=== PATIENT | female | born 2005 | race Caucasian/White ===

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

== ENCOUNTER 2024-05-02 22:05 | Emergency (ER) | payer MEDICAID, SELFPAY ==
[2024-05-02 22:06] VITALS: BP 142/99; PULSE 104; RESP 18; TEMP 36.8; O2SAT 100; BMI 43.4
--- NOTE | 2024-05-02 22:10 | RAD_ITS ---
PROCEDURE: CHEST 1 VIEW (PORTABLE) REASON FOR EXAM: Cough. TECHNIQUE: Frontal view of the chest. COMPARISON: None. FINDINGS: Cardiac size and pulmonary vasculature are within normal limits. No consolidation, pleural effusion, or pneumothorax is present. RAD/Chest 1 View (Portable) IMPRESSION: No acute cardiopulmonary process. [facility]
--- NOTE | 2024-05-03 00:02 | EDS_ITS ---
HPI History of Present Illness Chief Complaint: Cough Informant: patient and parent Narrative Narrative: Patient is a 19-year-old female with history of asthma presenting from home for worsening cough. Mother states that on Sae, 4 days ago she developed fever and croupy cough. Mother states is very deep. Her cough seem to be improving but worsened again today which is what prompted her to come to the emergency room. Patient has been using roommates nebulizer as well as taking [id number] cold and flu medicines. She also has a puffer with a spacer that she is been using. States has been eating okay. She has been having congestion and wheezing. Denies any earache, nausea vomiting or diarrhea. Her cough has been nonproductive. No recent fevers reported. No other complaints or concerns reported at this time. [facility] Medical History unable to obtain Home Medications ?Medication ?Instructions ?Recorded ?Last Taken ?Type Ranitidine [Zantac] 150 mg PO BID 07/24/18 Unkno wn History albuterol sulfate 90 mcg/actuation 2 puff inhalation Q 4H PRN PRN Sob 07/24/18 Unknown History aerosol inhaler (Ventolin HFA) &/Or Wheezing cephalexin 500 mg capsule 500 mg PO Q6 #28 caps Unknown Rx cetirizine 10 mg tablet 10 mg PO DAILY 07/24/18 Unkn own History chlorpheniramine maleate 4 mg 4 mg PO Q6H PRN PRN Hadley rgies 07/24/18 Unknown History tablet (Allergy (chlorpheniramine)) fluoxetine 10 mg capsule 10 mg PO DAILY 07/24/18 Unkn own History fluticasone propionate 44 inhalation 07/24/18 Unknown History mcg/actuation HFA aerosol inhaler (Flovent HFA) methylphenidate HCl 54 mg 54 mg PO DAILY 07/24/18 Unkn own History tablet,extended release 24 hr phenazopyridine 200 mg tablet 200 mg PO TID PRN bladde r pain 07/24/18 Unknown History (Pyridium) sulfamethoxazole 800 1 tab PO BID 07/24/18 Unknow n History
--- NOTE | 2024-05-03 00:02 | ED.VIS.DYS ---
HPI History of Present Illness Chief Complaint: Cough Informant: patient and parent Narrative Narrative: Patient is a 19-year-old female with history of asthma presenting from home for worsening cough. Mother states that on Sae, 4 days ago she developed fever and croupy cough. Mother states is very deep. Her cough seem to be improving but worsened again today which is what prompted her to come to the emergency room. Patient has been using roommates nebulizer as well as taking [id number] cold and flu medicines. She also has a puffer with a spacer that she is been using. States has been eating okay. She has been having congestion and wheezing. Denies any earache, nausea vomiting or diarrhea. Her cough has been nonproductive. No recent fevers reported. No other complaints or concerns reported at this time. [facility] Medical History unable to obtain Home Medications ?Medication ?Instructions ?Recorded ?Last Taken ?Type Ranitidine [Zantac] 150 mg PO BID 07/24/18 Unknown History albuterol sulfate 90 mcg/actuation 2 puff inhalation Q4H PRN PRN Sob 07/24/18 Unknown History aerosol inhaler (Ventolin HFA) &/Or Wheezing cephalexin 500 mg capsule 500 mg PO Q6 #28 caps 07/24/18 Unknown Rx cetirizine 10 mg tablet 10 mg PO DAILY 07/24/18 Unknown History chlorpheniramine maleate 4 mg 4 mg PO Q6H PRN PRN Allergies 07/24/18 Unknown History tablet (Allergy (chlorpheniramine)) fluoxetine 10 mg capsule 10 mg PO DAILY 07/24/18 Unknown History fluticasone propionate 44 inhalation 07/24/18 Unknown History mcg/actuation HFA aerosol inhaler (Flovent HFA) methylphenidate HCl 54 mg 54 mg PO DAILY 07/24/18 Unknown History tablet,extended release 24 hr phenazopyridine 200 mg tablet 200 mg PO TID PRN bladder pain 07/24/18 Unknown History (Pyridium) sulfamethoxazole 800 1 tab PO BID 07/24/18 Unknown History mg-trimethoprim 160 mg tablet albuterol sulfate 2.5 mg/3 mL 2.5 mg (3 mL) inhalation Q4H PRN 05/03/24 Unknown Rx (0.083 %) solution for nebulization #25 vials benzonatate 100 mg capsule 100 mg PO Q6H PRN cough #20 caps 05/03/24 Unknown Rx prednisone 20 mg tablet 40 mg (2 x 20 mg) PO DAILY #8 tabs 05/03/24 Unknown Rx Allergy/AdvReac Type Severity Reaction Status Date / Time No Known Allergies Allergy Verified 05/02/24 22:06 Social History Smoking Status: Never smoker ROS ROS ED Constitutional Constitutional ED: Reports fever(s); Denies chills Eyes Eyes: Denies change in vision ENT ENT ED: Reports other Details: Nasal congestion ; Denies sore throat Cardiovascular Cardiovascular: Denies chest pain Respiratory/Chest Respiratory/Chest: Reports cough and dyspnea; Denies sputum Gastrointestinal Gastrointestinal: Denies abdominal pain, diarrhea, nausea or vomiting Musculoskeletal Musculoskeletal: Reports myalgias; Denies arthralgias Integumentary Denies rash Neurologic Neurologic: Denies weakness EXAM Physical Exam Const Vital Signs: 05/02/24 22:06 05/03/24 00:18 05/03/24 00:18 Temperature 98.2 F Temperature Source Oral Pulse Rate 104 H Respiratory Rate 18 20 H Respiratory Effort Short of Breath Respiratory Depth Normal Respiratory Pattern Normal Blood Pressure 142/99 H Blood Pressure Mean 113 Pulse Ox 100 100 Oxygen Delivery Method Room Air Room Air Room Air Positive well nourished and well developed General Appearance ED: well developed and NAD; Negative for pallor HEENT Reports TM's clear and moist mucous membranes HEENT Narrative: Normal tympanic membranes bilaterally. Normal oropharynx. Tympanic Membrane ED: Yes TM's clear Neck supple and no JVD Resp normal respiratory effort Resp Narrative: Breath sounds in all lung felipe. Faint end expiratory wheezing present Auscultation: Negative for rhonchi or diminished lung sounds Cardio regular rate, regular rhythm and no murmurs GI non-tender and non-distended Neuro oriented x3 Sensorium / Orientation: alert Motor Exam: Negative for general weakness Psych mental status grossly normal Skin General Skin Exam: Negative for jaundice or pallor MDM MDM MDM Narrative Medical decision making narrative: Patient evaluated worsening cough and flulike symptoms for the past 4 days. Upon arrival patient's blood pressure mildly elevated 142/99 and heart rate 104. Her respiratory rate is 18 and she is on percent on room air. Differential includes influenza, pneumonia, asthma exacerbation and pneumothorax. Chest x-ray and flu swab obtained per protocol. Chest x-ray viewed by myself as well as radiology does not show any acute process. Influenza test is positive for influenza A. Suspect this is the cause of her symptoms. Patient was given aerosol treatment in the emergency room, started on prednisone as she does have a bronchial cough and with her asthma likely is developing asthma exacerbation/bronchitis. Was also given Tessalon Perles and work note. Given return precautions. Discharged home in stable condition. Radiography Chest X-Ray - ED: 1 View, Read by ED Physician, Read by Radiologist and No Acute Disease Diagnostic Testing: Clinical Impression(s) from Imaging Studies Chest X-Ray 05/02/24 22:10 IMPRESSION: No acute cardiopulmonary process. Reading Location: [facility] Discharge Plan Triage Chief Complaint: Cough ED Provider: Chayito Phillips Dx/Rx/DC Orders Clinical Impression: Influenza A, Wheezing, Cough Instructions: ED Influenza (Adult) Prescriptions: New prednisone 20 mg tablet 40 mg PO DAILY Qty: 8 0RF albuterol sulfate 2.5 mg /3 mL (0.083 %) solution for nebulization 2.5 mg inhalation Q4H PRN Qty: 25 0RF Rx Instructions: Use q4 hours and PRN for wheezing benzonatate 100 mg capsule 100 mg PO Q6H PRN (Reason: cough) Qty: 20 0RF No Action chlorpheniramine maleate [Allergy (chlorpheniramine)] 4 MG tablet 4 mg PO Q6H PRN PRN (Reason: Allergies) cetirizine 10 MG tablet 10 mg PO DAILY phenazopyridine [Pyridium] 200 MG tablet 200 mg PO TID PRN (Reason: bladder pain) methylphenidate HCl 54 MG tablet extended release 24hr 54 mg PO DAILY Patient Comments: TAKE 1 TABLET BY MOUTH EVERY MORNING FOR 30 DAYS sulfamethoxazole-trimethoprim 1 TABLET tablet 1 tab PO BID Rx Instructions: x5 days started 07/21/18 fluticasone propionate [Flovent HFA] 1 INHALER inhaler inhalation fluoxetine 10 MG capsule 10 mg PO DAILY Patient Comments: TAKE 1 CAPSULE BY MOUTH EVERY DAY albuterol sulfate [Ventolin HFA] 18 GM HFA aerosol inhaler 2 puff inhalation Q4H PRN PRN (Reason: Sob &/Or Wheezing) Patient Comments: Inhale 2 Puffs as instructed every 4 hours as needed. Ranitidine [Zantac] 150 MG tablet 150 mg PO BID cephalexin 500 MG capsule 500 mg PO Q6 Qty: 28 0RF Stand Alone Forms: ED Work / School Excuse Primary Care Provider: Rochelle Rodriguez Referrals: Rochelle Rodriguez, PRODUCER-C [Primary Care Provider] - Print Language: Kinyarwanda Disposition Disposition: Home, Self Care Discharge Date/Time: 05/03/24 00:33
[2024-05-03 00:06] VITALS: PULSE 100; RESP 20
[2024-05-03] MEDS: Ipratropium/Albuterol Sulfate 3 ML AMPUL.NEB INHALATION (00:06)
[2024-05-03 00:18] VITALS: RESP 20; O2SAT 100
[2024-05-03] MEDS: predniSONE 20 MG Tablet 40 MG PO (00:20)
== END 2024-05-03 00:33 | disposition home or self-care (01) ==
LOC: ED 05-03 00:31
PROVIDERS: Emergency Provider Emergency Medicine; PCP Nurse Practitioner Family; Visit Provider Emergency Medicine
DX: J10.1 Influenza due to other identified influenza virus with other respiratory manifestations (principal); R06.2 Wheezing; R05.9 Cough, unspecified
CPT/HCPCS: 71045; 87631; 94640; 94760; 99282

== ENCOUNTER 2024-08-25 16:11 | Emergency (ER) | payer MEDICAID, SELFPAY ==
[2024-08-25 16:12] VITALS: BP 137/99; PULSE 120; RESP 16; TEMP 36.1; O2SAT 98; BMI 43.0
--- NOTE | 2024-08-25 16:47 | EDS_ITS ---
HPI <SHAQ Kumari - Last Filed: 08/25/24 20:30> HPI - Female History of Present Illness Chief Complaint: Complaint Narrative Narrative: Patient presenting today due to dysuria that started this morning. She does have a history of UTIs and reports that this feels similar. She has had very little to drink today and reports that she has not urinated in the past 4 hours, she is scared to urinate because it hurts. She denies flank pain, fevers, chills, nausea, vomiting, and abdominal pain. She does report suprapubic discomfort. She otherwise is healthy. She denies any abnormal vaginal discharge or concerns for STDs. PFSH <SHAQ Kumari - Last Filed: 08/25/24 20:30> PFS Home Medications ?Medication ?Instructions ?Recorded ?Last Taken ?Type Ranitidine [Zantac] 150 mg PO BID 07/24/18 Unkno wn History albuterol sulfate 90 mcg/actuation 2 puff inhalation Q 4H PRN PRN Sob 07/24/18 Unknown History aerosol inhaler (Ventolin HFA) &/Or Wheezing cephalexin 500 mg capsule 500 mg PO Q6 #28 caps Unknown Rx cetirizine 10 mg tablet 10 mg PO DAILY 07/24/18 Unkn own History chlorpheniramine maleate 4 mg 4 mg PO Q6H PRN PRN Hadley rgies 07/24/18 Unknown History tablet (Allergy (chlorpheniramine)) fluoxetine 10 mg capsule 10 mg PO DAILY 07/24/18 Unkn own History fluticasone propionate 44 inhalation 07/24/18 Unknown History mcg/actuation HFA aerosol inhaler (Flovent HFA) methylphenidate HCl 54 mg 54 mg PO DAILY 07/24/18 Unkn own History tablet,extended release 24 hr phenazopyridine 200 mg tablet 200 mg PO TID PRN bladde r pain 07/24/18 Unknown History (Pyridium) sulfamethoxazole 800 1 tab PO BID 07/24/18 Unknow n History mg-trimethoprim 160 mg tablet albuterol sulfate 2.5 mg/3 mL 2.5 mg (3 mL) inhalation Q4H PRN 05/03/24 Unknown Rx (0.083 %) solution for nebulization #25 vials benzonatate 100 mg capsule 100 mg PO Q6H PRN cough #20 caps 05/03/24 Unknown Rx prednisone 20 mg tablet 40 mg (2 x 20 mg) PO DAILY # 8 tabs 05/03/24 Unknown Rx cephalexin 500 mg capsule 500 mg PO TID 7 days #20 cap s 08/25/24 Unknown Rx phenazopyridine 200 mg tablet 200 mg PO TID #10 tabs 0 08/25/24 Unknown Rx (Pyridium) Allergy/AdvReac Type Severity Reaction Status Date / Time No Known Allergies Allergy Verified 08/25/24 16:12 Social History Smoking Status: Never smoker ROS <SHAQ Kumari - Last Filed: 08/25/24 20:30> ROS ED Constitutional Constitutional ED: Denies chills or fever(s) Cardiovascular Cardiovascular: Denies chest pain Respiratory/Chest Respiratory/Chest: Denies dyspnea Gastrointestinal Gastrointestinal: Denies abdominal pain, nausea or vomiting Genitourinary Genitourinary ED: Reports dysuria; Denies hematuria Musculoskeletal Musculoskeletal: Denies back pain Integumentary Denies rash Neurologic Neurologic: Denies weakness EXAM <SHAQ Kumari - Last Filed: 08/25/24 20:30> Physical Exam Const Vital Signs: 08/25/24 16:12 08/25/24 17:12 08/25/24 18:12 Temperature 97 F L Temperature Source Temporal Pulse Rate 120 H 99 99 Respiratory Rate 16 16 18 Blood Pressure 137/99 H 123/94 H Blood Pressure Mean 111 103 Pulse Ox 98 95 100 Oxygen Delivery Method Room Air 08/25/24 19:00 08/25/24 20:00 08/25/24 20:09 Temperature 97 F L Temperature Source Pulse Rate 91 99 99 Respiratory Rate 16 16 16 Blood Pressure 132/84 H 132/84 H Blood Pressure Mean 100 100 Pulse Ox 99 99 Oxygen Delivery Method Positive well nourished, well developed and no apparent distress General Appearance ED: well developed HEENT Reports normocephalic and head/scalp atraumatic Mouth ED: Yes moist mucous membranes normal Eyes PERRL and EOMs intact bilaterally Neck full ROM and supple Chest Wall inspection of chest normal Resp normal respiratory effort and clear to auscultation bilaterally Cardio regular rate and regular rhythm GI soft to palpation, non-distended and no masses GI Narrative: Suprapubic tenderness, otherwise abdomen soft and nontender. Back/Spine normal ROM and normal to inspection General Back: Negative for CVA tenderness Extremity normal to inspection and full ROM Neuro oriented x3, CN's II-XII intact bilaterally, moves all extremities, no focal motor deficits and no sensory deficits noted Sensorium / Orientation: awake and alert Psych mental status grossly normal and thought process normal Skin no rashes or lesions noted and no wounds <Dr. Rory Davalos DO - Last Filed: 08/25/24 23:21> Physical Exam Const Vital Signs: 08/25/24 16:12 08/25/24 17:12 08/25/24 18:12 Temperature 97 F L Temperature Source Temporal Pulse Rate 120 H 99 99 Respiratory Rate 16 16 18 Blood Pressure 137/99 H 123/94 H Blood Pressure Mean 111 103 Pulse Ox 98 95 100 Oxygen Delivery Method Room Air 08/25/24 19:00 08/25/24 20:00 08/25/24 20:09 Temperature 97 F L Temperature Source Pulse Rate 91 99 99 Respiratory Rate 16 16 16 Blood Pressure 132/84 H 132/84 H Blood Pressure Mean 100 100 Pulse Ox 99 99 Oxygen Delivery Method [facility] <SHAQ Kumari - Last Filed: 08/25/24 20:30> [facility] Narrative Medical decision making narrative: Patient presenting today with dysuria that started this morning. She has had a UTI in the past and thinks this feels similar. She does not have any flank pain or CVA tenderness. She is not toxic appearing and afebrile. She has not urinated in the past 4 hours but also admits she has had very little to drink today. She was bladder scanned to rule out urinary retention and had very little in her bladder. She was given a Gatorade and water which she drink at the bedside and was then able to provide us a urine sample. Although contaminated her UA is consistent with a UTI. This was cultured and she was started on Keflex and Pyridium with first doses here. Recommended she have close follow-up with her PCP and she will be discharged home in stable condition. Lab Data Attestation: I reviewed the patient's lab results. Labs: Laboratory Results - last 24 hr 08/25/24 18:58 Urine Color Yellow Urine Clarity Cloudy Urine pH 6.0 Ur Specific [place] 1.020 Urine Protein 30 H Urine Glucose (UA) Normal Urine Ketones 5 H Urine Occult Blood 250 H Urine Nitrite Negative Urine Bilirubin Negative Urine Urobilinogen Normal Ur Leukocyte Esterase 500 H Urine RBC 10-25 SEEN Urine WBC >100 SEEN Ur Squamous Epith Cells 10-25 SEEN Urine Bacteria 2+ Urine Mucus 0 SEEN Urine Test Negative <Dr. Rory Davalos, DO - Last Filed: 08/25/24 23:21> [facility] Narrative Medical decision making narrative: Patient presenting today with dysuria that started this morning. She has had a UTI in the past and thinks this feels similar. She does not have any flank pain or CVA tenderness. She is not toxic appearing and afebrile. She has not urinated in the past 4 hours but also admits she has had very little to drink today. She was bladder scanned to rule out urinary retention and had very little in her bladder. She was given a Gatorade and water which she drink at the bedside and was then able to provide us a urine sample. Although contaminated her UA is consistent with a UTI. This was cultured and she was started on Keflex and Pyridium with first doses here. Recommended she have close follow-up with her PCP and she will be discharged home in stable condition. Attending note: I have personally performed a face to face assessment of the patient and have reviewed the RAUL note. I personally made/approved the management plan and take responsibility for the patient management. I performed a substantive portion of the visit including all aspects of the following. My francis findings include: Here with grandmother evaluation dysuria since noon states unable to urinate due to discomfort. History UTI years ago. No allergies. Exam mild suprapubic tenderness no distention. Nontoxic. Bladder scan less than 3 mL. Eventual urine obtain positive for infection and negative. Started on Pyridium and Keflex. Outpatient follow-up. Lab Data Labs: Laboratory Results - last 24 hr 08/25/24 18:58 Urine Color Yellow Urine Clarity Cloudy Urine pH 6.0 Ur Specific [place] 1.020 Urine Protein 30 H Urine Glucose (UA) Normal Urine Ketones 5 H Urine Occult Blood 250 H Urine Nitrite Negative Urine Bilirubin Negative Urine Urobilinogen Normal Ur Leukocyte Esterase 500 H Urine RBC 10-25 SEEN Urine WBC >100 SEEN Ur Squamous Epith Cells 10-25 SEEN Urine Bacteria 2+ Urine Mucus 0 SEEN Urine Test Negative Discharge Plan Triage Chief Complaint: Complaint ED Midlevel Provider: Jennifer Pruett ED Provider: Rory Davalos Dx/Rx/DC Orders Clinical Impression: UTI (urinary tract infection) Instructions: UTIs Prescriptions: New cephalexin 500 mg capsule 500 mg PO TID 7 Days Qty: 20 0RF phenazopyridine [Pyridium] 200 mg tablet 200 mg PO TID Qty: 10 0RF No Action chlorpheniramine maleate [Allergy (chlorpheniramine)] 4 MG tablet 4 mg PO Q6H PRN PRN (Reason: Allergies) cetirizine 10 MG tablet 10 mg PO DAILY phenazopyridine [Pyridium] 200 MG tablet 200 mg PO TID PRN (Reason: bladder pain) methylphenidate HCl 54 MG tablet extended release 24hr 54 mg PO DAILY Patient Comments: TAKE 1 TABLET BY MOUTH EVERY MORNING FOR 30 DAYS sulfamethoxazole-trimethoprim 1 TABLET tablet 1 tab PO BID Rx Instructions: x5 days started 07/21/18 fluticasone propionate [Flovent HFA] 1 INHALER inhaler inhalation fluoxetine 10 MG capsule 10 mg PO DAILY Patient Comments: TAKE 1 CAPSULE BY MOUTH EVERY DAY albuterol sulfate [Ventolin HFA] 18 GM HFA aerosol inhaler 2 puff inhalation Q4H PRN PRN (Reason: Sob &/Or Wheezing) Patient Comments: Inhale 2 Puffs as instructed every 4 hours as needed. Ranitidine [Zantac] 150 MG tablet 150 mg PO BID cephalexin 500 MG capsule 500 mg PO Q6 Qty: 28 0RF prednisone 20 mg tablet 40 mg PO DAILY Qty: 8 0RF albuterol sulfate 2.5 mg /3 mL (0.083 %) solution for nebulization 2.5 mg inhalation Q4H PRN Qty: 25 0RF Rx Instructions: Use q4 hours and PRN for wheezing benzonatate 100 mg capsule 100 mg PO Q6H PRN (Reason: cough) Qty: 20 0RF Primary Care Provider: Rochelle Rodriguez Referrals: Rochelle Rodriguez NP-C [Primary Care Provider] - 5-7 Days Activity Restrictions/Additional Instructions: Follow-up with your PCP and return for any other concerns or worsening symptoms. Stay well-hydrated. Print Language: Macedonian Disposition Disposition: Home, Self Care Discharge Date/Time: 08/25/24 20:10
[2024-08-25 17:12] VITALS: PULSE 99; RESP 16; O2SAT 95
[2024-08-25 18:12] VITALS: BP 123/94; PULSE 99; RESP 18; O2SAT 100
[2024-08-25 19:00] VITALS: BP 132/84; PULSE 91; RESP 16; O2SAT 99
[2024-08-25 19:10] LABS: Mucous, Urine 0 SEEN /hpf (<or=2+)
[2024-08-25 19:19] LABS: Color, Urine Yellow (Yellow); Glucose, Dipstick Normal (Normal); Ketone-Dipstick 5 mg/dl (Negative); Leukocyte Esterase-Dipstick 500 /ul (Negative); Nitrite-Dipstick Negative (Negative); Occult Blood-Urine 250 /ul (Negative); Protein-Dipstick 30 mg/dl (Negative); Urine Bilirubin Dipstick Negative (Negative); Urine Clarity Cloudy (Clear); Urine Urobilinogen Normal (Normal)
--- OUTSIDE RECORDS SUMMARY | 2024-08-25 19:24 | XMS RPT_ITS | CCD ---
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 Name Role Phone Gray García DO Primary Care Provider Knoble [employer].Braden CASTRO Primary Care Provider Jabari [employer].Braden CASTRO Primary Care Provider Jabari, Braden Primary Care Unavailable Chayito Phillips Attending Unavailable KNBRADEN SIFUENTES Attending Unavailable KNOBLE, BRADEN Primary Care Unavailable BREANNA RIVERA Referring Unavailable KNOBLE, BRADEN Primary Care Unavailable BRADEN BARBOZA Attending Unavailable KNOBLE, BRADEN Primary Care Unavailable KNOBLE, BRADEN Primary Care Unavailable KNOBLE, BRADEN Referring Unavailable EVAN DOMINIQUE Referring Unavailable KNOBLE, BRADEN Primary Care Unavailable GRAY MENARD Attending Unavailable KNOBLE, BRADEN Primary Care Unavailable KNOBLE, BRADEN Attending Unavailable EVAN DOMINIQUE Attending Unavailable KNOBLE, BRADEN Primary Care Unavailable KNOBLE, BRADEN Primary Care Unavailable KNOBLE, BRADEN Primary Care Unavailable KNOBLE, BRADEN Primary Care Unavailable KNOBLE, BRADEN Referring Unavailable KNOBLE, BRADEN Primary Care Unavailable Medications Current Medications Medication Drug Class(es) Dates Sig (Normalized) Sig (Original) [id number] 200 actuat albuterol 0.09 mg/actuat metered dose inhaler (20 sources) beta2-Adrenergic Agonist Start: 09-11-2020 End: 09-21-2022 take 2 puff(s) by inhalation every four hours as needed albuterol HFA (VENTOLIN HFA) 90 mcg/actuation inhaler Inhale 2 Puffs as instructed every 4 hours as needed. 1 Each 3 09/21/2022 Active Comment on above: Inhale 2 Puffs as in structed every 4 hours as needed. amoxicillin 875 mg / clavulanate 125 mg oral tablet (1 source) Penicillin-class Antibacterial Start: 06-14-2023 End: 06-21-2023 take 1 tablet by mouth twice daily amoxicillin-clavula keyur potassium (AUGMENTIN) 875-125 mg per tablet Indications: Rhinosinusitis Take 1 tablet by mouth two times a day for 7 days. 14 tablet 0 06/14/2023 06/21/2023 Active Comment on above: Take 1 tablet by hamida th two times a day for 7 days. drospirenone / Ethinyl Estradiol (20 sources) Progestin, Estrogen Start: 03-13-2024 take 1 tablet by mouth once daily Drospirenone-Ethiny l Estradiol (IVONE, 28,) 3-0.02 mg per tablet Indications: PCOS (polycystic ovarian syndrome) Take 1 tablet by mouth once daily. 84 tablet 3 03/13/2024 Active Start: 10-11-2023 End: 03-13-2024 take 1 tablet by mouth once daily Drospirenone-Ethinyl Estradiol (IVONE, 28,) 3-0.02 mg per tablet Take 1 tablet by mouth once daily. 84 tablet 3 10/11/2023 03/13/2024 Discontinued Start: 10-11-2023 take 1 tablet by hamida th once daily Drospirenone-Ethinyl Estradiol (IVONE, 28,) 3-0.02 mg per tablet Take 1 tablet by mouth once daily. 84 tablet 3 10/11/2023 Active Start: 09-21-2022 End: 10-11-2023 take 1 tablet by mouth once daily Drospirenone-Ethinyl Estradiol (IVONE, 28,) 3-0.02 mg per tablet Take 1 tablet by mouth once daily. 84 tablet 3 09/21/2022 10/11/2023 Discontinued Start: 09-21-2022 take 1 tablet by hamida th once daily Drospirenone-Ethinyl Estradiol (IVONE, 28,) 3-0.02 mg per tablet Take 1 tablet by mouth once daily. 84 tablet 3 09/21/2022 Active Start: 01-01-2022 End: 09-21-2022 take 1 tablet by mouth once daily Drospirenone-Ethinyl Estradiol (VIONE, 28,) 3-0.02 mg per tablet Take 1 tablet by mouth once daily. 84 tablet 3 01/01/2022 09/21/2022 Discontinued Start: 01-01-2022 take 1 tablet by hamida th once daily Drospirenone-Ethinyl Estradiol (IVONE, 28,) 3-0.02 mg per tablet Take 1 tablet by mouth once daily. 84 tablet 3 01/01/2022 Active Start: 12-09-2021 take 1 tablet by hamida th once daily Drospirenone-Ethinyl Estradiol (IVONE, 28,) 3-0.02 mg per tablet Take 1 tablet by mouth once daily. 28 tablet 0 12/09/2021 Active Start: 11-10-2021 End: 12-08-2021 take 1 tablet by mouth once daily Drospirenone-Ethinyl Estradiol (IVONE, 28,) 3-0.02 mg per tablet Take 1 tablet by mouth once daily. 28 tablet 1 11/10/2021 12/08/2021 Discontinued Start: 11-10-2021 take 1 tablet by hamida th once daily Drospirenone-Ethinyl Estradiol (IVONE, 28,) 3-0.02 mg per tablet Take 1 tablet by mouth once daily. 28 tablet 1 11/10/2021 Active Start: 09-11-2020 take 1 tablet by hamida th once daily Drospirenone-Ethinyl Estradiol (IVONE, 28,) 3-0.02 mg per tablet Take 1 tablet by mouth once daily. 3 Package 3 09/11/2020 Active Comment on above: Take 1 tablet by hamida th once daily. dulaglutide (TRULICITY) 4.5 mg/0.5 mL pen injector (20 sources) Start: 07-17-2024 dulaglutide (TRULICITY) 4.5 mg/0.5 mL pen injector Indications: Obesity, Class III, BMI 40-49.9 (morbid obesity) , PCOS (polycystic ovarian syndrome) Inject 4.5 mg subcutaneously one time a week. Inject once per week. Discard Pen After 2 mL 2 07/17/2024 Active Start: 04-27-2024 End: 07-17-2024 dulaglutide (TRULICITY) 4.5 mg/0.5 mL pen injector Indications: Obesity, Class III, BMI 40-49.9 (morbid obesity) , PCOS (polycystic ovarian syndrome) Inject 4.5 mg subcutaneously one time a week. Inject once per week. Discard Pen After 2 mL 2 04/27/2024 07/17/2024 Discontinued Start: 04-27-2024 dulaglutide (T RULICITY) 4.5 mg/0.5 mL pen injector Indications: Obesity, Class III, BMI 40-49.9 (morbid obesity) (HCC) , PCOS (polycystic ovarian syndrome) Inject 4.5 mg subcutaneously one time a week. Inject once per week. Discard Pen After 2 mL 2 04/27/2024 Active Start: 03-13-2024 End: 04-26-2024 dulaglutide (TRULICITY) 4.5 mg/0.5 mL pen injector Indications: Obesity, Class III, BMI 40-49.9 (morbid obesity) (HCC) , PCOS (polycystic ovarian syndrome) Inject 4.5 mg subcutaneously one time a week. Inject once per week. Discard Pen After 2 mL 2 03/13/2024 04/26/2024 Discontinued Start: 03-13-2024 dulaglutide (T RULICITY) 4.5 mg/0.5 mL pen injector Indications: Obesity, Class III, BMI 40-49.9 (morbid obesity) (HCC) , PCOS (polycystic ovarian syndrome) Inject 4.5 mg subcutaneously one time a week. Inject once per week. Discard Pen After 2 mL 2 03/13/2024 Active Start: 03-07-2024 End: 03-13-2024 dulaglutide (TRULICITY) 4.5 mg/0.5 mL pen injector Indications: Obesity, Class III, BMI 40-49.9 (morbid obesity) (HCC) , PCOS (polycystic ovarian syndrome) Inject 4.5 mg subcutaneously one time a week. Inject once per week. Discard Pen After 2 mL 2 03/07/2024 03/13/2024 Discontinued Start: 03-07-2024 dulaglutide (T RULICITY) 4.5 mg/0.5 mL pen injector Indications: Obesity, Class III, BMI 40-49.9 (morbid obesity) (HCC) , PCOS (polycystic ovarian syndrome) Inject 4.5 mg subcutaneously one time a week. Inject once per week. Discard Pen After 2 mL 2 03/07/2024 Active Start: 07-13-2023 End: 09-06-2023 inject 4.5 mg by subcutaneous injection every week dulaglutide (TRULICITY) 4.5 mg/0.5 mL pen injector Inject 4.5 mg subcutaneously one time a week. 2 mL 3 07/13/2023 09/06/2023 Discontinued Start: 07-13-2023 inject 4.5 mg by sub cutaneous injection every week dulaglutide (TRULICITY) 4.5 mg/0.5 mL pen injector Inject 4.5 mg subcutaneously one time a week. 2 mL 3 07/13/2023 Active famotidine 40 mg oral tablet (20 sources) Histamine-2 Receptor Antagonist Start: 02-28-2024 End: 03-13-2024 take 1 tablet by mouth once daily at bedtime famotidine (PEPCID) 40 mg tablet Indications: Gastroesophageal reflux disease without esophagitis Take 1 tablet by mouth daily at bedtime. 90 tablet 1 03/13/2024 Active Start: 10-23-2023 End: 02-26-2024 take 1 tablet by mouth once daily at bedtime famotidine (PEPCID) 40 mg tablet Take 1 tablet by mouth daily at bedtime. 30 tablet 01/21/2024 02/26/2024 Discontinued Start: 04-14-2023 take 1 tablet by hamida th once daily at bedtime famotidine (PEPCID) 40 mg tablet Take 1 tablet by mouth daily at bedtime. 30 tablet 5 04/14/2023 Active Start: 02-19-2021 End: 09-08-2022 take 1 tablet by mouth once daily at bedtime famotidine (PEPCID) 40 mg tablet Take 1 tablet by mouth daily at bedtime. 30 tablet 5 09/08/2022 Active Comment on above: Take 1 tablet by hamida th daily at bedtime. FLUoxetine 20 mg oral capsule (20 sources) Serotonin Reuptake Inhibitor Start: 04-14-2023 End: 03-13-2024 take 1 capsule by mouth once daily FLUoxetine (PROZAC) 20 mg capsule Indications: Severe depression (HCC) Take 1 capsule by mouth once daily. 30 capsule 5 03/13/2024 Active Start: 04-07-2021 End: 09-21-2022 take 1 capsule by mouth once daily FLUoxetine (PROZAC) 20 mg capsule Take 1 capsule by mouth once daily. 30 capsule 5 09/21/2022 Active Comment on above: Take 1 capsule by mo uth once daily. metFORMIN hydrochloride 500 mg oral tablet (20 sources) Biguanide Start: 08-09-2023 End: 03-13-2024 take 1 tablet by mouth twice daily metFORMIN (GLUCOPHAGE) 500 mg tablet Indications: PCOS (polycystic ovarian syndrome) Take 1 tablet by mouth two times a day. 180 tablet 3 03/13/2024 Active Start: 10-31-2020 End: 08-07-2023 take 1 tablet by mouth twice daily metFORMIN (GLUCOPHAGE) 500 mg tablet Take 1 tablet by mouth twice daily. 180 tablet 3 09/21/2022 08/07/2023 Discontinued Comment on above: Take 1 tablet by hamida twice daily. bx rating 24 hr methylphenidate hydrochloride 54 mg extended release oral tablet (20 sources) Central Nervous System Stimulant Start: 08-08-19 End: 09-07-19 take 1 tablet by mouth once daily methylphenidate ER (CONCERTA) 54 mg biphasic tablet Indications: Attention deficit hyperactivity disorder (ADHD), predominantly inattentive type Take 1 tablet by mouth once daily for 30 days. 30 tablet 08/07/2024 09/06/2024 Active Start: 02-28-2024 End: 08-05-2024 take 1 tablet by mouth once daily methylphenidate ER (CONCERTA) 54 mg biphasic tablet Indications: Attention deficit hyperactivity disorder (ADHD), predominantly inattentive type Take 1 tablet by mouth once daily for 30 days. 30 tablet 07/06/2024 08/05/2024 Discontinued Start: 11-23-2023 End: 02-20-2024 methylphenidate ER (CONCERTA ) 54 mg biphasic tablet Indications: Attention deficit hyperactivity disorder (ADHD), predominantly inattentive type Take 1 tablet by mouth once daily for 30 days. Patient should start on December 23, 2023. 30 tablet 12/23/2023 01/21/2024 Discontinued Start: 08-09-2023 End: 11-11-2023 take 1 tablet by mouth once daily methylphenidate ER (CONCERTA) 54 mg biphasic tablet Indications: Attention deficit disorder, unspecified hyperactivity presence Take 1 tablet by mouth once daily for 30 days. 30 tablet 0 10/12/2023 11/11/2023 Active Start: 03-17-2023 End: 08-04-2023 take 1 tablet by mouth once daily methylphenidate ER (CONCERTA) 54 mg biphasic tablet Indications: Attention deficit disorder, unspecified hyperactivity presence Take 1 tablet by mouth once daily for 30 days. 30 tablet 0 07/05/2023 08/04/2023 Active Start: 03-17-2023 take 1 tablet by hamida th once daily in the morning methylphenidate ER 54 mg biphasic tablet Indications: Attention deficit disorder, unspecified hyperactivity presence Take 1 tablet by mouth every morning. Do not start before March 17, 2023. 30 tablet 0 03/17/2023 Active Start: 01-21-2023 End: 06-04-2023 take 1 tablet by mouth once daily in the morning methylphenidate ER 54 mg biphasic tablet Indications: Attention deficit disorder, unspecified hyperactivity presence Take 1 tablet by mouth every morning. 30 tablet 0 02/15/2023 06/04/2023 Discontinued Start: 11-25-2022 take 1 tablet by hamida th once daily in the morning methylphenidate ER 54 mg biphasic tablet Indications: Attention deficit disorder, unspecified hyperactivity presence Take 1 tablet by mouth every morning. 30 tablet 0 11/25/2022 Active Start: 10-07-2022 End: 11-20-2022 take 1 tablet by mouth once daily in the morning methylphenidate ER 54 mg biphasic tablet Indications: Attention deficit disorder, unspecified hyperactivity presence Take 1 tablet by mouth every morning. Do not start before October 07, 2022. 30 tablet 0 10/07/2022 11/20/2022 Discontinued Start: 10-07-2022 take 1 tablet by hamida th once daily in the morning methylphenidate ER 54 mg biphasic tablet Indications: Attention deficit disorder, unspecified hyperactivity presence Take 1 tablet by mouth every morning. Do not start before October 07, 2022. 30 tablet 0 10/07/2022 Active Start: 10-07-2022 take 1 tablet by hamida th once daily in the morning methylphenidate ER 54 mg biphasic tablet Indications: Attention deficit disorder, unspecified hyperactivity presence Take 1 tablet by mouth every morning. Do not start before October 07, 2022. 30 tablet 0 10/07/2022 Active Start: 05-24-2021 End: 03-04-2022 take 1 tablet by mouth once daily methylphenidate (RITALIN) 20 mg tablet Indications: Attention deficit disorder, unspecified hyperactivity presence Take 1 tablet by mouth daily in the late afternoon for 30 days. 30 tablet 0 09/01/2021 03/04/2022 Discontinued Start: 05-12-2021 End: 09-21-2022 take 1 tablet by mouth once daily in the morning methylphenidate ER 54 mg biphasic tablet Indications: Attention deficit disorder, unspecified hyperactivity presence Take 1 tablet by mouth every morning. 30 tablet 0 09/08/2022 09/21/2022 Discontinued Comment on above: Take 1 tablet by hamida th every morning for 30 days. Do not start before June 11, 2021. Take 1 tablet by hamida th every morning for 30 days. Do not start before July 13, 2021. Take 1 tablet by hamida th once daily for 30 days. Take 1 tablet by hamida th daily in the late afternoon for 30 days. Take 1 tablet by hamida th every morning for 30 days. Take 1 tablet by hamida th every morning for 30 days. Do not start before February 20, 2022. Take 1 tablet by hamida th every morning for 30 days. Do not start before March 22, 2022. Take 1 tablet by hamida th every morning for 30 days. Do not start before July 17, 2022. Take 1 tablet by hamida th every morning. Do not start before October 07, 2022. Take 1 tablet by hamida th every morning. TAKE 1 TABLET BY HAMIDA TH EVERY MORNING Take 1 tablet by hamida th every morning. Do not start before March 17, 2023. montelukast 10 mg oral tablet (20 sources) Leukotriene Receptor Antagonist Start: End: take 1 tablet by mouth once daily at bedtime montelukast (SINGULAIR) 10 mg tablet Indications: Asthma, moderate persistent, well-controlled (HCC) Take 1 tablet by mouth daily at bedtime. 90 tablet 1 03/13/2024 Active Start: 06-04-2023 End: 11-27-2023 take 1 tablet by mouth once daily at bedtime montelukast (SINGULAIR) 10 mg tablet Indications: Asthma, moderate persistent, well-controlled Take 1 tablet by mouth daily at bedtime. 90 tablet 1 06/04/2023 11/27/2023 Discontinued Comment on above: Take 1 tablet by mouth daily at bedtime. ofloxacin 3 mg/ml otic solution (3 sources) Quinolone Antimicrobial Start: End: ofloxacin (FLOXIN) 0.3 % otic solution Indications: Acute otitis externa of left ear, unspecified type Use 5 Drops in the left ear once daily for 7 days. 10 mL 0 06/30/2023 07/07/2023 Active Comment on above: Use 5 Drops in the left ear once daily f or 7 days. omega-3 DHA-EPA (FISH OIL) 1,200 (144-216) mg capsule (10 sources) Start: take 2 capsules by mouth once daily at breakfast omega-3 DHA-EPA (FISH OIL) 1,200 (144-216) mg capsule Indications: Hypertriglyceridemia Take 2 capsules by mouth daily with breakfast. 180 capsule 1 03/13/2024 Active Start: 03-10-2024 End: 03-13-2024 take 2 capsules by mouth once daily at breakfast omega-3 DHA-EPA (FISH OIL) 1,200 (144-216) mg capsule Indications: Hypertriglyceridemia Take 2 capsules by mouth daily with breakfast. 180 capsule 1 03/10/2024 03/13/2024 Discontinued Start: 03-10-2024 take 2 capsules by m outh once daily at breakfast omega-3 DHA-EPA (FISH OIL) 1,200 (144-216) mg capsule Indications: Hypertriglyceridemia Take 2 capsules by mouth daily with breakfast. 180 capsule 1 03/10/2024 Active simvastatin 5 mg oral tablet (3 sources) HMG-CoA Reductase Inhibitor Start: 06-06-2024 take 1 tablet by mouth once daily at bedtime simvastatin (ZOCOR) 5 mg tablet Indications: Hypertriglyceridemia , Hyperlipidemia, mixed Take 1 tablet by mouth daily at bedtime. 90 tablet 1 06/06/2024 Active Completed/Discontinued Medications Medication Drug Class(es) Dates Sig (Normalized) Sig (Original) cetirizine hydrochloride 10 mg oral tablet (20 sources) Histamine-1 Receptor Antagonist Start: 08-11-2022 End: 06-04-2023 take 1 tablet by mouth once daily cetirizine (ZYRTEC) 10 mg tablet Take 1 tablet by mouth once daily. 30 tablet 6 08/11/2022 06/04/2023 Discontinued Start: 03-30-2022 take 1 tablet by hamida once daily cetirizine (ZYRTEC) 10 mg tablet Take 1 tablet by mouth once daily. 30 tablet 6 03/30/2022 Active Start: 10-30-2020 End: 03-28-2022 take 1 tablet by mouth once daily cetirizine (ZYRTEC) 10 mg tablet Take 1 tablet by mouth once daily. 30 tablet 6 07/28/2021 03/28/2022 Discontinued Comment on above: Take 1 tablet by hamida th once daily. 0.5 ml dulaglutide 3 mg/ml auto-injector (13 sources) GLP-1 Receptor Agonist Start: 09-06-2023 End: 11-20-2023 dulaglutide (TRULICITY) 1.5 mg/0.5 mL pen injector Indications: Obesity, Class III, BMI 40-49.9 (morbid obesity) (HCC) , PCOS (polycystic ovarian syndrome) Inject 4.5 mg subcutaneously one time a week. Inject once per week. Discard Pen After 6 mL 2 09/06/2023 11/20/2023 Discontinued Start: 12-30-2022 dulaglutide (T RULICITY) 0.75 mg/0.5 mL pen injector Inject 0.75 mg subcutaneously one time a week. for 4 weeks then increase to 1.5 mg dose. 2 mL 0 12/30/2022 Active Start: 12-30-2022 inject 1.5 mg by sub cutaneous injection every week dulaglutide (TRULICITY) 1.5 mg/0.5 mL pen injector Inject 1.5 mg subcutaneously one time a week. Start 1 week after last 1.5 mg dose. 2 mL 2 12/30/2022 Active Comment on above: Inject 0.75 mg subcu taneously one time a week. for 4 weeks then increase to 1.5 mg dose. Inject 1.5 mg subcut aneously one time a week. Start 1 week after last 1.5 mg dose. dulaglutide (TRULICITY) 3 mg/0.5 mL pen injector (20 sources) Start: 01-13-2024 End: 03-07-2024 dulaglutide (TRULICITY) 3 mg/0.5 mL pen injector Indications: Obesity, Class III, BMI 40-49.9 (morbid obesity) (HCC) , PCOS (polycystic ovarian syndrome) Inject 3 mg subcutaneously one time a week. Inject once per week. Discard Pen After 2 mL 01/13/2024 03/07/2024 Discontinued Start: 01-13-2024 dulaglutide (T RULICITY) 3 mg/0.5 mL pen injector Indications: Obesity, Class III, BMI 40-49.9 (morbid obesity) (HCC) , PCOS (polycystic ovarian syndrome) Inject 3 mg subcutaneously one time a week. Inject once per week. Discard Pen After 2 mL 01/13/2024 Active Start: 12-14-2023 End: 01-11-2024 dulaglutide (TRULICITY) 3 mg /0.5 mL pen injector Indications: Obesity, Class III, BMI 40-49.9 (morbid obesity) (HCC) , PCOS (polycystic ovarian syndrome) Inject 3 mg subcutaneously one time a week. Inject once per week. Discard Pen After 2 mL 12/14/2023 01/11/2024 Discontinued Start: 12-14-2023 dulaglutide (T RULICITY) 3 mg/0.5 mL pen injector Indications: Obesity, Class III, BMI 40-49.9 (morbid obesity) (HCC) , PCOS (polycystic ovarian syndrome) Inject 3 mg subcutaneously one time a week. Inject once per week. Discard Pen After 2 mL 12/14/2023 Active Start: 11-23-2023 End: 12-14-2023 dulaglutide (TRULICITY) 3 mg /0.5 mL pen injector Indications: Obesity, Class III, BMI 40-49.9 (morbid obesity) (HCC) , PCOS (polycystic ovarian syndrome) Inject 3 mg subcutaneously one time a week. Inject once per week. Discard Pen After 2 mL 11/23/2023 12/14/2023 Discontinued Start: 11-23-2023 dulaglutide (T RULICITY) 3 mg/0.5 mL pen injector Indications: Obesity, Class III, BMI 40-49.9 (morbid obesity) (HCC) , PCOS (polycystic ovarian syndrome) Inject 3 mg subcutaneously one time a week. Inject once per week. Discard Pen After 2 mL 11/23/2023 Active Start: 06-04-2023 End: 07-13-2023 inject 3 mg by subcutaneous injection every week dulaglutide (TRULICITY) 3 mg/0.5 mL pen injector Inject 3 mg subcutaneously one time a week. 2 mL 1 06/04/2023 07/13/2023 Discontinued Start: 06-04-2023 End: 09-02-2023 inject 3 mg by subcutaneous injection every week dulaglutide (TRULICITY) 3 mg/0.5 mL pen injector Inject 3 mg subcutaneously one time a week. 2 mL 1 06/04/2023 09/02/2023 Active Start: 04-12-2023 End: 06-04-2023 inject 3 mg by subcutaneous injection every week dulaglutide (TRULICITY) 3 mg/0.5 mL pen injector Inject 3 mg subcutaneously one time a week. 2 mL 1 04/12/2023 06/04/2023 Discontinued Start: 04-12-2023 End: 07-11-2023 inject 3 mg by subcutaneous injection every week dulaglutide (TRULICITY) 3 mg/0.5 mL pen injector Inject 3 mg subcutaneously one time a week. 2 mL 1 04/12/2023 07/11/2023 Active Comment on above: Inject 3 mg subcutan eously one time a week. Problems Active Problems Problem Classification Problem Date Documented Date Episodic/Chronic Anxiety disorders (1 source) Generalized anxiety disorder; Translations: [Generalized anxiety disorder] Chronic Asthma (20 sources) Asthma; Translations: [Unspecified asthma, uncomplicated] Onset: 07-17-2017 Resolved: 07-01-2018 07-01-2018 Chronic Attention-deficit, conduct, and disruptive behavior disorders (20 sources) Attention deficit hyperactivity disorder; Translations: [Attention-deficit hyperactivity disorder, unspecified type] Onset: 05-31-2018 05-31-2018 Chronic Attention-deficit, conduct, and disruptive behavior disorders (1 source) Attention-deficit hyperactivity disorder, predominantly inattentive type; Translations: [Attention deficit hyperactivity disorder (ADHD), predominantly inattentive type] Onset: 05-31-2018 Chronic Coma; stupor; and brain damage (1 source) Daytime somnolence; Translations: [Somnolence] 12-30-2022 Episodic Developmental disorders (20 sources) Intellectual disability; Translations: [Unspecified intellectual disabilities] Onset: 08-30-2015 05-31-2018 Chronic Diseases of white blood cells (1 source) Leukocytosis; Translations: [Elevated white blood cell count, unspecified] 06-14-2023 Chronic Disorders of lipid metabolism (18 sources) Hypertriglyceridemia; Translations: [Pure hyperglyceridemia] Onset: 03-08-2024 03-08-2024 Chronic Disorders usually diagnosed in infancy, childhood, or adolescence (20 sources) Attention deficit hyperactivity disorder, predominantly inattentive type; Translations: [Other specified behavioral and emotional disorders with onset usually occurring in childhood and adolescence] Onset: 09-06-2023 Chronic Esophageal disorders (3 sources) Gastroesophageal reflux disease without esophagitis; Translations: [Gastro-esophageal reflux disease without esophagitis] Onset: 03-07-2024 03-07-2024 Chronic Genitourinary symptoms and ill-defined conditions (20 sources) Overflow incontinence of urine; Translations: [Overflow incontinence] Onset: 08-30-2015 08-30-2015 Chronic Joint disorders and dislocations; trauma-related (20 sources) Disorder of right patellofemoral joint; Translations: [Patellofemoral disorders, right knee] Onset: 03-04-2022 Chronic Mood disorders (20 sources) Recurrent depression; Translations: [Major depressive disorder, recurrent, unspecified] Onset: 06-04-2023 06-04-2023 Chronic Other aftercare (1 source) Other fdc (current) drug therapy; Translations: [Medication management] Onset: 06-05-2024 Episodic Other diseases of bladder and urethra (1 source) Overactive bladder; Translations: [Overactive bladder] Chronic Other ear and sense organ disorders (1 source) Acute otitis externa of left ear; Translations: [Unspecified acute noninfective otitis externa, left ear] 06-30-2023 Episodic Other endocrine disorders (20 sources) Polycystic ovary syndrome; Translations: [Polycystic ovarian syndrome] Onset: 12-30-2022 12-30-2022 Chronic Other endocrine disorders (1 source) Polycystic ovarian syndrome; Translations: [PCOS (polycystic ovarian syndrome)] Onset: 12-30-2022 Chronic Other lower respiratory disease (1 source) Snoring; Translations: [Snoring] 12-30-2022 Episodic Other nutritional; endocrine; and metabolic disorders (20 sources) Obesity; Translations: [Other obesity due to excess calories] Onset: 08-30-2015 08-30-2015 Chronic Other nutritional; endocrine; and metabolic disorders (1 source) Childhood obesity; Translations: [Morbid (severe) obesity due to excess calories] Chronic Other nutritional; endocrine; and metabolic disorders (6 sources) Severe obesity; Translations: [Morbid (severe) obesity due to excess calories] Chronic Other nutritional; endocrine; and metabolic disorders (20 sources) Obesity caused by energy imbalance; Translations: [Other obesity due to excess calories] Onset: 08-30-2015 08-30-2015 Chronic Other nutritional; endocrine; and metabolic disorders (20 sources) Body mass index 40+ - severely obese; Translations: [Morbid (severe) obesity due to excess calories] Onset: 09-21-2022 09-21-2022 Chronic Other nutritional; endocrine; and metabolic disorders (2 sources) Morbid (severe) obesity due to excess calories; Translations: [Obesity, Class III, BMI 40-49.9 (morbid obesity) (HCC)] Onset: 08-30-2015 Chronic Other nutritional; endocrine; and metabolic disorders (1 source) Body mass index (BMI) 40.0-44.9, adult; Translations: [Class 3 severe obesity due to excess calories without serious comorbidity with body mass index (BMI) of 40.0 to 44.9 in adult ([facility])] Onset: 08-30-2015 Chronic Other upper respiratory disease (1 source) Allergic rhinitis; Translations: [Allergic rhinitis, unspecified] 06-04-2023 Chronic Other upper respiratory infections (1 source) Chronic sinusitis, unspecified; Translations: [Unspecified sinusitis (chronic)] 06-14-2023 Chronic Residual codes; unclassified (1 source) Sleep apnea; Translations: [Sleep apnea, unspecified] 12-30-2022 Chronic Unclassified (1 source) Cough, unspecified; Translations: [Cough, unspecified] Onset: 05-19-2024 Past or Other Problems Problem Classification Problem Date Documented Da te Episodic/Chronic Acquired foot deformities (20 sources) Acquired bilateral pes planus; Translations: [Flat foot [pes planus] (acquired), right foot] Onset: 05-14-2021 05-14-2021 Episodic Immunizations and screening for infectious disease (15 sources) Patient encounter status; Translations: [Encounter for immunization] Onset: 03-07-2024 Episodic Other gastrointestinal disorders (20 sources) Encopresis with constipation AND overflow incontinence; Translations: [Full incontinence of feces] Onset: 08-30-2015 08-30-2015 Episodic Other nutritional; endocrine; and metabolic disorders (20 sources) Childhood obesity; Translations: [Body mass index (BMI) pediatric, greater than or equal to 95th percentile for age] Onset: 01-15-2017 01-15-2017 Episodic Other screening for suspected conditions (not mental disorders or infectious disease) (2 sources) Encounter for screening for lipoid disorders; Translations: [Encounter for screening for cardiovascular disorders] Onset: 03-07-2024 Episodic Results Test Name Value Interpretation Reference Range Facility Basic metabolic 2000 panelon 06-05-2024 Anion gap [Moles/Vol] 15 mmol/L Normal 8-15 [facility] Comment on above: Order Comment: Speci men Type: BLOOD SPECIMENOrdering Facility: [facility] Address: [address] [place] [address] Performed By: #### 2 4321-2, LIPNF ####[facility] LABCLIA [id number] [place] [address] [place] Calcium [Mass/Vol] 10.0 mg/dL Normal 8.5-10.2 [facility] Comment on above: Order Comment: Speci men Type: BLOOD SPECIMENOrdering Facility: [facility] Address: [address] [place] [address] Performed By: #### 2 4321-2, LIPNF ####[facility] LABCLIA [id number] [place] [address] [place] Chloride [Moles/Vol] 101 mmol/L Normal 98-107 [facility] Comment on above: Order Comment: Speci men Type: BLOOD SPECIMENOrdering Facility: [facility] Address: [address] [place] [address] Performed By: #### 2 4321-2, LIPNF ####[facility] LABCLIA [id number] [place] [address] [place] CO2 [Moles/Vol] 23 mmol/L Normal 22-30 [facility] Comment on above: Order Comment: Speci men Type: BLOOD SPECIMENOrdering Facility: [facility] Address: [address] [place] [address] Performed By: #### 2 4321-2, LIPNF ####[facility] LABIA [id number] [address] STATES OF [facility] Creatinine [Mass/Vol] 0.61 mg/dL Normal 0.58-0.96 [facility] Comment on above: Order Comment: Speci men Type: BLOOD SPECIMENOrdering Facility: [facility] Address: [address] [place] [address] Performed By: #### 2 4321-2, LIPNF ####[facility] LABIA [id number] [address] OF [facility] Creatinine and Glomerular filtration rate.predicted panel (S/P/Bld) 131 mL/min/1.73m??? Normal >=60 [facility] Comment on above: Order Comment: Cal men Type: BLOOD SPECIMENOrdering Facility: [facility] Address: [address] [place] [address] Result Comment: Rhea mated Glomerular Filtration Rate (eGFR) is calculated using the 2020 CKD-EPI creatinine equation. This equation utilizes serum creatinine, sex, and age as parameters. The creatinine assay has traceable calibration to isotope dilution-mass spectrometry. Refer to KDIGO guidelines for clinical interpretation. In patients with unstable renal function, e.g. those with acute kidney injury, the eGFR may not accurately reflect actual GFR. Performed By: #### 2 4321-2, LIPNF ####[facility] LABIA [id number] [place] [address] [place] Glucose [Mass/Vol] 82 mg/dL Normal 74-99 [facility] Comment on above: Order Comment: Speci men Type: BLOOD SPECIMENOrdering Facility: [facility] Address: [address] [place] [address] Result Comment: The [place] Diabetes Association (ADA) provides guidance for cutoff values for fasting glucose and random glucose. The ADA defines fasting as no caloric intake for at least 8 hours. Fasting plasma glucose results between 100 to 125 mg/dL indicate increased risk for diabetes (prediabetes). Fasting plasma glucose results greater than or equal to 126 mg/dL meet the criteria for diagnosis of diabetes. In the absence of unequivocal hyperglycemia, results should be confirmed by repeat testing. In a patient with classic symptoms of hyperglycemia or hyperglycemic crisis, random plasma glucose results greater than or equal to 200 mg/dL meet the criteria for diagnosis of diabetes. Reference: Standards of Medical Care in Diabetes 2016, Italian Diabetes Association. Diabetes Care. 2016.39(Suppl 1). Performed By: #### 2 4321-2, LIPNF ####[facility] LABCLIA [id number] [place] [address] [place] Potassium [Moles/Vol] 4.2 mmol/L Normal 3.7-5.1 [facility] Comment on above: Order Comment: Cal guzmán Type: BLOOD SPECIMENOrdering Facility: [facility] Address: [address] [place] [address] Performed By: #### 2 4321-2, LIPNF ####[facility] LABCLIA [id number] [place] [address] [place] Sodium [Moles/Vol] 139 mmol/L Normal 136-144 [facility] Comment on above: Order Comment: Cal guzmán Type: BLOOD SPECIMENOrdering Facility: [facility] Address: [address] [place] [address] Performed By: #### 2 4321-2, LIPNF ####[facility] LABCLIA [id number] [place] [address] [place] Urea nitrogen [Mass/Vol] 12 mg/dL Normal 7-21 [facility] Comment on above: Order Comment: Cal guzmán Type: BLOOD SPECIMENOrdering Facility: [facility] Address: [address] [place] [address] Performed By: #### 2 4321-2, LIPNF ####[facility] LABCLIA [id number] [address] [address] [place] CNOVon 06-05-2024 CNOV Office Visit (FAMPWS ) ----- ALISSON CRENSHAW ([id number]) 1 F Date Time Provider Department 06/05/24 3:20 PM BRADEN BARBOZA During your visit today, we recorded the following information about you: Pulse Blood pressure Weight 111/minute 127/80 121 kg Braden Barboza APRN.[facility] 06/05/2024 3:43 PM Signed Chief Complaint Patient presents with: Follow Up HPI Alisson Crenshaw is a 19 year old female who presents here today for Above Complaints.. Patient presents for medication follow up. Patient is currently on methylphenidate for ADHD. Grandma is in attendance for appt as her legal guardian. Patient and grandma report patient is doing well and have no concerns regarding her weight. 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 Past medical history, appointments, medications, allergies reviewed. Previous Medical History PAST MEDICAL HISTORY Diagnosis Date ADHD (attention deficit hyperactivity disorder) Asthma Cognitive developmental delay 08/30/2015 Developmental delay Encopresis with constipation and overflow incontinence 08/30/2015 Mood swings Obesity due to excess calories 08/30/2015 Overflow incontinence 08/30/2015 PCOS (polycystic ovarian syndrome) Previous Surgical History PAST SURGICAL HISTORY Procedure Laterality Date NONE Family History FAMILY HISTORY Problem Relation Age of Onset Psychiatry Mother depression Asthma Father Diabetes Maternal Grandmother Breast Cancer Maternal cousin Ovarian cancer No Family History Uterine Cancer No Family History DVT No Family History Patient Allergies ALLERGIES No Known Allergies Current Medications Current Outpatient Medications on File Prior to Visit Medication Sig methylphenidate ER (CONCERTA) 54 mg biphasic tablet Take 1 tablet by mouth once daily for 30 days. dulaglutide (TRULICITY) 4.5 mg/0.5 mL pen injector Inject 4.5 mg subcutaneously one time a week. Inject once per week. Discard Pen After omega-3 DHA-EPA (FISH OIL) 1,200 (144-216) mg capsule Take 2 capsules by mouth daily with breakfast. famotidine (PEPCID) 40 mg tablet Take 1 tablet by mouth daily at bedtime. FLUoxetine (PROZAC) 20 mg capsule Take 1 capsule by mouth once daily. montelukast (SINGULAIR) 10 mg tablet Take 1 tablet by mouth daily at bedtime. Drospirenone-Ethinyl Estradiol (IVONE, 28,) 3-0.02 mg per tablet Take 1 tablet by mouth once daily. metFORMIN (GLUCOPHAGE) 500 mg tablet Take 1 tablet by mouth two times a day. albuterol HFA (VENTOLIN HFA) 90 mcg/actuation inhaler Inhale 2 Puffs as instructed every 4 hours as needed. No current facility-administered medications on file prior to visit. Social History Social History Tobacco Use Smoking status: Never Passive exposure: Yes Smokeless tobacco: Never Substance Use Topics Alcohol use: Never Drug use: Never Review of Symptoms REVIEW OF SYSTEMS SEE HPI EXAM: BP 127/80 Pulse 111 Wt 121 kg (266 lb 12.1 oz) LMP 08/26/2022 (Within Months) BMI 42.87 kg/m? General Appearance: Well appearing, alert, in no acute distress, well-hydrated, well nourished. Health Maintenance List GC (Gonorrhea) Screening (18-24) Never done Anxiety Screening Never done Chlamydia Screening (18-24) Never done Asthma Action Plan due on 08/21/2022 Asthma Control Test due on 09/22/2023 Cervical Cancer Screening Never done Annual PCP Team Chronic Disease Visit due on 03/07/2025 DTaP,Tdap,Td Vaccine(7 - Td or Tdap) due on 03/25/2025 Hepatitis B Vaccine Completed Spirometry Completed HPV Vaccine Completed Influenza Vaccine Completed Meningococcal B Vaccine Completed Hepatitis C Screening Completed HIV Screening Completed Covid-19 Vaccine Completed Data reviewed Weight Weight 06/05/2024 266 lb 12.1 oz 03/07/2024 270 lb 09/06/2023 260 lb 07/13/2023 255 lb 06/30/2023 255 lb 8.2 oz 06/14/2023 252 lb 10.4 oz 06/08/2023 258 lb 06/04/2023 259 lb 12/30/2022 258 lb 09/21/2022 258 lb 4.8 oz ASSESSMENT/PLAN: 1. Hypertriglyceridemia - ICD9: 272.1, ICD10: E78.1 (primary diagnosis) - Control undetermined, due for labs - Continue current medications - Counseled on healthy diet and regular exercise - LIPID PANEL, NONFASTING 2. Attention deficit hyperactivity disorder (ADHD), predominantly inattentive type - ICD9: 314.00, ICD10: F90.0 - METHYLPHENIDATE ER 54 MG TABLET,EXTENDED RELEASE 24 HR 3. Medication management - ICD9: V58.69, ICD10: Z79.899 - TOXICOLOGY SCREEN, ROUTINE URINE - QUANTITATIVE TOXICOLOGY PANEL, URINE Braden Barboza APRN.[employer] Allergies As of Date: 06/05/2024 (No Known Allergies) Date Reviewed: 06/05/2024 Reviewed by: Linh Rome MA - Fully Assessed Reason for Visit: Follow Up [171] Primary Visit Diagnosis:Hypertriglyceri demia [E78.1] Other Visit Diagnoses:Attention deficit hyperactivity disorder (ADHD), predominantly inattentive type [F90. (more content not included)... Normal [facility] LIPID PANEL, NONFASTINGon Cholesterol [Mass/Vol] 241 mg/dL High <200 [facility] Comment on above: Order Comment: Specrichard guzmán Type: BLOOD SPECIMENOrdering Facility: [facility] Address: [address] [place] [address] Result Comment: <200 mg/dL, Desirable 200-239 mg/dL, Borderline high >239 mg/dL, High Performed By: #### 2 4321-2, LIPNF ####[facility] LABCLIA [id number] [place] [address] [place] HDL CHOLESTEROL, NF 58 mg/dL Normal >39 [facility] Comment on above: Order Comment: Cal guzmán Type: BLOOD SPECIMENOrdering Facility: [facility] Address: [address] [place] [address] Result Comment: 40-5 9 mg/dL, Acceptable >59 mg/dL, High: Negative risk factor for coronary heart disease <40 mg/dL, Low: Positive risk factor for coronary heart disease Performed By: #### 2 4321-2, LIPNF ####[facility] LABCLIA [id number] [place] [address] [place] LDL CHOLESTEROL, NF Normal [facility] Comment on above: Order Comment: Cal arielle Type: BLOOD SPECIMENOrdering Facility: [facility] Address: [address] [place] [address] Result Comment: Unab le to calculate due to increased Triglycerides. A Direct LDL Cholesterol measurement will not be performed. If clinically indicated, a fasting Basic Lipid Panel (LIPB) may be ordered. Performed By: #### 2 4321-2, LIPNF ####[facility] LABIA [id number] [address] STATES OF [facility] LDL/HDL RATIO, NF Normal [facility] Comment on above: Order Comment: Cal arielle Type: BLOOD SPECIMENOrdering Facility: [facility] Address: [address] [place] [address] Result Comment: Unab le to calculate due to elevated Triglycerides. Reference: 1. National Cholesterol Education Program ATP III Guideline At-A-Glance Quick Desk Reference: National Heart, Lung, and Blood [place]. National Institutes of Health. 2001: NIH Publication No. 01-3305. 2. An International Atherosclerosis Society position paper: global recommendations for the management of dyslipidemia: executive summary, Atherosclerosis. 2014: 232(2):410-413. Cut Points from the Lipid Research Clinic's Prevalence Study for ages 20 to 24 years can be located in the following reference: Expert Panel on Integrated Guidelines for Cardiovascular Health and Risk Reduction in Children and Adolescents: National Heart, Lung and Blood [place]. Pediatrics. 2011:128(Suppl 5):S712-171. Performed By: #### 2 4321-2, LIPNF ####[facility] LABIA [id number] [address] [place] NON HDL CHOL, NF 183 mg/dL High <130 [facility] Comment on above: Order Comment: Cal guzmán Type: BLOOD SPECIMENOrdering Facility: [facility] Address: [address] [place] [address] Result Comment: <130 mg/dL, Optimal 130-159 mg/dL, Near optimal/above optimal 160-189 mg/dL, Borderline high 190-219 mg/dL, High >219 mg/dL, Very high Secondary prevention optimal non HDL Cholesterol levels are recommended to be <100 mg/dL Performed By: #### 2 4321-2, LIPNF ####[facility] LABCLIA [id number] [place] [address] [place] T CHOL/HDL RATIO NF 4.16 mg/dL Normal <5.10 [facility] Comment on above: Order Comment: Speci men Type: BLOOD SPECIMENOrdering Facility: [facility] Address: [address] [place] [address] Performed By: #### 2 4321-2, LIPNF ####[facility] LABCLIA [id number] [place] [address] [facility] TRIGLYCERIDES, NF 450 mg/dL High <150 [facility] Comment on above: Order Comment: Speci men Type: BLOOD SPECIMENOrdering Facility: [facility] Address: [address] [place] [address] Result Comment: <150 mg/dL, Normal 150-199 mg/dL, Borderline high 200-499 mg/dL, High >499 mg/dL, Very high Performed By: #### 2 4321-2, LIPNF ####[facility] LABCLIA [id number] [place] [address] [place] VLDL CHOLESTEROL, NF Normal [facility] Comment on above: Order Comment: Speci men Type: BLOOD SPECIMENOrdering Facility: [facility] Address: [address] [place] [address] Result Comment: Unab le to calculate due to elevated Triglycerides. Performed By: #### 2 4321-2, LIPNF ####[facility] LABCLIA [id number] [place] [address] [place] Emergency Department Summary on 05-03-2024 Emergency Department Summary [facility] Medical Records Department [address] [place] [address] Emergency Department Summary 05/03/24 MR#: [id number] Acct: [id number] Name: ALISSON CRENSHAW Rep #: [id number] : 2005 19 From: Chayito Phillips DO PCP: SERENE ParkC Status:DEP ER Location: ED HPI History of Present Illness Chief Complaint: Cough Informant: patient and parent Narrative Narrative: Patient is a 19-year-old female with history of asthma presenting from home for worsening cough. Mother states that on Wednesday, 4 days ago she developed fever and croupy cough. Mother states is very deep. Her cough seem to be improving but worsened again today which is what prompted her to come to the emergency room. Patient has been using roommates nebulizer as well as taking shef-otv-hrqikgo cold and flu medicines. She also has a puffer with a spacer that she is been using. States has been eating okay. She has been having congestion and wheezing. Denies any earache, nausea vomiting or diarrhea. Her cough has been nonproductive. No recent fevers reported. No other complaints or concerns reported at this time. [facility] Medical History unable to obtain Home Medications ???Medication ???Instructions ???Recorded ???Last Taken ???Type Ranitidine [Zantac] 150 mg PO BID 07/24/18 Unknown His tory albuterol sulfate 90 mcg/actuation 2 puff inhalation Q4H PRN PRN So b 07/24/18 Unknown History aerosol inhaler (Ventolin HFA) /Or Wheezing cephalexin 500 mg capsule 500 mg PO Q6 #28 caps 07/24/18 Unk nown Rx cetirizine 10 mg tablet 10 mg PO DAILY 07/24/18 Unknown Hi story chlorpheniramine maleate 4 mg 4 mg PO Q6H PRN PRN Allergies 08/07 Unknown History tablet (Allergy (chlorpheniramine)) fluoxetine 10 mg capsule 10 mg PO DAILY 07/24/18 Unknown Hi story fluticasone propionate 44 inhalation 07/24/18 Unknown Histor y mcg/actuation HFA aerosol inhaler (Flovent HFA) methylphenidate HCl 54 mg 54 mg PO DAILY 07/24/18 Unknown Hi story tablet,extended release 24 hr phenazopyridine 200 mg tablet 200 mg PO TID PRN bladder pain 08/07 Unknown History (Pyridium) sulfamethoxazole 800 1 tab PO BID 07/24/18 Unknown Hist ory mg-trimethoprim 160 mg tablet albuterol sulfate 2.5 mg/3 mL 2.5 mg (3 mL) inhalation Q4H PRN 0 05/03/24 Unknown Rx (0.083 %) solution for nebulization #25 vials benzonatate 100 mg capsule 100 mg PO Q6H PRN cough #20 caps 0 05/03/24 Unknown Rx prednisone 20 mg tablet 40 mg (2 x 20 mg) PO DAILY #8 tabs 05/03/24 Unknown Rx Allergy/AdvReac Type Severity Reaction Status Date / Time No Known Allergies Allergy Verified 05/02/24 22:06 Social History Smoking Status: Never smoker ROS ROS ED Constitutional Constitutional ED: Reports fever(s); Denies chills Eyes Eyes: Denies change in vision ENT ENT ED: Reports other Details: Nasal congestion ; Denies sore throat Cardiovascular Cardiovascular: Denies chest pain Respiratory/Chest Respiratory/Chest: Reports cough and dyspnea; Denies sputum Gastrointestinal Gastrointestinal: Denies abdominal pain, diarrhea, nausea or vomiting Musculoskeletal Musculoskeletal: Reports myalgias; Denies arthralgias Integumentary Denies rash Neurologic Neurologic: Denies weakness EXAM Physical Exam Const Vital Signs: 05/02/24 22:06 05/03/24 00:18 05/03/24 00:18 Temperature 98.2 F Temperature Source Oral Pulse Rate 104 H Respiratory Rate 18 20 H Respiratory Effort Short of Breath Respiratory Depth Normal Respiratory Pattern Normal Blood Pressure 142/99 H Blood Pressure Mean 113 Pulse Ox 100 100 Oxygen Delivery Method Room Air Room Air Room Air Positive well nourished and well developed General Appearance ED: well developed and NAD; Negative for pallor HEENT Reports TM's clear and moist mucous membranes HEENT Narrative: Normal tympanic membranes bilaterally. Normal oropharynx. Tympanic Membrane ED: Yes TM's clear Neck supple and no JVD Resp normal respiratory effort Resp Narrative: Breath sounds in all lung felipe. Faint end expiratory wheezing present Auscultation: Negative for rhonchi or diminished lung sounds Cardio regular rate, regular rhythm and no murmurs GI non-tender and non-distended Neuro oriented x3 Sensorium / Orientation: alert Motor Exam: Negative for general weakness Psych mental status grossly normal Skin General Skin Exam: Negative for jaundice or pallor MDM MDM MDM Narrative Medical decision making narrative: Patient evaluated worsening cough and flulike symptoms for the past 4 days. Upon arrival patient's blood pressure mildly elevated 142/99 and heart rate 104. Her respiratory rate is 18 and she is on perc (more content not included)... Normal [facility] Chest 1 View (Portable)on Chest 1 View (Portable) [facility] Imaging Services [address] [place], [place] [id number] Chest 1 View (Portable) MR#: [id number] Acct: [id number] Name: ALISSON CRENSHAW Rep #: [id number] : 2005 F 19 From: Sean Shah DO PCP: BRANDON Park Status: PRE ER Study: Chest 1 View (Portable) Date of Exam: 05/02/24 Exam# [id number] Ordering Dr: Provider,Ed P. PROCEDURE: CHEST 1 VIEW (PORTABLE) REASON FOR EXAM: Cough. TECHNIQUE: Frontal view of the chest. COMPARISON: None. FINDINGS: Cardiac size and pulmonary vasculature are within normal limits. No consolidation, pleural effusion, or pneumothorax is present. RAD/Chest 1 View (Portable) IMPRESSION: No acute cardiopulmonary process. 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 REPORT READ BACK BY SAME. SARS-CoV-2 (COVID 19) Negative INFLUENZA A A Positive A INFLUENZA B Negative RSV PCR Negative INFLUENZAE A Normal [facility] Comment on above: Performed By: #### M 100.678 #### [facility] Laboratory [address] [place], [address] [facility] 03-16-2024 [facility] Telephone (BRANDI) ----- ALISSON CRENSHAW ([id number]) 1 F Date Time Provider Department 03/16/24 BRADEN BARBOZA During your visit today, we recorded the following information about you: Chaya Soler MA 03/16/2024 10:01 AM Signed Received PA request from [employer] for fish oil. Leslie was contacted and aware [facility] does not cover vitamins/ supplements available OTC Chaya Soler MA Allergies As of Date: 03/16/2024 (No Known Allergies) Date Reviewed: 03/07/2024 Reviewed by: Linh Rome MA - Fully Assessed Reason for Visit: Insurance Authorization [1693] Cmt: Fish oil Prescriptions as of 03/16/2024 - omega-3 DHA-EPA (FISH OIL) 1,200 (144-216) mg capsule Take 2 capsules by mouth daily with breakfast. - dulaglutide (TRULICITY) 4.5 mg/0.5 mL pen injector Inject 4.5 mg subcutaneously one time a week. Inject once per week. Discard Pen After - famotidine (PEPCID) 40 mg tablet Take 1 tablet by mouth daily at bedtime. - methylphenidate ER (CONCERTA) 54 mg biphasic tablet Take 1 tablet by mouth once daily for 30 days. - FLUoxetine (PROZAC) 20 mg capsule Take 1 capsule by mouth once daily. - montelukast (SINGULAIR) 10 mg tablet Take 1 tablet by mouth daily at bedtime. - Drospirenone-Ethinyl Estradiol (IVONE, 28,) 3-0.02 mg per tablet Take 1 tablet by mouth once daily. - metFORMIN (GLUCOPHAGE) 500 mg tablet Take 1 tablet by mouth two times a day. - albuterol HFA (VENTOLIN HFA) 90 mcg/actuation inhaler Inhale 2 Puffs as instructed every 4 hours as needed. 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] 07/17/2017 07/01/2018 ADHD [F90.9] 05/31/2018 Asthma, well controlled [J45.909] 07/01/2018 Body mass index equal to or greater than 95th p*05/30/2020 Acquired pes planus of both feet [M21.41, M21.4*05/14/2021 Patellofemoral disorder of right knee [M22.2X1] 03/04/2022 Obesity, Class III, BMI >= 40 [E66.01] 09/21/2022 PCOS (polycystic ovarian syndrome) [E28.2] 12/30/2022 Depression, recurrent (HCC) [F33.9] 06/04/2023 Severe depression (HCC) [F32.2] 09/06/2023 Hypertriglyceridemia [E78.1] 03/08/2024 Encounter Status:Closed by CHAYA SOLER on 03/16/24 [facility] 03[facility]13[facility]20[facility] ----- ALISSON CRENSHAW ([id number]) 1 F Date Time Provider Department 03/13/24 BRADEN BARBOZA [facility] During your visit today, we recorded the following information about you: Camelia Bernard RN 03/13/2024 3:20 PM Signed Patient's grandmother Marianela, calling and states patient will be using [facility] now. Requesting pt's medication be transferred there. Pended. No call back needed if agreeable to send. 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 Inject once per week. Discard Pen AfterDisp: 2 mLRfl: 2 famotidine (PEPCID) 40 mg tabletTake 1 tablet by mouth daily at bedtime.Disp: 90 tabletRfl: 1 methylphenidate ER (CONCERTA) 54 mg biphasic tabletTake 1 tablet by mouth once daily for 30 days.Disp: 30 tabletRfl: 0 FLUoxetine (PROZAC) 20 mg capsuleTake 1 capsule by mouth once daily.Disp: 30 capsuleRfl: 5 montelukast (SINGULAIR) 10 mg tabletTake 1 tablet by mouth daily at bedtime.Disp: 90 tabletRfl: 1 Drospirenone-Ethinyl Estradiol (IVONE, 28,) 3-0.02 mg per tabletTake 1 tablet by mouth once daily.Disp: 84 tabletRfl: 3 metFORMIN (GLUCOPHAGE) 500 mg tabletTake 1 tablet by mouth two times a day.Disp: 180 tabletRfl: 3 Prescriptions as of 03/13/2024 - omega-3 DHA-EPA (FISH OIL) 1,200 (144-216) mg capsule Take 2 capsules by mouth daily with breakfast. - dulaglutide (TRULICITY) 4.5 mg/0.5 mL pen injector Inject 4.5 mg subcutaneously one time a week. Inject once per week. Discard Pen After - famotidine (PEPCID) 40 mg tablet Take 1 tablet by mouth daily at bedtime. - methylphenidate ER (CONCERTA) 54 mg biphasic tablet Take 1 tablet by mouth once daily for 30 days. - FLUoxetine (PROZAC) 20 mg capsule Take 1 capsule by mouth once daily. - montelukast (SINGULAIR) 10 mg tablet Take 1 tablet by mouth daily at bedtime. - Drospirenone-Ethinyl Estradiol (IVONE, 28,) 3-0.02 mg per tablet Take 1 tablet by mouth once daily. - metFORMIN (GLUCOPHAGE) 500 mg tablet Take 1 tablet by mouth two times a day. - albuterol HFA (VENTOLIN HFA) 90 mcg/actuation inhaler Inhale 2 Puffs as instructed every 4 hours as needed. Problem List As Of Date 03/13/2024 Noted Resolved Intellectual disability [F79] 08/30/2015 Encopresis with constipation and overflow incon*08/30/2015 Overflow incontinence [N39.490] 08/30/2015 Obesity due to excess calories [E66.09] 08/30/2015 BMI (body mass index), pediatric, greater than *01/15/2017 Intrinsic asthma [J45.909] 07/17/2017 07/01/2018 ADHD [F90.9] 05/31/2018 Asthma, well controlled [J45.909] 07/01/2018 Body mass index equal to or greater than 95th p*05/30/2020 Acquired pes planus of both feet [M21.41, M21.4*05/14/2021 Patellofemoral disorder of right knee [M22.2X1] 03/04/2022 Obesity, Class III, BMI >= 40 [E66.01] 09/21/2022 PCOS (polycystic ovarian syndrome) [E28.2] 12/30/2022 Depression, recurrent (HCC) [F33.9] 06/04/2023 Severe depression (HCC) [F32.2] 09/06/2023 Hypertriglyceridemia [E78.1] 03/08/2024 Prescriptions ordered this encounter Disp Refills Start End OMEGA 4-PSZ-QKM-FISH OIL 1,200 MG (1* 180 * 1 03/13/2024 Route: ORAL Sig: Take 2 capsules by mouth daily with breakfast. DULAGLUTIDE 4.5 MG/0.5 ML SUBCUTANEO* 2 mL 2 03/13/2024 Route: SUBCUTANEOUS Sig: Inject 4.5 mg subcutaneously one time a week. Inject once per week. Discard Pen After FAMOTIDINE 40 MG TABLET 90 t* 1 03/13/2024 Route: ORAL Sig: Take 1 tablet by mouth daily at bedtime. METHYLPHENIDATE ER 54 MG TABLET,EXTE* 30 t* 0 03/13/2024 04/12/2024 Route: ORAL Sig: Take 1 tablet by mouth once daily for 30 days. FLUOXETINE 20 MG CAPSULE 30 c* 5 03/13/2024 Route: ORAL Sig: Take 1 capsule by mouth once daily. MONTELUKAST 10 MG TABLET 90 t* 1 03/13/2024 Route: ORAL Sig: Take 1 tablet by mouth daily at bedtime. DROSPIRENONE 3 MG-ETHINYL ESTRADIOL * 84 t* 3 03/13/2024 Route: ORAL Sig: Take 1 tablet by mouth once daily. METFORMIN 500 MG TABLET 180 * 3 03/13/2024 Route: ORAL Sig: Take 1 tablet by mouth two times a day. Medications Discontinued During This Encounter Pres (more content not included)... Normal [facility] 03-10-2024 [facility] Telephone (LETYWS) ----- ALISSON CRENSHAW ([id number]) 1 F Date Time Provider Department 03/10/24 BRADEN BARBOZA During your visit today, we recorded the following information about you: Javid Gonzalez, DENY 03/10/2024 1:12 PM Signed Pt's legal guardian and grandmother Leslie calling in asking about some paperwork she had dropped off on the . States she gave the paperwork to Braden Barboza's office. It is something for guardianship for the probate court. Checking on status. Per Braden, she is going to try and finish paperwork by the end of today. Leslie states to please call her when completed and she will come and pick it up. Told Leslie it might be Wednesday. She states she just has to get it back to the courts by the . Braden Barboza APRN.GLORIA 03/10/2024 2:30 PM Signed Please let patient know the paperwork has been completed and is available for pickup. Linh Rome MA 03/10/2024 2:42 PM Signed Leslie notified. 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 Linh Rome MA Allergies As of Date: 03/10/2024 (No Known Allergies) Date Reviewed: 03/07/2024 Reviewed by: Linh Rome MA - Fully Assessed Reason for Visit: 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 [Other] Prescriptions as of 03/10/2024 - dulaglutide (TRULICITY) 4.5 mg/0.5 mL pen injector Inject 4.5 mg subcutaneously one time a week. Inject once per week. Discard Pen After - famotidine (PEPCID) 40 mg tablet Take 1 tablet by mouth daily at bedtime. - methylphenidate ER (CONCERTA) 54 mg biphasic tablet Take 1 tablet by mouth once daily for 30 days. - FLUoxetine (PROZAC) 20 mg capsule Take 1 capsule by mouth once daily. - montelukast (SINGULAIR) 10 mg tablet Take 1 tablet by mouth daily at bedtime. - Drospirenone-Ethinyl Estradiol (IVONE, 28,) 3-0.02 mg per tablet Take 1 tablet by mouth once daily. - metFORMIN (GLUCOPHAGE) 500 mg tablet Take 1 tablet by mouth two times a day. - albuterol HFA (VENTOLIN HFA) 90 mcg/actuation inhaler Inhale 2 Puffs as instructed every 4 hours as needed. 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 ALISSON CRENSHAW ([id number]) 1 F Date Time Provider Department 03/10/24 [facility] During your visit today, we recorded the following information about you: Braden Barboza, [employer].BUSH REGENERATOR 03/10/2024 3:14 PM Signed Please let patient know her triglycerides have increased greatly. I recommend starting a fish oil supplement and have sent in a prescription. We will recheck her lipid levels in 6 months. Javid Gonzalez, DENY 03/10/2024 3:53 PM Signed Pt's guardian and grandmother Leslie called and is notified of results and given providers message. She voices understanding. Notified prescription sent to pharmacy. Allergies As of Date: 03/10/2024 (No Known Allergies) Date Reviewed: 03/07/2024 Reviewed by: Linh Rome MA - Fully Assessed Reason for Visit: Results [95] Primary Visit Diagnosis:Hypertriglyceri demia [E78.1] Order(s):omega-3 DHA-EPA (FISH OIL) 1,200 (144-216) mg capsuleTake 2 capsules by mouth daily with breakfast.Disp: 180 capsuleRfl: 1 Prescriptions as of 03/10/2024 - omega-3 DHA-EPA (FISH OIL) 1,200 (144-216) mg capsule Take 2 capsules by mouth daily with breakfast. - dulaglutide (TRULICITY) 4.5 mg/0.5 mL pen injector Inject 4.5 mg subcutaneously one time a week. Inject once per week. Discard Pen After - famotidine (PEPCID) 40 mg tablet Take 1 tablet by mouth daily at bedtime. - methylphenidate ER (CONCERTA) 54 mg biphasic tablet Take 1 tablet by mouth once daily for 30 days. - FLUoxetine (PROZAC) 20 mg capsule Take 1 capsule by mouth once daily. - montelukast (SINGULAIR) 10 mg tablet Take 1 tablet by mouth daily at bedtime. - Drospirenone-Ethinyl Estradiol (IVONE, 28,) 3-0.02 mg per tablet Take 1 tablet by mouth once daily. - metFORMIN (GLUCOPHAGE) 500 mg tablet Take 1 tablet by mouth two times a day. - albuterol HFA (VENTOLIN HFA) 90 mcg/actuation inhaler Inhale 2 Puffs as instructed every 4 hours as needed. 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] 07/17/2017 07/01/2018 ADHD [F90.9] 05/31/2018 Asthma, well controlled [J45.909] 07/01/2018 Body mass index equal to or greater than 95th p*05/30/2020 Acquired pes planus of both feet [M21.41, M21.4*05/14/2021 Patellofemoral disorder of right knee [M22.2X1] 03/04/2022 Obesity, Class III, BMI >= 40 [E66.01] 09/21/2022 PCOS (polycystic ovarian syndrome) [E28.2] 12/30/2022 Depression, recurrent (HCC) [F33.9] 06/04/2023 Severe depression (HCC) [F32.2] 09/06/2023 Hypertriglyceridemia [E78.1] 03/08/2024 Prescriptions ordered this encounter Disp Refills Start End OMEGA 9-YUB-EKU-FISH OIL 1,200 MG (1* 180 * 1 03/10/2024 Route: ORAL Sig: Take 2 capsules by mouth daily with breakfast. Encounter Status:Closed by JAVID GONZALEZ on 03/10/24 [facility] 03-08-2024 [facility] ----- ALISSON CRENSHAW ([id number]) 1 F Date Time Provider Department 03/08/24 BREANNA RIVERA [facility] During your visit today, we recorded the following information about you: Breanna Rivera PA-C 03/08/2024 8:15 AM Signed Let patient know that her trigs were quite high. Due to this, unable to get a LDL reading. Recommend returning for a fasting lipid panel if possible. Her A1c is normal. Jorge Turner LPN 03/08/2024 8:19 AM Signed Left message for pt to contact office. NINI Grover Sherrie, RN 03/08/2024 8:26 AM Signed Patient 's grandmother returned call and given provider's message below. Samantha Bernard RN Allergies As of Date: 03/08/2024 (No Known Allergies) Date Reviewed: 03/07/2024 Reviewed by: Linh Rome MA - Fully Assessed Reason for Visit: Results [95] Primary Visit Diagnosis:Hypertriglyceri demia [E78.1] Order(s):LIPID PANEL BASIC [SQLIPB] Order #: [id number] FUTURE Prescriptions as of 03/08/2024 - dulaglutide (TRULICITY) 4.5 mg/0.5 mL pen injector Inject 4.5 mg subcutaneously one time a week. Inject once per week. Discard Pen After - famotidine (PEPCID) 40 mg tablet Take 1 tablet by mouth daily at bedtime. - methylphenidate ER (CONCERTA) 54 mg biphasic tablet Take 1 tablet by mouth once daily for 30 days. - FLUoxetine (PROZAC) 20 mg capsule Take 1 capsule by mouth once daily. - montelukast (SINGULAIR) 10 mg tablet Take 1 tablet by mouth daily at bedtime. - Drospirenone-Ethinyl Estradiol (IVONE, 28,) 3-0.02 mg per tablet Take 1 tablet by mouth once daily. - metFORMIN (GLUCOPHAGE) 500 mg tablet Take 1 tablet by mouth two times a day. - albuterol HFA (VENTOLIN HFA) 90 mcg/actuation inhaler Inhale 2 Puffs as instructed every 4 hours as needed. 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] 07/17/2017 07/01/2018 ADHD [F90.9] 05/31/2018 Asthma, well controlled [J45.909] 07/01/2018 Body mass index equal to or greater than 95th p*05/30/2020 Acquired pes planus of both feet [M21.41, M21.4*05/14/2021 Patellofemoral disorder of right knee [M22.2X1] 03/04/2022 Obesity, Class III, BMI >= 40 [E66.01] 09/21/2022 PCOS (polycystic ovarian syndrome) [E28.2] 12/30/2022 Depression, recurrent (HCC) [F33.9] 06/04/2023 Severe depression (HCC) [F32.2] 09/06/2023 Hypertriglyceridemia [E78.1] 03/08/2024 Encounter Status:Closed by CAMELIA BERNARD on 03/08/24 Normal [facility] Cholesterol in LDL Direct as say [Mass/Vol]on 03-08-2024 Cholesterol in LDL [Mass/Vol] 102 mg/dL High <100 [facility] Comment on above: Order Comment: Speci men Type: BLOOD SPECIMENOrdering Facility: [facility] Address: [address] [place] [address] Result Comment: <100 mg/dL, Optimal 100-129 mg/dL, Near optimal/above optimal 130-159 mg/dL, Borderline high 160-189 mg/dL, High >189 mg/dL, Very high Secondary prevention optimal LDL Cholesterol levels are recommended to be < 70 mg/dL Performed By: #### 1 8262-6, 34934-4 ####[facility] LABIA [id number] [place] [address] [place] Cholesterol in VLDL [Mass/Vol] 82 mg/dL High <30 [facility] Comment on above: Order Comment: Speci men Type: BLOOD SPECIMENOrdering Facility: [facility] Address: [address] [place] [address] Performed By: #### 1 8262-6, 31295-2 ####[facility] LABCLIA [id number] [place] [address] [place] Lipid 1996 panelon Cholesterol [Mass/Vol] 234 mg/dL High <200 [facility] Comment on above: Order Comment: Speci men Type: BLOOD SPECIMENOrdering Facility: [facility] Address: [address] [place] [address] Result Comment: <200 mg/dL, Desirable 200-239 mg/dL, Borderline high >239 mg/dL, High Performed By: #### 1 8262-6, 15712-5 ####[facility] LABCLIA [id number] [address] OF [facility] Cholesterol in HDL [Mass/Vol] 50 mg/dL Normal >39 [facility] Comment on above: Order Comment: Speci men Type: BLOOD SPECIMENOrdering Facility: [facility] Address: [address] [place] [address] Result Comment: 40-5 9 mg/dL, Acceptable >59 mg/dL, High: Negative risk factor for coronary heart disease <40 mg/dL, Low: Positive risk factor for coronary heart disease Performed By: #### 1 8262-6, 41144-1 ####[facility]IA [id number] [address] OF [facility] Cholesterol in LDL [Mass/Vol] Normal [facility] Comment on above: Order Comment: Speci men Type: BLOOD SPECIMENOrdering Facility: [facility] Address: [address] [place] [address] Result Comment: Unab le to calculate due to increased Triglycerides. See LDL-Chol, Direct. Performed By: #### 1 8262-6, 10145-1 ####[facility]IA [id number] [address] [place] Cholesterol in LDL/Cholesterol in HDL [Mass ratio] Normal [facility] Comment on above: Order Comment: Speci men Type: BLOOD SPECIMENOrdering Facility: [facility] Address: [address] [place] [address] Result Comment: Unab le to calculate due to elevated Triglycerides. Reference: 1. National Cholesterol Education Program ATP III Guideline At-A-Glance Quick Desk Reference: National Heart, Lung, and Blood [place]. National Institutes of Health. 2001: NIH Publication No. 01-3305. 2. An International Atherosclerosis Society position paper: global recommendations for the management of dyslipidemia: executive summary, Atherosclerosis. 2014: 232(2):410-413. Cut Points from the Lipid Research Clinic's Prevalence Study for ages 20 to 24 years can be located in the following reference: Expert Panel on Integrated Guidelines for Cardiovascular Health and Risk Reduction in Children and Adolescents: National Heart, Lung and Blood [place]. Pediatrics. 2011:128(Suppl 5):H665-564. Performed By: #### 1 8262-6, 69672-2 ####[facility] LABCLIA [id number] [place] [address] [place] Cholesterol in VLDL [Mass/Vol] Normal [facility] Comment on above: Order Comment: Speci men Type: BLOOD SPECIMENOrdering Facility: [facility] Address: [address] [place] [address] Result Comment: Unab le to calculate due to increased Triglycerides. See LDL-Chol, Direct. Performed By: #### 1 8262-6, 32462-5 ####[facility] LABCLIA [id number] [place] [address] [place] Cholesterol non HDL [Mass/Vol] 184 mg/dL High <130 [facility] Comment on above: Order Comment: Cal guzmán Type: BLOOD SPECIMENOrdering Facility: [facility] Address: [address] [place] [address] Result Comment: <130 mg/dL, Optimal 130-159 mg/dL, Near optimal/above optimal 160-189 mg/dL, Borderline high 190-219 mg/dL, High >219 mg/dL, Very high Secondary prevention optimal non HDL Cholesterol levels are recommended to be <100 mg/dL Performed By: #### 1 8262-6, 80241-0 ####[facility] LABCLIA [id number] [place] [id number] [place] Cholesterol.total /Cholesterol in HDL [Mass ratio] 4.68 {ratio} Normal <5.10 [facility] Comment on above: Order Comment: Cal guzmán Type: BLOOD SPECIMENOrdering Facility: [facility] Address: [address] [place] [address] Performed By: #### 1 8262-6, 10568-5 ####[facility] LABCLIA [id number] [place] [address] [place] FASTING TIME 12 hrs Normal [facility] Comment on above: Order Comment: Speci men Type: BLOOD SPECIMENOrdering Facility: [facility] Address: [address] [place] [address] Performed By: #### 1 8262-6, 58551-1 ####[facility] LABCLIA [id number] [place] [address] [place] Triglyceride [Mass/Vol] 672 mg/dL High <150 [facility] Comment on above: Order Comment: Speci men Type: BLOOD SPECIMENOrdering Facility: [facility] Address: [address] [place] [address] Result Comment: <150 mg/dL, Normal 150-199 mg/dL, Borderline high 200-499 mg/dL, High >499 mg/dL, Very high Performed By: #### 1 8262-6, 49917-2 ####[facility] LABCLIA [id number] [place] [address] [place] CNOVon 03-07-2024 [facility] Office Visit (BRANDI ) ----- ALISSON CRENSHAW ([id number]) 1 F Date Time Provider Department 03/07/24 3:40 PM BRADEN BARBOZA During your visit today, we recorded the following information about you: Pulse Respiration Blood pressure Weight 111/minute 14/minute 130/84 122.5 kg Braden Barboza APRN.BUSH REGENERATOR 03/07/2024 3:55 PM Signed Chief Complaint Patient presents with: 6 Month Exam HPI Nickolaskimani Kimani Aleccari is a 18 year old female who presents here today for Above Complaints.. Patient presents for routine follow up. Past medical history, appointments, medications, allergies reviewed. Previous Medical History PAST MEDICAL HISTORY Diagnosis Date ADHD (attention deficit hyperactivity disorder) Asthma Cognitive developmental delay 08/30/2015 Developmental delay Encopresis with constipation and overflow incontinence 08/30/2015 Mood swings Obesity due to excess calories 08/30/2015 Overflow incontinence 08/30/2015 PCOS (polycystic ovarian syndrome) Previous Surgical History PAST SURGICAL HISTORY Procedure Laterality Date NONE Family History FAMILY HISTORY Problem Relation Age of Onset Psychiatry Mother depression Asthma Father Diabetes Maternal Grandmother Breast Cancer Maternal cousin Ovarian cancer No Family History Uterine Cancer No Family History DVT No Family History Patient Allergies ALLERGIES No Known Allergies Current Medications Current Outpatient Medications on File Prior to Visit Medication Sig methylphenidate ER (CONCERTA) 54 mg biphasic tablet Take 1 tablet by mouth once daily for 30 days. famotidine (PEPCID) 40 mg tablet Take 1 tablet by mouth daily at bedtime. dulaglutide (TRULICITY) 3 mg/0.5 mL pen injector Inject 3 mg subcutaneously one time a week. Inject once per week. Discard Pen After FLUoxetine (PROZAC) 20 mg capsule Take 1 capsule by mouth once daily. montelukast (SINGULAIR) 10 mg tablet Take 1 tablet by mouth daily at bedtime. Drospirenone-Ethinyl Estradiol (IVONE, 28,) 3-0.02 mg per tablet Take 1 tablet by mouth once daily. metFORMIN (GLUCOPHAGE) 500 mg tablet Take 1 tablet by mouth two times a day. albuterol HFA (VENTOLIN HFA) 90 mcg/actuation inhaler Inhale 2 Puffs as instructed every 4 hours as needed. No current facility-administered medications on file prior to visit. Social History Social History Tobacco Use Smoking status: Never Passive exposure: Yes Smokeless tobacco: Never Substance Use Topics Alcohol use: Never Drug use: Never Review of Symptoms REVIEW OF SYSTEMS SEE HPI EXAM: BP 130/84 Pulse 111 Resp 14 Wt 122.5 kg (270 lb) LMP 08/26/2022 (Within Months) BMI 43.39 kg/m? General Appearance: Well appearing, alert, in no acute distress, well-hydrated, well nourished. Skin: Positives: Eczema to face, below right eye and left cheek. Lungs: Lungs clear to auscultation. No wheezing, rhonchi, rales.. Heart: RRR without murmur, gallop, or rubs. No ectopy. Abdomen: Normal abdominal exam, Abdomen soft, non-tender. Bowel sounds normal. No masses, organomegaly. Health Maintenance List Anxiety Screening Never done Asthma Action Plan due on 08/21/2022 Asthma Control Test due on 09/22/2023 Influenza Vaccine(1) due on 11/21/2023 Covid-19 Vaccine(5 - 2023- season) due on 11/21/2023 GC (Gonorrhea) Screening (18-24) due on 06/03/2024 Chlamydia Screening (18-24) due on 06/03/2024 Annual PCP Team Chronic Disease Visit due on 03/07/2025 DTaP,Tdap,Td Vaccine(7 - Td or Tdap) due on 03/25/2025 Hepatitis B Vaccine Completed Spirometry Completed HPV Vaccine Completed Meningococcal B Vaccine: Consider Based On Risk Completed Hepatitis C Screening Completed HIV Screening Completed ASSESSMENT/PLAN: 1. Gastroesophageal reflux disease without esophagitis - ICD9: 530.81, ICD10: K21.9 (primary diagnosis) - Continue treatment with Pepcid 40 mg QD - FAMOTIDINE 40 MG TABLET 2. Obesity, Class III, BMI 40-49.9 (morbid obesity) (HCC) - ICD9: 278.01, ICD10: E66.01 Weight increasing - DULAGLUTIDE 4.5 MG/0.5 ML SUBCUTANEOUS PEN INJECTOR 3. PCOS (polycystic ovarian syndrome) - ICD9: 256.4, ICD10: E28.2 - DULAGLUTIDE 4.5 MG/0.5 ML SUBCUTANEOUS PEN INJECTOR 4. Encounter for immunization - ICD9: V03.89, ICD10: Z23 - INFLUENZA VACCINE, AGE 6MO-64YR, TRIVALENT (AFLURIA, FLULAVAL, FLUVIRIN, FLUZONE) - [facility] [employer] COVID-19 VACCINE AGE 12+ YR (COMIRNATY) 5. Encounter for lipid screening for cardiovascular disease - ICD9: V77.91, V81.2, ICD10: Z13.220, Z13.6 - LIPID PANEL, NONFASTING 6. Urinary incontinence, unspecified type - ICD9: 788.30, ICD10: R32 - CONSULT TO UROLOGY Braden Barboza APRN.[employer] [employer] Allergies As of Date: 03/07/2024 (No Known Allergies) Date Reviewed: 03/07/2024 Reviewed by: Linh Rome MA - Fully Assessed Reason for Visit: 6 Month Exam [189] Primary Visit Diagnosis:Massimo (more content not included)... Normal [facility] HbA1c (Bld)on 03-07-2024 Average glucose Estimated from glycated hemoglobin (Bld) [Mass/Vol] 94 mg/dL Normal [facility] Comment on above: Order Comment: Cal guzmán Type: BLOOD SPECIMENOrdering Facility: [facility] Address: [address] [place] [address] Result Comment: eAG: (Estimated average glucose) is a calculated value from HgbA1c and is call center representative of the average blood glucose level in the last 2-3 month period. Performed By: #### 5 5454-3 ####[facility] LABCLIA [id number] [place] [address] [place] HbA1c (Bld) [Mass fraction] 4.9 % Normal 4.3-5.6 [facility] Comment on above: Order Comment: Cal guzmán Type: BLOOD SPECIMENOrdering Facility: [facility] Address: [address] [place] [address] Result Comment: Amer ican Diabetes Association guidelines indicate that patients with HgbA1c in the range 5.7-6.4% are at increased risk for development of diabetes, and intervention by lifestyle modification may be beneficial. HgbA1c greater or equal to 6.5% is considered diagnostic of diabetes. Performed By: #### 5 5454-3 ####[facility] LABCLIA [id number] [address] [place] LIPID PANEL, NONFASTINGon Cholesterol [Mass/Vol] 228 mg/dL High <200 [facility] Comment on above: Order Comment: Cal guzmán Type: BLOOD SPECIMENOrdering Facility: [facility] Address: [address] [place] [address] Result Comment: <200 mg/dL, Desirable 200-239 mg/dL, Borderline high >239 mg/dL, High Performed By: #### L IPNF ####[facility] LABCLIA [id number] [place] [address] [place] HDL CHOLESTEROL, NF 45 mg/dL Normal >39 [facility] Comment on above: Order Comment: Ramurichard guzmán Type: BLOOD SPECIMENOrdering Facility: [facility] Address: [address] [place] [address] Result Comment: 40-5 9 mg/dL, Acceptable >59 mg/dL, High: Negative risk factor for coronary heart disease <40 mg/dL, Low: Positive risk factor for coronary heart disease Performed By: #### L IPNF ####[facility] LABCLIA [id number] [address] [place] LDL CHOLESTEROL, NF Normal [facility] Comment on above: Order Comment: Cal guzmán Type: BLOOD SPECIMENOrdering Facility: [facility] Address: [address] [place] [address] Result Comment: Unab le to calculate due to increased Triglycerides. A Direct LDL Cholesterol measurement will not be performed. If clinically indicated, a fasting Basic Lipid Panel (LIPB) may be ordered. Performed By: #### L IPNF ####[facility] LABCLIA [id number] [address] [place] LDL/HDL RATIO, NF Normal [facility] Comment on above: Order Comment: Ramurichard guzmán Type: BLOOD SPECIMENOrdering Facility: [facility] Address: [address] [place] [address] Result Comment: Unab le to calculate due to elevated Triglycerides. Reference: 1. National Cholesterol Education Program ATP III Guideline At-A-Glance Quick Desk Reference: National Heart, Lung, and Blood [place]. National Institutes of Health. 2001: NIH Publication No. 01-3305. 2. An International Atherosclerosis Society position paper: global recommendations for the management of dyslipidemia: executive summary, Atherosclerosis. 2014: 232(2):410-413. Cut Points from the Lipid Research Clinic's Prevalence Study for ages 20 to 24 years can be located in the following reference: Expert Panel on Integrated Guidelines for Cardiovascular Health and Risk Reduction in Children and Adolescents: National Heart, Lung and Blood [place]. Pediatrics. 2011:128(Suppl 5):A107-232. Performed By: #### L IPNF ####[facility] LABCLIA [id number] [place] [address] [place] NON HDL CHOL, NF 183 mg/dL High <130 [facility] Comment on above: Order Comment: Speci men Type: BLOOD SPECIMENOrdering Facility: [facility] Address: [address] [place] [address] Result Comment: <130 mg/dL, Optimal 130-159 mg/dL, Near optimal/above optimal 160-189 mg/dL, Borderline high 190-219 mg/dL, High >219 mg/dL, Very high Secondary prevention optimal non HDL Cholesterol levels are recommended to be <100 mg/dL Performed By: #### L IPNF ####[facility] LABCLIA [id number] [place] [address] [place] T CHOL/HDL RATIO NF 5.07 mg/dL Normal <5.10 [facility] Comment on above: Order Comment: Speci men Type: BLOOD SPECIMENOrdering Facility: [facility] Address: [address] [place] [address] Performed By: #### L IPNF ####[facility] LABCLIA [id number] [place] [address] [place] TRIGLYCERIDES, NF 751 mg/dL High <150 [facility] Comment on above: Order Comment: Speci men Type: BLOOD SPECIMENOrdering Facility: [facility] Address: [address] [place] [address] Result Comment: <150 mg/dL, Normal 150-199 mg/dL, Borderline high 200-499 mg/dL, High >499 mg/dL, Very high Performed By: #### L IPNF ####[facility] LABCLIA [id number] [place] [address] [place] VLDL CHOLESTEROL, NF Normal [facility] Comment on above: Order Comment: Speci men Type: BLOOD SPECIMENOrdering Facility: [facility] Address: [address] [place] [address] Result Comment: Unab le to calculate due to elevated Triglycerides. Performed By: #### L IPNF ####[facility] LABCLIA [id number] [address] [id number] [id number] [place] [facility] CNOVon 09-06-2023 CNOV Office Visit (FAMWS ) ----- NICKOLAS CRENSHAWKimani Brock ([id number]) 1 F Date Time Provider Department 09/06/23 3:20 PM [facility] During your visit today, we recorded the following information about you: Pulse Respiration Blood pressure Weight 94/minute 14/minute 124/86 117.9 kg Braden Barboza APRN.[employer] 09/06/2023 4:10 PM Signed Chief Complaint Patient presents with: Follow Up HPI Hernannelikimani Brock Lisbeth is a 18 year old female who presents here today for Above Complaints.. Patient presents for medication follow up. Patient reports she is not currently on trulicity due to shortage. Is continuing to have issues with urinary urge/stress incontinence. Past medical history, appointments, medications, allergies reviewed. Previous Medical History PAST MEDICAL HISTORY Diagnosis Date ADHD (attention deficit hyperactivity disorder) Asthma Cognitive developmental delay 08/30/2015 Developmental delay Encopresis with constipation and overflow incontinence 08/30/2015 Mood swings Obesity due to excess calories 08/30/2015 Overflow incontinence 08/30/2015 PCOS (polycystic ovarian syndrome) Previous Surgical History PAST SURGICAL HISTORY Procedure Laterality Date NONE Family History FAMILY HISTORY Problem Relation Age of Onset Psychiatry Mother depression Asthma Father Diabetes Maternal Grandmother Breast Cancer Maternal cousin Ovarian cancer No Family History Uterine Cancer No Family History DVT No Family History Patient Allergies ALLERGIES No Known Allergies Current Medications Current Outpatient Medications on File Prior to Visit Medication Sig metFORMIN (GLUCOPHAGE) 500 mg tablet Take 1 tablet by mouth two times a day. methylphenidate ER (CONCERTA) 54 mg biphasic tablet Take 1 tablet by mouth once daily for 30 days. dulaglutide (TRULICITY) 4.5 mg/0.5 mL pen injector Inject 4.5 mg subcutaneously one time a week. montelukast (SINGULAIR) 10 mg tablet Take 1 tablet by mouth daily at bedtime. FLUoxetine (PROZAC) 20 mg capsule Take 1 capsule by mouth once daily. famotidine (PEPCID) 40 mg tablet Take 1 tablet by mouth daily at bedtime. Drospirenone-Ethinyl Estradiol (IVONE, 28,) 3-0.02 mg per tablet Take 1 tablet by mouth once daily. albuterol HFA (VENTOLIN HFA) 90 mcg/actuation inhaler Inhale 2 Puffs as instructed every 4 hours as needed. No current facility-administered medications on file prior to visit. Social History Social History Tobacco Use Smoking status: Never Passive exposure: Yes Smokeless tobacco: Never Substance Use Topics Alcohol use: Never Drug use: Never Review of Symptoms REVIEW OF SYSTEMS SEE HPI EXAM: BP 124/86 Pulse 94 Resp 14 Wt 117.9 kg (260 lb) LMP 08/26/2022 (Within Months) BMI 41.79 kg/m? General Appearance: Well appearing, alert, in no acute distress, well-hydrated, well nourished.. Lungs: Lungs clear to auscultation. No wheezing, rhonchi, rales.. Heart: RRR without murmur, gallop, or rubs. No ectopy. Health Maintenance List Asthma Action Plan due on 08/21/2022 Covid-19 Vaccine(2022- season) due on 11/20/2022 Asthma Control Test due on 09/22/2023 GC (Gonorrhea) Screening (18-24) due on 06/03/2024 Chlamydia Screening (18-24) due on 06/03/2024 Annual PCP Team Chronic Disease Visit due on 06/03/2024 DTaP,Tdap,Td Vaccine(7 - Td or Tdap) due on 03/25/2025 Hepatitis B Vaccine Completed Spirometry Completed HPV Vaccine Completed Influenza Vaccine Completed Meningococcal B Vaccine: Consider Based On Risk Completed Hepatitis C Screening Completed HIV Screening Completed Allergies As of Date: 09/06/2023 (No Known Allergies) Date Reviewed: 09/06/2023 Reviewed by: Linh Rome MA - Fully Assessed Reason for Visit: Follow Up [171] Primary Visit Diagnosis:Obesity, Class III, BMI 40-49.9 (morbid obesity) (HCC) [E66.01] Other Visit Diagnoses:PCOS (polycystic ovarian syndrome) [E28.2] Attention deficit disorder, unspecified hyperactivity presence [F98.8] Severe depression ([facility]) [F32.2] Order(s):dulaglutide (TRULICITY) 1.5 mg/0.5 mL pen injectorInject 4.5 mg subcutaneously one time a week. Inject once per week. Discard Pen AfterDisp: 6 mLRfl: 2 methylphenidate ER (CONCERTA) 54 mg biphasic tabletTake 1 tablet by mouth once daily for 30 days.Disp: 30 tabletRfl: 0 CONSULT TO [facility] [[id number]] Order #: [id number]: 1 FUTURE Prescriptions as of 09/06/2023 - dulaglutide (TRULICITY) 1.5 mg/0.5 mL pen injector Inject 4.5 mg subcutaneously one time a week. Inject once per week. Discard Pen After - methylphenidate ER (CONCERTA) 54 mg biphasic tablet Take 1 tablet by mouth once daily for 30 days. - metFORMIN (GLUCOPHAGE) 500 mg tablet Take 1 tablet by mouth two times a day. - montelukast (SINGULAIR) 10 mg tablet Take 1 tablet by mouth daily at bedtime. - FLUoxet (more content not included)... [facility] Nurse Visit (FAMPWS) ----- ALISSON CRENSHAW ([id number]) 1 F Date Time Provider Department 07/05/23 2:45 PM [place] NURSE FAMPWS During your visit today, we recorded the following information about you: Minal Ramos LPN 07/05/2023 2:51 PM Signed Patient presents for Meningococcal B vaccine. Denies any problems at this time. Tolerated injection well. Minal Ramos LPN Allergies As of Date: 07/05/2023 (No Known Allergies) Date Reviewed: 06/14/2023 Reviewed by: Ramya Lennon LPN - Fully Assessed Reason for Visit: Imm/Inj [58] Primary Visit Diagnosis:Need for vaccination [Z23] Prescriptions as of 07/05/2023 - methylphenidate ER (CONCERTA) 54 mg biphasic tablet Take 1 tablet by mouth once daily for 30 days. - ofloxacin (FLOXIN) 0.3 % otic solution Use 5 Drops in the left ear once daily for 7 days. - dulaglutide (TRULICITY) 3 mg/0.5 mL pen injector Inject 3 mg subcutaneously one time a week. - montelukast (SINGULAIR) 10 mg tablet Take 1 tablet by mouth daily at bedtime. - FLUoxetine (PROZAC) 20 mg capsule Take 1 capsule by mouth once daily. - famotidine (PEPCID) 40 mg tablet Take 1 tablet by mouth daily at bedtime. - Drospirenone-Ethinyl Estradiol (IVONE, 28,) 3-0.02 mg per tablet Take 1 tablet by mouth once daily. - metFORMIN (GLUCOPHAGE) 500 mg tablet Take 1 tablet by mouth twice daily. - albuterol HFA (VENTOLIN HFA) 90 mcg/actuation inhaler Inhale 2 Puffs as instructed every 4 hours as needed. 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] 07/17/2017 07/01/2018 ADHD [F90.9] 05/31/2018 Asthma, well controlled [J45.909] 07/01/2018 Body mass index equal to or greater than 95th p*05/30/2020 Acquired pes planus of both feet [M21.41, M21.4*05/14/2021 Patellofemoral disorder of right knee [M22.2X1] 03/04/2022 Obesity, Class III, BMI >= 40 [E66.01] 09/21/2022 PCOS (polycystic ovarian syndrome) [E28.2] 12/30/2022 Depression, recurrent (HCC) [F33.9] 06/04/2023 Encounter Status:Closed by MINAL RAMOS on 07/05/23 [facility] CNOVon 06-30-2023 CNOV Office Visit (UCWSTR ) ----- ALISSON CRENSHAW ([id number]) 1 F Date Time Provider Department 06/30/23 8:30 AM BRADLEY POLK [facility] [place] During your visit today, we recorded the following information about you: Temperature Pulse Respiration Blood pressure 97.4 degrees 93/minute 18/minute 114/78 Weight 115.9 kg Bradley Polk APRN.[facility] 06/30/2023 8:48 AM Signed CC: Patient presents with: Ear Pain: Left ear pain x 4 days HPI: Alisson Crenshaw is a 18 year old female who presents to the office with complaint of respiratory symptoms and ear symptoms for a few days. Symptoms are worsening Associated symptoms includes ear pain. Denies fever, nausea, vomiting , and diarrhea. Treatments tried include nothing so far. with no relief of symptoms. Sick contacts: unknown. History of asthma, frequent episodes of bronchitis, chronic bronchitis, bronchiectasis or COPD: No Smoker: No Seasonal/environmental allergies: No The ROS is otherwise negative. The patient's pmh, medications, allergies, and past visits are reviewed. PHYSICAL EXAM: BP 114/78 Pulse 93 Temp 36.3 ?C (97.4 ?F) (Tympanic) Resp 18 Wt 115.9 kg (255 lb 8.2 oz) LMP 08/26/2022 (Within Months) SpO2 98% BMI 41.07 kg/m? General appearance: alert, cooperative, pleasant, in no acute distress Head: Normocephalic Eyes: EOM's intact, conjunctiva pink and moist, no icterus, sclera white, non-injected Ears: Right ear: External ear/canal- Normal, TM - clear with good landmarks. Left ear: External ear/canal- otitis externa, TM - can not see it Oropharynx:mild erythema, without exudates present Heart: Negative. RRR without obvious murmur, gallop, or rubs. No ectopy. Lungs: clear to auscultation, without rales or wheeze, good air exchange PAST MEDICAL HISTORY Diagnosis Date ADHD (attention deficit hyperactivity disorder) Asthma Cognitive developmental delay 08/30/2015 Developmental delay Encopresis with constipation and overflow incontinence 08/30/2015 Mood swings Obesity due to excess calories 08/30/2015 Overflow incontinence 08/30/2015 PCOS (polycystic ovarian syndrome) PAST SURGICAL HISTORY Procedure Laterality Date NONE ALLERGIES Patient has no known allergies. MEDICATIONS dulaglutide (TRULICITY) 3 mg/0.5 mL pen injector Inject 3 mg subcutaneously one time a week. montelukast (SINGULAIR) 10 mg tablet Take 1 tablet by mouth daily at bedtime. methylphenidate ER (CONCERTA) 54 mg biphasic tablet Take 1 tablet by mouth once daily for 30 days. FLUoxetine (PROZAC) 20 mg capsule Take 1 capsule by mouth once daily. famotidine (PEPCID) 40 mg tablet Take 1 tablet by mouth daily at bedtime. Drospirenone-Ethinyl Estradiol (IVONE, 28,) 3-0.02 mg per tablet Take 1 tablet by mouth once daily. metFORMIN (GLUCOPHAGE) 500 mg tablet Take 1 tablet by mouth twice daily. albuterol HFA (VENTOLIN HFA) 90 mcg/actuation inhaler Inhale 2 Puffs as instructed every 4 hours as needed. FAMILY HISTORY Problem Relation Age of Onset Psychiatry Mother depression Asthma Father Diabetes Maternal Grandmother Breast Cancer Maternal cousin Ovarian cancer No Family History Uterine Cancer No Family History DVT No Family History Social History Tobacco Use Smoking status: Never Passive exposure: Yes Smokeless tobacco: Never Substance Use Topics Alcohol use: Never Drug use: Never ASSESSMENT/PLAN: 1. Acute otitis externa of left ear, unspecified type - ICD9: 380.10, ICD10: H60.502 - OFLOXACIN 0.3 % EAR DROPS Prescription instructions reviewed with patient and mother as applicable. Potential red flag symptoms discussed with the patient. Reviewed appropriate action plan to take if red flag symptoms occur. Patient mother agreeable to treatment plan. Bradley Polk APRN.[employer] Allergies As of Date: 06/30/2023 (No Known Allergies) Date Reviewed: 06/14/2023 Reviewed by: Ramya Lennon LPN - Fully Assessed Reason for Visit: Ear Pain [817] Cmt: Left ear pain x 4 days Primary Visit Diagnosis:Acute otitis externa of left ear, unspecified type [H60.502] Order(s):ofloxacin (FLOXIN) 0.3 % otic solutionUse 5 Drops in the left ear once daily for 7 days.Disp: 10 mLRfl: 0 Prescriptions as of 06/30/2023 - ofloxacin (FLOXIN) 0.3 % otic solution Use 5 Drops in the left ear once daily for 7 days. - dulaglutide (TRULICITY) 3 mg/0.5 mL pen injector Inject 3 mg subcutaneously one time a week. - montelukast (SINGULAIR) 10 mg tablet Take 1 tablet by mouth daily at bedtime. - methylphenidate ER (CONCERTA) 54 mg biphasic tablet Take 1 tablet by mouth once daily for 30 days. - FLUoxetine (PROZAC) 20 mg capsule Take 1 capsule by mouth once daily. - famotidine (PEPCID) 40 mg tablet Take 1 tablet by mouth daily at bedtime. - Drospirenone-Ethinyl Estradiol (IVONE, 28,) 3-0.02 mg per tablet Take 1 tablet by mouth once daily. - metF (more content not included)... Normal [facility] ALISSON CRENSHAW ([id number]) 1 F Date Time Provider Department 06/21/23 BRADEN BARBOZA During your visit today, we recorded the following information about you: Minal Ramos LPN 06/21/2023 8:38 AM Signed Patient scheduled for nurse visit 07/05/23 to receive Meningococcal B vaccine. Please place order at this time. Minal Ramos LPN Allergies As of Date: 06/21/2023 (No Known Allergies) Date Reviewed: 06/14/2023 Reviewed by: Ramya Lennon LPN - Fully Assessed Reason for Visit: Orders [681] Primary Visit Diagnosis:Encounter for immunization [Z23] Order(s):MENINGOCOCCAL B VACCINE (BEXSERO) [[id number]] Order #: [id number] Prescriptions as of 06/22/2023 - dulaglutide (TRULICITY) 3 mg/0.5 mL pen injector Inject 3 mg subcutaneously one time a week. - montelukast (SINGULAIR) 10 mg tablet Take 1 tablet by mouth daily at bedtime. - methylphenidate ER (CONCERTA) 54 mg biphasic tablet Take 1 tablet by mouth once daily for 30 days. - FLUoxetine (PROZAC) 20 mg capsule Take 1 capsule by mouth once daily. - famotidine (PEPCID) 40 mg tablet Take 1 tablet by mouth daily at bedtime. - Drospirenone-Ethinyl Estradiol (IVONE, 28,) 3-0.02 mg per tablet Take 1 tablet by mouth once daily. - metFORMIN (GLUCOPHAGE) 500 mg tablet Take 1 tablet by mouth twice daily. - albuterol HFA (VENTOLIN HFA) 90 mcg/actuation inhaler Inhale 2 Puffs as instructed every 4 hours as needed. 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] 07/17/2017 07/01/2018 ADHD [F90.9] 05/31/2018 Asthma, well controlled [J45.909] 07/01/2018 Body mass index equal to or greater than 95th p*05/30/2020 Acquired pes planus of both feet [M21.41, M21.4*05/14/2021 Patellofemoral disorder of right knee [M22.2X1] 03/04/2022 Obesity, Class III, BMI >= 40 [E66.01] 09/21/2022 PCOS (polycystic ovarian syndrome) [E28.2] 12/30/2022 Depression, recurrent (HCC) [F33.9] 06/04/2023 Encounter Status:Closed by MINAL RAMOS on 06/22/23 [facility] CNOVon 06-14-2023 CNOV Office Visit (UCWSTR ) ----- ALISSON CRENSHAW ([id number]) 1 F Date Time Provider Department 06/14/23 5:15 PM BRADLEY POLK [facility] [place] During your visit today, we recorded the following information about you: Temperature Pulse Respiration Blood pressure 98.6 degrees 91/minute 18/minute 122/80 Weight 114.6 kg Bradley Polk APRN.[employer] [employer] 06/14/2023 5:28 PM Signed CC: Patient presents with: Cough: Cough, congestion and wheezing x 11 week HPI: Alisson Crenshaw is a 18 year old female who presents to the office with complaint of head congestion, cough, nonproductive, and wheezing for 11 days. Symptoms are worsening Associated symptoms includes nasal congestion and facial pain/pressure. Denies fever, nausea, vomiting , and diarrhea. Treatments tried include nothing so far. with no relief of symptoms. Sick contacts: unknown. History of asthma, frequent episodes of bronchitis, chronic bronchitis, bronchiectasis or COPD: No Smoker: No Seasonal/environmental allergies: No The ROS is otherwise negative. The patient's pmh, medications, allergies, and past visits are reviewed. PHYSICAL EXAM: BP 122/80 Pulse 91 Temp 37 ?C (98.6 ?F) (Tympanic) Resp 18 Wt 114.6 kg (252 lb 10.4 oz) LMP 08/26/2022 (Within Months) SpO2 97% BMI 40.61 kg/m? General appearance: alert, cooperative, pleasant, in no acute distress Head: Normocephalic Eyes: EOM's intact, conjunctiva pink and moist, no icterus, sclera white, non-injected Ears: Right ear: External ear/canal- Normal, TM - clear with good landmarks. Left ear: External ear/canal- Normal, TM - clear with good landmarks Oropharynx:moist without lesions, No erythema, exudates or tonsillar hypertrophy. Heart: Negative. RRR without obvious murmur, gallop, or rubs. No ectopy. Lungs: clear to auscultation, without rales or wheeze, good air exchange PAST MEDICAL HISTORY Diagnosis Date ADHD (attention deficit hyperactivity disorder) Asthma Cognitive developmental delay 08/30/2015 Developmental delay Encopresis with constipation and overflow incontinence 08/30/2015 Mood swings Obesity due to excess calories 08/30/2015 Overflow incontinence 08/30/2015 PCOS (polycystic ovarian syndrome) PAST SURGICAL HISTORY Procedure Laterality Date NONE ALLERGIES Patient has no known allergies. MEDICATIONS dulaglutide (TRULICITY) 3 mg/0.5 mL pen injector Inject 3 mg subcutaneously one time a week. montelukast (SINGULAIR) 10 mg tablet Take 1 tablet by mouth daily at bedtime. methylphenidate ER (CONCERTA) 54 mg biphasic tablet Take 1 tablet by mouth once daily for 30 days. FLUoxetine (PROZAC) 20 mg capsule Take 1 capsule by mouth once daily. famotidine (PEPCID) 40 mg tablet Take 1 tablet by mouth daily at bedtime. Drospirenone-Ethinyl Estradiol (IVONE, 28,) 3-0.02 mg per tablet Take 1 tablet by mouth once daily. metFORMIN (GLUCOPHAGE) 500 mg tablet Take 1 tablet by mouth twice daily. albuterol HFA (VENTOLIN HFA) 90 mcg/actuation inhaler Inhale 2 Puffs as instructed every 4 hours as needed. amoxicillin-clavulanate potassium (AUGMENTIN) 875-125 mg per tablet Take 1 tablet by mouth two times a day for 7 days. FAMILY HISTORY Problem Relation Age of Onset Psychiatry Mother depression Asthma Father Diabetes Maternal Grandmother Breast Cancer Maternal cousin Ovarian cancer No Family History Uterine Cancer No Family History DVT No Family History Social History Tobacco Use Smoking status: Never Passive exposure: Yes Smokeless tobacco: Never Substance Use Topics Alcohol use: Never Drug use: Never ASSESSMENT/PLAN: 1. Rhinosinusitis - ICD9: 473.9, ICD10: J32.9 - AMOXICILLIN 875 MG-POTASSIUM CLAVULANATE 125 MG TABLET Prescription instructions reviewed with patient as applicable. Potential red flag symptoms discussed with the patient. Reviewed appropriate action plan to take if red flag symptoms occur. Patient agreeable to treatment plan. Bradley Polk APRN.[employer]USH REGENERATOR Allergies As of Date: 06/14/2023 (No Known Allergies) Date Reviewed: 06/14/2023 Reviewed by: Ramya Lennon LPN - Fully Assessed Reason for Visit: Cough [28] Cmt: Cough, congestion and wheezing x 11 week Primary Visit Diagnosis:Rhinosinusitis [J32.9] Order(s):amoxicillin-clav ulanate potassium (AUGMENTIN) 875-125 mg per tabletTake 1 tablet by mouth two times a day for 7 days.Disp: 14 tabletRfl: 0 Prescriptions as of 06/14/2023 - amoxicillin-clavulanate potassium (AUGMENTIN) 875-125 mg per tablet Take 1 tablet by mouth two times a day for 7 days. - dulaglutide (TRULICITY) 3 mg/0.5 mL pen injector Inject 3 mg subcutaneously one time a week. - montelukast (SINGULAIR) 10 mg tablet Take 1 tablet by mouth daily at bedtime. - methylphenidate ER (CONCERTA) 54 mg biphasic tablet Take 1 tablet by mouth once daily for 30 days. - FLUoxetine (PROZAC) 20 mg capsule Take (more content not included)... [facility] GLORIAN Telephone (FAMPWS) ----- ALISSON CRENSHAW ([id number]) 1 F Date Time Provider Department 06/14/23 BRADEN BARBOZA During your visit today, we recorded the following information about you: Braden Barboza APRN.[employer]USH REGENERATOR 06/14/2023 10:51 AM Addendum Please let patient know her cholesterol is slightly elevated. I would like her to decrease fatty and processed foods. Also her WBC and platelets are increased. I would like her to get a repeat CBC in 2 weeks. Linh Rome MA 06/14/2023 10:56 AM Signed Left message for patient to return call to office DIEGO Gonzalez Barbara, RN 06/14/2023 2:16 PM Signed Pt's grandmother Leslie returned the call and notified of results and need for repeat labwork. Leslie states the family has been sick for a couple of weeks so she thinks Alisson may have been getting sick when she got her lab drawn. Allergies As of Date: 06/14/2023 (No Known Allergies) Date Reviewed: 06/04/2023 Reviewed by: Linh Rome MA - Fully Assessed Reason for Visit: Results [95] Primary Visit Diagnosis:Leukocytosis, unspecified type [D72.829] Order(s):CBC + DIFF [SQCBCDIF] Order #: [id number] FUTURE Prescriptions as of 06/14/2023 - dulaglutide (TRULICITY) 3 mg/0.5 mL pen injector Inject 3 mg subcutaneously one time a week. - montelukast (SINGULAIR) 10 mg tablet Take 1 tablet by mouth daily at bedtime. - methylphenidate ER (CONCERTA) 54 mg biphasic tablet Take 1 tablet by mouth once daily for 30 days. - FLUoxetine (PROZAC) 20 mg capsule Take 1 capsule by mouth once daily. - famotidine (PEPCID) 40 mg tablet Take 1 tablet by mouth daily at bedtime. - Drospirenone-Ethinyl Estradiol (IVONE, 28,) 3-0.02 mg per tablet Take 1 tablet by mouth once daily. - metFORMIN (GLUCOPHAGE) 500 mg tablet Take 1 tablet by mouth twice daily. - albuterol HFA (VENTOLIN HFA) 90 mcg/actuation inhaler Inhale 2 Puffs as instructed every 4 hours as needed. 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] 07/17/2017 07/01/2018 ADHD [F90.9] 05/31/2018 Asthma, well controlled [J45.909] 07/01/2018 Body mass index equal to or greater than 95th p*05/30/2020 Acquired pes planus of both feet [M21.41, M21.4*05/14/2021 Patellofemoral disorder of right knee [M22.2X1] 03/04/2022 Obesity, Class III, BMI >= 40 [E66.01] 09/21/2022 PCOS (polycystic ovarian syndrome) [E28.2] 12/30/2022 Depression, recurrent (HCC) [F33.9] 06/04/2023 Encounter Status:Closed by JAVID GONZALEZ on 06/14/23 Normal [facility] SPIROMETRY - BASELINE AND PO ST DILATORon 06-08-2023 OCU13-28% POST (L/S) 2.56 L/S [facility] NBV05-21% PRE (L/S) 2.89 L/S [facility] FEV1 PRE (L) 2.69 L [facility] FEV1/FVC POST (%) 81 % [facility] FEV1/FVC PRE (%) 83 % [facility] FEV1_POST (L) 2.61 L [facility] FVC POST (L) 3.20 L [facility] FVC PRE (L) 3.23 L [facility] PEF POST (L/S) 3.30 L/S [facility] PEF PRE (L/S) 3.78 L/S [facility] CBC W Auto Differential pane l (Bld)on 06-04-2023 Basophils (Bld) [#/Vol] 0.11 10*3/uL High <0.11 k/uL [facility] Basophils/100 WBC (Bld) 0.7 % [facility] Differential cell count method Nom (Bld) Auto [facility] Eosinophils (Bld) [#/Vol] 0.60 10*3/uL High <0.46 k/uL [facility] Eosinophils/100 WBC (Bld) 3.8 % [facility] Erythrocyte distribution width (RBC) [Ratio] 12.3 % 11.5 - 15.0 % [facility] Hematocrit (Bld) [Volume fraction] 38.7 % 36.0 - 46.0 % [facility] Hemoglobin (Bld) [Mass/Vol] 12.7 g/dL 11.5 - 15.5 g/dL [facility] Immature granulocytes (Bld) [#/Vol] 0.07 10*3/uL <0.10 k/uL [facility] Immature granulocytes/100 WBC (Bld) 0.4 % [facility] Lymphocytes (Bld) [#/Vol] 4.72 10*3/uL High 1.00 - 4.00 k/uL [facility] Lymphocytes/100 WBC (Bld) 29.6 % [facility] MCH (RBC) [Entitic mass] 28.0 pg 26.0 - 34.0 pg [facility] MCHC (RBC) [Mass/Vol] 32.8 g/dL 30.5 - 36.0 g/dL [facility] MCV (RBC) [Entitic vol] 85.4 fL 80.0 - 100.0 fL [facility] Monocytes (Bld) [#/Vol] 0.88 10*3/uL High <0.87 k/uL [facility] Monocytes/100 WBC (Bld) 5.5 % [facility] Neutrophils (Bld) [#/Vol] 9.58 10*3/uL High 1.45 - 7.50 k/uL [facility] Neutrophils/100 WBC (Bld) 60.0 % [facility] Nucleated RBC (Bld) [#/Vol] <0.01 k/uL [facility] Nucleated RBC/100 WBC (Bld) [Ratio] 0.0 /100 WBC [facility] Platelet mean volume (Bld) [Entitic vol] 10.2 fL 9.0 - 12.7 fL [facility] Platelets (Bld) [#/Vol] 423 10*3/uL High 150 - 400 k/uL [facility] RBC (Bld) [#/Vol] 4.53 10*6/uL 3.90 - 5.2 0 m/uL [facility] WBC (Bld) [#/Vol] 15.96 10*3/uL High 3.70 - 11 .00 k/uL [facility] UA DIP, URINE (POC)on 2021 BILIRUBIN UA (POCT) Negative Negative [facility] CLARITY UA (POCT) Slightly Cloudy Cl [facility] COLOR UA (POCT) Yellow [facility] GLUCOSE UA (POCT) Negative Negative mg/dL [facility] HEMOGLOBIN/BLOOD UA (POCT) Negative Negative [facility] KETONE UA (POCT) Negative Negative mg/dL [facility] LEUKOCYTES UA (POCT) Trace Abnormal Negative [facility] NITRITE UA (POCT) Negative Negative [facility] PH UA (POCT) 6.5 4.5 - 8.0 [facility] Protein Ql (U) Negative Negative mg/dL [facility] SPECIFIC GRAVITY UA (POCT) 1.025 1.005 - 1.030 [facility] UROBILINOGEN UA (POCT) 0.2 E.U./dL Normal E.U./dL [facility] Vital Signs Date Time Vital Sign Value Performing Clinician Faci lity 06-05-2024 15:17-0400 Body mass index (BMI) [Ratio] 42.87 kg/m2 Braden Barboza APRN.CNP Work Phone: [facility] 06-05-2024 15:17-0400 Body weight 121 kg Braden Barboza APRN.CNP Work Phone: [facility] 06-05-2024 15:17-0400 Diastolic blood pressure 80 mm[Hg] Braden Barboza APRN.CNP Work Phone: [facility] 06-05-2024 15:17-0400 Heart rate 111 /min Braden Barboza APRN.CNP Work Phone: [facility] 06-05-2024 15:17-0400 Systolic blood pressure 127 mm[Hg] Braden Barboza APRN.CNP Work Phone: [facility] 03-07-2024 15:26-0500 Body mass index (BMI) [Ratio] 43.39 kg/m2 Braden Barboza [employer] REGENERATOR Work Phone: [facility] 03-07-2024 15:26-0500 Body weight 122.47 kg Braden Barboza [employer]ENERATOR Work Phone: [facility] 03-07-2024 15:26-0500 Diastolic blood pressure 84 mm[Hg] Braden Barboza [employer] REGENERATOR Work Phone: [facility] 03-07-2024 15:26-0500 Heart rate 111 /min Braden Barboza [employer] REGENERATOR Work Phone: [facility] 03-07-2024 15:26-0500 Respiratory rate 14 /min Braden Barboza [employer] REGENERATOR Work Phone: [facility] 03-07-2024 15:26-0500 Systolic blood pressure 130 mm[Hg] Braden Barboza [employer] REGENERATOR Work Phone: [facility] 09-06-2023 15:26-0400 Body mass index (BMI) [Ratio] 41.79 kg/m2 Braden Barboza [employer] REGENERATOR Work Phone: [facility] 09-06-2023 15:26-0400 Body weight 117.94 kg Braden Barboza [employer] REGENERATOR Work Phone: [facility] 09-06-2023 15:26-0400 Diastolic blood pressure 86 mm[Hg] Braden Barboza [employer] REGENERATOR Work Phone: [facility] 09-06-2023 15:26-0400 Heart rate 94 /min Braden Barboza [employer] REGENERATOR Work Phone: [facility] 09-06-2023 15:26-0400 Respiratory rate 14 /min Braden Barboza [employer] REGENERATOR Work Phone: [facility] 09-06-2023 15:26-0400 Systolic blood pressure 124 mm[Hg] Braden Barboza [employer] REGENERATOR Work Phone: [facility] 07-13-2023 13:30-0400 Body mass index (BMI) [Ratio] 40.98 kg/m2 Evan Dominique APRN.[employer] REGENERATOR Work Phone: [facility] 07-13-2023 13:30-0400 Body weight 115.67 kg Evan Dominique APRN.[employer] REGENERATOR Work Phone: [facility] 06-30-2023 08:35-0400 Body temperature 97.39 [degF] Bradley Polk APRN.[employer] REGENERATOR Work Phone: [facility] 06-30-2023 08:35-0400 Body weight 115.9 kg Bradley Polk APRN.[employer] REGENERATOR Work Phone: [facility] 06-30-2023 08:35-0400 Diastolic blood pressure 78 mm[Hg] Bradley Polk APRN.[employer] REGENERATOR Work Phone: [facility] 06-30-2023 08:35-0400 Heart rate 93 /min Bradley Polk APRN.B[employer] REGENERATOR Work Phone: [facility] 06-30-2023 08:35-0400 Respiratory rate 18 /min Bradley Polk APRN.[employer] REGENERATOR Work Phone: [facility] 06-30-2023 08:35-0400 SaO2% (BldA) [Mass fraction] 98 % Bradley Polk APRN.[employer] REGENERATOR Work Phone: [facility] 06-30-2023 08:35-0400 Systolic blood pressure 114 mm[Hg] Bradley Polk APRN.[employer] REGENERATOR Work Phone: [facility] 06-14-2023 17:18-0400 Body temperature 98.6 [degF] Bradley Polk APRN.[employer] REGENERATOR Work Phone: [facility] 06-14-2023 17:18-0400 Body weight 114.6 kg Bradley Polk APRN.[employer] REGENERATOR Work Phone: [facility] 06-14-2023 17:18-0400 Diastolic blood pressure 80 mm[Hg] Bradley Polk APRN.[employer] REGENERATOR Work Phone: [facility] 06-14-2023 17:18-0400 Heart rate 91 /min Bradley Polk APRN.B[employer] REGENERATOR Work Phone: [facility] 06-14-2023 17:18-0400 Respiratory rate 18 /min Bradley Polk APRN.[employer] REGENERATOR Work Phone: [facility] 06-14-2023 17:18-0400 SaO2% (BldA) [Mass fraction] 97 % Bradley Polk APRN.[employer] REGENERATOR Work Phone: [facility] 06-14-2023 17:18-0400 Systolic blood pressure 122 mm[Hg] Bradley Polk APRN.B[employer] REGENERATOR Work Phone: [facility] 06-08-2023 10:50-0400 Body height 168 cm Pulm Wstr Work Phone: [facility] 06-08-2023 10:50-0400 Body weight 117.03 kg Pulm Wstr Work Phone: [facility] 06-08-2023 10:50-0400 Heart rate 89 /min Pulm Wstr Work Phone: [facility] 06-08-2023 10:50-0400 Respiratory rate 14 /min Pulm Wstr Work Phone: [facility] 06-08-2023 10:50-0400 SaO2% (BldA) [Mass fraction] 97 % Pulm Wstr Work Phone: [facility] 06-04-2023 12:40-0400 Body weight 117.48 kg Braden Barboza APRN.[employer] REGENERATOR Work Phone: [facility] 06-04-2023 12:40-0400 Diastolic blood pressure 66 mm[Hg] Braden Barboza APRN.B[employer] REGENERATOR Work Phone: [facility] 06-04-2023 12:40-0400 Heart rate 82 /min Braden Barboza APRN.B[employer] REGENERATOR Work Phone: [facility] 06-04-2023 12:40-0400 Respiratory rate 14 /min Braden Barboza APRN.B[employer] REGENERATOR Work Phone: [facility] 06-04-2023 12:40-0400 Systolic blood pressure 124 mm[Hg] Braden Barboza APRN.B[employer] REGENERATOR Work Phone: [facility] 12-30-2022 15:50-0400 Body weight 117.03 kg Evan Olivaresnehal WALKER.BUSH REGENERATOR Work Phone: [facility] 09-21-2022 15:31-0400 Body height 168 cm Gray García DO Work Phone: [facility] 09-21-2022 15:31-0400 Body temperature 97.81 [degF] Gray aGrcía DO Work Phone: [facility] 09-21-2022 15:31-0400 Body weight 117.16 kg Gray García DO Work Phone: [facility] 09-21-2022 15:31-0400 Diastolic blood pressure 82 mm[Hg] Gray García DO Work Phone: [facility] 09-21-2022 15:31-0400 Heart rate 77 /min Gray García DO Work Phone: [facility] 09-21-2022 15:31-0400 Respiratory rate 20 /min Gray García DO Work Phone: [facility] 09-21-2022 15:31-0400 SaO2% (BldA) [Mass fraction] 99 % Grya García DO Work Phone: [facility] 09-21-2022 15:31-0400 Systolic blood pressure 120 mm[Hg] Gray García DO Work Phone: [facility] 03-04-2022 10:00-0500 Body temperature 97.39 [degF] Gray García DO Work Phone: [facility] 03-04-2022 10:00-0500 Body weight 116.57 kg Gray García DO Work Phone: [facility] 03-04-2022 10:00-0500 Diastolic blood pressure 84 mm[Hg] Gray García DO Work Phone: [facility] 03-04-2022 10:00-0500 Heart rate 93 /min Gray García DO Work Phone: [facility] 03-04-2022 10:00-0500 SaO2% (BldA) [Mass fraction] 97 % Gray García DO Work Phone: [facility] 03-04-2022 10:00-0500 Systolic blood pressure 125 mm[Hg] Gray García DO Work Phone: [facility] 09-11-2021 13:56-0400 Body height 169.5 cm Abby Tichy [employer] REGENERATOR Work Phone: [facility] 09-11-2021 13:56-0400 Body mass index (BMI) [Percentile] Per age and sex 98.81 % Abby Tichy [employer] REGENERATOR Work Phone: [facility] 09-11-2021 13:56-0400 Body temperature 96.8 [degF] Abby Tichy [employer] REGENERATOR Work Phone: [facility] 09-11-2021 13:56-0400 Body weight 117.53 kg Abby Tichy [employer] REGENERATOR Work Phone: [facility] 09-11-2021 13:56-0400 Diastolic blood pressure 86 mm[Hg] Abby Tichy [employer] REGENERATOR Work Phone: [facility] 09-11-2021 13:56-0400 Heart rate 89 /min Abby Tichy [employer] REGENERATOR Work Phone: [facility] 09-11-2021 13:56-0400 Respiratory rate 20 /min Abby Tichy [employer] REGENERATOR Work Phone: [facility] 09-11-2021 13:56-0400 Systolic blood pressure 130 mm[Hg] Abby Tichy [employer]ER.[employer] REGENERATOR Work Phone: [facility] 09-05-2021 10:50-0400 Body height 171.5 cm Collette Raza [employer] REGENERATOR Work Phone: [facility] 09-05-2021 10:50-0400 Body mass index (BMI) [Percentile] Per age and sex 98.66 % Collette Raza APRN.[employer] REGENERATOR Work Phone: [facility] 09-05-2021 10:50-0400 Body weight 116.57 kg Collette Raza APRN.CNP Work Phone: [facility] 09-01-2021 13:01-0400 Body temperature 98.01 [degF] Gray García DO Work Phone: [facility] 09-01-2021 13:01-0400 Body weight 115.21 kg Gray García DO Work Phone: [facility] 09-01-2021 13:01-0400 Diastolic blood pressure 85 mm[Hg] Gray García DO Work Phone: [facility] 09-01-2021 13:01-0400 Heart rate 71 /min Gray García DO Work Phone: [facility] 09-01-2021 13:01-0400 Respiratory rate 17 /min Gray García DO Work Phone: [facility] 09-01-2021 13:01-0400 SaO2% (BldA) [Mass fraction] 98 % Gray García DO Work Phone: [facility] 09-01-2021 13:01-0400 Systolic blood pressure 124 mm[Hg] Gray Mcgarryguzman HERNÁNDEZ Work Phone: [facility] Encounters Encounter Date Encounter Type Care Provider Facility Start: 08-05-2024 End: 08-07-2024 Refill Braden Barboza APRN.CNP Work Phone: [facility] Comment on above: Refill Request Start: 07-17-2024 End: 07-17-2024 Refill Braden Barboza APRN.CNP Work Phone: [facility] Comment on above: Refill Request Start: 06-06-2024 End: 06-06-2024 Follow-up encounter Braden Barboza APRN.CNP Work Phone: [facility] Comment on above: Results Start: 06-05-2024 End: 06-05-2024 Patient encounter procedure Braden Barboza APRN.[employer] REGENERATOR Work Phone: [facility] Comment on above: Hypertriglyceridemia (Primary Dx); Attention deficit hyperactivity disorder (ADHD), predominantly inattentive type; Medication management Start: 06-05-2024 End: 06-05-2024 ambulatory BRADEN BARBOZA Facility:[facility] Start: 06-05-2024 End: 06-05-2024 ambulatory BRADEN BARBOZA Facility:[facility] Start: 05-23-2024 End: 05-26-2024 ambulatory Braden Barboza APRN.B[employer] REGENERATOR Work Phone: Internal Medicine [place] [id number] Start: 05-02-2024 End: 05-03-2024 Emergency department patient visit Braden Barboza Facility:[facility] Start: 04-26-2024 End: 04-27-2024 Refill Braden Barboza APRN.B[employer] REGENERATOR Work Phone: [facility] Comment on above: Refill Request Start: 03-16-2024 End: 03-16-2024 Telephone encounter Braden Barboza APRN.B[employer] REGENERATOR Work Phone: [facility] Comment on above: Insurance Authorizat ion (Fish oil) Start: 03-13-2024 End: 03-13-2024 Telephone encounter Braden Barboza APRN.B[employer] REGENERATOR Work Phone: [facility] Comment on above: Patient Request Start: 03-10-2024 End: 03-10-2024 Telephone encounter Braden Barboza APRN.B[employer] REGENERATOR Work Phone: [facility] Comment on above: Paperwork for the co urts Results Start: 03-08-2024 End: 03-08-2024 Telephone encounter Breanna Rivera PA-C Work Phone: [facility] Comment on above: Results Start: 03-08-2024 End: 03-08-2024 ambulatory BREANNA RIVERA Facility:[facility] Start: 03-07-2024 End: 03-07-2024 Patient encounter procedure Braden Barboza APRN.[employer] REGENERATOR Work Phone: [facility] Comment on above: Gastroesophageal ref lux disease without esophagitis (Primary Dx); Obesity, Class III, BMI 40-49.9 (morbid obesity) (HCC); PCOS (polycystic ovarian syndrome); Encounter for immunization; Encounter for lipid screening for cardiovascular disease; Urinary incontinence, unspecified type Start: 03-07-2024 End: 03-07-2024 ambulatory BRADEN BARBOZA Facility:[facility] Start: 02-26-2024 End: 02-28-2024 Refill Braden Barboza APRN.[employer] REGENERATOR Work Phone: [facility] Comment on above: Refill Request Start: 01-21-2024 End: 01-21-2024 Refill Braden Barboza APRN.[employer] REGENERATOR Work Phone: [facility] Comment on above: Refill Request Start: 01-11-2024 End: 01-13-2024 Refill Braden Barboza APRN.[employer] REGENERATOR Work Phone: [facility] Comment on above: Refill Request Start: 12-14-2023 End: 12-14-2023 Refill Braden Barboza APRN.[facility] Work Phone: [facility] Comment on above: Refill Request Start: 12-05-2023 End: 12-06-2023 Refill Gray García DO Work Phone: [facility] Comment on above: Refill Request Start: 11-27-2023 End: 11-29-2023 Refill Braden Barboza [employer] Work Phone: [facility] Comment on above: Refill Request Start: 11-20-2023 End: 11-23-2023 Refill Braden Barboza APRN.[facility] Work Phone: [facility] Comment on above: Refill Request Start: 10-11-2023 Refill Gray García DO Work Phone: [facility] Comment on above: Refill Request Start: 09-16-2023 End: 09-16-2023 ambulatory Gray Menard PhD Work Phone: Endocrinology Comment on above: Class 3 severe obesi ty due to excess calories without serious comorbidity with body mass index (BMI) of 40.0 to 44.9 in adult ([facility]) Start: 09-16-2023 End: 09-16-2023 Telemedicine consultation with patient Gray Menard PhD Work Phone: Endocrinology Start: 09-14-[address] [facility] surgery [place] Evan Dominique [employer] REG[employer]ATOR Work Phone: [facility] Comment on above: Trulicity. Start: 09-14-2023 ambulatory Evan Dominique [employer] REG[employer] Work Phone: [facility] Start: 09-09-2023 Admission to [facility] Evan Dominique [employer] REG[employer]ATOR Work Phone: [facility] Comment on above: Trulicity Start: 09-09-2023 ambulatory Evan Dominique [employer] REG[employer]ATOR Work Phone: [facility] Start: 09-06-2023 End: 09-06-2023 ambulatory BRADEN BARBOZA [facility] [facility] Start: 09-06-2023 End: 09-06-2023 Patient encounter procedure Braden Barboza [employer] REGENERATOR Work Phone: [facility] Comment on above: Obesity, Class III, BMI 40-49.9 (morbid obesity) ([facility]) (Primary Dx); PCOS (polycystic ovarian syndrome); Attention deficit disorder, unspecified hyperactivity presence; Severe depression ([facility]) Start: 08-07-2023 Refill Gray García DO Work Phone: [facility] [place] Comment on above: Refill Request Start: 07-26-[address] [facility] surgery [place] Evan Dominique [employer] TE[employer]ER.BUSH REGENERATOR Work Phone: [facility] Comment on above: Referral Start: 07-26-2023 ambulatory Evan Dominique [employer]ER.[employer] REGENERATOR Work Phone: [facility] Start: 07-22-2023 Admission to same da y surgery center Evan Catina WALKER.BUSH REGENERATOR Work Phone: [facility] Comment on above: Referral Start: 07-22-2023 ambulatory Evan Dominique DENISE.BUSH REGENERATOR Work Phone: [facility] Start: 07-13-2023 End: 07-13-2023 Admission to same day surgery center Evan Olivaresestelamanny DENISE.BUSH REGENERATOR Work Phone: [facility] Comment on above: Class 3 severe obesi ty due to excess calories without serious comorbidity with body mass index (BMI) of 40.0 to 44.9 in adult (HCC) (Primary Dx); PCOS (polycystic ovarian syndrome) Start: 07-13-2023 End: 07-13-2023 ambulatory EVAN DOMINIQUE Facility:[facility] Start: 07-13-2023 End: 07-13-2023 Telemedicine consultation with patient Evan Dominique DENISE.BUSH REGENERATOR Work Phone: [facility] Start: 07-05-2023 End: 07-05-2023 ambulatory BRADEN BARBOZA Facility:[facility] Start: 07-05-2023 End: 07-05-2023 Nursing evaluation of patient and report Mi Nurse Work Phone: [facility] [place] Comment on above: Need for vaccination (Primary Dx) Start: 07-03-2023 Refill Braden olivier APRN.BUSH REGENERATOR Work Phone: [facility] [place] Comment on above: Refill Request Start: 06-30-2023 End: 06-30-2023 ambulatory BRADEN BARBOZA Facility:[facility] Start: 06-30-2023 End: 06-30-2023 Patient encounter procedure Bradley Polk APRN.BUSH REGENERATOR Work Phone: [facility] Comment on above: Acute otitis externa of left ear, unspecified type (Primary Dx) Start: 06-21-2023 Telephone encounter Braden doyle APRN.CNP Work Phone: [facility] [place] Comment on above: Orders Start: 06-14-2023 End: 06-14-2023 ambulatory BRADEN BARBOZA Facility:[facility] Start: 06-14-2023 End: 06-14-2023 Patient encounter procedure Bradley Polk APRN.BUSH REGENERATOR Work Phone: [place] [facility] Comment on above: Rhinosinusitis (Prim fatuma Dx) Start: 06-14-2023 Telephone encounter Braden doyle APRN.BUSH REGENERATOR Work Phone: [facility] [place] Comment on above: Results Start: 06-08-2023 Telephone encounter Braden doyle APRN.BUSH REGENERATOR Work Phone: [facility] [place] Comment on above: Results Start: 06-08-2023 End: 06-08-2023 ambulatory [facility] Work Phone: [facility] Comment on above: Spirometry Start: 06-08-2023 End: 06-08-2023 Patient encounter procedure [facility] Work Phone: [place] [facility] [place] Start: 06-04-2023 End: 06-04-2023 Refill Evan Dominique APRN.BUSH REGENERATOR Work Phone: General Surgery Comment on above: Refill Request Intellectual disabil ity (Primary Dx); Attention deficit disorder, unspecified hyperactivity presence; Severe obesity due to excess calories without serious comorbidity with body mass index (BMI) in 99th percentile for age in pediatric patient (HCC); Obesity, Class III, BMI >= 40; PCOS (polycystic ovarian syndrome); Asthma, moderate persistent, well-controlled; Encounter for lipid screening for cardiovascular disease; Medication management; Chronic allergic rhinitis; Encounter for immunization; Special screening examination for viral disease; Screening for HIV (human immunodeficiency virus); Asthma, mild intermittent, well-controlled; Depression, recurrent ([facility]) Start: 05-18-2023 ambulatory Gray García DO Work Phone: [facility] [place] Start: 02-15-2023 Nurse Triage Gray García DO Work Phone: [facility] [place] Comment on above: Refill Request Start: 01-27-2023 Chart abstracting [facility] Work Phone: Neurology Start: 12-30-2022 End: 12-30-2022 ambulatory Evan Dominique APRN.BUSH REGENERATOR Work Phone: General Surgery [place] Comment on above: Class 3 severe obesi ty due to excess calories without serious comorbidity with body mass index (BMI) of 40.0 to 44.9 in adult (HCC) (Primary Dx); PCOS (polycystic ovarian syndrome); Sleep apnea, unspecified type; Daytime sleepiness; Snoring Start: 12-30-2022 End: 12-30-2022 Telemedicine consultation with patient Evan Dominique APRN.BUSH REGENERATOR Work Phone: [facility] Start: 11-20-2022 Refill Gray García DO Work Phone: [facility] [place] Comment on above: Refill Request Start: 10-20-2022 ambulatory Gray García DO Work Phone: [facility] [place] Start: 10-05-2022 Telephone encounter Gray ace DO Work Phone: [facility] [place] Comment on above: Patient Question Start: 09-21-2022 End: 09-21-2022 Patient encounter procedure Gray García DO Work Phone: [facility] [place] Comment on above: Well adult exam (Lillian joaquim Dx); Class 3 severe obesity due to excess calories without serious comorbidity with body mass index (BMI) of 40.0 to 44.9 in adult (HCC); Encounter for general adult medical examination with abnormal findings Start: 09-21-2022 End: 09-21-2022 Patient encounter status Gray García DO Work Phone: [facility] [place] Start: 09-08-2022 Refill Gray García DO Work Phone: [facility] [place] Comment on above: Refill Request Start: 07-08-2022 Refill Gray García DO Work Phone: [facility] [place] Comment on above: Refill Request Start: 05-08-2022 Nurse Triage Gray García DO Work Phone: [facility] Comment on above: medication refill Start: 03-28-2022 Refill Gray García DO Work Phone: [facility] Comment on above: Refill Request Start: 03-18-2022 End: 03-18-2022 OT/PT/Speech Visit Seb Herrera PT [facility] Comment on above: Patellofemoral disor gerard of right knee (Primary Dx) Start: 03-09-2022 End: 03-09-2022 OT/PT/Speech Visit Seb Herrera PT [facility] Comment on above: Patellofemoral disor gerard of right knee (Primary Dx) Start: 03-06-2022 End: 03-06-2022 OT/PT/Speech Visit Seb Herrera PT [facility] Comment on above: Patellofemoral disor gerard of right knee Start: 03-04-2022 End: 03-04-2022 Patient encounter procedure Gray García DO Work Phone: [facility] Comment on above: Attention deficit di sorder, unspecified hyperactivity presence (Primary Dx); Encounter for immunization; Patellofemoral disorder of right knee; Learning disability; Anxiety, generalized Start: 01-21-2022 Refill Gray García DO Work Phone: [facility] Start: 01-01-2022 Telephone encounter Gray ace DO Work Phone: [facility] Comment on above: Forms Start: 12-08-2021 Refill Yolande Gandhi MD Work Phone: Obstetrics/Gynecolog y Start: 11-27-2021 Refill Gray García DO Work Phone: [facility] [place] Comment on above: Refill Request Start: 11-07-2021 Refill Gray García DO Work Phone: [facility] Comment on above: Refill Request Start: 10-13-2021 Refill Gray García DO Work Phone: [facility] Comment on above: Refill Request Start: 09-11-2021 End: 09-11-2021 Patient encounter procedure Abby Correa [employer] TE[employer]ER.B[employer] REGENERATOR Work Phone: [facility] [place] Comment on above: Encounter for wilian l adult medical examination without abnormal findings (Primary Dx); Severe obesity due to excess calories without serious comorbidity with body mass index (BMI) in 99th percentile for age in pediatric patient (HCC); BMI (body mass index), pediatric, greater than 99% for age Start: 09-11-2021 End: 09-11-2021 Patient encounter status Abby Correa [employer] TE[employer]ER.BUSH REGENERATOR Work Phone: [facility] [place] Start: 09-09-2021 ambulatory Gray García DO Work Phone: [facility] Comment on above: Forms Start: 09-05-2021 End: 09-05-2021 Patient encounter procedure Collette Raza [employer] TEACHER.BUSH REGENERATOR Work Phone: Urology Comment on above: Mixed stress and urg e urinary incontinence (Primary Dx); OAB (overactive bladder) Start: 09-01-2021 End: 09-01-2021 Patient encounter procedure Gray García DO Work Phone: [facility] Comment on above: Other urinary incont inence (Primary Dx); Attention deficit disorder, unspecified hyperactivity presence Start: 08-29-2021 Refill Gray García DO Work Phone: [facility] Medicine [place] Comment on above: Refill Request Start: 08-16-2021 Refill Gray García DO Work Phone: [facility] [place] Comment on above: Refill Request Start: 07-28-2021 Refill Gray García DO Work Phone: [facility] [place] Comment on above: Refill Request Start: 07-15-2021 Telephone encounter Gray ace DO Work Phone: [facility] Comment on above: Letter Start: 07-08-2021 ambulatory Lakshmi sow RN [facility] [place] Comment on above: Asthma (Peds Breathe Well Not Eligible) Procedures Date Procedure Procedure Detail Performing Clinician Start: 03-07-2024 PFIZER-BIONTECH COVI D-19 VACCINE AGE 12+ YR (COMIRNATY) Braden Barboza [employer] TEACHER.BUSH REGENERATOR Work Phone: Start: 06-08-2023 Brncdilat rspse spmt ry pre&post-brncdilat admn Braden Barboza [employer] TEACHER.BUSH REGENERATOR Work Phone: Start: 06-04-2023 MENINGOCOCCAL B VACC INE (BEXSERO) Braden Barboza [employer]CHO[employer] TEACHER.BUSH REGENERATOR Work Phone: Start: 03-04-2022 PFIZER-BIONTECH COVI D-19 BIVALENT BOOSTER VACCINE, AGE 12+ YR Gray García DO Work Phone: Start: 09-11-2021 Adult depression scr eening assessment Abby Correa [employer] TEACHER.BUSH REGENERATOR Work Phone: Start: 09-05-2021 Urnls dip stick/tabl et rgnt auto w/o microscopy Collette Raza [employer] TEACHER.BUSH REGENERATOR Work Phone: Start: 10-14-2020 Adult depression scr eening assessment Lakshmi Lopez RN Plan of Treatment Date Care Activity Detail Author Start: 2068 PNEUMOCOCCAL (2 - PPSV23 or PCV20) PNEUMOCOCCAL (2 - PPSV23 or PCV20) [facility] Start: 06-05-2026 Asthma Action Plan Asthma Action Plan [facility] Start: 06-05-2025 Annual PCP Team Chronic Disease Visit Annual PCP Team Chronic Disease Visit [facility] Start: 06-05-2025 Asthma Control Test Asthma Control Test [facility] Start: 03-25-2025 Urine microalbumin profile [facility] Start: 03-07-2025 Annual PCP Team Chronic Disease Visit Annual PCP Team Chronic Disease Visit [facility] Start: 09-05-2024 Annual PCP Team Chronic Disease Visit Annual PCP Team Chronic Disease Visit [facility] Start: 09-05-2024 End: 09-05-2024 Patient encounter procedure 09/05/2024 9:40 AM EDT Office Visit [facility] [address] [place] [id number] Braden Barboza APRN.[facility] [address] [place] [address] 3 month follow up [facility] [place] Comment on above: 3 month follow up Start: 09-01-2024 End: 09-01-2024 Patient encounter procedure 09/01/2024 10:00 AM EDT Office Visit [facility] [address] [facility] [place], [place] [id number] Braden Barboza APRN.BUSH REGENERATOR [address] [place], [place] [id number] 3 month follow up [facility] Zena [place] Comment on above: 3 month follow up Start: 06-05-2024 End: 06-05-2024 Patient encounter procedure 06/05/2024 3:20 PM EDT Office Visit [facility] [place] [address] [facility] [place], [place] [id number] Braden Barboza APRN.BUSH REGENERATOR [address] [place], [place] [phone] 3 month follow up [facility] Zena [place] Comment on above: 3 month follow up Start: 06-05-2024 End: 09-04-2024 LIPID PANEL, NONFASTING LIPID PANEL, NONFASTING Lab Routine Hypertriglyceridemia Expected: 06/05/2024, Expires: 09/04/2024 [facility] Work Phone: Comment on above: Expected: 06/05/2024, Expires: Start: 06-05-2024 End: 09-04-2024 QUANTITATIVE TOXICOLOGY PANEL, URINE QUANTITATIVE TOXICOLOGY PANEL, URINE Lab Routine Medication management Expected: 06/05/2024, Expires: 09/04/2024 [facility] Comment on above: Expected: 06/05/2024, Expires: Start: 06-05-2024 End: 09-04-2024 TOXICOLOGY SCREEN, ROUTINE URINE TOXICOLOGY SCREEN, ROUTINE URINE Lab Routine Medication management Expected: 06/05/2024, Expires: 09/04/2024 [facility] Comment on above: Expected: 06/05/2024, Expires: Start: 06-03-2024 Annual PCP Team Chronic Disease Visit Annual PCP Team Chronic Disease Visit [facility] Start: 06-03-2024 GC (Gonorrhea) Screening (18-24) GC (Gonorrhea) Screening (18-24) [facility] Comment on above: Postponed from 2021 (Declined at t his time) Start: 06-03-2024 Screening for Chlamydia trachomatis Chlamydia Screening (18-) [facility] Comment on above: Postponed from 2021 (Declined at t his time) Start: 05-23-2024 End: 08-22-2024 Basic metabolic 2000 panel - Serum or Plasma BASIC METABOLIC PANEL Lab Routine Medication management Expected: 05/23/2024, Expires: 08/22/2024 [facility] Work Phone: Comment on above: Expected: 05/23/2024, Expires: Start: 2024 Screening for malignant neoplasm of cervix Cervical Cancer Screening [facility] Start: 03-08-2024 End: 06-07-2024 Lipid 1996 panel - Serum or Plasma [facility] Work Phone: Comment on above: Expected: 03/08/2024, Expires: Start: 03-07-2024 End: 03-07-2024 Patient encounter procedure 03/07/2024 3:40 PM EST Office Visit Family [facility] [address] [place], [place] [phone] Braden Barboza APRN.[facility] [address] [place], [place] [phone] 6 month follow up [facility] Comment on above: 6 month follow up Start: 03-07-2024 End: 06-06-2024 LIPID PANEL, NONFASTING [facility] Work Phone: Comment on above: Expected: 03/07/2024, Expires: Start: 12-21-2023 End: 12-21-2023 Patient encounter procedure 12/21/2023 1:00 PM EDT Office Visit OB/Gynecology [address] [place] [address] Ree Wiggins APRN.BUSH REGENERATOR [address] [place] [place] [address] Obesity, Class III, BMI 40-49.9 (morbid obesity) ([facility]) [E66.01]; PCOS (polycystic ovarian syndrome) [E28.2] OB/Gynecology Comment on above: Obesity, Class III, BMI 40-49.9 (morbid obesity) ([facility]) [E66.01]; PCOS (polycystic ovarian syndrome) [E28.2] Start: 12-14-2023 End: 03-14-2024 Hemoglobin A1c in Blood HEMOGLOBIN A1C Lab Routine PCOS (polycystic ovarian syndrome) Expected: 12/14/2023, Expires: 03/14/2024 [facility] Work Phone: Comment on above: Expected: 12/14/2023, Expires: Start: 11-21-2023 Covid-19 Vaccine ( season) Covid-19 Vaccine ( season) [facility] Start: 11-21-2023 Covid-19 Vaccine ( season) Covid-19 Vaccine () [facility] Start: 11-21-2023 Influenza [facility] Start: 09-22-2023 ANNUAL PCP TEAM CHRONIC DISEASE VISIT ANNUAL PCP TEAM CHRONIC DISEASE VISIT [facility] Start: 09-22-2023 ASTHMA CONTROL TEST ASTHMA CONTROL TEST [facility] Start: 09-16-2023 End: 09-16-2023 ambulatory 09/16/2023 4:00 PM EDT [facility] [address] [place] [address] Gray Menard, PhD [address] [place] [address] Class 3 severe obesity due to excess calories without serious comorbidity with b... Endocrinology Comment on above: Class 3 severe obesity due to excess satnam ories without serious comorbidity with b... Start: 09-06-2023 End: 09-06-2023 Patient encounter procedure 09/06/2023 3:20 PM EDT Office Visit [facility] [address] [place], [place] [phone] Braden Barboza APRN.BUSH REGENERATOR [address] [place] [address] 3 month follow up [facility] Comment on above: 3 month follow up Start: 07-02-2023 Meningococcal B Vaccine: Consider Based On Risk (2 of 2 - Risk Bexsero 2-dose series) Meningococcal B Vaccine: Consider Based On Risk (2 of 2 - Risk Bexsero 2-dose series) [facility] Start: 06-14-2023 End: 09-13-2023 CBC W Auto Differential panel - Blood CBC + DIFF Lab Routine Leukocytosis, unspecified type Expected: 06/14/2023, Expires: 09/13/2023 [facility] Work Phone: Comment on above: Expected: 06/14/2023, Expires: 4 Start: 06-04-2023 End: 09-03-2023 Comprehensive metabolic 2000 panel - Serum or Plasma [facility] Work Phone: Comment on above: Expected: 06/04/2023, Expires: 4 Start: 06-04-2023 End: 09-03-2023 Hemoglobin A1c in Blood [facility] Work Phone: Comment on above: Expected: 06/04/2023, Expires: 4 Start: 06-04-2023 End: 09-03-2023 Hepatitis C virus Ab [Presence] in Serum [facility] Work Phone: Comment on above: Expected: 06/04/2023, Expires: 4 Start: 06-04-2023 End: 09-03-2023 HIV 1+2 Ab [Presence] in Serum or Plasma by Immunoassay [facility] Work Phone: Comment on above: Expected: 06/04/2023, Expires: 4 Start: 06-04-2023 End: 09-03-2023 LIPID PANEL, NONFASTING [facility] Work Phone: Comment on above: Expected: 06/04/2023, Expires: Start: 06-04-2023 End: 09-03-2023 PAIN PANEL, UR QUANT [facility] Work Phone: Comment on above: Expected: 06/04/2023, Expires: Start: 06-04-2023 End: 09-03-2023 TOX SCREEN ROUT UR [facility] Work Phone: Comment on above: Expected: 06/04/2023, Expires: Start: 03-22-2023 Depression Assessment Depression Assessment [facility] Start: 03-04-2023 ANNUAL PCP TEAM CHRONIC DISEASE VISIT ANNUAL PCP TEAM CHRONIC DISEASE VISIT [facility] Start: 03-04-2023 ASTHMA CONTROL TEST ASTHMA CONTROL TEST [facility] Start: 11-20-2022 Covid-19 Vaccine ( season) Covid-19 Vaccine () [facility] Start: 11-20-2022 Influenza vaccination [facility] Start: 10-20-2022 End: 12-20-2022 Basic metabolic 2000 panel - Serum or Plasma BASIC METABOLIC PNL Lab Routine Medication management Expected: 10/20/2022, Expires: 12/20/2022 [facility] Work Phone: Comment on above: Expected: 10/20/2022, Expires: 3 Start: 09-11-2022 Adult depression screening assessment DEPRESSION SCREENING [facility] Start: 09-11-2022 ANNUAL PCP TEAM CHRONIC DISEASE VISIT ANNUAL PCP TEAM CHRONIC DISEASE VISIT [facility] Start: 09-01-2022 ANNUAL PCP TEAM CHRONIC DISEASE VISIT ANNUAL PCP TEAM CHRONIC DISEASE VISIT [facility] Start: 08-21-2022 ASTHMA ACTION PLAN ASTHMA ACTION PLAN [facility] Start: 05-24-2022 ANNUAL PCP TEAM CHRONIC DISEASE VISIT ANNUAL PCP TEAM CHRONIC DISEASE VISIT [facility] Start: 04-07-2022 ASTHMA CONTROL TEST ASTHMA CONTROL TEST [facility] Start: 03-22-2022 DEPRESSION ASSESSMENT DEPRESSION ASSESSMENT [facility] Start: 11-20-2021 Influenza vaccination INFLUENZA (#1) [facility] Start: 10-14-2021 Adult depression screening assessment DEPRESSION SCREENING [facility] Start: 10-14-2021 MENINGOCOCCAL B: Consider based on risk (1 of 2 - Risk Bexsero 2-dose series) MENINGOCOCCAL B: Consider based on risk (1 of 2 - Risk Bexsero 2-dose series) [facility] Comment on above: Postponed from 2013 (Declined at t his time) Start: 06-02-2021 COVID-19 VACCINE (4 - Booster for Pfizer series) COVID-19 VACCINE (4 - Booster for Pfizer series) [facility] Start: 03-22-2021 DEPRESSION ASSESSMENT DEPRESSION ASSESSMENT [facility] Start: 2021 Anxiety Screening Anxiety Screening [facility] Start: 2021 CHLAMYDIA SCREENING (18-24) CHLAMYDIA SCREENING (18-24) [facility] Start: 2021 GC (GONORRHEA) SCREENING (18-24) GC (GONORRHEA) SCREENING (18-24) [facility] Start: 2021 HEPATITIS C SCREENING HEPATITIS C SCREENING [facility] Start: 2021 Hepatitis C screening Hepatitis C Screening [facility] Start: 2021 HIV SCREENING HIV SCREENING [facility] Start: 2021 HIV screening HIV Screening [facility] Start: 2021 Screening for Chlamydia trachomatis Chlamydia Screening (18-24) [facility] Start: 2021 SPIROMETRY SPIROMETRY [facility] Start: 2019 Meningococcal B Vaccine: Consider Based On Risk (1 of 2 - Patient Seeks Protection) Meningococcal B Vaccine: Consider Based On Risk (1 of 2 - Patient Seeks Protection) [facility] Start: 2019 MENINGOCOCCAL B: Consider based on risk (1 of 2 - Patient Seeks Protection) MENINGOCOCCAL B: Consider based on risk (1 of 2 - Patient Seeks Protection) [facility] Start: 2017 PEDS TO ADULT TRANSITION ANNUAL ASSESSMENT PEDS TO ADULT TRANSITION ANNUAL ASSESSMENT [facility] Start: 2015 PEDS TO ADULT TRANSITION INITIAL DISCUSSION PEDS TO ADULT TRANSITION INITIAL DISCUSSION [facility] Start: 2013 MENINGOCOCCAL B: Consider based on risk (1 of 2 - Risk Bexsero 2-dose series) MENINGOCOCCAL B: Consider based on risk (1 of 2 - Risk Bexsero 2-dose series) [facility] Start: 2009 Pneumococcal vaccination Pneumococcal Vaccine (1 - PPSV23 or PCV20) [facility] Start: 06-27-2005 PNEUMOCOCCAL (1 - PPSV23 if available, else PCV20) PNEUMOCOCCAL (1 - PPSV23 if available, else PCV20) [facility] Start: 08-22-2004 PNEUMOCOCCAL (1 - PPSV23 if available, else PCV20) PNEUMOCOCCAL (1 - PPSV23 if available, else PCV20) [facility] End: 12-30-2023 HOME SLEEP APNEA TEST (HSAT) HOME SLEEP APNEA TEST (HSAT) Procedures Routine Class 3 severe obesity due to excess calories without serious comorbidity with body mass index (BMI) of 40.0 to 44.9 in adult (HCC) Sleep apnea, unspecified type Daytime sleepiness Snoring 1 Occurrences starting 12/30/2022 until 12/30/2023 [facility] Work Phone: Comment on above: 1 Occurrences starting 12/30/2022 until 12/30/2023 MENINGOCOCCAL B VACCINE (BEXSERO) MENINGOCOCCAL B VACCINE (BEXSERO) Immunization/Injection Routine Encounter for immunization Ordered: 06/22/2023 [facility] Work Phone: Comment on above: Ordered: 06/22/2023 PT PLAN OF CARE CERTIFICATION PT PLAN OF CARE CERTIFICATION Procedures Routine Patellofemoral disorder of right knee Ordered: 03/06/2022 [facility] Work Phone: Comment on above: Ordered: 03/06/2022 End: 07-03-2024 SPIROMETRY - BASELINE AND POST DILATOR SPIROMETRY - BASELINE AND POST DILATOR PFT Routine Asthma, mild intermittent, well-controlled 1 Occurrences starting 06/04/2023 until 07/03/2024 [facility] Work Phone: Comment on above: 1 Occurrences starting 06/04/2023 until 07/03/2024 [facility] Immunizations Immunization Date Immunization Notes Care Provider [facility] 03-07-2024 COVID-19 vaccine, ag e 12+ yr (PFIZER-BIONTECH COMIRNATY) Braden Barboza [employer] TE[employer] REGENERATOR Work Phone: [facility] 03-07-2024 influenza, seasonal, injectable Braden Barboza [employer] REGENER[employer] Work Phone: [facility] 07-05-2023 meningococcal B vacc ine, recombinant, OMV, adjuvanted Mi Nurse Work Phone: [facility] 06-04-2023 meningococcal B vacc ine, recombinant, OMV, adjuvanted Evan Dominique [employer] REGENERATOR Work Phone: [facility] 03-27-2023 influenza virus vacc ine, unspecified formulation Gray García DO Work Phone: [facility] 03-04-2022 COVID-19 booster vaccine, age 12+ yr, bivalent (PFIZER-BIONTECH) Gray García DO Work Phone: [facility] 01-01-2022 influenza, injectabl e, quadrivalent, contains preservative Gray García DO Work Phone: [facility] 01-01-2022 influenza virus vacc ine, unspecified formulation Evan Dominique [employer] REGENERATOR Work Phone: [facility] 04-07-2021 COVID-19 vaccine, ag e 12+ yr (PFIZER-BIONTECH - PURPLE TOP) Lakshmi Lopez RN [facility] 04-07-2021 influenza, injectabl e, quadrivalent, contains preservative Lakshmi Lopez RN [facility] 10-15-2020 COVID-19 vaccine, ag e 12+ yr (PFIZER-BIONTECH - PURPLE TOP) Lakshmi Lopez RN [facility] 09-24-2020 COVID-19 vaccine, ag e 12+ yr (PFIZER-BIONTECH - PURPLE TOP) Lakshmi Lopez RN [facility] Work Phone: 05-30-2020 influenza, injectabl e, quadrivalent, contains preservative Lakshmi Lopez RN [facility] Work Phone: 04-13-2019 meningococcal polysaccharide (groups A, C, Y and W-135) diphtheria toxoid conjugate vaccine (MCV4P) Lakshmi Lopez RN [facility] 12-22-2018 influenza, injectabl e, quadrivalent, contains preservative Lakshmi Lopez RN [facility] Work Phone: 05-31-2018 influenza, injectabl e, quadrivalent, preservative free Lakshmi Lopez RN [facility] 11-15-2017 Human Papillomavirus 9-valent vaccine Lakshmi Lopez RN [facility] 01-15-2017 influenza, injectabl e, quadrivalent, contains preservative Lakshmi Lopez RN [facility] 11-03-2016 Human Papillomavirus 9-valent vaccine Lakshmi Lopez RN [facility] Work Phone: 03-25-2015 influenza, injectabl e, quadrivalent, contains preservative Lakshmi Lopez RN [facility] 03-25-2015 influenza, seasonal, injectable Lakshmi Lopez RN [facility] 03-25-2015 meningococcal polysaccharide (groups A, C, Y and W-135) diphtheria toxoid conjugate vaccine (MCV4P) Lakshmi Lopez RN [facility] 03-25-2015 tetanus toxoid, redu andrea diphtheria toxoid, and acellular pertussis vaccine, adsorbed Lakshmi Lopez RN [facility] 07-11-2008 diphtheria, tetanus toxoids and acellular pertussis vaccine Lakshmi Lopez RN [facility] 07-11-2008 Diphtheria, tetanus toxoids and acellular pertussis vaccine, and poliovirus vaccine, inactivated Lakshmi Lopez [facility] Work Phone: 07-11-2008 measles, mumps and rubella virus vaccine Lakshmi Lopez RN [facility] 07-11-2008 poliovirus vaccine, inactivated Lakshmi Lopez RN [facility] 07-11-2008 varicella virus vaccine Sandra Lopez RN [facility] 02-02-2008 influenza, seasonal, injectable Lakshmi Lopez RN [facility] 09-10-2004 diphtheria, tetanus toxoids and acellular pertussis vaccine Lakshmi Lopez RN [facility] 09-10-2004 haemophilus influenz ae type b vaccine, HbOC conjugate Lakshmi Lopez RN [facility] 06-27-2004 pneumococcal conjuga te vaccine, 13 valent Lakshmi Lopez RN [facility] 06-27-2004 varicella virus vaccine Sandra Lopez RN [facility] 2004 diphtheria, tetanus toxoids and acellular pertussis vaccine Lakshmi Lopez RN [facility] 2004 haemophilus influenz ae type b vaccine, HbOC conjugate Lakshmi Lopez RN [facility] 2004 measles, mumps and rubella virus vaccine Lakshmi Lopez RN [facility] 2004 pneumococcal Conjuga te, unspecified formulation Lakshmi Lopez RN [facility] 2004 pneumococcal polysaccharide vaccine, 23 valent Lakshmi Lopez [facility] Work Phone: 2004 poliovirus vaccine, inactivated Lakshmi Lopez RN [facility] 2003 diphtheria, tetanus toxoids and acellular pertussis vaccine Lakshmi Lopez RN [facility] 2003 haemophilus influenz ae type b conjugate and Hepatitis B vaccine Lakshmi Lopez [facility] Work Phone: 2003 haemophilus influenz ae type b vaccine, HbOC conjugate Lakshmi Lopez RN [facility] 2003 hepatitis B vaccine, pediatric or pediatric/adolescent dosage Lakshmi Lopez RN [facility] 2003 pneumococcal conjuga te vaccine, 13 valent Lakshmi Lopez RN [facility] 2003 pneumococcal conjuga te vaccine, 7 valent Lakshmi Lopez RN [facility] Work Phone: 2003 poliovirus vaccine, inactivated Lakshmi Lopez RN [facility] Work Phone: 2003 diphtheria, tetanus toxoids and acellular pertussis vaccine Lakshmi Lopez RN [facility] 2003 haemophilus influenz ae type b conjugate and Hepatitis B vaccine Lakshmi Lopez RN [facility] Work Phone: 2003 haemophilus influenz ae type b vaccine, HbOC conjugate Lakshmi Lopez RN [facility] 2003 hepatitis B vaccine, pediatric or pediatric/adolescent dosage Lakshmi Lopez RN [facility] 2003 pneumococcal conjuga te vaccine, 13 valent Lakshmi Lopez RN [facility] 2003 pneumococcal conjuga te vaccine, 7 valent Lakshmi Lopez RN [facility] Work Phone: 2003 poliovirus vaccine, inactivated Lakshmi Lopez RN [facility] 2003 hepatitis B vaccine, pediatric or pediatric/adolescent dosage Lakshmi Lopez RN [facility] Payers Date Payer Category Payer Self-pay 2022 Unknown [id number] 2014 Medicaid [employer] [facility] MEDICAID [id number] 2014-Present [phone] [address] [place] [address] Medicaid [id number] 2014 Medicaid [id number] Unknown [id number] Social History Date Type Detail Facility Start: 09-16-2014 End: 12-30-2022 Tobacco smoking status UTIS Never smoked tobacco [facility] Work Phone: Start: 09-16-2014 End: 01-01-2022 Tobacco use and exposure User of smokeless tobacco [facility] Work Phone: History of tobacco use Chews Tobacco [facility] Work Phone: Start: 05-24-2021 End: 09-21-2022 Alcohol intake Not Asked [facility] Start: 2003 Sex Assigned At Not on file [facility] Start: 08-22-2021 End: 09-11-2021 Exposure to SARS-CoV-2 (event) Not sure [facility] History of tobacco use Passive smoker [facility] Work Phone: Start: 09-21-2022 History SDOH Alcohol Frequency 1 [facility] Start: 09-21-2022 History SDOH Alcohol Std Drinks 0 [facility] Start: 09-21-2022 History SDOH Social Connections Phone 5 [facility] Start: 09-21-2022 History SDOH Social Connections Get Together 2 [facility] Start: 09-21-2022 History SDOH Social Connections Yazdanism 3 [facility] Start: 09-21-2022 History SDOH Social Connections Living 98 [facility] Start: 09-21-2022 End: 09-12-2023 History of Social function [facility] Start: 09-21-2022 End: 09-12-2023 Social connection and isolation panel [facility] Do you belong to any clubs or organizations such as worship groups, unions, fraternal or athletic groups, or school groups? Yes [facility] Are you now , , , , never or living with a partner? Refused [facility] How often to you hav e a drink containing alcohol? Never [facility] How many standard dr inks containing alcohol do you have on a typical day? Patient does not drink [facility] Do you feel stress - tense, restless, nervous, or anxious, or unable to sleep at night because your mind is troubled all the time - these days [OSQ] Very much [facility] (I/We) worried wheganga er (my/our) food would run out before (I/we) got money to buy more. Never true [facility] The food that (I/we) bought just didn't last, and (I/we) didn't have money to get more. Often true [facility] In the past 12 month s, was there a time when you were not able to pay the mortgage or rent on time? No [facility] Start: 12-30-2022 Tobacco use and exposure Smokeless tobacco non-user [facility] Work Phone: Start: 12-30-2022 End: 07-13-2023 Alcohol intake Lifetime non-drinker (finding) [facility] Start: 12-29-2022 Gender identity Identifies as female gender (finding) [facility] Start: 12-29-2022 Sexual orientation Heterosexual (finding) [facility] Functional Status Date Assessment Result Facility 09-16-2014 Are you deaf, or do you have serious difficulty hearing No 09/16/2014 2:12 PM EDT Abby Branch MA No [facility] 09-16-2014 Are you blind, or do you have serious difficulty seeing, even when wearing glasses No 09/16/2014 2:12 PM EDT Abby Branch MA No [facility] 09-16-2014 Do you have serious difficulty walking or climbing stairs No 09/16/2014 2:12 PM EDT Abby Branch MA No [facility] 09-16-2014 Do you have difficul ty dressing or bathing No 09/16/2014 2:12 PM EDT Abby Branch MA No [facility] Mental Status Date Assessment Result Facility 09-16-2014 Because of a physica l, mental, or emotional condition, do you have serious difficulty concentrating, remembering, or making decisions No 09/16/2014 2:12 PM EDT Abby Branch MA No [facility] Clinical Notes 07-17-2017 to 08-07-2024 Telephone Encounter - Braden Barboza APRN.CNP - 08/07/2024 1:26 PM EDTTelephone Encounter - Braden Barboza APRN.CNP - 08/07/2024 1:26 PM EDTBraden Barboza APRN.CNP - 06/05/2024 3:15 PM EDT Note Date & Type Note Facility 08-07-2024 Telephone encounter Note PDMP reviewed. Patient requested and refilled prescriptions appropriately. No suspicious activity noted. [facility] 08-07-2024 Miscellaneous Notes PDMP reviewed. Patient requested and refilled prescriptions appropriately. No suspicious activity noted. Prescription Refill Information The patient has been identified by name and date of : Yes Caregiver verified no other encounters exist for this prescription request: Yes Caregiver confirmed with patient/requestor that no other refills are due, in the near future, with this provider at this time: Yes The last office visit in the department: 06/05/24 Does the patient have a future office visit with this provider/department: Yes, 09/01/24 Requested Prescriptions Pending Prescriptions Disp Refills methylphenidate ER (CONCERTA) 54 mg biphasic tablet 30 tablet 0 Sig: Take 1 tablet by mouth once daily for 30 days. Marcel Treviño LPN August 07, 2024 12:45 PM documented in this encounter [facility] 08-07-2024 Telephone encounter Note Prescription Refill Information The patient has been identified by name and date of : Yes Caregiver verified no other encounters exist for this prescription request: Yes Caregiver confirmed with patient/requestor that no other refills are due, in the near future, with this provider at this time: Yes The last office visit in the department: 06/05/24 Does the patient have a future office visit with this provider/department: Yes, 09/01/24 Requested Prescriptions Pending Prescriptions Disp Refills methylphenidate ER (CONCERTA) 54 mg biphasic tablet 30 tablet 0 Sig: Take 1 tablet by mouth once daily for 30 days. Marcel Treviño LPN August 07, 2024 12:45 PM [facility] 07-17-2024 Telephone encounter Note Patient has been identified by name and date of : Yes Pharmacy phones for refill(s): Requested Prescriptions Pending Prescriptions Disp Refills dulaglutide (TRULICITY) 4.5 mg/0.5 mL pen injector 2 mL 2 Sig: Inject 4.5 mg subcutaneously one time a week. Inject once per week. Discard Pen After Date of last office visit in primary care: 06/05/2024 Date of next office visit in primary care: 09/01/2024 Please advise. Thank you. Kimberly Nicole. [facility] 07-17-2024 Miscellaneous Notes Patient has been identified by name and date of : Yes Pharmacy phones for refill(s): Requested Prescriptions Pending Prescriptions Disp Refills dulaglutide (TRULICITY) 4.5 mg/0.5 mL pen injector 2 mL 2 Sig: Inject 4.5 mg subcutaneously one time a week. Inject once per week. Discard Pen After Date of last office visit in primary care: 06/05/2024 Date of next office visit in primary care: 09/01/2024 Please advise. Thank you. Kimberly Nicole. documented in this encounter [facility] 06-06-2024 Telephone encounter Note Please let patient know medication has been sent. [facility] 06-06-2024 Miscellaneous Notes Please let patient know medication has been sent. Spoke with pt guardian/grandma Marianela who voiced understanding. Feels medication would be a good idea. Please send to [facility]. Heide Jade MA Please let patient know her triglycerides have improved but continue to be high. Her total cholesterol has also worsened. Is patient open to starting low dose statin? documented in this encounter [facility] 06-06-2024 Telephone encounter Note Spoke with pt guardian/grandma Marianela who voiced understanding. Feels medication would be a good idea. Please send to [facility]. Heide Jade MA T [facility] 06-06-2024 Telephone encounter Note Please let patient know her triglycerides have improved but continue to be high. Her total cholesterol has also worsened. Is patient open to starting low dose statin? [facility] 06-05-2024 Note HNO ID: [id number] Author: BRADEN BARBOZA APRN.[place] Service: ? Author Type: Nurse Practitioner Type: Progress Notes Filed: 06/05/2024 15:43 Note Text: Chief Complaint Patient presents with: Follow Up HPI Alisson Crenshaw is a 19 year old female who presents here today for Above Complaints.. Patient presents for medication follow up. Patient is currently on methylphenidate for ADHD. Grandma is in attendance for appt as her legal guardian. Patient and grandma report patient is doing well and have no concerns regarding her weight. 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 Past medical history, appointments, medications, allergies reviewed. Previous Medical History PAST MEDICAL HISTORY Diagnosis Date ADHD (attention deficit hyperactivity disorder) Asthma Cognitive developmental delay 08/30/2015 Developmental delay Encopresis with constipation and overflow incontinence 08/30/2015 Mood swings Obesity due to excess calories 08/30/2015 Overflow incontinence 08/30/2015 PCOS (polycystic ovarian syndrome) Previous Surgical History PAST SURGICAL HISTORY Procedure Laterality Date NONE Family History FAMILY HISTORY Problem Relation Age of Onset Psychiatry Mother depression Asthma Father Diabetes Maternal Grandmother Breast Cancer Maternal cousin Ovarian cancer No Family History Uterine Cancer No Family History DVT No Family History Patient Allergies ALLERGIES No Known Allergies Current Medications Current Outpatient Medications on File Prior to Visit Medication Sig methylphenidate ER (CONCERTA) 54 mg biphasic tablet Take 1 tablet by mouth once daily for 30 days. dulaglutide (TRULICITY) 4.5 mg/0.5 mL pen injector Inject 4.5 mg subcutaneously one time a week. Inject once per week. Discard Pen After omega-3 DHA-EPA (FISH OIL) 1,200 (144-216) mg capsule Take 2 capsules by mouth daily with breakfast. famotidine (PEPCID) 40 mg tablet Take 1 tablet by mouth daily at bedtime. FLUoxetine (PROZAC) 20 mg capsule Take 1 capsule by mouth once daily. montelukast (SINGULAIR) 10 mg tablet Take 1 tablet by mouth daily at bedtime. Drospirenone-Ethinyl Estradiol (IVONE, 28,) 3-0.02 mg per tablet Take 1 tablet by mouth once daily. metFORMIN (GLUCOPHAGE) 500 mg tablet Take 1 tablet by mouth two times a day. albuterol HFA (VENTOLIN HFA) 90 mcg/actuation inhaler Inhale 2 Puffs as instructed every 4 hours as needed. No current facility-administered medications on file prior to visit. Social History Social History Tobacco Use Smoking status: Never Passive exposure: Yes Smokeless tobacco: Never Substance Use Topics Alcohol use: Never Drug use: Never Review of Symptoms REVIEW OF SYSTEMS SEE HPI EXAM: BP 127/80 Pulse 111 Wt 121 kg (266 lb 12.1 oz) LMP 08/26/2022 (Within Months) BMI 42.87 kg/m? General Appearance: Well appearing, alert, in no acute distress, well-hydrated, well nourished. Health Maintenance List GC (Gonorrhea) Screening (18-24) Never done Anxiety Screening Never done Chlamydia Screening (18-) Never done Asthma Action Plan due on 08/21/2022 Asthma Control Test due on 09/22/2023 Cervical Cancer Screening Never done Annual PCP Team Chronic Disease Visit due on 03/07/2025 DTaP,Tdap,Td Vaccine(7 - Td or Tdap) due on 03/25/2025 Hepatitis B Vaccine Completed Spirometry Completed HPV Vaccine Completed Influenza Vaccine Completed Meningococcal B Vaccine Completed Hepatitis C Screening Completed HIV Screening Completed Covid-19 Vaccine Completed Data reviewed Weight Weight 06/05/2024 266 lb 12.1 oz 03/07/2024 270 lb 09/06/2023 260 lb 07/13/2023 255 lb 06/30/2023 255 lb 8.2 oz 06/14/2023 252 lb 10.4 oz 06/08/2023 258 lb 06/04/2023 259 lb 12/30/2022 258 lb 09/21/2022 258 lb 4.8 oz ASSESSMENT/PLAN: 1. Hypertriglyceridemia - ICD9: 272.1, ICD10: E78.1 (primary diagnosis) - Control undetermined, due for labs - Continue current medications - Counseled on healthy diet and regular exercise - LIPID PANEL, NONFASTING 2. Attention deficit hyperactivity disorder (ADHD), predominantly inattentive type - ICD9: 314.00, ICD10: F90.0 - METHYLPHENIDATE ER 54 MG TABLET,EXTENDED RELEASE 24 HR 3. Medication management - ICD9: V58.69, ICD10: Z79.899 - TOXICOLOGY SCREEN, ROUTINE URINE - QUANTITATIVE TOXICOLOGY PANEL, URINE Braden Barboza APRN.[facility] 06-05-2024 History of Present illness Narrative Chief Complaint Patient presents with: Follow Up HPI Alisson Crenshaw is a 19 year old female who presents here today for Above Complaints.. Patient presents for medication follow up. Patient is currently on methylphenidate for ADHD. Grandma is in attendance for appt as her legal guardian. Patient and grandma report patient is doing well and have no concerns regarding her weight. 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 Past medical history, appointments, medications, allergies reviewed. Previous Medical History PAST MEDICAL HISTORY Diagnosis Date ADHD (attention deficit hyperactivity disorder) Asthma Cognitive developmental delay 08/30/2015 Developmental delay Encopresis with constipation and overflow incontinence 08/30/2015 Mood swings Obesity due to excess calories 08/30/2015 Overflow incontinence 08/30/2015 PCOS (polycystic ovarian syndrome) Previous Surgical History PAST SURGICAL HISTORY Procedure Laterality Date NONE Family History FAMILY HISTORY Problem Relation Age of Onset Psychiatry Mother depression Asthma Father Diabetes Maternal Grandmother Breast Cancer Maternal cousin Ovarian cancer No Family History Uterine Cancer No Family History DVT No Family History Patient Allergies ALLERGIES No Known Allergies Current Medications Current Outpatient Medications on File Prior to Visit Medication Sig methylphenidate ER (CONCERTA) 54 mg biphasic tablet Take 1 tablet by mouth once daily for 30 days. dulaglutide (TRULICITY) 4.5 mg/0.5 mL pen injector Inject 4.5 mg subcutaneously one time a week. Inject once per week. Discard Pen After omega-3 DHA-EPA (FISH OIL) 1,200 (144-216) mg capsule Take 2 capsules by mouth daily with breakfast. famotidine (PEPCID) 40 mg tablet Take 1 tablet by mouth daily at bedtime. FLUoxetine (PROZAC) 20 mg capsule Take 1 capsule by mouth once daily. montelukast (SINGULAIR) 10 mg tablet Take 1 tablet by mouth daily at bedtime. Drospirenone-Ethinyl Estradiol (IVONE, 28,) 3-0.02 mg per tablet Take 1 tablet by mouth once daily. metFORMIN (GLUCOPHAGE) 500 mg tablet Take 1 tablet by mouth two times a day. albuterol HFA (VENTOLIN HFA) 90 mcg/actuation inhaler Inhale 2 Puffs as instructed every 4 hours as needed. No current facility-administered medications on file prior to visit. Social History Social History Tobacco Use Smoking status: Never Passive exposure: Yes Smokeless tobacco: Never Substance Use Topics Alcohol use: Never Drug use: Never Review of Symptoms REVIEW OF SYSTEMS SEE HPI EXAM: BP 127/80 Pulse 111 Wt 121 kg (266 lb 12.1 oz) LMP 08/26/2022 (Within Months) BMI 42.87 kg/m General Appearance: Well appearing, alert, in no acute distress, well-hydrated, well nourished. Health Maintenance List GC (Gonorrhea) Screening (18-24) Never done Anxiety Screening Never done Chlamydia Screening (18-24) Never done Asthma Action Plan due on 08/21/2022 Asthma Control Test due on 09/22/2023 Cervical Cancer Screening Never done Annual PCP Team Chronic Disease Visit due on 03/07/2025 DTaP,Tdap,Td Vaccine(7 - Td or Tdap) due on 03/25/2025 Hepatitis B Vaccine Completed Spirometry Completed HPV Vaccine Completed Influenza Vaccine Completed Meningococcal B Vaccine Completed Hepatitis C Screening Completed HIV Screening Completed Covid-19 Vaccine Completed Data reviewed Weight Weight 06/05/2024 266 lb 12.1 oz 03/07/2024 270 lb 09/06/2023 260 lb 07/13/2023 255 lb 06/30/2023 255 lb 8.2 oz 06/14/2023 252 lb 10.4 oz 06/08/2023 258 lb 06/04/2023 259 lb 12/30/2022 258 lb 09/21/2022 258 lb 4.8 oz ASSESSMENT/PLAN: 1. Hypertriglyceridemia - ICD9: 272.1, ICD10: E78.1 (primary diagnosis) - Control undetermined, due for labs - Continue current medications - Counseled on healthy diet and regular exercise - LIPID PANEL, NONFASTING 2. Attention deficit hyperactivity disorder (ADHD), predominantly inattentive type - ICD9: 314.00, ICD10: F90.0 - METHYLPHENIDATE ER 54 MG TABLET,EXTENDED RELEASE 24 HR 3. Medication management - ICD9: V58.69, ICD10: Z79.899 - TOXICOLOGY SCREEN, ROUTINE URINE - QUANTITATIVE TOXICOLOGY PANEL, URINE Braden Barboza APRN.[employer] REGENERATOR documented in this encounter [facility] 05-23-2024 Note Patient Outreach (IN [facility]) ALISSON CRENSHAW ([id number]) 1 F Date Time Provider Department 05/23/24 BRADEN BARBOZA During your visit today, we recorded the following information about you: Allergies As of Date: 05/23/2024 (No Known Allergies) Date Reviewed: 03/07/2024 Reviewed by: Linh Rome MA - Fully Assessed Visit Diagnosis:Medication management [Z79.899] Order(s):BASIC METABOLIC PANEL [SQBMP] Order #: [id number] FUTURE Prescriptions as of 05/26/2024 - methylphenidate ER (CONCERTA) 54 mg biphasic tablet Take 1 tablet by mouth once daily for 30 days. - dulaglutide (TRULICITY) 4.5 mg/0.5 mL pen injector Inject 4.5 mg subcutaneously one time a week. Inject once per week. Discard Pen After - omega-3 DHA-EPA (FISH OIL) 1,200 (144-216) mg capsule Take 2 capsules by mouth daily with breakfast. - famotidine (PEPCID) 40 mg tablet Take 1 tablet by mouth daily at bedtime. - FLUoxetine (PROZAC) 20 mg capsule Take 1 capsule by mouth once daily. - montelukast (SINGULAIR) 10 mg tablet Take 1 tablet by mouth daily at bedtime. - Drospirenone-Ethinyl Estradiol (IVONE, 28,) 3-0.02 mg per tablet Take 1 tablet by mouth once daily. - metFORMIN (GLUCOPHAGE) 500 mg tablet Take 1 tablet by mouth two times a day. - albuterol HFA (VENTOLIN HFA) 90 mcg/actuation inhaler Inhale 2 Puffs as instructed every 4 hours as needed. 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] 07/17/2017 07/01/2018 ADHD [F90.9] 05/31/2018 Asthma, well controlled [J45.909] 07/01/2018 Body mass index equal to or greater than 95th p*05/30/2020 Acquired pes planus of both feet [M21.41, M21.4*05/14/2021 Patellofemoral disorder of right knee [M22.2X1] 03/04/2022 Obesity, Class III, BMI >= 40 [E66.01] 09/21/2022 PCOS (polycystic ovarian syndrome) [E28.2] 12/30/2022 Depression, recurrent (HCC) [F33.9] 06/04/2023 Severe depression (HCC) [F32.2] 09/06/2023 Hypertriglyceridemia [E78.1] 03/08/2024 Encounter Status:Closed by MEHNAZ ALLEN on 05/26/24 [facility] 04-27-2024 Telephone encounter Note PDMP reviewed. Patient requested and refilled prescriptions appropriately. No suspicious activity noted. [facility] 04-27-2024 Miscellaneous Notes PDMP reviewed. Patient requested and refilled prescriptions appropriately. No suspicious activity noted. The patient has been identified by name and date of : Yes Caregiver verified no other encounters exist for this prescription request: Yes Caregiver confirmed with patient/requestor that no other refills are due, in the near future, with this provider at this time: Yes The last office visit in the department: 03/07/2024 Does the patient have a future office visit with this provider/department: Yes 06/05/2024 Martha from [facility] pharmacy states that the script for Trulicity is not needed right now but they would like to get it and put it on file. Last script was 03/13/24 with 2 refills. Requested Prescriptions Pending Prescriptions Disp Refills methylphenidate ER (CONCERTA) 54 mg biphasic tablet 30 tablet 0 Sig: Take 1 tablet by mouth once daily for 30 days. dulaglutide (TRULICITY) 4.5 mg/0.5 mL pen injector 2 mL 2 Sig: Inject 4.5 mg subcutaneously one time a week. Inject once per week. Discard Pen After Javid Gonzalez RN April 26, 2024 9:24 AM documented in this encounter [facility] 04-26-2024 Telephone encounter Note The patient has been identified by name and date of : Yes Caregiver verified no other encounters exist for this prescription request: Yes Caregiver confirmed with patient/requestor that no other refills are due, in the near future, with this provider at this time: Yes The last office visit in the department: 03/07/2024 Does the patient have a future office visit with this provider/department: Yes 06/05/2024 Martha from [facility] pharmacy states that the script for Trulicity is not needed right now but they would like to get it and put it on file. Last script was 03/13/24 with 2 refills. Requested Prescriptions Pending Prescriptions Disp Refills methylphenidate ER (CONCERTA) 54 mg biphasic tablet 30 tablet 0 Sig: Take 1 tablet by mouth once daily for 30 days. dulaglutide (TRULICITY) 4.5 mg/0.5 mL pen injector 2 mL 2 Sig: Inject 4.5 mg subcutaneously one time a week. Inject once per week. Discard Pen After Javid Gonzalez RN April 26, 2024 9:24 AM [facility] 03-16-2024 Telephone encounter Note Received PA request from [email or web address] for fish oil. Leslie was contacted and aware [facility] does not cover vitamins/ supplements available OTC Chaya Soler MA [facility] 03-16-2024 Miscellaneous Notes Received PA request from [email or web address] for fish oil. Leslie was contacted and aware [facility] does not cover vitamins/ supplements available OTC Chaya Soler MA documented in this encounter [facility] 03-13-2024 Telephone encounter Note Patient's grandmother Marianela, calling and states patient will be using [facility] now. Requesting pt's medication be transferred there. Pended. No call back needed if agreeable to send. Camelia Bernard RN [facility] 03-13-2024 Miscellaneous Notes Patient's grandmother Marianela, calling and states patient will be using [facility] now. Requesting pt's medication be transferred there. Pended. No call back needed if agreeable to send. Camelia Bernard RN documented in this encounter [facility] 03-10-2024 Telephone encounter Note Pt's guardian and grandmother Leslie called and is notified of results and given providers message. She voices understanding. Notified prescription sent to pharmacy. [facility] 03-10-2024 Miscellaneous Notes Pt's guardian and grandmother Leslie called and is notified of results and given providers message. She voices understanding. Notified prescription sent to pharmacy. Please let patient know her triglycerides have increased greatly. I recommend starting a fish oil supplement and have sent in a prescription. We will recheck her lipid levels in 6 months. documented in this encounter [facility] 03-10-2024 Telephone encounter Note Please let patient know her triglycerides have increased greatly. I recommend starting a fish oil supplement and have sent in a prescription. We will recheck her lipid levels in 6 months. [facility] 03-10-2024 Telephone encounter Note Leslie notified. 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 Linh Rome MA [facility] 03-10-2024 Miscellaneous Notes Leslie notified. 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 Linh Rome MA Please let patient know the paperwork has been completed and is available for pickup. Pt's legal guardian and grandmother Leslie calling in asking about some paperwork she had dropped off on the . States she gave the paperwork to Braden Barboza's office. It is something for guardianship for the probate court. Checking on status. Per Braden, she is going to try and finish paperwork by the end of today. Leslie states to please call her when completed and she will come and pick it up. Told Leslie it might be Wednesday. She states she just has to get it back to the courts by the . documented in this encounter [facility] 03-10-2024 Telephone encounter Note Please let patient know the paperwork has been completed and is available for pickup. [facility] 03-10-2024 Telephone encounter Note Pt's legal guardian and grandmother Leslie calling in asking about some paperwork she had dropped off on the . States she gave the paperwork to Braden Barboza's office. It is something for guardianship for the probate court. Checking on status. Per Braden, she is going to try and finish paperwork by the end of today. Leslie states to please call her when completed and she will come and pick it up. Told Leslie it might be Wednesday. She states she just has to get it back to the courts by the . [facility] 03-08-2024 Telephone encounter Note Patient 's grandmother returned call and given provider's message below. Samantha Bernard RN [facility] 03-08-2024 Miscellaneous Notes Patient 's grandmother returned call and given provider's message below. Samantha Bernard RN Left message for pt to contact office. Jorge Turner LPN Let patient know that her trigs were quite high. Due to this, unable to get a LDL reading. Recommend returning for a fasting lipid panel if possible. Her A1c is normal. documented in this encounter [facility] 03-08-2024 Telephone encounter Note Left message for pt to contact office. Jorge Turner LPN [facility] 03-08-2024 Telephone encounter Note Let patient know that her trigs were quite high. Due to this, unable to get a LDL reading. Recommend returning for a fasting lipid panel if possible. Her A1c is normal. [facility] 03-07-2024 Note HNO ID: [id number] Author: BRADEN BARBOZA APRN.[facility] Service: ? Author Type: Nurse Practitioner Type: Progress Notes Filed: 03/07/2024 15:55 Note Text: Chief Complaint Patient presents with: 6 Month Exam HPI Alisson Crenshaw is a 18 year old female who presents here today for Above Complaints.. Patient presents for routine follow up. Past medical history, appointments, medications, allergies reviewed. Previous Medical History PAST MEDICAL HISTORY Diagnosis Date ADHD (attention deficit hyperactivity disorder) Asthma Cognitive developmental delay 08/30/2015 Developmental delay Encopresis with constipation and overflow incontinence 08/30/2015 Mood swings Obesity due to excess calories 08/30/2015 Overflow incontinence 08/30/2015 PCOS (polycystic ovarian syndrome) Previous Surgical History PAST SURGICAL HISTORY Procedure Laterality Date NONE Family History FAMILY HISTORY Problem Relation Age of Onset Psychiatry Mother depression Asthma Father Diabetes Maternal Grandmother Breast Cancer Maternal cousin Ovarian cancer No Family History Uterine Cancer No Family History DVT No Family History Patient Allergies ALLERGIES No Known Allergies Current Medications Current Outpatient Medications on File Prior to Visit Medication Sig methylphenidate ER (CONCERTA) 54 mg biphasic tablet Take 1 tablet by mouth once daily for 30 days. famotidine (PEPCID) 40 mg tablet Take 1 tablet by mouth daily at bedtime. dulaglutide (TRULICITY) 3 mg/0.5 mL pen injector Inject 3 mg subcutaneously one time a week. Inject once per week. Discard Pen After FLUoxetine (PROZAC) 20 mg capsule Take 1 capsule by mouth once daily. montelukast (SINGULAIR) 10 mg tablet Take 1 tablet by mouth daily at bedtime. Drospirenone-Ethinyl Estradiol (IVONE, 28,) 3-0.02 mg per tablet Take 1 tablet by mouth once daily. metFORMIN (GLUCOPHAGE) 500 mg tablet Take 1 tablet by mouth two times a day. albuterol HFA (VENTOLIN HFA) 90 mcg/actuation inhaler Inhale 2 Puffs as instructed every 4 hours as needed. No current facility-administered medications on file prior to visit. Social History Social History Tobacco Use Smoking status: Never Passive exposure: Yes Smokeless tobacco: Never Substance Use Topics Alcohol use: Never Drug use: Never Review of Symptoms REVIEW OF SYSTEMS SEE HPI EXAM: BP 130/84 Pulse 111 Resp 14 Wt 122.5 kg (270 lb) LMP 08/26/2022 (Within Months) BMI 43.39 kg/m? General Appearance: Well appearing, alert, in no acute distress, well-hydrated, well nourished. Skin: Positives: Eczema to face, below right eye and left cheek. Lungs: Lungs clear to auscultation. No wheezing, rhonchi, rales.. Heart: RRR without murmur, gallop, or rubs. No ectopy. Abdomen: Normal abdominal exam, Abdomen soft, non-tender. Bowel sounds normal. No masses, organomegaly. Health Maintenance List Anxiety Screening Never done Asthma Action Plan due on 08/21/2022 Asthma Control Test due on 09/22/2023 Influenza Vaccine(1) due on 11/21/2023 Covid-19 Vaccine( season) due on 11/21/2023 GC (Gonorrhea) Screening (18-) due on 06/03/2024 Chlamydia Screening (18-24) due on 06/03/2024 Annual PCP Team Chronic Disease Visit due on 03/07/2025 DTaP,Tdap,Td Vaccine(7 - Td or Tdap) due on 03/25/2025 Hepatitis B Vaccine Completed Spirometry Completed HPV Vaccine Completed Meningococcal B Vaccine: Consider Based On Risk Completed Hepatitis C Screening Completed HIV Screening Completed ASSESSMENT/PLAN: 1. Gastroesophageal reflux disease without esophagitis - ICD9: 530.81, ICD10: K21.9 (primary diagnosis) - Continue treatment with Pepcid 40 mg QD - FAMOTIDINE 40 MG TABLET 2. Obesity, Class III, BMI 40-49.9 (morbid obesity) (HCC) - ICD9: 278.01, ICD10: E66.01 Weight increasing - DULAGLUTIDE 4.5 MG/0.5 ML SUBCUTANEOUS PEN INJECTOR 3. PCOS (polycystic ovarian syndrome) - ICD9: 256.4, ICD10: E28.2 - DULAGLUTIDE 4.5 MG/0.5 ML SUBCUTANEOUS PEN INJECTOR 4. Encounter for immunization - ICD9: V03.89, ICD10: Z23 - INFLUENZA VACCINE, AGE 6MO-64YR, TRIVALENT (AFLURIA, FLULAVAL, FLUVIRIN, FLUZONE) - [employer] COVID-19 VACCINE AGE 12+ YR (COMIRNATY) 5. Encounter for lipid screening for cardiovascular disease - ICD9: V77.91, V81.2, ICD10: Z13.220, Z13.6 - LIPID PANEL, NONFASTING 6. Urinary incontinence, unspecified type - ICD9: 788.30, ICD10: R32 - CONSULT TO UROLOGY Braden Barboza APRN.[facility] 03-07-2024 History of Present illness Narrative Chief Complaint Patient presents with: 6 Month Exam HPI Alisson Crenshaw is a 18 year old female who presents here today for Above Complaints.. Patient presents for routine follow up. Past medical history, appointments, medications, allergies reviewed. Previous Medical History PAST MEDICAL HISTORY Diagnosis Date ADHD (attention deficit hyperactivity disorder) Asthma Cognitive developmental delay 08/30/2015 Developmental delay Encopresis with constipation and overflow incontinence 08/30/2015 Mood swings Obesity due to excess calories 08/30/2015 Overflow incontinence 08/30/2015 PCOS (polycystic ovarian syndrome) Previous Surgical History PAST SURGICAL HISTORY Procedure Laterality Date NONE Family History FAMILY HISTORY Problem Relation Age of Onset Psychiatry Mother depression Asthma Father Diabetes Maternal Grandmother Breast Cancer Maternal cousin Ovarian cancer No Family History Uterine Cancer No Family History DVT No Family History Patient Allergies ALLERGIES No Known Allergies Current Medications Current Outpatient Medications on File Prior to Visit Medication Sig methylphenidate ER (CONCERTA) 54 mg biphasic tablet Take 1 tablet by mouth once daily for 30 days. famotidine (PEPCID) 40 mg tablet Take 1 tablet by mouth daily at bedtime. dulaglutide (TRULICITY) 3 mg/0.5 mL pen injector Inject 3 mg subcutaneously one time a week. Inject once per week. Discard Pen After FLUoxetine (PROZAC) 20 mg capsule Take 1 capsule by mouth once daily. montelukast (SINGULAIR) 10 mg tablet Take 1 tablet by mouth daily at bedtime. Drospirenone-Ethinyl Estradiol (IVONE, 28,) 3-0.02 mg per tablet Take 1 tablet by mouth once daily. metFORMIN (GLUCOPHAGE) 500 mg tablet Take 1 tablet by mouth two times a day. albuterol HFA (VENTOLIN HFA) 90 mcg/actuation inhaler Inhale 2 Puffs as instructed every 4 hours as needed. No current facility-administered medications on file prior to visit. Social History Social History Tobacco Use Smoking status: Never Passive exposure: Yes Smokeless tobacco: Never Substance Use Topics Alcohol use: Never Drug use: Never Review of Symptoms REVIEW OF SYSTEMS SEE HPI EXAM: BP 130/84 Pulse 111 Resp 14 Wt 122.5 kg (270 lb) LMP 08/26/2022 (Within Months) BMI 43.39 kg/m General Appearance: Well appearing, alert, in no acute distress, well-hydrated, well nourished. Skin: Positives: Eczema to face, below right eye and left cheek. Lungs: Lungs clear to auscultation. No wheezing, rhonchi, rales.. Heart: RRR without murmur, gallop, or rubs. No ectopy. Abdomen: Normal abdominal exam, Abdomen soft, non-tender. Bowel sounds normal. No masses, organomegaly. Health Maintenance List Anxiety Screening Never done Asthma Action Plan due on 08/21/2022 Asthma Control Test due on 09/22/2023 Influenza Vaccine(1) due on 11/21/2023 Covid-19 Vaccine(5 - season) due on 11/21/2023 GC (Gonorrhea) Screening (18-24) due on 06/03/2024 Chlamydia Screening (18-24) due on 06/03/2024 Annual PCP Team Chronic Disease Visit due on 03/07/2025 DTaP,Tdap,Td Vaccine(7 - Td or Tdap) due on 03/25/2025 Hepatitis B Vaccine Completed Spirometry Completed HPV Vaccine Completed Meningococcal B Vaccine: Consider Based On Risk Completed Hepatitis C Screening Completed HIV Screening Completed ASSESSMENT/PLAN: 1. Gastroesophageal reflux disease without esophagitis - ICD9: 530.81, ICD10: K21.9 (primary diagnosis) - Continue treatment with Pepcid 40 mg QD - FAMOTIDINE 40 MG TABLET 2. Obesity, Class III, BMI 40-49.9 (morbid obesity) (HCC) - ICD9: 278.01, ICD10: E66.01 Weight increasing - DULAGLUTIDE 4.5 MG/0.5 ML SUBCUTANEOUS PEN INJECTOR 3. PCOS (polycystic ovarian syndrome) - ICD9: 256.4, ICD10: E28.2 - DULAGLUTIDE 4.5 MG/0.5 ML SUBCUTANEOUS PEN INJECTOR 4. Encounter for immunization - ICD9: V03.89, ICD10: Z23 - INFLUENZA VACCINE, AGE 6MO-64YR, TRIVALENT (AFLURIA, FLULAVAL, FLUVIRIN, FLUZONE) - [facility] COVID-19 VACCINE AGE 12+ YR (COMIRNATY) 5. Encounter for lipid screening for cardiovascular disease - ICD9: V77.91, V81.2, ICD10: Z13.220, Z13.6 - LIPID PANEL, NONFASTING 6. Urinary incontinence, unspecified type - ICD9: 788.30, ICD10: R32 - CONSULT TO UROLOGY Braden Barboza APRN.[employer] documented in this encounter [facility] 02-28-2024 Telephone encounter Note PDMP reviewed. Patient requested and refilled prescriptions appropriately. No suspicious activity noted. [facility] 02-28-2024 Miscellaneous Notes PDMP reviewed. Patient requested and refilled prescriptions appropriately. No suspicious activity noted. Prescription Refill Information The patient has been identified by name and date of : Yes Caregiver verified no other encounters exist for this prescription request: Yes Caregiver confirmed with patient/requestor that no other refills are due, in the near future, with this provider at this time: Yes The last office visit in the department: 09/06/2023 Does the patient have a future office visit with this provider/department: Yes Requested Prescriptions Pending Prescriptions Disp Refills methylphenidate ER (CONCERTA) 54 mg biphasic tablet 30 tablet 0 Sig: Take 1 tablet by mouth once daily for 30 days. famotidine (PEPCID) 40 mg tablet 30 tablet 0 Sig: Take 1 tablet by mouth daily at bedtime. Radha Child LPN February 28, 2024 10:11 AM documented in this encounter [facility] 02-28-2024 Telephone encounter Note Prescription Refill Information The patient has been identified by name and date of : Yes Caregiver verified no other encounters exist for this prescription request: Yes Caregiver confirmed with patient/requestor that no other refills are due, in the near future, with this provider at this time: Yes The last office visit in the department: 09/06/2023 Does the patient have a future office visit with this provider/department: Yes Requested Prescriptions Pending Prescriptions Disp Refills methylphenidate ER (CONCERTA) 54 mg biphasic tablet 30 tablet 0 Sig: Take 1 tablet by mouth once daily for 30 days. famotidine (PEPCID) 40 mg tablet 30 tablet 0 Sig: Take 1 tablet by mouth daily at bedtime. Radha Child LPN February 28, 2024 10:11 AM [facility] 01-21-2024 Telephone encounter Note Prescription Refill Information The patient has been identified by name and date of : Yes Caregiver verified no other encounters exist for this prescription request: Yes Caregiver confirmed with patient/requestor that no other refills are due, in the near future, with this provider at this time: Yes The last office visit in the department: 09/06/23 Does the patient have a future office visit with this provider/department: Yes 03/07/24 Requested Prescriptions Pending Prescriptions Disp Refills famotidine (PEPCID) 40 mg tablet 30 tablet 0 Sig: Take 1 tablet by mouth daily at bedtime. Javid Gill LPN January 21, 2024 2:25 PM [facility] 01-21-2024 Miscellaneous Notes Prescription Refill Information The patient has been identified by name and date of : Yes Caregiver verified no other encounters exist for this prescription request: Yes Caregiver confirmed with patient/requestor that no other refills are due, in the near future, with this provider at this time: Yes The last office visit in the department: 09/06/23 Does the patient have a future office visit with this provider/department: Yes 03/07/24 Requested Prescriptions Pending Prescriptions Disp Refills famotidine (PEPCID) 40 mg tablet 30 tablet 0 Sig: Take 1 tablet by mouth daily at bedtime. Javid Gill LPN January 21, 2024 2:25 PM documented in this encounter [facility] 01-21-2024 Telephone encounter Note Prescription Refill Information The patient has been identified by name and date of : Yes Caregiver verified no other encounters exist for this prescription request: Yes Caregiver confirmed with patient/requestor that no other refills are due, in the near future, with this provider at this time: Yes The last office visit in the department: 09/06/23 Does the patient have a future office visit with this provider/department: Yes 03/07/24 Requested Prescriptions Pending Prescriptions Disp Refills methylphenidate ER (CONCERTA) 54 mg biphasic tablet 30 tablet 0 Sig: Take 1 tablet by mouth once daily for 30 days. Javid Gill LPN January 21, 2024 2:24 PM [facility] 01-21-2024 Miscellaneous Notes Prescription Refill Information The patient has been identified by name and date of : Yes Caregiver verified no other encounters exist for this prescription request: Yes Caregiver confirmed with patient/requestor that no other refills are due, in the near future, with this provider at this time: Yes The last office visit in the department: 09/06/23 Does the patient have a future office visit with this provider/department: Yes 03/07/24 Requested Prescriptions Pending Prescriptions Disp Refills methylphenidate ER (CONCERTA) 54 mg biphasic tablet 30 tablet 0 Sig: Take 1 tablet by mouth once daily for 30 days. Javid Gill LPN January 21, 2024 2:24 PM documented in this encounter [facility] 01-12-2024 Telephone encounter Note Sent a [email or web address] message reminding pt to get her A1c blood test done before next apt. The patient has been identified by name and date of : Yes Caregiver verified no other encounters exist for this prescription request: Yes Caregiver confirmed with patient/requestor that no other refills are due, in the near future, with this provider at this time: Yes The last office visit in the department: 09/06/2023 Does the patient have a future office visit with this provider/department: Yes 03/07/2024 Requested Prescriptions Pending Prescriptions Disp Refills dulaglutide (TRULICITY) 3 mg/0.5 mL pen injector 2 mL 0 Sig: Inject 3 mg subcutaneously one time a week. Inject once per week. Discard Pen After Brittany Tamayo LPN January 12, 2024 11:03 AM [facility] 01-12-2024 Miscellaneous Notes Sent a [email or web address] message reminding pt to get her A1c blood test done before next apt. The patient has been identified by name and date of : Yes Caregiver verified no other encounters exist for this prescription request: Yes Caregiver confirmed with patient/requestor that no other refills are due, in the near future, with this provider at this time: Yes The last office visit in the department: 09/06/2023 Does the patient have a future office visit with this provider/department: Yes 03/07/2024 Requested Prescriptions Pending Prescriptions Disp Refills dulaglutide (TRULICITY) 3 mg/0.5 mL pen injector 2 mL 0 Sig: Inject 3 mg subcutaneously one time a week. Inject once per week. Discard Pen After Brittany Tamayo LPN January 12, 2024 11:03 AM documented in this encounter [facility] 12-14-2023 Telephone encounter Note Prescription Refill Information The patient has been identified by name and date of : Yes Caregiver verified no other encounters exist for this prescription request: Yes Caregiver confirmed with patient/requestor that no other refills are due, in the near future, with this provider at this time: Yes The last office visit in the department: 09/06/2023 Does the patient have a future office visit with this provider/department: Yes-03/07/2024 Requested Prescriptions Pending Prescriptions Disp Refills famotidine (PEPCID) 40 mg tablet 30 tablet 0 Sig: Take 1 tablet by mouth daily at bedtime. Dayana Joseph LPN December 14, 2023 2:58 PM [facility] 12-14-2023 Miscellaneous Notes Prescription Refill Information The patient has been identified by name and date of : Yes Caregiver verified no other encounters exist for this prescription request: Yes Caregiver confirmed with patient/requestor that no other refills are due, in the near future, with this provider at this time: Yes The last office visit in the department: 09/06/2023 Does the patient have a future office visit with this provider/department: Yes-03/07/2024 Requested Prescriptions Pending Prescriptions Disp Refills famotidine (PEPCID) 40 mg tablet 30 tablet 0 Sig: Take 1 tablet by mouth daily at bedtime. Dayana Joseph LPN December 14, 2023 2:58 PM documented in this encounter [facility] 12-14-2023 Telephone encounter Note PDMP reviewed. Patient requested and refilled prescriptions appropriately. No suspicious activity noted. [facility] 12-14-2023 Miscellaneous Notes PDMP reviewed. Patient requested and refilled prescriptions appropriately. No suspicious activity noted. Prescription Refill Information The patient has been identified by name and date of : Yes Caregiver verified no other encounters exist for this prescription request: Yes Caregiver confirmed with patient/requestor that no other refills are due, in the near future, with this provider at this time: Yes The last office visit in the department: 09/06/23 Does the patient have a future office visit with this provider/department: Yes, 03/07/24 Requested Prescriptions Pending Prescriptions Disp Refills dulaglutide (TRULICITY) 3 mg/0.5 mL pen injector 2 mL 0 Sig: Inject 3 mg subcutaneously one time a week. Inject once per week. Discard Pen After methylphenidate ER (CONCERTA) 54 mg biphasic tablet 30 tablet 0 Sig: Take 1 tablet by mouth once daily for 30 days. Marcel Treviño LPN December 14, 2023 12:49 PM documented in this encounter [facility] 12-14-2023 Telephone encounter Note Prescription Refill Information The patient has been identified by name and date of : Yes Caregiver verified no other encounters exist for this prescription request: Yes Caregiver confirmed with patient/requestor that no other refills are due, in the near future, with this provider at this time: Yes The last office visit in the department: 09/06/23 Does the patient have a future office visit with this provider/department: Yes, 03/07/24 Requested Prescriptions Pending Prescriptions Disp Refills dulaglutide (TRULICITY) 3 mg/0.5 mL pen injector 2 mL 0 Sig: Inject 3 mg subcutaneously one time a week. Inject once per week. Discard Pen After methylphenidate ER (CONCERTA) 54 mg biphasic tablet 30 tablet 0 Sig: Take 1 tablet by mouth once daily for 30 days. Marcel Treviño LPN December 14, 2023 12:49 PM [facility] 12-06-2023 Telephone encounter Note Prescription Refill Information The patient has been identified by name and date of : Yes Caregiver verified no other encounters exist for this prescription request: Yes Caregiver confirmed with patient/requestor that no other refills are due, in the near future, with this provider at this time: Yes The last office visit in the department: 09/06/2023 Does the patient have a future office visit with this provider/department: No Requested Prescriptions Pending Prescriptions Disp Refills FLUoxetine (PROZAC) 20 mg capsule 30 capsule 5 Sig: Take 1 capsule by mouth once daily. Dayana Joseph LPN December 06, 2023 8:45 AM [facility] 12-06-2023 Miscellaneous Notes Prescription Refill Information The patient has been identified by name and date of : Yes Caregiver verified no other encounters exist for this prescription request: Yes Caregiver confirmed with patient/requestor that no other refills are due, in the near future, with this provider at this time: Yes The last office visit in the department: 09/06/2023 Does the patient have a future office visit with this provider/department: No Requested Prescriptions Pending Prescriptions Disp Refills FLUoxetine (PROZAC) 20 mg capsule 30 capsule 5 Sig: Take 1 capsule by mouth once daily. Dayana Joseph LPN December 06, 2023 8:45 AM documented in this encounter [facility] 11-29-2023 Telephone encounter Note Prescription Refill Information The patient has been identified by name and date of : Yes Caregiver verified no other encounters exist for this prescription request: Yes Caregiver confirmed with patient/requestor that no other refills are due, in the near future, with this provider at this time: No The last office visit in the department: 09/06/23 Does the patient have a future office visit with this provider/department: Yes Requested Prescriptions Pending Prescriptions Disp Refills montelukast (SINGULAIR) 10 mg tablet 90 tablet 1 Sig: Take 1 tablet by mouth daily at bedtime. Heide Jade MA November 29, 2023 10:52 AM [facility] 11-29-2023 Miscellaneous Notes Prescription Refill Information The patient has been identified by name and date of : Yes Caregiver verified no other encounters exist for this prescription request: Yes Caregiver confirmed with patient/requestor that no other refills are due, in the near future, with this provider at this time: No The last office visit in the department: 09/06/23 Does the patient have a future office visit with this provider/department: Yes Requested Prescriptions Pending Prescriptions Disp Refills montelukast (SINGULAIR) 10 mg tablet 90 tablet 1 Sig: Take 1 tablet by mouth daily at bedtime. Heide Jade MA November 29, 2023 10:52 AM documented in this encounter [facility] 11-23-2023 Telephone encounter Note Prescription Refill Information The patient has been identified by name and date of : Yes Caregiver verified no other encounters exist for this prescription request: Yes Caregiver confirmed with patient/requestor that no other refills are due, in the near future, with this provider at this time: Yes The last office visit in the department: 09/06/23 Does the patient have a future office visit with this provider/department: Yes, 03/07/24 Requested Prescriptions Pending Prescriptions Disp Refills dulaglutide (TRULICITY) 1.5 mg/0.5 mL pen injector 6 mL 2 Sig: Inject 4.5 mg subcutaneously one time a week. Inject once per week. Discard Pen After methylphenidate ER (CONCERTA) 54 mg biphasic tablet 30 tablet 0 Sig: Take 1 tablet by mouth once daily for 30 days. PT REQUESTING TO INCREASE TRULICITY TO 3MG. Marcel Treviño LPN November 23, 2023 9:22 AM [facility] 11-23-2023 Miscellaneous Notes Prescription Refill Information The patient has been identified by name and date of : Yes Caregiver verified no other encounters exist for this prescription request: Yes Caregiver confirmed with patient/requestor that no other refills are due, in the near future, with this provider at this time: Yes The last office visit in the department: 09/06/23 Does the patient have a future office visit with this provider/department: Yes, 03/07/24 Requested Prescriptions Pending Prescriptions Disp Refills dulaglutide (TRULICITY) 1.5 mg/0.5 mL pen injector 6 mL 2 Sig: Inject 4.5 mg subcutaneously one time a week. Inject once per week. Discard Pen After methylphenidate ER (CONCERTA) 54 mg biphasic tablet 30 tablet 0 Sig: Take 1 tablet by mouth once daily for 30 days. PT REQUESTING TO INCREASE TRULICITY TO 3MG. Marcel Treviño LPN November 23, 2023 9:22 AM documented in this encounter [facility] 10-12-2023 Telephone encounter Note PDMP reviewed. Patient requested and refilled prescriptions appropriately. No suspicious activity noted. [facility] 10-12-2023 Miscellaneous Notes PDMP reviewed. Patient requested and refilled prescriptions appropriately. No suspicious activity noted. Patient MyChart message requesting the following refill Refill(s) Requested: Requested Prescriptions Pending Prescriptions Disp Refills methylphenidate ER (CONCERTA) 54 mg biphasic tablet 30 tablet 0 Sig: Take 1 tablet by mouth once daily for 30 days. ALLERGIES No Known Allergies (home) [phone] (cell) Last Office Visit Date: 09/06/2023 Last [facility] Visit: Visit date not found Future Appointment: 03/07/2024 The patients preferred pharmacy has been captured for this encounter? yes Request is for script(s) to be escript to pharmacy. Joaquim Traore LPN documented in this encounter [facility] 10-11-2023 Telephone encounter Note Prescription Refill Information The patient has been identified by name and date of : Yes Caregiver verified no other encounters exist for this prescription request: Yes Caregiver confirmed with patient/requestor that no other refills are due, in the near future, with this provider at this time: Yes The last office visit in the department: 09.21.2022 Does the patient have a future office visit with this provider/department: No Requested Prescriptions Pending Prescriptions Disp Refills Drospirenone-Ethinyl Estradiol (IVONE, 28,) 3-0.02 mg per tablet 84 tablet 3 Sig: Take 1 tablet by mouth once daily. Christo Dutton MA October 11, 2023 5:09 PM [facility] 10-11-2023 Miscellaneous Notes Prescription Refill Information The patient has been identified by name and date of : Yes Caregiver verified no other encounters exist for this prescription request: Yes Caregiver confirmed with patient/requestor that no other refills are due, in the near future, with this provider at this time: Yes The last office visit in the department: 09.21.2022 Does the patient have a future office visit with this provider/department: No Requested Prescriptions Pending Prescriptions Disp Refills Drospirenone-Ethinyl Estradiol (IVONE, 28,) 3-0.02 mg per tablet 84 tablet 3 Sig: Take 1 tablet by mouth once daily. Christo Dutton MA October 11, 2023 5:09 PM documented in this encounter [facility] 10-11-2023 Telephone encounter Note Patient MyChart message requesting the following refill Refill(s) Requested: Requested Prescriptions Pending Prescriptions Disp Refills methylphenidate ER (CONCERTA) 54 mg biphasic tablet 30 tablet 0 Sig: Take 1 tablet by mouth once daily for 30 days. ALLERGIES No Known Allergies (home) [phone] (cell) Last Office Visit Date: 09/06/2023 Last [facility] Visit: Visit date not found Future Appointment: 03/07/2024 The patients preferred pharmacy has been captured for this encounter? yes Request is for script(s) to be escript to pharmacy. Joaquim Traore LPN [facility] 09-16-2023 Note HNO ID: [id number] Author: GRAY MENARD, PhD Service: ? Author Type: Psychologist Type: Progress Notes Filed: 09/16/2023 16:34 Note Text: Endocrine Psychology [facility] Alisson Crenshaw 2005 [id number] Date of Service: September 16, 2023 Patient advised of group visit and informed of privacy restrictions with group appointment. Patient instructed to be in a quiet, private area. Provided information for general psychology both within and outside the [facility]. This is appropriate for patients who experience mental health symptoms such as Depression, Anxiety, OCD, Bipolar disorder, etc. Discussed Endocrine Psychology resources for individuals who experience Night Eating, Binge Eating, Emotional Eating, Body Image, and Support for long-term weight management. Current Endocrine Psych Treatment consists of Individual and Group appointments. Informed patient on Endocrine painting worker services to assist with community resource management. Patient is cleared to schedule with Endocrine Psychology Services (individual appointments, group appointments, etc.) This appointment was conducted by: Gray Menard, PhD September 16, 2023 3:37 PM [facility] 09-16-2023 History of Present illness Narrative Endocrine Psychology [place] [facility] Alisson Crenshaw 2005 [id number] Date of Service: September 16, 2023 Patient advised of group visit and informed of privacy restrictions with group appointment. Patient instructed to be in a quiet, private area. Provided information for general psychology both within and outside the [facility]. This is appropriate for patients who experience mental health symptoms such as Depression, Anxiety, OCD, Bipolar disorder, etc. Discussed Endocrine Psychology resources for individuals who experience Night Eating, Binge Eating, Emotional Eating, Body Image, and Support for long-term weight management. Current Endocrine Psych Treatment consists of Individual and Group appointments. Informed patient on Endocrine painting worker services to assist with community resource management. Patient is cleared to schedule with Endocrine Psychology Services (individual appointments, group appointments, etc.) This appointment was conducted by: Gray Menard, PhD September 16, 2023 3:37 PM documented in this encounter [facility] 09-06-2023 Note HNO ID: [id number] Author: BRADEN BARBOZA APRN.[employer] Service: ? Author Type: Nurse Practitioner Type: Progress Notes Filed: 09/06/2023 16:10 Note Text: Chief Complaint Patient presents with: Follow Up HPI Alisson Crenshaw is a 18 year old female who presents here today for Above Complaints.. Patient presents for medication follow up. Patient reports she is not currently on trulicity due to shortage. Is continuing to have issues with urinary urge/stress incontinence. Past medical history, appointments, medications, allergies reviewed. Previous Medical History PAST MEDICAL HISTORY Diagnosis Date ADHD (attention deficit hyperactivity disorder) Asthma Cognitive developmental delay 08/30/2015 Developmental delay Encopresis with constipation and overflow incontinence 08/30/2015 Mood swings Obesity due to excess calories 08/30/2015 Overflow incontinence 08/30/2015 PCOS (polycystic ovarian syndrome) Previous Surgical History PAST SURGICAL HISTORY Procedure Laterality Date NONE Family History FAMILY HISTORY Problem Relation Age of Onset Psychiatry Mother depression Asthma Father Diabetes Maternal Grandmother Breast Cancer Maternal cousin Ovarian cancer No Family History Uterine Cancer No Family History DVT No Family History Patient Allergies ALLERGIES No Known Allergies Current Medications Current Outpatient Medications on File Prior to Visit Medication Sig metFORMIN (GLUCOPHAGE) 500 mg tablet Take 1 tablet by mouth two times a day. methylphenidate ER (CONCERTA) 54 mg biphasic tablet Take 1 tablet by mouth once daily for 30 days. dulaglutide (TRULICITY) 4.5 mg/0.5 mL pen injector Inject 4.5 mg subcutaneously one time a week. montelukast (SINGULAIR) 10 mg tablet Take 1 tablet by mouth daily at bedtime. FLUoxetine (PROZAC) 20 mg capsule Take 1 capsule by mouth once daily. famotidine (PEPCID) 40 mg tablet Take 1 tablet by mouth daily at bedtime. Drospirenone-Ethinyl Estradiol (IVONE, 28,) 3-0.02 mg per tablet Take 1 tablet by mouth once daily. albuterol HFA (VENTOLIN HFA) 90 mcg/actuation inhaler Inhale 2 Puffs as instructed every 4 hours as needed. No current facility-administered medications on file prior to visit. Social History Social History Tobacco Use Smoking status: Never Passive exposure: Yes Smokeless tobacco: Never Substance Use Topics Alcohol use: Never Drug use: Never Review of Symptoms REVIEW OF SYSTEMS SEE HPI EXAM: BP 124/86 Pulse 94 Resp 14 Wt 117.9 kg (260 lb) LMP 08/26/2022 (Within Months) BMI 41.79 kg/m? General Appearance: Well appearing, alert, in no acute distress, well-hydrated, well nourished.. Lungs: Lungs clear to auscultation. No wheezing, rhonchi, rales.. Heart: RRR without murmur, gallop, or rubs. No ectopy. Health Maintenance List Asthma Action Plan due on 08/21/2022 Covid-19 Vaccine( season) due on 11/20/2022 Asthma Control Test due on 09/22/2023 GC (Gonorrhea) Screening (-) due on 06/03/2024 Chlamydia Screening (18-) due on 06/03/2024 Annual PCP Team Chronic Disease Visit due on 06/03/2024 DTaP,Tdap,Td Vaccine(7 - Td or Tdap) due on 03/25/2025 Hepatitis B Vaccine Completed Spirometry Completed HPV Vaccine Completed Influenza Vaccine Completed Meningococcal B Vaccine: Consider Based On Risk Completed Hepatitis C Screening Completed HIV Screening Completed [facility] 09-06-2023 History of Present illness Narrative Chief Complaint Patient presents with: Follow Up HPI Alisson Crenshaw is a 18 year old female who presents here today for Above Complaints.. Patient presents for medication follow up. Patient reports she is not currently on trulicity due to shortage. Is continuing to have issues with urinary urge/stress incontinence. Past medical history, appointments, medications, allergies reviewed. Previous Medical History PAST MEDICAL HISTORY Diagnosis Date ADHD (attention deficit hyperactivity disorder) Asthma Cognitive developmental delay 08/30/2015 Developmental delay Encopresis with constipation and overflow incontinence 08/30/2015 Mood swings Obesity due to excess calories 08/30/2015 Overflow incontinence 08/30/2015 PCOS (polycystic ovarian syndrome) Previous Surgical History PAST SURGICAL HISTORY Procedure Laterality Date NONE Family History FAMILY HISTORY Problem Relation Age of Onset Psychiatry Mother depression Asthma Father Diabetes Maternal Grandmother Breast Cancer Maternal cousin Ovarian cancer No Family History Uterine Cancer No Family History DVT No Family History Patient Allergies ALLERGIES No Known Allergies Current Medications Current Outpatient Medications on File Prior to Visit Medication Sig metFORMIN (GLUCOPHAGE) 500 mg tablet Take 1 tablet by mouth two times a day. methylphenidate ER (CONCERTA) 54 mg biphasic tablet Take 1 tablet by mouth once daily for 30 days. dulaglutide (TRULICITY) 4.5 mg/0.5 mL pen injector Inject 4.5 mg subcutaneously one time a week. montelukast (SINGULAIR) 10 mg tablet Take 1 tablet by mouth daily at bedtime. FLUoxetine (PROZAC) 20 mg capsule Take 1 capsule by mouth once daily. famotidine (PEPCID) 40 mg tablet Take 1 tablet by mouth daily at bedtime. Drospirenone-Ethinyl Estradiol (IVONE, 28,) 3-0.02 mg per tablet Take 1 tablet by mouth once daily. albuterol HFA (VENTOLIN HFA) 90 mcg/actuation inhaler Inhale 2 Puffs as instructed every 4 hours as needed. No current facility-administered medications on file prior to visit. Social History Social History Tobacco Use Smoking status: Never Passive exposure: Yes Smokeless tobacco: Never Substance Use Topics Alcohol use: Never Drug use: Never Review of Symptoms REVIEW OF SYSTEMS SEE HPI EXAM: BP 124/86 Pulse 94 Resp 14 Wt 117.9 kg (260 lb) LMP 08/26/2022 (Within Months) BMI 41.79 kg/m General Appearance: Well appearing, alert, in no acute distress, well-hydrated, well nourished.. Lungs: Lungs clear to auscultation. No wheezing, rhonchi, rales.. Heart: RRR without murmur, gallop, or rubs. No ectopy. Health Maintenance List Asthma Action Plan due on 08/21/2022 Covid-19 Vaccine(2022- season) due on 11/20/2022 Asthma Control Test due on 09/22/2023 GC (Gonorrhea) Screening (18-) due on 06/03/2024 Chlamydia Screening (18-) due on 06/03/2024 Annual PCP Team Chronic Disease Visit due on 06/03/2024 DTaP,Tdap,Td Vaccine(7 - Td or Tdap) due on 03/25/2025 Hepatitis B Vaccine Completed Spirometry Completed HPV Vaccine Completed Influenza Vaccine Completed Meningococcal B Vaccine: Consider Based On Risk Completed Hepatitis C Screening Completed HIV Screening Completed documented in this encounter [facility] 08-13-2023 Telephone encounter Note Valid script on file [facility] 08-13-2023 Miscellaneous Notes Valid script on file documented in this encounter [facility] 08-09-2023 Telephone encounter Note PDMP reviewed. Patient requested and refilled prescriptions appropriately. No suspicious activity noted. [facility] 08-09-2023 Miscellaneous Notes PDMP reviewed. Patient requested and refilled prescriptions appropriately. No suspicious activity noted. Patient has been identified by name and date of : Yes Patient phones for refill(s): Requested Prescriptions Pending Prescriptions Disp Refills methylphenidate ER (CONCERTA) 54 mg biphasic tablet 30 tablet 0 Sig: Take 1 tablet by mouth once daily for 30 days. Date of last office visit in primary care: 06/04/2023 Date of next office visit in primary care: 09/06/2023 Please advise. Thank you. APRIL Lei. documented in this encounter [facility] 08-09-2023 Telephone encounter Note Patient has been identified by name and date of : Yes Patient phones for refill(s): Requested Prescriptions Pending Prescriptions Disp Refills methylphenidate ER (CONCERTA) 54 mg biphasic tablet 30 tablet 0 Sig: Take 1 tablet by mouth once daily for 30 days. Date of last office visit in primary care: 06/04/2023 Date of next office visit in primary care: 09/06/2023 Please advise. Thank you. APRIL Lei. [facility] 08-09-2023 Telephone encounter Note Pharmacy verified in [facility] Patient has been identified by name and date of : Yes Patient aware RX will be sent to pharmacy. No need to notify patient. Parent/Guardian phones for refill(s): Requested Prescriptions Pending Prescriptions Disp Refills metFORMIN (GLUCOPHAGE) 500 mg tablet 180 tablet 3 Sig: Take 1 tablet by mouth two times a day. Date of last office visit : 09/21/2022 Date of next office visit : Visit date not found Last 2 Encounter Wt Readings: Date: Wt: 07/13/2023 115.7 kg (255 lb) 06/30/2023 115.9 kg (255 lb 8.2 oz) Not applicable Please advise. Dayana Joseph LPN [facility] 08-09-2023 Miscellaneous Notes Pharmacy verified in Epic Patient has been identified by name and date of : Yes Patient aware RX will be sent to pharmacy. No need to notify patient. Parent/Guardian phones for refill(s): Requested Prescriptions Pending Prescriptions Disp Refills metFORMIN (GLUCOPHAGE) 500 mg tablet 180 tablet 3 Sig: Take 1 tablet by mouth two times a day. Date of last office visit : 09/21/2022 Date of next office visit : Visit date not found Last 2 Encounter Wt Readings: Date: Wt: 07/13/2023 115.7 kg (255 lb) 06/30/2023 115.9 kg (255 lb 8.2 oz) Not applicable Please advise. Dayana Joseph LPN documented in this encounter [facility] 07-13-2023 History of Present illness Narrative BMI Obesity Medicine FollowUp Note [facility] Visit July 13, 2023 I have communicated my name and active licensure. The patient's identity and physical location were verified at the time of this visit. Either the patient or their legal call center representative has been informed of the risks and benefits of -- and alternatives to -- treatment through a remote evaluation and consents to proceed with the evaluation remotely. Patient Summary: Alisson Crenshaw is 18 year old Female who presents virtually for follow-up evaluation of her obesity and related complications to the [facility] [place]. In our previous visits we have outlined an individualized lifestyle intervention including a personalized nutrition recommendations and physical activity optimization. [facility] 12/30/2022: Impression: Alisson Crenshaw is a 17 year old female with Class III obesity (Body mass index is 41.46 kg/m .) who has early onset obesity with several periods of weight loss followed by weight gain . The causes of her obesity are multifactorial, biological, psychological and social and environmental. Specific factors include a genetic component related to a strong family of obesity, increased consumption of high calorie/process foods, suboptimal physical activity, stress, and PCOS. She has few weight-related medical comorbidities which increase her cardiovascular mortality risk. There are additional metabolic obesity complications including dyslipidemia, possible obstructive sleep apnea, and PCOS. Other medical conditions as above. Regarding her lifestyle, as above, she has numerous behavioral contributors; her physical activity is non-existent. Overall, it is clear that her quality of life is moderately compromised by her weight. It is likely a combination of weight loss therapies will be needed. She appears motivated today. Plan: -- Based on the severity and resistance of the obesity to more conservative weight loss approaches, I believe a combination of behavioral and pharmacological intervention is the best and most appropriate fdc therapeutic option. -- We discussed several strategies to track food intake and increase mindfulness around eating. See eating plan below. Also recommended establishing with Dr. Menard in endocrine psychology. -- Encouraged the patient to improve her physical activity. Although cardiovascular exercise is most beneficial for weight loss initially, we discussed healthy muscle from a combination of resistance training and cardiovascular exercise is the best sprinkler repair technician plan. An overall goal of 200 minutes per week of exercise has been effective in weight loss and maintenance. -- Discussed starting dulaglutide, pt agreeable. Discussed common s/e and provided drug information via [employer] message. Recommended watching the [employer] video provided. Start Dulaglutide 0.75 mg weekly inj x 4 weeks then increase to 1.5 mg weekly inj. -- Suspect PATRICK given snoring, daytime sleepiness, witnessed apneas, ans weight. Placed order for HSAT. -- follow-up visit for management of above interventions in 3 months. Mutually Agreed Upon Goals Eating Plan: - MyRV ID Pal or Lose It RAUL - Log intake 2 days per week. - Protein shake in the middle of the night if needed. - Try to eat 3 fruits and 2 vegetables per day. - Try to eat at least 65 grams of protein. - [employer]. - Mediterranean Diet To schedule your 3 month follow up with me call [phone]. Activity: Try to create a habit of physical activity 3 days per week. To schedule with Cr. Menard with endocrine psychology call [phone]. Sleep: To schedule home sleep study call [phone]. Stress: RAUL for meditation - Mindful Moments by [facility] [employer] [facility] [employer]. [email or web address] I spent a total of 45 minutes on the date of the service which included preparing to see the patient, [id number] patient care, completing clinical documentation, obtaining and/or reviewing separately obtained history, performing a medically appropriate examination, counseling and educating the patient/family/caregiver, and ordering medications, tests, or procedures. Evan Dominique APRN.BUSH REGENERATOR Initial Program Weight 258 lbs Current weight: 255 lbs Weight Graph see epic Interval History: She specifies the following items as new or significant updates since the last appointment: Returns after 6 months Reports weight is stable since the last visit. Obesity Medications: Dulaglutide (Trulicity) 3 mg weekly. Start Date: 12/30/2022 Weight: 258 lbs Effects Reduction of appetite somewhat S/E: none Other AOMs Metformin 500 mg BID. Anti-Obesity Medications >Phentermine: No uncontrolled HTN, No CVD Hx or hx of seizure disorder. No MAOI inhibitor use. No drug abuse hx. Crcl > 15. - Currently taking Methylphenidate >Topiramate/zonisamide: No seizure or kidney stone hx. + hx of migraines, + hx of poor sleep. + Child bearing age (not sexually active, also has OC for PCOS). >Qsymia: see above >Contrave: No contraindications. Could affect mood. No uncontrolled HTN or hx of seizure disorder (lowers threshold for seizures). No MAOI inhibitor use. No opiate use. >Saxenda/Wegovy/Ozempic: Cost. Ins coverage? Dulaglutide. Pt reports no personal or family hx of medullary thyroid carcinoma or personal hx of pancreatitis? >Metformin: No contraindications or medication interactions. eGFR > 30. - Currently taking Metformin 500 mg BID Diet: - She is eating even though her appetite decreased. - Her grandmother states she has an eating disorder. She states she tried having her see a psychologist, hover the pt did not talk. - She is not drinking the protein shakes, chocolate and vanilla. - Her grandmother tries to control her portions but then she started sneaking the food. Exercise: - She has been starting to mow the yard. - On her feet three days per week at work. ?Sleep: - Sleeping well. - HSAT was neg for PATRICK ??Stress: - Manageable. Review of Systems: The physical systems reviewed reveal no pathological symptoms that are pertinent to this visit, Diabetes No, HTN: No, Cardiac: No, and Pulmonary: asthma History reviewed in [facility] Allergies: No Known Allergies Current Outpatient Medications Medication Sig methylphenidate ER (CONCERTA) 54 mg biphasic tablet Take 1 tablet by mouth once daily for 30 days. dulaglutide (TRULICITY) 3 mg/0.5 mL pen injector Inject 3 mg subcutaneously one time a week. montelukast (SINGULAIR) 10 mg tablet Take 1 tablet by mouth daily at bedtime. FLUoxetine (PROZAC) 20 mg capsule Take 1 capsule by mouth once daily. famotidine (PEPCID) 40 mg tablet Take 1 tablet by mouth daily at bedtime. Drospirenone-Ethinyl Estradiol (IVONE, 28,) 3-0.02 mg per tablet Take 1 tablet by mouth once daily. metFORMIN (GLUCOPHAGE) 500 mg tablet Take 1 tablet by mouth twice daily. albuterol HFA (VENTOLIN HFA) 90 mcg/actuation inhaler Inhale 2 Puffs as instructed every 4 hours as needed. No current facility-administered medications for this visit. PAST MEDICAL HISTORY Diagnosis Date ADHD (attention deficit hyperactivity disorder) Asthma Cognitive developmental delay 08/30/2015 Developmental delay Encopresis with constipation and overflow incontinence 08/30/2015 Mood swings Obesity due to excess calories 08/30/2015 Overflow incontinence 08/30/2015 PCOS (polycystic ovarian syndrome) PAST SURGICAL HISTORY Procedure Laterality Date NONE Social Connections: Unknown (09/21/2022) Social Connection and Isolation Panel [NHANES] Frequency of Communication with Friends and Family: More than three times a week Frequency of Social Gatherings with Friends and Family: Once a week Attends Congregational Services: More than 4 times per year Active Member of Clubs or Organizations: Yes Attends Club or Organization Meetings: 1 to 4 times per year Marital Status: Patient declined Family History Problem Relation Age of Onset Psychiatry Mother depression Asthma Father Diabetes Maternal Grandmother Breast Cancer Maternal cousin Ovarian cancer No Family History Uterine Cancer No Family History DVT No Family History Physical Exam: Weight: 115.7 kg (255 lb) Patient reported weight. VIDEO EXAM: (if done, performed via video enabled technology) General appearance: NAD Mental status: awake and alert Pulm: not visibly SOB Neuro: speech fluent Impression: Alisson Crenshaw is a 18 year old year old female with Class III obesity and the above obesity related complications. Body mass index is 40.98 kg/m . Currently taking Dulaglutide (Trulicity)., responding poorly. Reports eating despite decreased appetite. She Lifestyle unchanged for the most part. Her grandmother is trying to set limitations however the pt is sneaking food. She has not scheduled with Dr. Menard yet as recommended SUZANNA. Provided the number to scheduling. Currently motivated. Plan: -- Schedule with Dr. Menard for eating disorder. -- Continue improving physical activity. -- Change Dulaglutide (Trulicity) to 4.5 mg weekly. -- return to clinic/virtually in 3 months I spent a total of 20 minutes on the date of the service which included preparing to see the patient, [id number] patient care, completing clinical documentation, obtaining and/or reviewing separately obtained history, performing a medically appropriate examination, counseling and educating the patient/family/caregiver, and ordering medications, tests, or procedures. Some documentation from previous visit of 12/30/2022 was copied and pasted, documentation has been reviewed and edited as necessary for today's visit. Evan Dominique APRN.[place]OR[place] documented in this encounter [facility] 07-13-2023 Note HNO ID: [id number] Author: EVAN DOMINIQUE APRN.CNP Service: ? Author Type: Nurse Practitioner Type: Progress Notes Filed: 07/13/2023 13:37 Note Text: BMI Obesity Medicine FollowUp Note [facility] Visit July 13, 2023 I have communicated my name and active licensure. The patient's identity and physical location were verified at the time of this visit. Either the patient or their legal call center representative has been informed of the risks and benefits of -- and alternatives to -- treatment through a remote evaluation and consents to proceed with the evaluation remotely. Patient Summary: Alisson Crenshaw is 18 year old Female who presents virtually for follow-up evaluation of her obesity and related complications to the [facility] [place]. In our previous visits we have outlined an individualized lifestyle intervention including a personalized nutrition recommendations and physical activity optimization. SUZANNA 12/30/2022: Impression: Alisson Crenshaw is a 17 year old female with Class III obesity (Body mass index is 41.46 kg/m?.) who has early onset obesity with several periods of weight loss followed by weight gain . The causes of her obesity are multifactorial, biological, psychological and social and environmental. Specific factors include a genetic component related to a strong family of obesity, increased consumption of high calorie/process foods, suboptimal physical activity, stress, and PCOS. She has few weight-related medical comorbidities which increase her cardiovascular mortality risk. There are additional metabolic obesity complications including dyslipidemia, possible obstructive sleep apnea, and PCOS. Other medical conditions as above. Regarding her lifestyle, as above, she has numerous behavioral contributors; her physical activity is non-existent. Overall, it is clear that her quality of life is moderately compromised by her weight. It is likely a combination of weight loss therapies will be needed. She appears motivated today. Plan: -- Based on the severity and resistance of the obesity to more conservative weight loss approaches, I believe a combination of behavioral and pharmacological intervention is the best and most appropriate fdc therapeutic option. -- We discussed several strategies to track food intake and increase mindfulness around eating. See eating plan below. Also recommended establishing with Dr. Menard in endocrine psychology. -- Encouraged the patient to improve her physical activity. Although cardiovascular exercise is most beneficial for weight loss initially, we discussed healthy muscle from a combination of resistance training and cardiovascular exercise is the best sprinkler repair technician plan. An overall goal of 200 minutes per week of exercise has been effective in weight loss and maintenance. -- Discussed starting dulaglutide, pt agreeable. Discussed common s/e and provided drug information via [employer] message. Recommended watching the [employer] video provided. Start Dulaglutide 0.75 mg weekly inj x 4 weeks then increase to 1.5 mg weekly inj. -- Suspect PATRICK given snoring, daytime sleepiness, witnessed apneas, ans weight. Placed order for HSAT. -- follow-up visit for management of above interventions in 3 months. Mutually Agreed Upon Goals Eating Plan: - [employer] ID Pal or Lose It RAUL - Log intake 2 days per week. - Protein shake in the middle of the night if needed. - Try to eat 3 fruits and 2 vegetables per day. - Try to eat at least 65 grams of protein. - [employer]. - Mediterranean Diet To schedule your 3 month follow up with me call [phone]. Activity: Try to create a habit of physical activity 3 days per week. To schedule with Cr. Menard with endocrine psychology call [phone]. Sleep: To schedule home sleep study call [phone]. Stress: RAUL for meditation - Mindful Moments by [facility] [employer] [facility] [employer] [place]. [email or web address]-[email or web address] I spent a total of 45 minutes on the date of the service which included preparing to see the patient, [id number] patient care, completing clinical documentation, obtaining and/or reviewing separately obtained history, performing a medically appropriate examination, counseling and educating the patient/family/caregiver, and ordering medications, tests, or procedures. Evan Dominique APRN.BUSH REGENERATOR Initial Program Weight 258 lbs Current weight: 255 lbs Weight Graph see epic Interval History: She specifies the following items as new or significant updates since the last appointment: Returns after 6 months Reports weight is stable since the last visit. Obesity Medications: Dulaglutide (Trulicity) 3 mg weekly. Start Date: 12/30/2022 Weight: 258 lbs Effects Reduction of appetite somewhat S/E: none Other AOMs Metformin 500 mg BID. Anti-Obesity Medications >Phentermine: No u (more content not included)... [facility] 07-05-2023 Note HNO ID: [id number] Author: MINAL RAMOS LPN Service: ? Author Type: LICENSED NURSE Type: Progress Notes Filed: 07/05/2023 14:51 Note Text: Patient presents for Meningococcal B vaccine. Denies any problems at this time. Tolerated injection well. Minal Ramos LPN [facility] 07-05-2023 History of Present illness Narrative Patient presents for Meningococcal B vaccine. Denies any problems at this time. Tolerated injection well. Minal Ramos LPN documented in this encounter [facility] 07-05-2023 Miscellaneous Notes PDMP reviewed. Patient requested and refilled prescriptions appropriately. No suspicious activity noted. Patient has been identified by name and date of : Yes, Provider JABARI Patient phones for refill(s): Requested Prescriptions Pending Prescriptions Disp Refills methylphenidate ER (CONCERTA) 54 mg biphasic tablet 30 tablet 0 Sig: Take 1 tablet by mouth once daily for 30 days. Date of last office visit in primary care: 06/04/2023 Date of next office visit in primary care: 07/05/2023 Please advise. Thank you. Karie Temple. documented in this encounter [facility] 06-30-2023 Note HNO ID: [id number] Author: BRADLEY POLK APRN.GLORIA Service: ? Author Type: Nurse Practitioner Type: Progress Notes Filed: 06/30/2023 08:48 Note Text: CC: Patient presents with: Ear Pain: Left ear pain x 4 days HPI: Alisson Crenshaw is a 18 year old female who presents to the office with complaint of respiratory symptoms and ear symptoms for a few days. Symptoms are worsening Associated symptoms includes ear pain. Denies fever, nausea, vomiting , and diarrhea. Treatments tried include nothing so far. with no relief of symptoms. Sick contacts: unknown. History of asthma, frequent episodes of bronchitis, chronic bronchitis, bronchiectasis or COPD: No Smoker: No Seasonal/environmental allergies: No The ROS is otherwise negative. The patient's pmh, medications, allergies, and past visits are reviewed. PHYSICAL EXAM: BP 114/78 Pulse 93 Temp 36.3 ?C (97.4 ?F) (Tympanic) Resp 18 Wt 115.9 kg (255 lb 8.2 oz) LMP 08/26/2022 (Within Months) SpO2 98% BMI 41.07 kg/m? General appearance: alert, cooperative, pleasant, in no acute distress Head: Normocephalic Eyes: EOM's intact, conjunctiva pink and moist, no icterus, sclera white, non-injected Ears: Right ear: External ear/canal- Normal, TM - clear with good landmarks. Left ear: External ear/canal- otitis externa, TM - can not see it Oropharynx:mild erythema, without exudates present Heart: Negative. RRR without obvious murmur, gallop, or rubs. No ectopy. Lungs: clear to auscultation, without rales or wheeze, good air exchange PAST MEDICAL HISTORY Diagnosis Date ADHD (attention deficit hyperactivity disorder) Asthma Cognitive developmental delay 08/30/2015 Developmental delay Encopresis with constipation and overflow incontinence 08/30/2015 Mood swings Obesity due to excess calories 08/30/2015 Overflow incontinence 08/30/2015 PCOS (polycystic ovarian syndrome) PAST SURGICAL HISTORY Procedure Laterality Date NONE ALLERGIES Patient has no known allergies. MEDICATIONS dulaglutide (TRULICITY) 3 mg/0.5 mL pen injector Inject 3 mg subcutaneously one time a week. montelukast (SINGULAIR) 10 mg tablet Take 1 tablet by mouth daily at bedtime. methylphenidate ER (CONCERTA) 54 mg biphasic tablet Take 1 tablet by mouth once daily for 30 days. FLUoxetine (PROZAC) 20 mg capsule Take 1 capsule by mouth once daily. famotidine (PEPCID) 40 mg tablet Take 1 tablet by mouth daily at bedtime. Drospirenone-Ethinyl Estradiol (IVONE, 28,) 3-0.02 mg per tablet Take 1 tablet by mouth once daily. metFORMIN (GLUCOPHAGE) 500 mg tablet Take 1 tablet by mouth twice daily. albuterol HFA (VENTOLIN HFA) 90 mcg/actuation inhaler Inhale 2 Puffs as instructed every 4 hours as needed. FAMILY HISTORY Problem Relation Age of Onset Psychiatry Mother depression Asthma Father Diabetes Maternal Grandmother Breast Cancer Maternal cousin Ovarian cancer No Family History Uterine Cancer No Family History DVT No Family History Social History Tobacco Use Smoking status: Never Passive exposure: Yes Smokeless tobacco: Never Substance Use Topics Alcohol use: Never Drug use: Never ASSESSMENT/PLAN: 1. Acute otitis externa of left ear, unspecified type - ICD9: 380.10, ICD10: H60.502 - OFLOXACIN 0.3 % EAR DROPS Prescription instructions reviewed with patient and mother as applicable. Potential red flag symptoms discussed with the patient. Reviewed appropriate action plan to take if red flag symptoms occur. Patient mother agreeable to treatment plan. Bradley Polk APRN.[facility] 06-30-2023 History of Present illness Narrative CC: Patient presents with: Ear Pain: Left ear pain x 4 days HPI: Alisson Crenshaw is a 18 year old female who presents to the office with complaint of respiratory symptoms and ear symptoms for a few days. Symptoms are worsening Associated symptoms includes ear pain. Denies fever, nausea, vomiting , and diarrhea. Treatments tried include nothing so far. with no relief of symptoms. Sick contacts: unknown. History of asthma, frequent episodes of bronchitis, chronic bronchitis, bronchiectasis or COPD: No Smoker: No Seasonal/environmental allergies: No The ROS is otherwise negative. The patient's pmh, medications, allergies, and past visits are reviewed. PHYSICAL EXAM: BP 114/78 Pulse 93 Temp 36.3 C (97.4 F) (Tympanic) Resp 18 Wt 115.9 kg (255 lb 8.2 oz) LMP 08/26/2022 (Within Months) SpO2 98% BMI 41.07 kg/m General appearance: alert, cooperative, pleasant, in no acute distress Head: Normocephalic Eyes: EOM's intact, conjunctiva pink and moist, no icterus, sclera white, non-injected Ears: Right ear: External ear/canal- Normal, TM - clear with good landmarks. Left ear: External ear/canal- otitis externa, TM - can not see it Oropharynx:mild erythema, without exudates present Heart: Negative. RRR without obvious murmur, gallop, or rubs. No ectopy. Lungs: clear to auscultation, without rales or wheeze, good air exchange PAST MEDICAL HISTORY Diagnosis Date ADHD (attention deficit hyperactivity disorder) Asthma Cognitive developmental delay 08/30/2015 Developmental delay Encopresis with constipation and overflow incontinence 08/30/2015 Mood swings Obesity due to excess calories 08/30/2015 Overflow incontinence 08/30/2015 PCOS (polycystic ovarian syndrome) PAST SURGICAL HISTORY Procedure Laterality Date NONE ALLERGIES Patient has no known allergies. MEDICATIONS dulaglutide (TRULICITY) 3 mg/0.5 mL pen injector Inject 3 mg subcutaneously one time a week. montelukast (SINGULAIR) 10 mg tablet Take 1 tablet by mouth daily at bedtime. methylphenidate ER (CONCERTA) 54 mg biphasic tablet Take 1 tablet by mouth once daily for 30 days. FLUoxetine (PROZAC) 20 mg capsule Take 1 capsule by mouth once daily. famotidine (PEPCID) 40 mg tablet Take 1 tablet by mouth daily at bedtime. Drospirenone-Ethinyl Estradiol (IVONE, 28,) 3-0.02 mg per tablet Take 1 tablet by mouth once daily. metFORMIN (GLUCOPHAGE) 500 mg tablet Take 1 tablet by mouth twice daily. albuterol HFA (VENTOLIN HFA) 90 mcg/actuation inhaler Inhale 2 Puffs as instructed every 4 hours as needed. FAMILY HISTORY Problem Relation Age of Onset Psychiatry Mother depression Asthma Father Diabetes Maternal Grandmother Breast Cancer Maternal cousin Ovarian cancer No Family History Uterine Cancer No Family History DVT No Family History Social History Tobacco Use Smoking status: Never Passive exposure: Yes Smokeless tobacco: Never Substance Use Topics Alcohol use: Never Drug use: Never ASSESSMENT/PLAN: 1. Acute otitis externa of left ear, unspecified type - ICD9: 380.10, ICD10: H60.502 - OFLOXACIN 0.3 % EAR DROPS Prescription instructions reviewed with patient and mother as applicable. Potential red flag symptoms discussed with the patient. Reviewed appropriate action plan to take if red flag symptoms occur. Patient mother agreeable to treatment plan. Bradley Polk APRN.BUSH REGENERATOR documented in this encounter [facility] 06-21-2023 Miscellaneous Notes Patient scheduled for nurse visit 07/05/23 to receive Meningococcal B vaccine. Please place order at this time. Minal Ramos LPN documented in this encounter [facility] 06-14-2023 Note HNO ID: [id number] Author: BRADLEY POLK APRN.[place]ORIA Service: ? Author Type: Nurse Practitioner Type: Progress Notes Filed: 06/14/2023 17:28 Note Text: CC: Patient presents with: Cough: Cough, congestion and wheezing x 11 week HPI: Alisson Crenshaw is a 18 year old female who presents to the office with complaint of head congestion, cough, nonproductive, and wheezing for 11 days. Symptoms are worsening Associated symptoms includes nasal congestion and facial pain/pressure. Denies fever, nausea, vomiting , and diarrhea. Treatments tried include nothing so far. with no relief of symptoms. Sick contacts: unknown. History of asthma, frequent episodes of bronchitis, chronic bronchitis, bronchiectasis or COPD: No Smoker: No Seasonal/environmental allergies: No The ROS is otherwise negative. The patient's pmh, medications, allergies, and past visits are reviewed. PHYSICAL EXAM: BP 122/80 Pulse 91 Temp 37 ?C (98.6 ?F) (Tympanic) Resp 18 Wt 114.6 kg (252 lb 10.4 oz) LMP 08/26/2022 (Within Months) SpO2 97% BMI 40.61 kg/m? General appearance: alert, cooperative, pleasant, in no acute distress Head: Normocephalic Eyes: EOM's intact, conjunctiva pink and moist, no icterus, sclera white, non-injected Ears: Right ear: External ear/canal- Normal, TM - clear with good landmarks. Left ear: External ear/canal- Normal, TM - clear with good landmarks Oropharynx:moist without lesions, No erythema, exudates or tonsillar hypertrophy. Heart: Negative. RRR without obvious murmur, gallop, or rubs. No ectopy. Lungs: clear to auscultation, without rales or wheeze, good air exchange PAST MEDICAL HISTORY Diagnosis Date ADHD (attention deficit hyperactivity disorder) Asthma Cognitive developmental delay 08/30/2015 Developmental delay Encopresis with constipation and overflow incontinence 08/30/2015 Mood swings Obesity due to excess calories 08/30/2015 Overflow incontinence 08/30/2015 PCOS (polycystic ovarian syndrome) PAST SURGICAL HISTORY Procedure Laterality Date NONE ALLERGIES Patient has no known allergies. MEDICATIONS dulaglutide (TRULICITY) 3 mg/0.5 mL pen injector Inject 3 mg subcutaneously one time a week. montelukast (SINGULAIR) 10 mg tablet Take 1 tablet by mouth daily at bedtime. methylphenidate ER (CONCERTA) 54 mg biphasic tablet Take 1 tablet by mouth once daily for 30 days. FLUoxetine (PROZAC) 20 mg capsule Take 1 capsule by mouth once daily. famotidine (PEPCID) 40 mg tablet Take 1 tablet by mouth daily at bedtime. Drospirenone-Ethinyl Estradiol (IVONE, 28,) 3-0.02 mg per tablet Take 1 tablet by mouth once daily. metFORMIN (GLUCOPHAGE) 500 mg tablet Take 1 tablet by mouth twice daily. albuterol HFA (VENTOLIN HFA) 90 mcg/actuation inhaler Inhale 2 Puffs as instructed every 4 hours as needed. amoxicillin-clavulanate potassium (AUGMENTIN) 875-125 mg per tablet Take 1 tablet by mouth two times a day for 7 days. FAMILY HISTORY Problem Relation Age of Onset Psychiatry Mother depression Asthma Father Diabetes Maternal Grandmother Breast Cancer Maternal cousin Ovarian cancer No Family History Uterine Cancer No Family History DVT No Family History Social History Tobacco Use Smoking status: Never Passive exposure: Yes Smokeless tobacco: Never Substance Use Topics Alcohol use: Never Drug use: Never ASSESSMENT/PLAN: 1. Rhinosinusitis - ICD9: 473.9, ICD10: J32.9 - AMOXICILLIN 875 MG-POTASSIUM CLAVULANATE 125 MG TABLET Prescription instructions reviewed with patient as applicable. Potential red flag symptoms discussed with the patient. Reviewed appropriate action plan to take if red flag symptoms occur. Patient agreeable to treatment plan. Bradley Polk APRN.[facility] 06-14-2023 History of Present illness Narrative CC: Patient presents with: Cough: Cough, congestion and wheezing x 11 week HPI: Alisson Crenshaw is a 18 year old female who presents to the office with complaint of head congestion, cough, nonproductive, and wheezing for 11 days. Symptoms are worsening Associated symptoms includes nasal congestion and facial pain/pressure. Denies fever, nausea, vomiting , and diarrhea. Treatments tried include nothing so far. with no relief of symptoms. Sick contacts: unknown. History of asthma, frequent episodes of bronchitis, chronic bronchitis, bronchiectasis or COPD: No Smoker: No Seasonal/environmental allergies: No The ROS is otherwise negative. The patient's pmh, medications, allergies, and past visits are reviewed. PHYSICAL EXAM: BP 122/80 Pulse 91 Temp 37 C (98.6 F) (Tympanic) Resp 18 Wt 114.6 kg (252 lb 10.4 oz) LMP 08/26/2022 (Within Months) SpO2 97% BMI 40.61 kg/m General appearance: alert, cooperative, pleasant, in no acute distress Head: Normocephalic Eyes: EOM's intact, conjunctiva pink and moist, no icterus, sclera white, non-injected Ears: Right ear: External ear/canal- Normal, TM - clear with good landmarks. Left ear: External ear/canal- Normal, TM - clear with good landmarks Oropharynx:moist without lesions, No erythema, exudates or tonsillar hypertrophy. Heart: Negative. RRR without obvious murmur, gallop, or rubs. No ectopy. Lungs: clear to auscultation, without rales or wheeze, good air exchange PAST MEDICAL HISTORY Diagnosis Date ADHD (attention deficit hyperactivity disorder) Asthma Cognitive developmental delay 08/30/2015 Developmental delay Encopresis with constipation and overflow incontinence 08/30/2015 Mood swings Obesity due to excess calories 08/30/2015 Overflow incontinence 08/30/2015 PCOS (polycystic ovarian syndrome) PAST SURGICAL HISTORY Procedure Laterality Date NONE ALLERGIES Patient has no known allergies. MEDICATIONS dulaglutide (TRULICITY) 3 mg/0.5 mL pen injector Inject 3 mg subcutaneously one time a week. montelukast (SINGULAIR) 10 mg tablet Take 1 tablet by mouth daily at bedtime. methylphenidate ER (CONCERTA) 54 mg biphasic tablet Take 1 tablet by mouth once daily for 30 days. FLUoxetine (PROZAC) 20 mg capsule Take 1 capsule by mouth once daily. famotidine (PEPCID) 40 mg tablet Take 1 tablet by mouth daily at bedtime. Drospirenone-Ethinyl Estradiol (IVONE, 28,) 3-0.02 mg per tablet Take 1 tablet by mouth once daily. metFORMIN (GLUCOPHAGE) 500 mg tablet Take 1 tablet by mouth twice daily. albuterol HFA (VENTOLIN HFA) 90 mcg/actuation inhaler Inhale 2 Puffs as instructed every 4 hours as needed. amoxicillin-clavulanate potassium (AUGMENTIN) 875-125 mg per tablet Take 1 tablet by mouth two times a day for 7 days. FAMILY HISTORY Problem Relation Age of Onset Psychiatry Mother depression Asthma Father Diabetes Maternal Grandmother Breast Cancer Maternal cousin Ovarian cancer No Family History Uterine Cancer No Family History DVT No Family History Social History Tobacco Use Smoking status: Never Passive exposure: Yes Smokeless tobacco: Never Substance Use Topics Alcohol use: Never Drug use: Never ASSESSMENT/PLAN: 1. Rhinosinusitis - ICD9: 473.9, ICD10: J32.9 - AMOXICILLIN 875 MG-POTASSIUM CLAVULANATE 125 MG TABLET Prescription instructions reviewed with patient as applicable. Potential red flag symptoms discussed with the patient. Reviewed appropriate action plan to take if red flag symptoms occur. Patient agreeable to treatment plan. Bradley Polk APRN.CNP documented in this encounter [facility] 06-14-2023 Miscellaneous Notes Pt's grandmother Leslie returned the call and notified of results and need for repeat labwork. Leslie states the family has been sick for a couple of weeks so she thinks Alisson may have been getting sick when she got her lab drawn. Left message for patient to return call to office Linh Rome MA Please let patient know her cholesterol is slightly elevated. I would like her to decrease fatty and processed foods. Also her WBC and platelets are increased. I would like her to get a repeat CBC in 2 weeks. documented in this encounter [facility] 06-08-2023 Miscellaneous Notes Pts elizabeth called and is notified of providers results. She voices understanding. Elidia Lyon, DENY Please let patient know her breathing test was normal. documented in this encounter [facility] 06-08-2023 History of Present illness Narrative PULM FUNCTION SMARTBLOCK: Provider: Braden Barboza APRN.[facility] Assisting Tech: Peyton Myers RPFT Spirometry w/BD: 1 documented in this encounter [facility] 06-04-2023 History of Present illness Narrative Chief Complaint Patient presents with: [facility] HPI Alisson Crenshaw is a 18 year old female who presents here today for Above Complaints.. Patient presents to [facility]. Patient has ADHD and currently on methylphenidate. Grandmother reports she has been without medication for a week due to switching providers. Past medical history, appointments, medications, allergies reviewed. Previous Medical History PAST MEDICAL HISTORY Diagnosis Date ADHD (attention deficit hyperactivity disorder) Asthma Cognitive developmental delay 08/30/2015 Developmental delay Encopresis with constipation and overflow incontinence 08/30/2015 Mood swings Obesity due to excess calories 08/30/2015 Overflow incontinence 08/30/2015 Previous Surgical History PAST SURGICAL HISTORY Procedure Laterality Date NONE Family History FAMILY HISTORY Problem Relation Age of Onset Psychiatry Mother depression Asthma Father Diabetes Maternal Grandmother Breast Cancer Maternal cousin Ovarian cancer No Family History Uterine Cancer No Family History DVT No Family History Patient Allergies ALLERGIES No Known Allergies Current Medications Current Outpatient Medications on File Prior to Visit Medication Sig FLUoxetine (PROZAC) 20 mg capsule Take 1 capsule by mouth once daily. famotidine (PEPCID) 40 mg tablet Take 1 tablet by mouth daily at bedtime. methylphenidate ER 54 mg biphasic tablet Take 1 tablet by mouth every morning. methylphenidate ER 54 mg biphasic tablet Take 1 tablet by mouth every morning. Do not start before March 17, 2023. Drospirenone-Ethinyl Estradiol (IVONE, 28,) 3-0.02 mg per tablet Take 1 tablet by mouth once daily. metFORMIN (GLUCOPHAGE) 500 mg tablet Take 1 tablet by mouth twice daily. albuterol HFA (VENTOLIN HFA) 90 mcg/actuation inhaler Inhale 2 Puffs as instructed every 4 hours as needed. cetirizine (ZYRTEC) 10 mg tablet Take 1 tablet by mouth once daily. No current facility-administered medications on file prior to visit. Social History Social History Tobacco Use Smoking status: Never Passive exposure: Yes Smokeless tobacco: Never Substance Use Topics Alcohol use: Never Drug use: Never Review of Symptoms REVIEW OF SYSTEMS SEE HPI EXAM: BP 124/66 Pulse 82 Resp 14 Wt 117.5 kg (259 lb) LMP 08/26/2022 (Within Months) BMI 41.62 kg/m General Appearance: Well appearing, alert, in no acute distress, well-hydrated, well nourished.. Skin: Skin color, texture, turgor normal, no suspicious rashes or lesions. Neck: Supple, no adenopathy; thyroid symmetric, normal size, no bruits. Lungs: Lungs clear to auscultation. No wheezing, rhonchi, rales.. Heart: RRR without murmur, gallop, or rubs. No ectopy. Abdomen: Normal abdominal exam, Abdomen soft, non-tender. Bowel sounds normal. No masses, organomegaly Musculoskeletal: No joint swelling, deformity, or tenderness. Peripheral Pulses: Normal. Neurologic: Gait normal. Reflexes normal and symmetric. Sensation grossly intact.. Health Maintenance List Meningococcal B Vaccine: Consider Based On Risk(1 of 2 - Patient Seeks Protection) Never done Spirometry Never done GC (Gonorrhea) Screening (-) Never done Hepatitis C Screening Never done HIV Screening Never done Chlamydia Screening (18-) Never done Asthma Action Plan due on 08/21/2022 Covid-19 Vaccine( - 2022- season) due on 11/20/2022 Depression Assessment Never done Annual PCP Team Chronic Disease Visit due on 09/22/2023 Asthma Control Test due on 09/22/2023 DTaP,Tdap,Td Vaccine(7 - Td or Tdap) due on 03/25/2025 Hepatitis B Vaccine Completed HPV Vaccine Completed Influenza Vaccine Completed ASSESSMENT/PLAN: 1. Intellectual disability - ICD9: 319, ICD10: F79 (primary diagnosis) -Grandma is guardian 2. Attention deficit disorder, unspecified hyperactivity presence - ICD9: 314.00, ICD10: F98.8 - TOX SCREEN ROUT UR - PAIN PANEL, UR QUANT - METHYLPHENIDATE ER 54 MG TABLET,EXTENDED RELEASE 24 HR 3. Severe obesity due to excess calories without serious comorbidity with body mass index (BMI) in 99th percentile for age in pediatric patient (HCC) - ICD9: 278.01, V85.54, ICD10: E66.01, Z68.54 Stable 4. PCOS (polycystic ovarian syndrome) - ICD9: 256.4, ICD10: E28.2 - HGB A1C 5. Asthma, moderate persistent, well-controlled - ICD9: 493.90, ICD10: J45.40 - Mild persistent asthma stable - Continue current medications - Avoidance of triggers recommended - MONTELUKAST 10 MG TABLET 6. Encounter for lipid screening for cardiovascular disease - ICD9: V77.91, V81.2, ICD10: Z13.220, Z13.6 - LIPID PANEL, NONFASTING 7. Medication management - ICD9: V58.69, ICD10: Z79.899 - CBC + DIFF - COMP METABOLIC PANEL 8. Chronic allergic rhinitis - ICD9: 477.9, ICD10: J30.9 - CONSULT TO ENT 9. Encounter for immunization - ICD9: V03.89, ICD10: Z23 - MENINGOCOCCAL B VACCINE (BEXSERO) - RuffaloCODY COVID-19 VACCINE (2022- SEASON) AGE 12+ YR 10. Special screening examination for viral disease - ICD9: V73.99, ICD10: Z11.59 - HEPATITIS C ANTIBODY IA WITH CONFIRMATION 11. Screening for HIV (human immunodeficiency virus) - ICD9: V73.89, ICD10: Z11.4 - HIV 1 2 COMBO(AG/AB),WITH REFLEX TO DIFFERENTIATION Braden Barboza APRN.[facility] documented in this encounter [facility] 02-16-2023 Miscellaneous Notes Patient has been added to wait list Dr. García sent over Medication to start 02/15/23, and 03/17/23. Spoke to Leslie Crenshaw () who was advised of provider's orders. Routing to scheduling to request that patient be wait-listed for earlier appointment with primary est care appointment in [place]. SUZANNA 09/21/[address] Gray Meek ASSESSMENT & PLAN: 17 well appt ADHD- continue Methylphenidate ER 54 mg Mild intermittent asthma- continue albuterol prn Obesity- refer to Bariatrics Intellectual disability Mom left message on nurse line requesting refill of Methylphenidate ER 54 mg. Will be establishing with new provider in [place] but cannot get in before May,. Routing to provider for review and recommendations. documented in this encounter [facility] 02-09-2023 History of Present illness Narrative Sleep Study Check-In Documentation Date: February 09, 2023 Name: Alisson Crenshaw Comments: HST was returned in working order without all sleep questionnaires Patient was not reached. A voicemail was left with patient to call back to complete questionnaires. Mildrde Badillo February 05, 2023 Standing PSG Orders signed in the last 90 days None Future PSG Orders signed in the last 90 days Ordered Auth. provider HOME SLEEP APNEA TEST (HSAT) [[id number]] 12/30/22 Evan Dominique APRN.[facility] Assoc. diagnoses: Class 3 severe obesity due to excess calories without serious comorbidity with body mass index (BMI) of 40.0 to 44.9 in adult (HCC) [E66.01, Z68.41], Sleep apnea, unspecified type [G47.30], Daytime sleepiness [R40.0], Snoring [R06.83] Q: Indications: A: Obstructive sleep apnea Q: STOP-BANG conditions - Select All That Apply: A: BMI > 35 kg/m2 A2: SNORING that is loud or disruptive A3: TIREDNESS, fatigue or sleepiness during the day A4: NECK circumference (male >43 cm/17 in; female > 41 cm/16 in) Q: Current use of supplemental oxygen during sleep period?: A: No All Prior Sleep Studies (past 365 days) Some values may be hidden. Unless noted otherwise, only the newest values recorded on each date are displayed. Sleep Studies HOME SLEEP APNEA TEST (HSAT) Future Expected: Expires: 12/30/23 BMI Readings from Last 2 Encounters: 12/30/22 : 41.46 kg/m (99 %, Z= 2.32)* 09/21/22 : 41.51 kg/m (>99 %, Z= 2.35)* * Growth percentiles are based on [facility] [place]Girls, 2-20 Years[place] data. PAST MEDICAL HISTORY Diagnosis Date ADHD (attention deficit hyperactivity disorder) Asthma Cognitive developmental delay 08/30/2015 Developmental delay Encopresis with constipation and overflow incontinence 08/30/2015 Mood swings Obesity due to excess calories 08/30/2015 Overflow incontinence 08/30/2015 The medical record was reviewed to determine if the proposed sleep study conforms to the AASM Practice Parameters for the Indications for Polysomnography and Related Procedures, or if the sleep study is indicated for other reasons. Indications for study: PATRICK suspected with comorbid medical or sleep disorders: Morbid obesity (BMI>40 kg/m2) Sleep study to be performed: Home Sleep Apnea Test (HSAT) Special instructions: None-follow laboratory protocol [facility] Staff Note: I have read the above protocol, edited as needed, and agree to the plan. Wero Fowler III, PhD 12:58 PM, 02/05/2023 Nomad# [id number] , Date shipped out: 02/05/23 SENT FEDEX DELIVERY - FEDEX RETURN Tracking mailout: [phone] Tracking return: [phone] January 27, 2023 An order has been received for Home Sleep Apnea Test (HSAT) from Evan Stahl APRN.[facility] , a [facility] Staff. Visit prep complete. Comments :No The sleep study is scheduled for 02/18. Insurance: Payor: [employer] MEDICAID / Plan[facility] [place] / Product Type: Medicaid / Payer/Plan Subscr Sex Relation Sub. Ins. ID Effective Group Num 1. JULIANNA DESAI* ALISSON CRENSHAW N 03 Female Self [id number] 04/22/22 [facility] [address] Lori Santiago documented in this encounter [facility] 12-30-2022 Instructions Evan Dominique APRN.[place] - 12/30/2022 4:04 PM EDT Images from the original note were not included. Mutually Agreed Upon Goals Eating Plan: - MyFitDynamighty Pal or Lose It RAUL - Log intake 2 days per week. - Protein shake in the middle of the night if needed. - Try to eat 3 fruits and 2 vegetables per day. - Try to eat at least 65 grams of protein. - Try to discontinue the sugary drinks. - [employer]. - Mediterranean Diet - To prevent constipation: Drink plenty of water and eat high fiber foods (fruits and vegetables) and you could also add magnesium citrate 250 to 500 mg tabs per day. - For nausea and heartburn try Heartburn and Mahogany Relief Chews at [facility]. To schedule your 3 month follow up with me call [phone]. Activity: Try to create a habit of physical activity 3 days per week. To schedule with Cr. Menard with endocrine psychology call [phone]. Sleep: To schedule home sleep study call [phone]. Stress: RAUL for meditation - Mindful Moments by [facility] [employer]. https://www.DepoMed.Yodle/health/ mental-health/nao-uegjaerpxp-uegss x-yliguuo-agdx#our-picks --------- Begin a meal replacement program: What are meal replacements? Meal replacements are portion controlled products that are fortified with vitamins and minerals. Examples include liquid shakes, protein bars and frozen meals. You should replace 1-2 meals per day with a meal replacement and then have 1-2 balanced nutritious meals per day that incorporate lean protein, healthy starch, and fruits/vegetables. You can pair your meal replacement with fruit or vegetables to make them more satiating. Frozen Meals aim for 200-400 calories, 15-30 grams protein, 5+ grams fiber, < 50 grams Carbohydrate, <600 mg sodium Frozen Meals Calories Protein (grams) Carbs Frontera Bowls 240-320 9-23 33-47 Healthy Choice/Power Bowls 180-350 10-25 20-50 Ree's (V, GF) 280-400 9- 20-50 Smart Made/Smart Ones 150-320 14-26 16-50 Lean Cuisine 250-410 10-20 15-50 Eating Well 240-360 15-25 25-40 LUVO planted 260-430 10-20 16-55 Other Frozen meals: Kashi, Sweet Earth, Title Agent Greg's Reduced Guilt, Kasi VALLE's Delights, Dr. Sidhu's Protein Drinks Calories Protein (grams) Sugars (grams) EAS Advant Edge Carb Control 110 17 1 Isopure Clear Zero Carb 160 40 0 Muscle Milk light 100-160 15-20 0-1 Ascendant Group Core Power 170 26 5 Orgain Protein Shake* 150 26 2 Premier Protein 160 30 1 Evolve (Vegan)* 160 20 5 Other Protein Shakes: Pure Protein, Ensure High Protein; *Offers plant based, dairy free option Protein Powders Calories (per scoop) Protein (g) Sugars (g) Isopure Zero Carb & Unflavored 105 25 0 Rn Correctional Whey Protein 100 18 3 Optimum Nutrition 100% whey 120-130 24 1-2 EAS 100% Whey or Soy 120 23 1 Genisoy Protein powder* 110 25 0 Quest 100 23 1 [place]ton One Protein powder* 130 25 1 Orgain Protein Powder* 150-160 21 0-1 *Offers plant based, dairy free option Protein Bars Calories Protein (g) Sugars (g) Quest (GF) 190 20 0-1 Power Crunch 140-240 13-20 0-5 NuGo Slim (v) 180 17 1 Simply protein 150 15 1 Orgain Bar 140 10 4 Pure Protein 200 20 2 Think Thin (GF) 230 20 0-1 Aguilar Bakery Paleo (GF) 180-190 20 2 Oh Castillo (one) (GF) 180-200 20 1 Oatmega 190 14 5 Other Protein bars: RX bar, Orgain, Fit Mariana, Protein One, Chen protein bar; *GF= Gluten-Free; V= vegan https://www.[facility] [place]/Nuday Games/wiwhwyv-mhfsel-fnorl/ [place] healthy Eating Plate: Make most of your meal vegetables and fruits - of your plate: Aim for color and variety, and remember that potatoes don t count as vegetables on the Healthy Eating Plate because of their negative impact on blood sugar. Go for whole grains - of your plate: Whole and intact grains--whole wheat, barley, wheat berries, quinoa, oats, brown rice, and foods made with them, such as whole wheat pasta--have a milder effect on blood sugar and insulin than white bread, white rice, and other refined grains. Protein power - of your plate: Fish, poultry, beans, and nuts are all healthy, versatile protein sources--they can be mixed into salads, and pair well with vegetables on a plate. Limit red meat, and avoid processed meats such as swanson and sausage. Healthy plant oils - in moderation: Choose healthy vegetable oils like olive, canola, soy, corn, sunflower, peanut, and others, and avoid partially hydrogenated oils, which contain unhealthy trans fats. Remember that low-fat does not mean healthy. Drink water, coffee, or tea: Skip sugary drinks, limit milk and dairy products to one to two servings per day, and limit juice to a small glass per day. Stay active: The red figure running across the Healthy Eating Plate s placemat is a reminder that staying active is also important in weight control. Recipe ideas https://www.[facility] [place]/Ultimate Software gerardoVisualnetmarley/lebmjsw-cqxatoap-reif/ A practical guide to the Mediterranean diet June 09, 2018 By Codie Huynh, MS, RD, LDN, Contributor The Mediterranean diet has received much attention as a healthy way to eat, and with good reason. The Mediterranean diet has been shown to reduce risk of heart disease, metabolic syndrome, diabetes, certain cancers, depression, and in older adults, a decreased risk of frailty, along with better mental and physical function. In March, [employer] News and World Report named it the best diet overall for the second year running. What is the Mediterranean diet? The traditional Mediterranean diet is based on foods available in countries that border the Mediterranean Sea. The foundation for this healthy diet includes an abundance of plant foods, including fruits, vegetables, whole grains, nuts and legumes, which are minimally processed, seasonally fresh, and grown locally olive oil as the principal source of fat cheese and yogurt, consumed daily in low to moderate amounts fish and poultry, consumed in low to moderate amounts a few times a week red meat, consumed infrequently and in small amounts fresh fruit for dessert, with sweets containing added sugars or honey eaten only a few times each week wine consumed in low to moderate amounts, usually with meals. How to bring the Mediterranean diet to your plate How can you incorporate these healthy foods into your everyday life? Here are some small changes you can make. Pick one change every week and incorporate it gradually. Start with the changes you think will be the easiest. Switch from whatever fats you use now to extra virgin olive oil. Start by using olive oil in cooking, and then try some new salad dressings with olive oil as the base. Finally, use olive oil in place of butter on your crusty bread. Eat nuts and olives. Consume a handful of raw nuts every day as a healthy replacement for processed snacks. Add whole-grain bread or other whole grains to the meal. Select dense, chewy, country-style loaves without added sugar or butter. [place] with bulgur, barley, farro, couscous, and whole-grain pasta. Begin or end each meal with a salad. Choose crisp, dark greens and whatever vegetables are in season. Add more and different vegetables to the menu. Add an extra serving of vegetables to both lunch and dinner, aiming for three to four servings a day. Try a new vegetable every week. Eat at least three servings a week of legumes. Options include lentils, chickpeas, beans, and peas. Eat less meat. Choose lean poultry in moderate, 3- to 4-ounce portions. Save red meat for occasional consumption or use meat as a condiment, accompanied by lots of vegetables, as in stews, stir-fries, and soups. Eat more fish, aiming for two to three servings a week. Both canned and fresh fish are fine. Substitute wine in moderation for other alcoholic beverages. Replace beer or liquors with wine -- no more than two 5-ounce glasses per day for men, and one glass per day for women. Cut out sugary beverages. Replace soda and juices with water. Eat less high-fat, high-sugar desserts. Poached or fresh fruit is best. Aim for three servings of fresh fruit a day. Save cakes and pastries for special occasions. Seek out the best quality food available. [employer] are an excellent source of locally grown, seasonal foods. Finally, try to have dinner as a family as often as possible. Food as a communal, shared experience is a big part of the Mediterranean approach. Mediterranean all day. https://www.health.[place].edu/blo g/z-hnjhpmoai-gygku-hl-cav-bvtjpvd dcczia-ngzt-5437253542044 Mediterranean diet 101 How to Follow the Mediterranean Diet - [facility] https://my.[facility].org/-/s cassets/files/org/heart/patient-ed ucation/dxxyy-zhrlrb-eqdspagq/ll-m editerranean-diet.ashx?la=en Sample Meal plans https://Matchpoint.Yodle/fqf-oyjl-abhw fbvbrkszi-hhyc-hpdiex-menu/?nowpro cket=1 https://[employer] Software/wp-content/up loads//7day_low_carb_medite rranean_diet_plan.pdf documented in this encounter [facility] 12-30-2022 History of Present illness Narrative BMI Obesity Medicine Consult Distance Health Visit 12/30/22 Virtual Visit (Audio/Visual)I have discussed the nature of this visit with the patient which will occur via Distance Health (Phone, Virtual Visit) and she agrees to proceed with this interaction. I have communicated my name and active licensure. The patient's identity and physical location were verified at the time of this visit. Either the patient or their legal call center representative has been informed of the risks and benefits of -- and alternatives to -- treatment through a remote evaluation and consents to proceed with the evaluation remotely. Done, at home. Patient Summary: Alisson Crenshaw is a 17 year old female with obesity who presents to the [facility] for an initial evaluation of her obesity and is interested in behavioral and pharmacological weight loss approaches. Primary reason for wanting obesity treatment : to be healthier and prevent diabetes Overall goal: 175 lbs Weight History: She reports a strong family history of obesity and early onset weight gain. She states her weight gain is related to the following factors, including PCOS, food choices, portion control, overeating, and lack of exercise. Weight Graph: (please see graph scanned in chart) Obesigenic Medications: NO Diet: Quality of diet: 24hr recall suggests unhealthy diet. Breakfast: oatmeal Lunch: double cheeseburger, spaghettios, and PB&J Dinner: big mac, fries Snacks: PB&J, crackers, anything she can find, green beans Drinks: sweet tea, sugar free tea, regular soda, water ETOH: none Characterization of diet:Unstructured, unhealthy snacking, excessive cravings, evening snacking, and increased consumption of sugar sweetened beverages. [employer] Specialist of impaired eating habits:excessive hunger, lack of satiety, mindlessness , emotion, and stress Eating Disorder night eating and sleep related eating Diet History: Past weight loss attempts? self-directed, exercise program, and dietitian. Anti-Obesity Medications >Phentermine: No uncontrolled HTN, No CVD Hx or hx of seizure disorder. No MAOI inhibitor use. No drug abuse hx. Crcl > 15. - Currently taking Methylphenidate >Topiramate/zonisamide: No seizure or kidney stone hx. + hx of migraines, + hx of poor sleep. + Child bearing age (not sexually active, also has OC for PCOS). >Qsymia: see above >Contrave: No contraindications. Could affect mood. No uncontrolled HTN or hx of seizure disorder (lowers threshold for seizures). No MAOI inhibitor use. No opiate use. >Saxenda/Wegovy/Ozempic: Cost. Ins coverage? Dulaglutide. Pt reports no personal or family hx of medullary thyroid carcinoma or personal hx of pancreatitis? >Metformin: No contraindications or medication interactions. eGFR > 30. - Currently taking Metformin 500 mg BID Exercise: Regular exercise: No Strength/resistance exercise:No Barriers to regular exercise? None Work-related activity:Active. ?Sleep: Duration: 8 - 12 hours. PATRICK NO ; CPAP NO Quality:adequate, Generally restful:Sleep-wake cycle disruption: STOP BANG 1. Snoring : Do you snore loudly (louder than talking, through closed doors)? YES 2. Tired : Do you often feel tired, fatigued, or sleepy during daytime? YES 3. Observed : Has anyone observed you stop breathing during sleep?YES 4. Blood Pressure: treated for high blood pressure?NO 5. BMI : BMI more than 35 kg/m2? YES 6. Age : Age over 50 yr old? NO 7. Neck circumference: Neck circumference greater than 40 cm?YES 8. Gender : Gender male? NO STOP BANG Score 4 , intermediate ??Stress: Some, Cause:Work and Personal Obesity Related Comorbidities: Prior Weight Loss Surgery:No ACTIVE PROBLEM LIST Intellectual Disability Encopresis With Constipation and Overflow Incontinence Overflow Incontinence Obesity Due to Excess Calories Bmi (Body Mass Index), Pediatric, Greater Than 99% for Age Adhd Asthma, Well Controlled Body Mass Index Equal to Or Greater Than 95th Percentile for Age in Pediatric Patient Acquired Pes Planus of Both Feet Patellofemoral Disorder of Right Knee Obesity, Class III, BMI >= 40 Pcos (Polycystic Ovarian Syndrome) + HLD No history of IA, COPD, peptic ulcer dx, gallstones, hypothyroidism, hypertension, cancer, DVT, PE, CVA, T2DM, gout, kidney stones, CKD and smoking history. PAST SURGICAL HISTORY Procedure Laterality Date NONE Obesity ROS/ FHx GEN: Fatigue:yes CV: h/o palpitations/cardiac arrhythmia, CP:No PULM: Asthma:Yes GI: GERD:No; Gallstones: No; Fatty liver disease:No; H/o hernia:No MSK: Joint Pain:yes : Nephrolithiasis:No; Stress incontinence:yes Symptoms of PCOS(women):yes, has hx of PCOS No history of thyroid disorder,diabetes,cold intolerance,heat,intolerance,polyd ypsia NEURO: Migraines/JONES:yes; H/o seizures: No Glaucoma:No; Cataracts No Symptoms of pseudotumor cerebri:No Family History Problem Relation Age of Onset Psychiatry Mother depression Asthma Father Diabetes Maternal Grandmother Breast Cancer Maternal cousin Ovarian cancer No Family History Uterine Cancer No Family History DVT No Family History PREV: PAP n/a, Mammogram n/a and Colonoscopy n/a Social History Social History Tobacco Use Smoking status: Never Passive exposure: Yes Smokeless tobacco: Never Substance Use Topics Alcohol use: Never Drug use: Never 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 General appearance: NAD Mental status: awake and alert Pulm: not visibly SOB Neuro: speech fluent Results: reviewed with the patient No visits with results within 3 Month(s) from this visit. Latest known visit with results is: Appointment on 01/10/2022 Component Date Value Ref Range Status Cholesterol, Total 01/10/2022 249 (H) <170 mg/dL Final Triglyceride 01/10/2022 416 (H) <90 mg/dL Final HDL Cholesterol 01/10/2022 51 >45 mg/dL Final Non HDL Cholesterol 01/10/2022 198 (H) <120 mg/dL Final Fasting Time 01/10/2022 12 hrs Final VLDL Cholesterol 01/10/2022 Final TC:HDL Ratio 01/10/2022 4.88 (H) <3.76 Final LDL Cholesterol 01/10/2022 Final LDL:HDL Ratio 01/10/2022 Final Glucose, Fasting 01/10/2022 85 74 - 99 mg/dL Final Hemoglobin A1C 01/10/2022 5.3 4.3 - 5.6 % Final Estimated Average Glucose 01/10/2022 105 mg/dL Final Free T4 01/10/2022 1.2 0.9 - 1.7 ng/dL Final TSH 01/10/2022 3.800 0.510 - 4.300 mIU/L Final LDL Cholesterol, Direct 01/10/2022 127 (H) <110 mg/dL Final VLDL Cholesterol 01/10/2022 71 (H) <18 mg/dL Final Impression: Alisson Crenshaw is a 17 year old female with Class III obesity (Body mass index is 41.46 kg/m .) who has early onset obesity with several periods of weight loss followed by weight gain . The causes of her obesity are multifactorial, biological, psychological and social and environmental. Specific factors include a genetic component related to a strong family of obesity, increased consumption of high calorie/process foods, suboptimal physical activity, stress, and PCOS. She has few weight-related medical comorbidities which increase her cardiovascular mortality risk. There are additional metabolic obesity complications including dyslipidemia, possible obstructive sleep apnea, and PCOS. Other medical conditions as above. Regarding her lifestyle, as above, she has numerous behavioral contributors; her physical activity is non-existent. Overall, it is clear that her quality of life is moderately compromised by her weight. It is likely a combination of weight loss therapies will be needed. She appears motivated today. Plan: -- Based on the severity and resistance of the obesity to more conservative weight loss approaches, I believe a combination of behavioral and pharmacological intervention is the best and most appropriate fdc therapeutic option. -- We discussed several strategies to track food intake and increase mindfulness around eating. See eating plan below. Also recommended establishing with Dr. Menard in endocrine psychology. -- Encouraged the patient to improve her physical activity. Although cardiovascular exercise is most beneficial for weight loss initially, we discussed healthy muscle from a combination of resistance training and cardiovascular exercise is the best fdc plan. An overall goal of 200 minutes per week of exercise has been effective in weight loss and maintenance. -- Discussed starting dulaglutide, pt agreeable. Discussed common s/e and provided drug information via [employer] message. Recommended watching the [employer] video provided. Start Dulaglutide 0.75 mg weekly inj x 4 weeks then increase to 1.5 mg weekly inj. -- Suspect PATRICK given snoring, daytime sleepiness, witnessed apneas, ans weight. Placed order for HSAT. -- follow-up visit for management of above interventions in 3 months. Mutually Agreed Upon Goals Eating Plan: - MyFitDynamighty Pal or Lose It RAUL - Log intake 2 days per week. - Protein shake in the middle of the night if needed. - Try to eat 3 fruits and 2 vegetables per day. - Try to eat at least 65 grams of protein. - [employer]. - Mediterranean Diet To schedule your 3 month follow up with me call [phone]. Activity: Try to create a habit of physical activity 3 days per week. To schedule with Cr. Menard with endocrine psychology call [phone]. Sleep: To schedule home sleep study call [phone]. Stress: RAUL for meditation - Mindful Moments by [facility] [employer]. [email or web address] mental-health/aeg-[email or web address]-hleaq [email or web address]-ftufgmh-rcog#our-picks I spent a total of 45 minutes on the date of the service which included preparing to see the patient, wfwv-cx-hiev patient care, completing clinical documentation, obtaining and/or reviewing separately obtained history, performing a medically appropriate examination, counseling and educating the patient/family/caregiver, and ordering medications, tests, or procedures. Eavn Dominique APRN.BUSH REGENERATOR documented in this encounter [facility] 11-20-2022 Miscellaneous Notes Pharmacy verified in [facility] Patient has been identified by name and date of : Yes Patient aware RX will be sent to pharmacy. No need to notify patient. Parent/Guardian phones for refill(s): Requested Prescriptions Pending Prescriptions Disp Refills methylphenidate ER 54 mg biphasic tablet 30 tablet 0 Sig: Take 1 tablet by mouth every morning. Date of last office visit : 09/21/2022 Date of next office visit : Visit date not found Last 2 Encounter Wt Readings: Date: Wt: 09/21/2022 117.2 kg (258 lb 4.8 oz) (>99 %, Z= 2.57)* 03/04/2022 116.6 kg (257 lb) (>99 %, Z= 2.53)* Not applicable Please advise. Augusta Yi documented in this encounter [facility] 10-08-2022 Miscellaneous Notes Okay to schedule to establish with me and my triad (Vivi or me to establish) Pt's grandmother/legal guardian Leslie reports granddaughter needs new PCP d/t transitioning out of pediatrics in [place]. Grandmother is pt of Dr. Estes and is asking if Dr. Estes would accept pt under her care. Please call grandmother Leslie with response. documented in this encounter [facility] 09-21-2022 Instructions rGay García DO - 09/21/2022 4:04 PM EDT Images from the original note were not included. 5 to Go!TM Healthy Kids Inside & Out 5 Eat FIVE fruits and veggies a day 4 Give and get FOUR compliments a day 3 Consume THREE calcium products a day 2 Limit media time to TWO hours a day 1 Get at least ONE hour of exercise a day 0 Consume ZERO sugar-sweetened drinks Go! Be healthy, inside and out! www.[facility].org/5toGo Adolescent to Adult Transition Program [facility] cares about helping you and each of our adolescents and young adults make a smooth transition to adult care. If your current doctor is a field handyman, we will work with you to decide the correct age for moving your care to a doctor or other provider who takes care of adults. We suggest that this move take place before age 22. Our office policy is to prepare you to move to a doctor or other provider who takes care of adults. This includes helping you find a doctor or other provider, sending medical records, and talking about any special needs with the new doctor or other provider. If your current doctor is in family medicine, [facility] will prepare you and your family for the transition to being an adult patient. You will be able to make your own healthcare decisions and will have an adult care team that meets your personal healthcare needs. At age 18, by law, we need your agreement to discuss personal health information with your family. We understand and respect that you may want to include your family in healthcare choices and will partner with you on how and when to include your family in decisions. We will make sure you know what changes to expect. We will also strive to make sure that all care team providers know your needs. We will help you find community resources and specialty care, if needed. Having your information before you come for the first time helps us be sure we do not miss any details. If joining our practice from outside [facility], we will help you request your medical record from past doctor(s) before your first visit. We will make every effort to work with your past providers to ensure a smooth transition and experience. We are always here for you. If you have any questions or concerns, please contact your primary care team or e-mail Got Transition is the federally funded national resource center on health care transition (HCT). Its aim is to improve transition from pediatric to adult health care through the use of evidence-driven strategies for health body care manager, youth, young adults, and their families. www.gottransition.org https://Diggition.org/resource /?rzp-qsjgzh-unlqzzt documented in this encounter [facility] 09-21-2022 History of Present illness Narrative WELL VISIT PEDIATRIC 18+ YRS OLD Alisson is a 17 year old who presents today for well exam. SUBJECTIVE CONCERNS: Guardian concerned about weight. Requesting referral to bariatrics. Patient gets up at night and raids the fridge. Patient not concerned about weight. Only exercise is mowing lawn. Quit going to physical therapy due to noncompliance with exercises at home. HISTORY ACTIVE PROBLEM LIST Obesity, Class III, BMI >= 40 - 09/21/2022 Patellofemoral Disorder of Right Knee - 03/04/2022 Acquired Pes Planus of Both Feet - 05/14/2021 Body Mass Index Equal to Or Greater Than 95th Percentile for Age in Pediatric Patient - 05/30/2020 Asthma, Well Controlled - 07/01/2018 Adhd - 05/31/2018 Bmi (Body Mass Index), Pediatric, Greater Than 99% for Age - 1001/15/2017 Intellectual Disability - 08/30/2015 Encopresis With Constipation and Overflow Incontinence - 08/30/2015 Overflow Incontinence - 08/30/2015 Obesity Due to Excess Calories - 08/30/2015 PAST MEDICAL HISTORY Diagnosis Date ADHD (attention deficit hyperactivity disorder) Asthma Cognitive developmental delay 08/30/2015 Developmental delay Encopresis with constipation and overflow incontinence 08/30/2015 Mood swings Obesity due to excess calories 08/30/2015 Overflow incontinence 08/30/2015 PAST SURGICAL HISTORY Procedure Laterality Date NONE ALLERGIES No Known Allergies Medications: FLUoxetine (PROZAC) 20 mg capsule Take 1 capsule by mouth once daily. Drospirenone-Ethinyl Estradiol (IVONE, 28,) 3-0.02 mg per tablet Take 1 tablet by mouth once daily. metFORMIN (GLUCOPHAGE) 500 mg tablet Take 1 tablet by mouth twice daily. albuterol HFA (VENTOLIN HFA) 90 mcg/actuation inhaler Inhale 2 Puffs as instructed every 4 hours as needed. famotidine (PEPCID) 40 mg tablet Take 1 tablet by mouth daily at bedtime. [START ON 10/07/2022] methylphenidate ER 54 mg biphasic tablet Take 1 tablet by mouth every morning. Do not start before October 07, 2022. cetirizine (ZYRTEC) 10 mg tablet Take 1 tablet by mouth once daily. FAMILY HISTORY Problem Relation Age of Onset Psychiatry Mother depression Asthma Father Diabetes Maternal Grandmother Breast Cancer Maternal cousin Ovarian cancer No Family History Uterine Cancer No Family History DVT No Family History Social History Social History Narrative DATE: January 15, 2017 SIGNATURE: Bettye Verma Ma Informant: mother HOUSEHOLD INFORMATION Family Members currently living in the home: -Mother: Name - Jen -gary-Father: Name - Jordon -Brother: Name - Nick -Brother: Name Eitan -Sister: Name - Gianna Primary custody of child: mother Smokers in the home: Yes, mom and step dad Guns in the home: No Water Supply: [employer] Pets: cat: two - dog: two - Smoke Detectors: Yes Carbon Monoxide Detectors: No No results found for: LEAD Year house built: unknown Zip code: [address] See OD Lead testing requirements and management recommendations: http://www.od.[place].gov Smoking Exposure: Do you spend a significant amount of time with anyone who smokes? No School: Presently in Not in school. No behavioral concerns Any concerns regarding peer interactions? No Physical Activity mows yard Screen Time totaling more than 2 hours of screen time per day. Fainting, dizziness, significant shortness of breath or chest pain with sports or exercise: No History of concussion in the last year: No Safety: Reviewed seat belts, bike helmets, smoke detectors, and sunscreen Diet: -Diet is well balanced and appropriate for age -Fruits and veggies are eaten with most meals -Regularly eats meals with family Elimination: no concerns, normal size and consistency Dental: dental care current Sleep: -awakens at night time Vision: No vision concerns Hearing: No hearing concerns Growth: excessive weight gain Gynecological history: LMP: 08/21 Cycles are regular and last 1-2 days. Dysmenorrhea: none Heavy periods: no Substance use: none Screening tools reviewed and discussed with patient/vlrqnj-[id number]-1 and Social Determinants of Health. Please see Patient Entered Data. SDOH: Food Insecurity: Food Insecurity Present Worried About Running Out of Food in the Last Year: Never true Ran Out of Food in the Last Year: Often true Financial Resource Strain: Low Risk Difficulty of Paying Living Expenses: Not hard at all Transportation Needs: No Transportation Needs Lack of Transportation (Medical): No Lack of Transportation (Non-Medical): No Housing Stability: Low Risk Unable to Pay for Housing in the Last Year: No Number of Places Lived in the Last Year: 1 Unstable Housing in the Last Year: No Discussed SDOH results with patient/family. SDOH needs identified: no concerns identified OBJECTIVE Physical Exam: BP 120/82 Pulse 77 Temp 36.6 C (97.8 F) (Temporal) Resp 20 Ht 168 cm (5' 6.14) Wt 117.2 kg (258 lb 4.8 oz) LMP 08/26/2022 (Within Months) SpO2 99% BMI 41.51 kg/m Blood pressure percentiles are not available for patients who are 18 years or older. Blood pressure percentiles are not available for patients who are 18 years or older. 99 %ile (Z= 2.21) based on CDC (Girls, 2-20 Years) BMI-for-age based on BMI available as of 09/21/2022. Last BMI: Wt: 116.6 kg (257 lb) (>99 %, Z= 2.53)* BMI: 40.55 kg/(m^2) Last 4 Encounter Wt Readings: Date: Wt: 09/21/2022 117.2 kg (258 lb 4.8 oz) (>99 %, Z= 2.57)* 03/04/2022 116.6 kg (257 lb) (>99 %, Z= 2.53)* 01/01/2022 118.3 kg (260 lb 11.2 oz) (>99 %, Z= 2.54)* 09/11/2021 117.5 kg (259 lb 1.6 oz) (>99 %, Z= 2.52)* Last 4 Encounter Ht Readings: Date: Ht: 09/21/2022 168 cm (5' 6.14) (77 %, Z= 0.73)* 09/11/2021 169.5 cm (5' 6.75) (84 %, Z= 0.98)* 09/05/2021 171.5 cm (5' 7.5) (90 %, Z= 1.28)* 05/06/2021 167.5 cm (5' 5.95) (75 %, Z= 0.67)* General: Well developed, No acute distress Head: normocephalic Eyes: conjunctivae/corneas clear Ears: normal external ear and canal, tympanic membranes with normal landmarks Nose: no erythema or rhinorrhea Oropharynx: moist mucous membranes, no erythema or exudate Neck: supple, no adenopathy Spine: Back symmetric, no curvature. Resp: lungs clear to auscultation Heart: RRR, normal S1 and S2. , No murmurs Breast: No nodules or lesions Abdomen: Soft, nontender, nondistended, no palpable organomegaly or masses, normal bowel sounds, obese Genitalia: Jose stage IV, no inguinal masses, no rashes or lesions Extremities: Full ROM and no swelling, erythema or tenderness Neuro: No focal deficits or abnormal findings present Skin: no rashes ASSESSMENT & PLAN: 17 well appt ADHD- continue Methylphenidate ER 54 mg Mild intermittent asthma- continue albuterol prn Obesity- refer to Bariatrics Intellectual disability 99 %ile (Z= 2.21) based on CDC (Girls, 2-20 Years) BMI-for-age based on BMI available as of 09/21/2022. Heaven is elevated range (BMI greater than 95th%): -Discussed how healthy eating, minimizing electronics and getting physical activity impact physical and emotional health -Avoid eating out and encouraged family meals at home Depression Screening 09/21/2022 PHQ-2 Score 0 PHQ-9 Score 6 Depression screening tool completed and reviewed. Based on score and interview, patient is not at risk for depression. Screening tool discussed with patient, and I recommended no further intervention at this time. - Discussed diet and safety. - Dental care discussed. - Bright Futures handout given (See Patient Instructions). - No immunizations were recommended to be given at this visit. - Healthcare transition statement discussed.. will most likely see Dr Estes in [place]. - Gray García DO documented in this encounter [facility] 09-08-2022 Miscellaneous Notes Pharmacy verified in Epic Patient has been identified by name and date of : Yes Patient aware RX will be sent to pharmacy. No need to notify patient. Patient phones for refill(s): Requested Prescriptions Pending Prescriptions Disp Refills famotidine (PEPCID) 40 mg tablet 30 tablet 5 Sig: Take 1 tablet by mouth daily at bedtime. methylphenidate ER 54 mg biphasic tablet 30 tablet 0 Sig: Take 1 tablet by mouth every morning. Date of last office visit : 03/04/2022 Date of next office visit : 09/21/2022 Last 2 Encounter Wt Readings: Date: Wt: 03/04/2022 116.6 kg (257 lb) (>99 %, Z= 2.53)* 01/01/2022 118.3 kg (260 lb 11.2 oz) (>99 %, Z= 2.54)* Not applicable Please advise. Dayana Joseph LPN Patient has been identified by name and date of : Yes Requested Prescriptions Pending Prescriptions Disp Refills famotidine (PEPCID) 40 mg tablet 30 tablet 5 Sig: Take 1 tablet by mouth daily at bedtime. methylphenidate ER 54 mg biphasic tablet 30 tablet 0 Sig: Take 1 tablet by mouth every morning. RX INSTRUCTIONS: Patient aware RX will be sent to pharmacy. No need to notify patient. Eliza Zafar Pss documented in this encounter [facility] 07-08-2022 Miscellaneous Notes She has 10 days of script left. Will send with fill date of when medication is due. [facility] website checked and validated. All prescriptions have been APPROPRIATELY filled. No suspicious activity was identified. 07/08/2022 by Brittany Renteria APRN.GLORIA Last appointment: 03/04/22 Next appointment: N/A Pharmacy verified in [facility]. Refill(s) requested: Requested Prescriptions Pending Prescriptions Disp Refills methylphenidate ER 54 mg tablet 30 tablet 0 Sig: Take 1 tablet by mouth every morning for 30 days. Order(s) pended. Please advise. Anika Conteh CMA Pharmacy verified in [facility] Patient has been identified by name and date of : Yes Patient aware RX will be sent to pharmacy. No need to notify patient. Patient phones for refill(s): Requested Prescriptions Pending Prescriptions Disp Refills methylphenidate ER 54 mg tablet 30 tablet 0 Sig: Take 1 tablet by mouth every morning for 30 days. Date of last office visit : 03/04/2022 Date of next office visit : Visit date not found Last 2 Encounter Wt Readings: Date: Wt: 03/04/2022 116.6 kg (257 lb) (>99 %, Z= 2.53)* 01/01/2022 118.3 kg (260 lb 11.2 oz) (>99 %, Z= 2.54)* Not applicable Please advise. Anne Burnett documented in this encounter [facility] 05-08-2022 Miscellaneous Notes Grandma left Vm on RN line requesting refill of methylphenidate. Patient has been identified by name and date of : Yes Requested Prescriptions Pending Prescriptions Disp Refills methylphenidate ER 54 mg tablet 30 tablet 0 Sig: Take 1 tablet by mouth every morning for 30 days. RX INSTRUCTIONS: Patient aware RX will be sent to pharmacy. No need to notify patient. Shelly Meza RN Reason for Disposition Caller requesting a CONTROLLED substance prescription refill (e.g., narcotics, ADHD medicines) Protocols used: Medication Refill and Renewal [id number] Reason for Disposition Pharmacy calling with prescription question and triager unable to answer question Answer Assessment - Initial Assessment Questions 1. NAME of MEDICATION: What medicine are you calling about? Pt's grandmother calling, LM on nurse triage line requesting refill for pt's Adderall. She states that the [facility] where pt's refills her scripts is running low on Adderall and may only have the brand name medication in stock. Upon chart review pt is currently taking methyphenidate, not Adderall. Called grandmother to clarify refill request and to confirm that pt is currently on methylphenidate and NOT adderall. No answer at [phone], requesting CB to speak with nurse triage regarding refill request. Protocols used: Medication Question [id number] documented in this encounter [facility] 03-30-2022 Miscellaneous Notes Last appointment: 03.04.2022 Next appointment: 06.08.2022 Pharmacy verified in [facility]. Refill(s) requested: Requested Prescriptions Pending Prescriptions Disp Refills cetirizine (ZYRTEC) 10 mg tablet 30 tablet 6 Sig: Take 1 tablet by mouth once daily. Order(s) pended. Please advise. Christo Acevedo CMA Pharmacy verified in [facility] Patient has been identified by name and date of : Yes Patient aware RX will be sent to pharmacy. No need to notify patient. Patient phones for refill(s): Requested Prescriptions Pending Prescriptions Disp Refills cetirizine (ZYRTEC) 10 mg tablet 30 tablet 6 Sig: Take 1 tablet by mouth once daily. Date of last office visit : 03/04/2022 Date of next office visit : 06/08/2022 Last 2 Encounter Wt Readings: Date: Wt: 03/04/2022 116.6 kg (257 lb) (>99 %, Z= 2.53)* 01/01/2022 118.3 kg (260 lb 11.2 oz) (>99 %, Z= 2.54)* Not applicable Please advise. Tamia Tiwari Pss documented in this encounter [facility] 03-18-2022 History of Present illness Narrative Episode Visit Count: 3 Therapist That Will Accept/Oversee The Plan Of Care: Seb Herrera Start of Care Date: 03/06/22 Onset Date: (years) Plan of Care Certification Date: 03/06/22 Next Certification Due Date: 04/10/22 Patient Identified by Name and Date of : Yes REHABILITATION AND SPORTS THERAPY PHYSICAL THERAPY TREATMENT NOTE ASSESSMENT: Alisson Crenshaw tolerated the session with no issues. She demonstrated good form with all therapeutic exercises. The patient will continue to benefit from ongoing skilled physical therapy to progress toward set goals. PLAN FOR NEXT VISIT: Continue with hip and quad strengthening. Possibly trial mini squats at parallel bars. SUBJECTIVE: Patient Reason for Visit: Pt states she feels her pain is better. Her grandma helped her get her exercises in. No pain yet today. Pain: Pain Pain Level: 0 Pain Location: Knee - Right Post Treatment Pain Post Treatment Pain Level: 0 Post Treatment Pain Location: Knee - Right OBJECTIVE MEASURES WITH LEVEL OF FUNCTION: R patella hypomobile TREATMENT: Therapeutic Exercise: 1: Supine bridge 2# 2 x 12 reps 2: Supine bridge 2 x 12 reps 3: Side-lying clam BTB 3 x 12 reps 4: Side-lying hip abd 2 x 10 Skilled Intervention: Patient was educated in proper exercise technique and purpose for exercises. Correct performance of therapeutic exercises was facilitated with verbal and visual cuing. Billing Therapeutic Exercise Treatment Minutes: 39 Total Treatment Time Minutes (timed/untimed): 39 Seb Herrera PT documented in this encounter [facility] 03-09-2022 History of Present illness Narrative Episode Visit Count: 2 Therapist That Will Accept/Oversee The Plan Of Care: Seb Herrera Start of Care Date: 03/06/22 Onset Date: (years) Plan of Care Certification Date: 03/06/22 Next Certification Due Date: 04/10/22 Patient Identified by Name and Date of : Yes REHABILITATION AND SPORTS THERAPY PHYSICAL THERAPY TREATMENT NOTE ASSESSMENT: Alisson Crenshaw tolerated the session with no issues. She demonstrated some difficulty maintaining full knee ext with 2# on ankle during SLR R>L. The patient will continue to benefit from ongoing skilled physical therapy to progress toward set goals. PLAN FOR NEXT VISIT: Progress quad and hip strengthening as tolerated SUBJECTIVE: Patient Reason for Visit: Pt did not do the exercises. The cat would paw at her or nag her. Pain: Pain Pain Level: 6 Pain Location: Knee - Right OBJECTIVE MEASURES WITH LEVEL OF FUNCTION: Muscle soreness with SLR over quadriceps muscle bellies TREATMENT: Therapeutic Exercise: 1: Supine bridge 2 x 10 2: Supine SLR x 10 3: Supine SLR 1# x 10 reps 4: Supine SLR 2# 2 x 10 reps 5: Clam in sidelying x 10 reps 6: Clam against BTB in sidelying 3 x 10 Skilled Intervention: Patient was educated in proper exercise technique and purpose for exercises. Provided written instruction for home exercise program to facilitate proper performance and compliance. Correct performance of therapeutic exercises was facilitated with verbal and visual cuing. Billing Therapeutic Exercise Treatment Minutes: 39 Total Treatment Time Minutes (timed/untimed): 39 Seb Herrera PT documented in this encounter [facility] 03-06-2022 History of Present illness Narrative Episode Visit Count: 1 Therapist That Will Accept/Oversee The Plan Of Care: Seb Herrera Start of Care Date: 03/06/22 Onset Date: (years) Plan of Care Certification Date: 03/06/22 Next Certification Due Date: 04/10/22 Patient Identified by Name and Date of : Yes REHABILITATION AND SPORTS THERAPY PHYSICAL THERAPY EVALUATION PLAN OF CARE: Assessment: Heaven N Bersch presents with chief complaint of R knee pain that interferes with squatting . She presents with impairments in overall function, strength , and symptom management. Prognosis for therapy is Good due to: current objective clinical presentation . Pt demonstrates hypomobility of the R patella, decreased R quad flexibility, and decreased gluteal strength as most pertinent findings. She will benefit from skilled therapy services to meet the goals established for this plan of care as noted below. Goals for Episode of Care: created on 03/06/22 through 05/01/22 Pt will demo R quad flexibility of WNL to decrease knee pain in 8 weeks or less Pt will demo 4+/5 of gluteals to normalize gait pattern in 8 weeks or less Normal Gait Margie in home exercise program. Patient Goals: Decrease pain Planned Interventions, Frequency, and Duration: Current Frequency: 1x/week Duration: 4 weeks Total Number of Visits Planned: 4 Planned Treatment Interventions: Neuromuscular re-education (55406);Therapeutic exercise (13759);Manual therapy (74822);Self-skilled nursing management (29491);Patient/Family/Caregiver Education PLAN FOR NEXT VISIT: Assess reaction to HEP. Hip abd strengthening. Patient demonstrates good understanding of plan of care and treatment. The above goals and plan of care were discussed and agreed upon by patient/family. SUBJECTIVE: Alisson Crenshaw is a 16 year old female seen today for Popping when squatting. Stairs are fine. Pain on the front side portion of the knee. 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 5 points is clinically meaningfully difference Percentiles provide an indication of how the patient's score ranks in relation to the general population. Higher percentile rankings indicate better function/quality of life. 50th percentile is the average of the general population and indicates half of respondents had a worse score. T-scores: mean of general population = 50. 5 points is clinically meaningfully difference Percentiles provide an indication of how the patient's score ranks in relation to the general population. Higher percentile rankings indicate better function/quality of life. 50th percentile is the average of the general population and indicates half of respondents had a worse score. OBJECTIVE MEASURES WITH LEVEL OF FUNCTION: Posture / Alignment Leg Length Discrepency: WNL Knee Observations R Knee Palpation Tenderness: No tenderness noted LE AROM R LE AROM: WNL L LE AROM: WNL R Hip Internal Rotation: 10 Degrees L Hip Internal Rotation: 10 Degrees LE Flexibility Flexibility: Quadriceps Flexibility R Quadriceps Flexibility: min tightness L Quadriceps Flexibility: WNL LE Joint Mobility R Patellar Mobility: Hypomobile L Patellar Mobility: WNL LE Strength R LE Strength: Grossly 5/5 (Unless otherwise mentioned) L LE Strength: Grossly 5/5 R Hip Extension: 3+/5 R Hip ABduction: 4-/5 L Knee Extension (L3): 4-/5 Gait Gait Observation: Slight trendelenberg on the R Education: Education Learning Preferences: Demonstration;Explanation;Performa nce;Printed Materials Barriers: None Learning/educational needs: Home exercise program;Plan of Care Education Provided: Yes, see treatment interventions for education provided Education Provided To: Patient Education Mode/Type: Demonstration;Explanation/Discussi on;Literature/Printed Materials;Performance Response to Education/Teach Back: States/Identifies;Return Demonstration TREATMENT: PT Treatment Interventions: Therapeutic Exercise Evaluation Therapeutic Exercise: 1: Discussed therapy goals, exam findings, purpose of HEP and handout provided. 2: Supine bridge x 10 reps 3: R quad stretch 2 x 30 seconds with strap assist Skilled Intervention: Patient was educated in proper exercise technique and purpose for exercises. Provided written instruction for home exercise program to facilitate proper performance and compliance. Correct performance of therapeutic exercises was facilitated with verbal and visual cuing. Billing * Evaluation Low Complexity: 1 Unit Therapeutic Exercise Treatment Minutes: 23 Total Treatment Time Minutes (timed/untimed): 40 Seb Herrera PT documented in this encounter [facility] 03-04-2022 History of Present illness Narrative 16 year old female here with guardian for ADHD, asthma follow up. She is doing well on concerta 54 mg. Does notice that she is more inattentive if she misses a dose. 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 Tolerating medication well. Hasn't needed albuterol for quite a while. Does need COVID booster for Omicron Right knee has been popping when she squats down and is painful. Does okay with walking. No swelling. Feels like it will give out at times. Qualifies for disability by the State for learning disabilities and low IQ. Lives with grandma who is her guardian. Physical Exam: Alert, active, in no distress Head: Normocephalic and atraumatic HEENT: Pupils equal and reactive to light, extraocular muscles intact. Tympanic membranes clear with good landmarks. Pharynx pink and moist without exudates or erosions Neck: no adenopathy Lungs: Clear to auscultation with good air exchange. No grunting flaring or retractions Heart: Regular rate and rhythm with normal s1 S2 femoral pulses present Abdomen: Soft, nontender with good bowel sounds in all 4 quadrants. no hepatosplenomegaly Extremities: well perfused. Capillary refill less than 3 seconds Right knee does track laterally with flexion to extension. Neg lachmans. Neg anterior drawer test Assess: ADHD- continue Concerta 54 mg Mild intermittent asthma- continue albuterol prn Patellofemoral syndrome- refer to physical therapy Follow up 6 months Gray García DO documented in this encounter [facility] 01-21-2022 Miscellaneous Notes Pharmacy verified in [facility] Patient has been identified by name and date of : Yes Patient requesting a call when RX is approved and sent to the pharmacy. Please call patient at: [phone] Grandmother phones for refill(s): Requested Prescriptions Pending Prescriptions Disp Refills methylphenidate ER 54 mg tablet 30 tablet 0 Sig: Take 1 tablet by mouth every morning for 30 days. Grandmother requesting couple month's worth of medication if possible. Date of last office visit : 09/11/2021 Date of next office visit : 03/04/2022 Last 2 Encounter Wt Readings: Date: Wt: 01/01/2022 118.3 kg (260 lb 11.2 oz) (>99 %, Z= 2.54)* 09/11/2021 117.5 kg (259 lb 1.6 oz) (>99 %, Z= 2.52)* Please advise. Catie Funk documented in this encounter [facility] 01-01-2022 Miscellaneous Notes Type of form: jury duty Form received via walk in When form is completed, Mail form to Form has been forwarded to Physician Desk: Dr. Ricky Burnett documented in this encounter [facility] 12-02-2021 Miscellaneous Notes Pt was notified via phone. Refill sent. Please notify grandma. Chaya Reed MD Pharmacy verified in [facility] Patient has been identified by name and date of : Yes Patient aware RX will be sent to pharmacy. Please call [facility] at below number when rx is sent to pharmacy. Patient phones for refill(s): Requested Prescriptions Pending Prescriptions Disp Refills methylphenidate ER 54 mg tablet 30 tablet 0 Sig: Take 1 tablet by mouth every morning for 30 days. Date of last office visit : 09/11/2021 Date of next office visit : 03/04/2022 Last 2 Encounter Wt Readings: Date: Wt: 09/11/2021 117.5 kg (259 lb 1.6 oz) (>99 %, Z= 2.52)* 09/05/2021 116.6 kg (257 lb) (>99 %, Z= 2.51)* Not applicable Please advise. [place] LPN Pharmacy verified in [facility] Patient has been identified by name and date of : Yes Patient requesting a call when RX is approved and sent to the pharmacy. Please call Leslie Herrmann at: [phone] Grandilther phones for refill(s): methylphenidate ER 54 mg tablet Date of last office visit : 09/11/2021 Date of next office visit : 03/04/2022 Last 2 Encounter Wt Readings: Date: Wt: 09/11/2021 117.5 kg (259 lb 1.6 oz) (>99 %, Z= 2.52)* 09/05/2021 116.6 kg (257 lb) (>99 %, Z= 2.51)* Please advise. Catie Funk documented in this encounter [facility] 11-07-2021 Miscellaneous Notes Please call family and let them know the metformin is filled by Endo. Mom should contact their office for the refill. Brittany Renteria APRN.[place] Pharmacy verified in [facility] Patient has been identified by name and date of : Yes Patient aware RX will be sent to pharmacy. No need to notify patient. Patient phones for refill(s): Requested Prescriptions Pending Prescriptions Disp Refills metFORMIN (GLUCOPHAGE) 500 mg tablet 180 tablet 3 Sig: Take 1 tablet by mouth twice daily. Date of last office visit : 09/11/2021 Date of next office visit : 03/04/2022 Last 2 Encounter Wt Readings: Date: Wt: 09/11/2021 117.5 kg (259 lb 1.6 oz) (>99 %, Z= 2.52)* 09/05/2021 116.6 kg (257 lb) (>99 %, Z= 2.51)* Not applicable Please advise. Elidia Salazar documented in this encounter [facility] 10-13-2021 Miscellaneous Notes Pharmacy verified in [facility] Patient has been identified by name and date of : Yes Patient aware RX will be sent to pharmacy. No need to notify patient. Parent/Guardian phones for refill(s): Pending Prescriptions Disp Refills FLUOXETINE 20 MG CAPSULE 30 capsule 0 Sig: Take 1 capsule by mouth once daily. [place]: No Date of last office visit : 09/11/2021 Date of next office visit : 03/04/2022 Last 2 Encounter Wt Readings: Date: Wt: 09/11/2021 117.5 kg (259 lb 1.6 oz) (>99 %, Z= 2.52)* 09/05/2021 116.6 kg (257 lb) (>99 %, Z= 2.51)* Please advise. Yolande Villalobos Pss documented in this encounter [facility] 09-11-2021 History of Present illness Narrative WELL VISIT PEDIATRIC FEMALE 18+ YRS OLD SERVICE DATE: 09/11/2021 Alisson is a 16 year old female who presents today for well exam. SUBJECTIVE CONCERNS: sneezing more than usual. Takes zyrtec daily but it does not help. HISTORY ACTIVE PROBLEM LIST Acquired Pes Planus of Both Feet - 05/14/2021 Body Mass Index Equal to Or Greater Than 95th Percentile for Age in Pediatric Patient - 05/30/2020 Asthma, Well Controlled - 07/01/2018 Adhd - 05/31/2018 Bmi (Body Mass Index), Pediatric, Greater Than 99% for Age - 1001/15/2017 Intellectual Disability - 08/30/2015 Encopresis With Constipation and Overflow Incontinence - 08/30/2015 Overflow Incontinence - 08/30/2015 Obesity Due to Excess Calories - 08/30/2015 PAST MEDICAL HISTORY Diagnosis Date ADHD (attention deficit hyperactivity disorder) Asthma Cognitive developmental delay 08/30/2015 Developmental delay Encopresis with constipation and overflow incontinence 08/30/2015 Mood swings Obesity due to excess calories 08/30/2015 Overflow incontinence 08/30/2015 PAST SURGICAL HISTORY Procedure Laterality Date NONE ALLERGIES No Known Allergies Medications: famotidine (PEPCID) 40 mg tablet Take 1 tablet by mouth daily at bedtime. albuterol HFA (VENTOLIN HFA) 90 mcg/actuation inhaler Inhale 2 Puffs as instructed every 4 hours as needed. methylphenidate ER 54 mg tablet Take 1 tablet by mouth every morning for 30 days. FLUoxetine (PROZAC) 20 mg capsule Take 1 capsule by mouth once daily. methylphenidate (RITALIN) 20 mg tablet Take 1 tablet by mouth daily in the late afternoon for 30 days. cetirizine (ZYRTEC) 10 mg tablet Take 1 tablet by mouth once daily. metFORMIN (GLUCOPHAGE) 500 mg tablet Take 1 tablet by mouth twice daily. Drospirenone-Ethinyl Estradiol (IVONE, 28,) 3-0.02 mg per tablet Take 1 tablet by mouth once daily. FAMILY HISTORY Problem Relation Age of Onset Psychiatry Mother depression Asthma Father Diabetes Maternal Grandmother Breast Cancer Maternal cousin Ovarian cancer No Family History Uterine Cancer No Family History Social History Social History Narrative DATE: January 15, 2017 SIGNATURE: Bettye Verma Ma Informant: mother HOUSEHOLD INFORMATION Family Members currently living in the home: -Mother: Name - Jen -gary-Father: Name - Jordon -Brother: Name - Nick -Brother: Name Eitan -Sister: Name - Gianna Primary custody of child: mother Smokers in the home: Yes, mom and step dad Guns in the home: No Water Supply: [employer] Pets: cat: two - dog: two - Smoke Detectors: Yes Carbon Monoxide Detectors: No No results found for: LEAD Year house built: unknown Zip code: [address] [facility] Lead testing requirements and management recommendations: http://www.od.[place].gov Smoking Exposure: Do you spend a significant amount of time with anyone who smokes? 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 Safety: Reviewed seat belts, bike helmets, smoke detectors and sunscreen Diet: -Eats 3 meals per day. Overeats from boredom. -Typical beverages include water and diet soda -Fruits and vegetables are eaten with nearly every meal -# of fast food meals/week: 1 likes McDonalds - big mac, large simon -# of days/week that family has dinner together: 5 Elimination: no concerns, normal size and consistency Dental: dental care current Sleep: -sometimes has difficulty sleeping at night Gynecological history: LMP: unknown. Taking Ivone with occ periods every couple months Cycles are irregular Dysmenorrhea: none Heavy periods: no Substance use: none Sexual History: Attraction: male Sexually Active: No Screening tools reviewed and discussed with patient/[id number] and Social Determinants of Health. Please see Patient Entered Data. Discussed results of PHQ9 - 4. Low risk for depression. REVIEW OF SYSTEMS GENERAL: No fevers EYES: No vision concerns and Wears glasses ENT: No hearing concerns RESPIRATORY: Negative for cough, wheezing or respiratory distress CARDIOVASCULAR: Negative for chest pain, syncope, lightheadness or heart racing SKIN: Negative for lesions, rash, and itching ENDOCRINE: excessive weight gain OBJECTIVE Physical Exam: BP 130/86 Pulse 89 Temp 36 C (96.8 F) (Temporal Artery) Resp 20 Ht 169.5 cm (5' 6.75) Wt 117.5 kg (259 lb 1.6 oz) LMP 10/28/2020 (Within Months) BMI 40.89 kg/m Blood pressure percentiles are not available for patients who are 18 years or older. 99 %ile (Z= 2.26) based on CDC (Girls, 2-20 Years) BMI-for-age based on BMI available as of 09/11/2021. Last BMI: Wt: 116.6 kg (257 lb) (>99 %, Z= 2.51)* BMI: 39.66 kg/(m^2) Last 4 Encounter Wt Readings: Date: Wt: 09/11/2021 117.5 kg (259 lb 1.6 oz) (>99 %, Z= 2.52)* 09/05/2021 116.6 kg (257 lb) (>99 %, Z= 2.51)* 09/01/2021 115.2 kg (254 lb) (>99 %, Z= 2.49)* 05/24/2021 118.8 kg (262 lb) (>99 %, Z= 2.53)* Last 4 Encounter Ht Readings: Date: Ht: 09/11/2021 169.5 cm (5' 6.75) (84 %, Z= 0.98)* 09/05/2021 171.5 cm (5' 7.5) (90 %, Z= 1.28)* 05/06/2021 167.5 cm (5' 5.95) (75 %, Z= 0.67)* 04/07/2021 168.9 cm (5' 6.5) (81 %, Z= 0.89)* General: Well developed, No acute distress Head: normocephalic Eyes: conjunctivae/corneas clear, pupils equal and reactive to light, extraocular movements intact Ears: normal external ear and canal, tympanic membranes with normal landmarks Nose: no erythema or rhinorrhea Oropharynx: moist mucous membranes, no erythema or exudate Neck: Supple, no adenopathy; thyroid symmetric, normal size, no bruits Spine: Back symmetric, no curvature. Resp: lungs clear to auscultation Heart: RRR, normal S1 and S2. , No murmurs Breast: No nodules or lesions Abdomen: Soft, nontender, nondistended, no palpable organomegaly or masses, normal bowel sounds Genitalia: Jose stage V Extremities: No clubbing, cyanosis, or edema., No deformities or skin discoloration. Good capillary refill. Full range of motion. Neuro: No focal deficits or abnormal findings present Skin: no rashes, lesions or jaundice ASSESSMENT & PLAN: Encounter Diagnosis ICD-10-CM 1. Encounter for general adult medical examination without abnormal findings Z00.00 2. Severe obesity due to excess calories without serious comorbidity with body mass index (BMI) in 99th percentile for age in pediatric patient ([facility]) E66.01 Z68.54 3. BMI (body mass index), pediatric, greater than 99% for age Z68.54 99 %ile (Z= 2.26) based on CDC (Girls, 2-20 Years) BMI-for-age based on BMI available as of 09/11/2021. Alisson is obese (BMI greater than 95th%): -Discussed how healthy eating, minimizing electronics and getting physical activity impact physical and emotional health -No fast food -Avoid eating out and encouraged family meals at home -Lipid panel, AST, ALT and fasting glucose ordered based on Obesity Expert Committee Guidelines -Refer to nutrition for further education Depression screening tool completed and reviewed. Based on score and interview, patient is not at risk for depression. Screening tool discussed with patient, and I recommended no further intervention at this time. - Discussed diet and safety. - Dental care discussed. - Bright Futures handout given (See Patient Instructions). - No immunization ordered at this visit. - Healthcare transition statement discussed. - Follow up in one year for routine physical. SIGNATURE: Abby Correa APRN.[employer] PATIENT NAME: Alisson Crenshaw DATE: September 11, 2021 TIME: 2:22 PM documented in this encounter [facility] 09-11-2021 Instructions Abby Correa APRN.CNP - 09/11/2021 2:22 PM EDT Images from the original note were not included. 5 to Go!TM Healthy Kids Inside & Out 5 Eat FIVE fruits and veggies a day 4 Give and get FOUR compliments a day 3 Consume THREE calcium products a day 2 Limit media time to TWO hours a day 1 Get at least ONE hour of exercise a day 0 Consume ZERO sugar-sweetened drinks Go! Be healthy, inside and out! [email or web address] Adolescent to Adult Transition Program [facility] cares about helping you and each of our adolescents and young adults make a smooth transition to adult care. If your current doctor is a field handyman, we will work with you to decide the correct age for moving your care to a doctor or other provider who takes care of adults. We suggest that this move take place before age 22. Our office policy is to prepare you to move to a doctor or other provider who takes care of adults. This includes helping you find a doctor or other provider, sending medical records, and talking about any special needs with the new doctor or other provider. If your current doctor is in family medicine, [facility] will prepare you and your family for the transition to being an adult patient. You will be able to make your own healthcare decisions and will have an adult care team that meets your personal healthcare needs. At age 18, by law, we need your agreement to discuss personal health information with your family. We understand and respect that you may want to include your family in healthcare choices and will partner with you on how and when to include your family in decisions. We will make sure you know what changes to expect. We will also strive to make sure that all care team providers know your needs. We will help you find community resources and specialty care, if needed. Having your information before you come for the first time helps us be sure we do not miss any details. If joining our practice from outside [facility], we will help you request your medical record from past doctor(s) before your first visit. We will make every effort to work with your past providers to ensure a smooth transition and experience. We are always here for you. If you have any questions or concerns, please contact your primary care team or e-mail [facility] Transition is the federally funded national resource center on health care transition (HCT). Its aim is to improve transition from pediatric to adult health care through the use of evidence-driven strategies for health body care manager, youth, young adults, and their families. www.gottransition.org https://gottransition.org/resource /?gns-zprkmr-copnvcn documented in this encounter [facility] 09-11-2021 Nurse Note Sees an eye doctor every 2 years- is suppose to wear glasses No hearing concerns [place] LPN documented in this encounter [facility] 09-09-2021 Miscellaneous Notes Grandmother returned call to the office. Discussed that pt is due for a physical exam prior to form completion. Grandmother verbalized understanding and appt made for physical exam with Abby Correa on 09/11. Form placed on Abby's desk for completion on . Upon review of pt's chart, she is due for a physical exam. Last physical exam was 05/30/2020, unfortunately unable to complete forms without a completed physical exam within the previous 12 months. Called pt's mother at [phone], no answer. LM requesting CB to the office regarding forms. When contact is made please assist with scheduling a physical appt for pt. Mom is requesting completed forms by Wednesday and Abby Correa in [facility] currently has openings on Wednesday. Reason for Disposition Reason: professional judgment or information in Reference Answer Assessment - Initial Assessment Questions 1. REASON FOR CALL: What is your main concern right now? Pt's mother calling regarding [employer] paperwork that was faxed to 's office for signature from counseling center. Mom acknowledges that this is short notice but is asking if the paperwork can please be completed/signed and faxed back to the counseling center by Wednesday so pt can participate in the [employer]. She says that this paperwork was previously completed but has been misplaced, she is requesting a new copy. Please notify mom once completed and faxed back to the counseling center. Protocols used: NO GUIDELINE [id number] documented in this encounter [facility] 09-05-2021 Instructions Collette Raza APRN.[facility] - 09/05/2021 11:31 AM EDT Images from the original note were not included. Kegel Exercises What are Kegel exercises? Kegel exercises (also called pelvic floor exercises) are done to strengthen muscles of the pelvic floor. Kegel exercises not only can help prevent urine leakage, but can be helpful for accidental passing of stool or gas, and may even help to improve orgasm. Keeping these muscles 'fit,' helps keep the uterus, urethra (tube that carries the urine from the bladder to the outside of the body), and bowel from sagging down into the vagina. If this happens, the condition is called pelvic organ prolapse. What happens if pelvic organ prolapse does occur? Urine and stool (feces) can both leak out (conditions called urinary incontinence and fecal incontinence, respectively). Loss of sexual sensitivity in the vagina can also occur. What causes pelvic organ prolapse to develop in the first place? Any health conditions that put stress on the muscles of the pelvic floor, causing them to weaken, can lead to pelvic organ prolapse. These include: and vaginal child . Being overweight/weight gain. Surgery in the pelvic area including section (). Genetics some people are born with a higher risk than others to develop weakness in the tissues that support the muscles of the pelvic floor. Natural aging process the muscles of the pelvic floor, as well as muscles in the rectum and anus, naturally weaken with age. Loss of estrogen also weakens muscles in this area. Frequent bouts of sneezing, coughing, laughing Exercises (especially jumping, running and other jarring' exercises; heavy weight lifting); and contact sports. How do I find my pelvic floor muscles? It's pretty simple: Try stopping the flow of your urine when you are sitting on the toilet. Only do this until you learn how it feels (otherwise this stopping and starting of urine flow can lead to other health problems). You can also insert a finger into your vagina and squeeze the muscles in your vagina around it. You should feel pressure around your finger. The muscles you feel lifting' inside of you when you are trying these activities are the same ones you strengthen during Kegel exercises. How do I perform Kegel exercises? Kegel exercises consist of lifting and holding and then relaxing the pelvic floor muscles. Start by doing a small number of exercises (ie, lifts/squeezes, holds, and relaxes) over a short period of time, then gradually increase both the length of time and the number of exercises you are doing in each session' (which is called a set). You should perform at least two sets of the exercises a day. Start by lifting and holding for 3 seconds then relaxing for 3 seconds. Repeat this 10 times in a row this would be one set. (If 10 times in a row is too high to start with, reduce this number.) Do this set of exercises at least twice a day. As you improve, increase all of these numbers. In other words, increase the length of time you are lifting, holding and relaxing; the number of exercises making up a set and the number times per day you are doing these exercises. For example, instead of holding for 3 seconds and relaxing for 3 seconds, hold and relax for 4 seconds each, then up to 5 seconds each. Increase the number of exercises in a set to 10 in a row (if not already there). Finally, increase the number of times you do these exercises from twice a day to three times a day. Biofeedback and other techniques. For women who have trouble doing Kegel exercises, two techniques can help biofeedback training and electric stimulation of the pelvic floor muscles. Biofeedback is done to help determine if the correct muscles are being squeezed; electrical stimulation recreates the sensation of what a properly done Kegel exercise should feel like. Biofeedback training (done by a health care connector) involves inserting a probe into the vagina. When instructed to perform a Kegel exercise, a monitor shows if the correct muscles are being squeezed. With electrical stimulation, the pelvic floor muscles are touched with a small, painless amount of electric current. This causes these muscles to squeeze. This sensation mimics what a Kegel muscle exercise should feel like if done properly. Kegel Exercise Tips You can do the Kegel exercises lying down or while sitting or standing. If your pelvic muscles are weak, you may want to do them laying down at first. A few minutes in the morning and again before bedtime are good times to start the exercise program. When starting out, only do the number of Kegel exercises that are fairly easy for you to do (eg, 5 Kegels for 3 seconds each twice a day). Slowly increase these numbers as you gain strength and endurance. Do not hold your breath while doing the exercises breathe out. Also, be careful not to bear down or squeeze the muscles of your inner thighs, back, buttocks, or stomach. Squeezing these muscles means you are not doing the exercise correctly. There's no need to purchase Kegel muscle strengthening equipment. Although it may help, some equipment may not work as advertised. When can I expect to see improvement? Most women say they notice less urine leakage within 12 weeks after starting and sticking with a Kegel exercise routine. Did you know that Kegel exercises are also helpful for men? It's true. Men with certain health and sexual health issues can also benefit from doing Kegel exercises. In men, these exercises can: Help improve incontinence (depending on the cause) Help manage prostate pain and swelling that occurs with prostatitis and benign prostatic hyperplasia (BPH) Increase men's sexual pleasure through greater control of ejaculation and improved orgasm sensation References The National [employer] of Diabetes and Digestive and Kidney Diseases. Kegel Exercise Tips Accessed 12/19/2014. [employer]. What are Pelvic Floor Muscle (Kegel) Exercises? Accessed 12/19/2014. Copyright 4850-8144 The [facility]. All rights reserved Cut back on mountain dew Don't hold your urine Toilet every 2-3 hours during the day documented in this encounter [facility] 09-05-2021 Nurse Note Post void bladder scan completed. 0 ml residual remaining. Results reported to Collette Raza CNP documented in this encounter [facility] 09-05-2021 History of Present illness Narrative Alisson Crenshaw is a 16 year old female who presents today for evaluation of No chief complaint on file. CHIEF COMPLAINT & HISTORY OF PRESENT ILLNESS CC: leakage 16 year old female with asthma, DD, presents today with [facility] for reports of urinary incontinence that began years ago, she will leak urine with coughing, laughing, sneezing. 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 ALLERGIES: Patient has no known allergies. MEDICATIONS: Current Outpatient Medications Medication Sig Dispense Refill famotidine (PEPCID) 40 mg tablet Take 1 tablet by mouth daily at bedtime. 30 tablet 5 albuterol HFA (VENTOLIN HFA) 90 mcg/actuation inhaler Inhale 2 Puffs as instructed every 4 hours as needed. 1 Each 3 methylphenidate ER 54 mg tablet Take 1 tablet by mouth every morning for 30 days. 30 tablet 0 FLUoxetine (PROZAC) 20 mg capsule Take 1 capsule by mouth once daily. 30 capsule 0 methylphenidate (RITALIN) 20 mg tablet Take 1 tablet by mouth daily in the late afternoon for 30 days. 30 tablet 0 cetirizine (ZYRTEC) 10 mg tablet Take 1 tablet by mouth once daily. 30 tablet 6 metFORMIN (GLUCOPHAGE) 500 mg tablet Take 1 tablet by mouth twice daily. 180 tablet 3 Drospirenone-Ethinyl Estradiol (IVONE, 28,) 3-0.02 mg per tablet Take 1 tablet by mouth once daily. 3 Package 3 No current facility-administered medications for this visit. SOCIAL HISTORY: Social History Tobacco Use Smoking status: Passive Smoke Exposure - Never Smoker Smokeless tobacco: Current User Types: Chew Substance Use Topics Alcohol use: Not on file Drug use: Not on file PAST MEDICAL HISTORY: PAST MEDICAL HISTORY Diagnosis Date ADHD (attention deficit hyperactivity disorder) Asthma Cognitive developmental delay 08/30/2015 Developmental delay Encopresis with constipation and overflow incontinence 08/30/2015 Mood swings Obesity due to excess calories 08/30/2015 Overflow incontinence 08/30/2015 PAST SURGICAL HISTORY: PAST SURGICAL HISTORY Procedure Laterality Date NONE FAMILY HISTORY: FAMILY HISTORY Problem Relation Age of Onset Psychiatry Mother depression Asthma Father Diabetes Maternal Grandmother Breast Cancer Maternal cousin Ovarian cancer No Family History Uterine Cancer No Family History All histories reviewed on this date 09/04/2021: Yes REVIEW OF SYSTEMS: CONSTITUTIONAL: Patient reports no recent fever or weight loss EYES: Negative for redness, blurry vision, double vision or loss of vision EAR, NOSE AND THROAT: DENIES HAVING: Dysphagia CARDIOVASCULAR: Negative for chest pain. RESPIRATORY: Negative for cough, hemoptysis, wheezing, COPD, dyspnea or shortness of breath GI: No nausea, vomiting, or diarrhea MUSCULOSKELETAL: denies back pain or muscular weakness SKIN: Negative for lesions, rash, and itching PSYCH: Negative for sleep disturbance, mood disorder and recent psychosocial stressors. HEMATOLOGY/LYMPHOLOGY Negative for prolonged bleeding, bruising easily or swollen nodes ENDOCRINE: Negative for cold or heat intolerance, polyuria, polydipsia and goiter All other systems reviewed and are negative other than HPI. PHYSICAL EXAM: constitutional: appears healthy in no acute distress, obese cardiovascular: normal femoral pulses to palpate respiratory: normal respiratory motion gi: abdomen soft, non-tender without masses, hernia or organomegaly gu: bladder: not palpable, no tenderness. no CVAT skin: no rashes or bruises noted. Neck: Not examined Extremities: Extremities normal. No deformities, edema, or skin discoloration. Good capillary refill. Lymphatic: No palpable lymph nodes. Neuro: Gait normal. Sensation grossly intact. RADIOLOGY REPORTS REVIEWED: Yes LAB RESULTS REVIEWED: Yes IMAGING STUDIES INDEPENDENTLY REVIEWED: No OLD RECORDS REVIEWED: Yes: Extensive: No ASSESSMENT/PLAN: ASSESSMENT/PLAN: 1. Mixed stress and urge urinary incontinence - ICD9: 788.33, ICD10: N39.46 (primary diagnosis) -GURJIT>UUI -PVR 0 cc -start kegels -start pfpt -weight loss -behavioral modification -decrease mountain dew -timed voiding - CONSULT TO PHYSICAL THERAPY 2. OAB (overactive bladder) - ICD9: 596.51, ICD10: N32.81 -see above - CONSULT TO PHYSICAL THERAPY Patient is instructed to schedule a follow up in 3 months. Collette Raza APRN.[place] documented in this encounter [facility] 09-01-2021 History of Present illness Narrative 16 year old female here for follow up ADHD and anxiety. History of intellectual disability. Guardian is here with her today. Hasn't needed albuterol in quite a while. Has been having problems with urinary incontinence, especially with sneezing, laughing. States she is stooling several days a week( not every day) denies it being hard or painful. Doesn't feel like she needs Miralax. No dysuria or hematuria. Occurs a few times a month. She is comfortable with her ADHD medication and anxiety medication. 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 Review of Systems: GENERAL: Normal sleep, appetite and activity. No fevers or irritability. HEENT: Negative for headaches, No problems with hearing or vision, no nose bleeds or other nasal problems NECK: Negative for stiffness, lumps or significant neck swelling RESPIRATORY: Negative for cough, wheezing or respiratory distress CARDIOVASCULAR: Negative for chest pain, syncope, lightheadness or heart racing GI: No nausea, vomiting, or diarrhea MUSCULOSKELETAL: Negative for joint pain or swelling, back pain or muscle pain HEMATOLOGY/LYMPHOLOGY: Negative for prolonged bleeding, bruising easily or swollen nodes ENDOCRINE: Negative for significant weight loss or weight gain. NEURO: No weakness, seizures or change in mental status. The remainder of the review of systems is negative. Physical Exam: Alert, active, in no distress Head: Normocephalic and atraumatic HEENT: Pupils equal and reactive to light, extraocular muscles intact. Tympanic membranes clear with good landmarks. Pharynx pink and moist without exudates or erosions Neck: no adenopathy Lungs: Clear to auscultation with good air exchange. No grunting flaring or retractions Heart: Regular rate and rhythm with normal s1 S2 femoral pulses present Abdomen: Soft, nontender with good bowel sounds in all 4 quadrants. no hepatosplenomegaly Extremities: well perfused. Capillary refill less than 3 seconds Assess: 16 year old with intellectual disabilities, ADHD, anxiety Urinary incontinence Plan: Continue current medications Refer to Urology re: incontinence Guardianship forms completed Gray García DO documented in this encounter [facility] 08-29-2021 Miscellaneous Notes Spoke with patient's grandma since the other phone number on file didn't work. Informed her that we received med request and scheduled med follow up with PCP on 09/01/2021. Thank you. Sandy Hernandez Patient last seen 05/24/21. At that time plan to continue Concerta 54mg and start 3pm dose of Ritalin 20mg. Plan to continue Fluoxetine 20mg. Instructions to follow-up in 4 weeks given new prescription. I do not see follow-up was made. Please call Mom to notify ADHD medication follow-up needed given addition of new prescription. OK to be virtual if needed. Will refill 1 month supply of medication at this time. Follow-up should be made prior to further prescription refills. Patient's request for medication is as follows Pending Prescriptions Disp Refills METHYLPHENIDATE ER 54 MG TABLET,EXTENDED RELEASE 24 HR 30 tablet 0 Sig: Take 1 tablet by mouth every morning for 30 days. ALEX Class: C-II [place]: No FLUOXETINE 20 MG CAPSULE 30 capsule 0 Sig: Take 1 capsule by mouth once daily. [place]: No Order entered - please phone pharmacy and notify patient. Shelly Méndez MD PDMP website checked and validated. All prescriptions have been APPROPRIATELY filled. No suspicious activity was identified. 08/29/2021 by Shelly Méndez MD Pts mother called stating that her last med. appt was to get this prescription for 1 year instead of doing it every month. Encounter said she needed an appt even though she was just seen 06/03. PT is out of medication currently. Please advise Pending Prescriptions Disp Refills METHYLPHENIDATE ER 54 MG TABLET,EXTENDED RELEASE 24 HR 30 tablet 0 Sig: Take 1 tablet by mouth every morning for 30 days. ALEX Class: C-II [place]: No FLUOXETINE 20 MG CAPSULE 30 capsule 4 Sig: Take 1 capsule by mouth once daily. [place]: No documented in this encounter [facility] 08-16-2021 Miscellaneous Notes Left msg that RX was sent to pharmacy. Left msg that needs to schedule F/U if wants more than 30 day supply. Clinic number [facility] on [place] [facility] and [facility]. All prescriptions have been APPROPRIATELY filled. No suspicious activity was identified. 08/16/2021 by Yolande Head APRN.[place] Patient's request for medication is as follows Signed Prescriptions Disp Refills methylphenidate (RITALIN) 20 mg tablet 30 tablet 0 Sig: Take 1 tablet by mouth daily in the late afternoon for 30 days. ALEX Class: C-II [place]: No Authorizing Provider: YOLANDE HEAD Order entered - please notify patient. Yolande Head APRN.[place] Pharmacy verified in Epic Patient has been identified by name and date of : Yes Patient aware RX will be sent to pharmacy. No need to notify patient. Parent/Guardian phones for refill(s): Pending Prescriptions Disp Refills METHYLPHENIDATE 20 MG TABLET 30 tablet 0 Sig: Take 1 tablet by mouth daily in the late afternoon for 30 days. ALEX Class: C-II [place]: No Grandma asking if this can be called in for more than 30 days. Date of last office visit : 05/24/2021 Date of next office visit : Visit date not found Last 2 Encounter Wt Readings: Date: Wt: 05/24/2021 118.8 kg (262 lb) (>99 %, Z= 2.53)* 05/06/2021 117.9 kg (259 lb 14.4 oz) (>99 %, Z= 2.51)* Not applicable Please advise. Jeanne Hope documented in this encounter [facility] 07-28-2021 Miscellaneous Notes Patient's request for medication is as follows Signed Prescriptions Disp Refills cetirizine (ZYRTEC) 10 mg tablet 30 tablet 6 Sig: Take 1 tablet by mouth once daily. [place]: No Authorizing Provider: YOLANDE HEAD Order entered - please notify patient. Yolande Head APRN.[employer] Patient phones requesting refills as follows: Pending Prescriptions Disp Refills CETIRIZINE 10 MG TABLET 30 tablet 6 Sig: Take 1 tablet by mouth once daily. [place]: No Please review and advise. [place] LPN documented in this encounter [facility] 07-21-2021 Miscellaneous Notes Form faxed. Transmission ok. Letter written. Please fax Gray García DO Patients grandmother calling to inquire is she may get a written letter Faxed to [facility] [employer] ATTN: Intake stating that he is treating her for ADD and the name of the medication she is on. Grandmother states needs to be signed by PCP not SAFETY INVESTIGATOR. Please advise. Thank you documented in this encounter [facility] 07-08-2021 History of Present illness Narrative Asthma Home Monitoring Program Breathe Well Outreach Provider Action/FYI: Patient is currently not eligible for Pediatric Breathe Well Asthma Home Monitoring Program. Patient is not followed by specialty care for asthma. Has not had a prednisone course in the last 6 months. Has not had an admission or ED visit for asthma in the last 12 months. Last ACT on file above 19 indicating well managed asthma. No obvious SDH. Reason for outreach: Enrollment Contact made: No contact at this time. 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 07/01/2018 documented as of this encounter (statuses as of 07/22/2021) [facility] History of Past illness Narrative* Problem Noted Date Resolved Date 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 07/01/2018 documented as of this encounter (statuses as of 07/28/2021) [facility] History of Past illness Narrative* Problem Noted Date Resolved Date 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 07/01/2018 documented as of this encounter (statuses as of 08/16/2021) [address] History of Past illness Narrative* Problem Noted Date Resolved Date 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 07/01/2018 documented as of this encounter (statuses as of 09/01/2021) [place] [address] History of Past illness Narrative* Problem Noted Date Resolved Date 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 07/01/2018 documented as of this encounter (statuses as of 09/01/2021) [place] [address] History of Past illness Narrative* Problem Noted Date Resolved Date 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 07/01/2018 documented as of this encounter (statuses as of 09/05/2021) [place] [address] History of Past illness Narrative* Problem Noted Date Resolved Date 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 07/01/2018 documented as of this encounter (statuses as of 09/09/2021) [place] [address] History of Past illness Narrative* Problem Noted Date Resolved Date 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 07/01/2018 documented as of this encounter (statuses as of 09/11/2021) [place] [address] History of Past illness Narrative* Problem Noted Date Resolved Date 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 07/01/2018 documented as of this encounter (statuses as of 10/13/2021) [place] [address] History of Past illness Narrative* Problem Noted Date Resolved Date 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 07/01/2018 documented as of this encounter (statuses as of 11/07/2021) [address] History of Past illness Narrative* Problem Noted Date Resolved Date 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 07/01/2018 documented as of this encounter (statuses as of 12/02/2021) [address] History of Past illness Narrative* Problem Noted Date Resolved Date 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 07/01/2018 documented as of this encounter (statuses as of 12/09/2021) [address] History of Past illness Narrative* Problem Noted Date Resolved Date 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 07/01/2018 documented as of this encounter (statuses as of 01/06/2022) [address] History of Past illness Narrative* Problem Noted Date Resolved Date 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 07/01/2018 documented as of this encounter (statuses as of 01/21/2022) [address] History of Past illness Narrative* Problem Noted Date Resolved Date 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 07/01/2018 documented as of this encounter (statuses as of 03/04/2022) [address] History of Past illness Narrative* Problem Noted Date Resolved Date 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 07/01/2018 documented as of this encounter (statuses as of 03/06/2022) [address] History of Past illness Narrative* Problem Noted Date Resolved Date 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 07/01/2018 documented as of this encounter (statuses as of 03/09/2022) [address] History of Past illness Narrative* Problem Noted Date Resolved Date 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 07/01/2018 documented as of this encounter (statuses as of 03/24/2022) [address] History of Past illness Narrative* Problem Noted Date Resolved Date 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 07/01/2018 documented as of this encounter (statuses as of 03/30/2022) [address] History of Past illness Narrative* Problem Noted Date Resolved Date 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 07/01/2018 documented as of this encounter (statuses as of 05/09/2022) [address] History of Past illness Narrative* Problem Noted Date Resolved Date 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 07/01/2018 documented as of this encounter (statuses as of 07/09/2022) [address] History of Past illness Narrative* Problem Noted Date Resolved Date 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 07/01/2018 documented as of this encounter (statuses as of 09/09/2022) [address] History of Past illness Narrative* Problem Noted Date Resolved Date 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 07/01/2018 documented as of this encounter (statuses as of 09/22/2022) [address] History of Past illness Narrative* Problem Noted Date Diagnosed Date Resolved Date 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 07/01/2018 documented as of this encounter (statuses as of 10/08/2022) [address] History of Past illness Narrative* Problem Noted Date Diagnosed Date Resolved Date 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 07/01/2018 documented as of this encounter (statuses as of 10/23/2022) [address] History of Past illness Narrative* Problem Noted Date Diagnosed Date Resolved Date 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 07/01/2018 documented as of this encounter (statuses as of 11/25/2022) [address] History of Past illness Narrative* Problem Noted Date Diagnosed Date Resolved Date 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 07/01/2018 documented as of this encounter (statuses as of 12/31/2022) [address] History of Past illness Narrative* Problem Noted Date Diagnosed Date Resolved Date 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 07/01/2018 documented as of this encounter (statuses as of 02/10/2023) [address] History of Past illness Narrative* Problem Noted Date Diagnosed Date Resolved Date 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 07/01/2018 documented as of this encounter (statuses as of 02/16/2023) [address] History of Past illness Narrative* Problem Noted Date Diagnosed Date Resolved Date 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 07/01/2018 documented as of this encounter (statuses as of 05/20/2023) [address] History of Past illness Narrative* Problem Noted Date Diagnosed Date Resolved Date 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 07/01/2018 documented as of this encounter (statuses as of 06/04/2023) [address] History of Past illness Narrative* Problem Noted Date Diagnosed Date Resolved Date 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 07/01/2018 documented as of this encounter (statuses as of 06/04/2023) [address] History of Past illness Narrative* Problem Noted Date Diagnosed Date Resolved Date 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 07/01/2018 documented as of this encounter (statuses as of 06/08/2023) [address] History of Past illness Narrative* Problem Noted Date Diagnosed Date Resolved Date 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 07/01/2018 documented as of this encounter (statuses as of 06/09/2023) [place] [address] History of Past illness Narrative* Problem Noted Date Diagnosed Date Resolved Date 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 07/01/2018 documented as of this encounter (statuses as of 06/14/2023) [place] [address] History of Past illness Narrative* Problem Noted Date Diagnosed Date Resolved Date 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 07/01/2018 documented as of this encounter (statuses as of 06/15/2023) [place] [address] History of Past illness Narrative* Problem Noted Date Diagnosed Date Resolved Date 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 07/01/2018 documented as of this encounter (statuses as of 06/22/2023) [place] [address] History of Past illness Narrative* Problem Noted Date Diagnosed Date Resolved Date 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 07/01/2018 documented as of this encounter (statuses as of 06/30/2023) [place] [address] History of Past illness Narrative* Problem Noted Date Diagnosed Date Resolved Date 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 07/01/2018 documented as of this encounter (statuses as of 07/06/2023) [place] [address] History of Past illness Narrative* Problem Noted Date Diagnosed Date Resolved Date 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 07/01/2018 documented as of this encounter (statuses as of 07/06/2023) [facility] Diagnosis Attention deficit disorder, unspecified hyperactivity presence [facility] Attention deficit disorder, unspecified hyperactivity presence [facility] Diagnosis Other urinary incontinence- Primary Attention deficit disorder, unspecified hyperactivity presence [facility] Diagnosis Mixed stress and urge urinary incontinence- Primary Mixed incontinence urge and stress (male)(female) OAB (overactive bladder) Hypertonicity of bladder [facility] Diagnosis Encounter for general adult medical examination without abnormal findings- Primary Unspecified general medical examination Severe obesity due to excess calories without serious comorbidity with body mass index (BMI) in 99th percentile for age in pediatric patient (HCC) BMI (body mass index), pediatric, greater than 99% for age Body Mass Index, pediatric, greater than or equal to 95th percentile for age [facility]* Diagnosis Attention deficit disorder, unspecified hyperactivity presence [facility] Diagnosis Attention deficit disorder, unspecified hyperactivity presence- Primary Encounter for immunization Need for other specified prophylactic vaccination against single bacterial disease Patellofemoral disorder of right knee Unspecified disorder of lower leg joint Learning disability Other specific developmental learning difficulties Anxiety, generalized Generalized anxiety disorder [facility] Diagnosis Patellofemoral disorder of right knee Unspecified disorder of lower leg joint [facility] Diagnosis Patellofemoral disorder of right knee- Primary Unspecified disorder of lower leg joint [facility]* Diagnosis Attention deficit disorder, unspecified hyperactivity presence [facility]* Diagnosis Well adult exam- Primary Routine general medical examination at a [facility] care facility Class 3 severe obesity due to excess calories without serious comorbidity with body mass index (BMI) of 40.0 to 44.9 in adult ([facility]) Encounter for general adult medical examination with abnormal findings Unspecified general medical examination [facility] Diagnosis Medication management Encounter for long-term (current) use of other medications [facility] Diagnosis Attention deficit disorder, unspecified hyperactivity presence [facility] Diagnosis Class 3 severe obesity due to excess calories without serious comorbidity with body mass index (BMI) of 40.0 to 44.9 in adult ([facility])- Primary PCOS (polycystic ovarian syndrome) Polycystic ovaries Sleep apnea, unspecified type Daytime sleepiness Snoring Other dyspnea and respiratory abnormality [facility]* Diagnosis Attention deficit disorder, unspecified hyperactivity presence [facility]* Diagnosis Medication management Encounter for long-term (current) use of other medications [facility] Diagnosis Intellectual disability- Primary Unspecified intellectual disabilities Attention deficit disorder, unspecified hyperactivity presence Severe obesity due to excess calories without serious comorbidity with body mass index (BMI) in 99th percentile for age in pediatric patient (HCC) Obesity, Class III, BMI >= 40 Morbid obesity PCOS (polycystic ovarian syndrome) Polycystic ovaries Asthma, moderate persistent, well-controlled Unspecified asthma Encounter for lipid screening for cardiovascular disease Screening for lipoid disorders Medication management Encounter for long-term (current) use of other medications Chronic allergic rhinitis Allergic rhinitis, cause unspecified Encounter for immunization Need for other specified prophylactic vaccination against single bacterial disease Special screening examination for viral disease Special screening examination for unspecified viral disease Screening for HIV (human immunodeficiency virus) Special screening examination for other specified viral diseases Asthma, mild intermittent, well-controlled Unspecified asthma Depression, recurrent ([facility]) Major depressive disorder, recurrent episode, unspecified documented in this encounter [facility]* Diagnosis Asthma, mild intermittent, well-controlled Unspecified asthma [facility] Diagnosis Leukocytosis, unspecified type- Primary [facility]* Diagnosis Rhinosinusitis- Primary Unspecified sinusitis (chronic) documented in this encounter [facility] note* Diagnosis Encounter for immunization- Primary Need for other specified prophylactic vaccination against single bacterial disease [facility]* Diagnosis Acute otitis externa of left ear, unspecified type- Primary [facility]* Diagnosis Attention deficit disorder, unspecified hyperactivity presence [facility]* Diagnosis Need for vaccination- Primary Need for prophylactic vaccination and inoculation against unspecified single disease documented in this encounter [facility] note* Diagnosis Class 3 severe obesity due to excess calories without serious comorbidity with body mass index (BMI) of 40.0 to 44.9 in adult ([facility])- Primary PCOS (polycystic ovarian syndrome) Polycystic ovaries documented in this encounter [facility] note* Diagnosis Class 3 severe obesity due to excess calories without serious comorbidity with body mass index (BMI) of 40.0 to 44.9 in adult ([facility])- Primary [facility]* Diagnosis Attention deficit disorder, unspecified hyperactivity presence [facility]* Diagnosis Obesity, Class III, BMI 40-49.9 (morbid obesity) ([facility])- Primary Morbid obesity PCOS (polycystic ovarian syndrome) Polycystic ovaries Attention deficit disorder, unspecified hyperactivity presence Severe depression ([facility]) Depressive disorder, not elsewhere classified documented in this encounter [facility] note* Diagnosis Class 3 severe obesity due to excess calories without serious comorbidity with body mass index (BMI) of 40.0 to 44.9 in adult ([facility]) [facility]* Diagnosis Attention deficit disorder, unspecified hyperactivity presence [facility]* Diagnosis Obesity, Class III, BMI 40-49.9 (morbid obesity) ([facility]) Morbid obesity PCOS (polycystic ovarian syndrome) Polycystic ovaries Attention deficit disorder, unspecified hyperactivity presence [facility]* Diagnosis Asthma, moderate persistent, well-controlled Unspecified asthma [facility]* Diagnosis Attention deficit hyperactivity disorder (ADHD), predominantly inattentive type- Primary Obesity, Class III, BMI 40-49.9 (morbid obesity) ([facility]) Morbid obesity PCOS (polycystic ovarian syndrome) Polycystic ovaries Attention deficit disorder, unspecified hyperactivity presence [facility]* Diagnosis Obesity, Class III, BMI 40-49.9 (morbid obesity) ([facility]) Morbid obesity PCOS (polycystic ovarian syndrome) Polycystic ovaries [facility]* Diagnosis Attention deficit hyperactivity disorder (ADHD), predominantly inattentive type [facility]* Diagnosis Gastroesophageal reflux disease without esophagitis- Primary Esophageal reflux Obesity, Class III, BMI 40-49.9 (morbid obesity) ([facility]) Morbid obesity PCOS (polycystic ovarian syndrome) Polycystic ovaries Encounter for immunization Need for other specified prophylactic vaccination against single bacterial disease Encounter for lipid screening for cardiovascular disease Screening for lipoid disorders Urinary incontinence, unspecified type [facility]* Diagnosis Hypertriglyceridemia- Primary Pure hyperglyceridemia [facility]* Diagnosis Hypertriglyceridemia- Primary Pure hyperglyceridemia [facility]* Diagnosis Severe depression ([facility])- Primary Depressive disorder, not elsewhere classified Hypertriglyceridemia Pure hyperglyceridemia Obesity, Class III, BMI 40-49.9 (morbid obesity) ([facility]) Morbid obesity PCOS (polycystic ovarian syndrome) Polycystic ovaries Gastroesophageal reflux disease without esophagitis Esophageal reflux Attention deficit hyperactivity disorder (ADHD), predominantly inattentive type Asthma, moderate persistent, well-controlled Unspecified asthma [facility]* Diagnosis Attention deficit hyperactivity disorder (ADHD), predominantly inattentive type Obesity, Class III, BMI 40-49.9 (morbid obesity) ([facility]) Morbid obesity PCOS (polycystic ovarian syndrome) Polycystic ovaries documented in this encounter [facility] note* Diagnosis Medication management Encounter for long-term (current) use of other medications documented in this encounter [facility] note* Diagnosis Hypertriglyceridemia- Primary Pure hyperglyceridemia Attention deficit hyperactivity disorder (ADHD), predominantly inattentive type Medication management Encounter for long-term (current) use of other medications documented in this encounter [facility] note* Diagnosis Hypertriglyceridemia- Primary Pure hyperglyceridemia Hyperlipidemia, mixed Mixed hyperlipidemia documented in this encounter [facility] note* Diagnosis Obesity, Class III, BMI 40-49.9 (morbid obesity) Morbid obesity PCOS (polycystic ovarian syndrome) Polycystic ovaries documented in this encounter [facility] note* Diagnosis Attention deficit hyperactivity disorder (ADHD), predominantly inattentive type documented in this encounter [facility] for referral (narrative)* Diagnostic Procedure Only (Routine) - Pending Review Specialty Diagnoses / Procedures Referred By Hermelinda taylor Referred To [facility] Diagnoses Class 3 severe obesity due to excess calories without serious comorbidity with body mass index (BMI) of 40.0 to 44.9 in adult (HCC) Sleep apnea, unspecified type Daytime sleepiness Snoring Procedures HOME SLEEP APNEA TEST (HSAT) SLEEP STD AIRFLOW HRT RATE&O2 SAT EFFORT Evan Schroeder APRN.[employer] REGENERATOR [address] [place] [address] [facility] [address] [id number] Referral ID Status Reason Start Date Expiration Date Visits Requested Visits Authorized [id number] Pending Review Auto-Generat ed Referral 3 12/30/2023 1 1 [facility] for referral (narrative)* Outpatient Procedure (Routine) - Authorized Specialty Diagnoses / Procedures Referred By Hermelinda taylor Referred To Contact [facility] Diagnoses Asthma, mild intermittent, well-controlled Procedures SPIROMETRY - BASELINE AND POST DILATOR BRNCDILAT RSPSE SPMTRY PRE&POST-BRNCDILAT Braden Decker APRN.[employer] REGENERATOR [address] [place] [address] [facility] [address] [place] [address] Referral ID Status Reason Start Date Expiration Date Visits Requested Visits Authorized [id number] Authorized Auto-Generat ed Referral 06/04/2023 07/03/2024 1 1 * Medication Prior Authorization - Closed Specialty Diagnoses / Procedures Referred By Contac t Referred To Contact Diagnoses Attention deficit disorder, unspecified hyperactivity presence Braden Barboza APRN.[employer] REGENERATOR [address] [place] [address] Referral ID Status Reason Start Date Expiration Date Visits Re quested Visits Authorized [id number] Closed 1 1 * Consult, Test, Treat (Routine) - Authorized Specialty Diagnoses / Procedures Referred By Contac t Referred To Contact Ent - Otolaryngology Diagnoses Chronic allergic rhinitis Procedures CONSULT TO ENT OFFICE/OUTPATIENT [facility] 60 MINUTES Braden Barboza APRN.[employer] REGENERATOR [address] [place] [address] Referral ID Status Reason Start Date Expiration Date Visits Requested Visits Authorized [id number] Authorized PCP Requested Referral 06/04/2023 06/03/2024 1 1 [facility] Reason for Referral Specialty Diagnoses / Procedures Referred By Contac t Referred To Contact Diagnoses Attention deficit disorder, unspecified hyperactivity presence Yolande Head APRN.[employer] REGENERATOR [address] [place] [address] Referral ID Status Reason Start Date Expiration Date Visits Re quested Visits Authorized [id number] Closed 1 1 Specialty Diagnoses / Procedures Referred By Contac t Referred To Contact Urology Diagnoses Other urinary incontinence Procedures CONSULT TO UROLOGY OFFICE/OUTPATIENT [facility] 60-74 MINUTES Gray García, [address] [facility] [address] [place] [address] Referral ID Status Reason Start Date Expiration Date Visits Requested Visits Authorized [id number] Authorized PCP Requested Referral 09/01/2021 09/01/2022 1 1 Specialty Diagnoses / Procedures Referred By Contac t Referred To Contact Diagnoses Attention deficit disorder, unspecified hyperactivity presence Gray García, DO [address] [address] [place] [address] Referral ID Status Reason Start Date Expiration Date V isits Requested Visits Authorized [id number] Pending Review 1 1 Referral ID Status Reason Start Date Expiration Date Visits Re quested Visits Authorized [id number] Closed 1 1 Specialty Diagnoses / Procedures Referred By Contac t Referred To Contact Gray García, DO [address] [place] [address] Referral ID Status Reason Start Date Expiration Date Visits Re quested Visits Authorized [id number] Closed 1 1 Specialty Diagnoses / Procedures Referred By Contac t Referred To Contact [facility] Diagnoses Mixed stress and urge urinary incontinence OAB (overactive bladder) Procedures CONSULT TO PHYSICAL THERAPY PHYSICAL THERAPY EVALUATION HIGH COMPLEX 45 MINS Collette Raza, SED [employer] REGENERATOR [address] [place] [address] [facility] [place] [address] [place] [id number] Referral ID Status Reason Start Date Expiration Date Visits Requested Visits Authorized [id number] Pending Review Auto-Generat ed Referral 09/05/2021 09/05/2022 1 1 Specialty Diagnoses / Procedures Referred By Contac t Referred To Contact Diagnoses Attention deficit disorder, unspecified hyperactivity presence Chaya Dillon MD [address] [place] [address] Referral ID Status Reason Start Date Expiration Date Visits Re quested Visits Authorized [id number] Closed 1 1 Specialty Diagnoses / Procedures Referred By Contac t Referred To Contact [facility] Diagnoses Patellofemoral disorder of right knee Procedures CONSULT TO PHYSICAL THERAPY PHYSICAL THERAPY EVALUATION HIGH COMPLEX 45 MINS Gray García, DO [address] [address] [place] [address] [facility] [place] [address] [place] [address] Referral ID Status Reason Start Date Expiration Date V isits Requested Visits Authorized [id number] Authorized 03/04/2022 03/21/2022 1 1 Specialty Diagnoses / Procedures Referred By Contac t Referred To Contact [facility] Diagnoses Patellofemoral disorder of right knee Procedures PT REHAB FOLLOW UP ORDER THERAPEUTIC EXERCISES RE, EA 15 MIN. Seb Herrera, PT [facility] [place] [address] [place] [address] Referral ID Status Reason Start Date Expiration Date Visits Requested Visits Authorized [id number] Pending Review PCP Requested Referral Auto-Generate d Referral 2 06/04/2022 1 1 Specialty Diagnoses / Procedures Referred By Contac t Referred To Contact Diagnoses Class 3 severe obesity due to excess calories without serious comorbidity with body mass index (BMI) of 40.0 to 44.9 in adult (HCC) Procedures CONSULT [facility] OFFICE/OUTPATIENT [facility] 60-74 MINUTES Gray García, [address] [address] [place] [address] Referral ID Status Reason Start Date Expiration Date Visits Requested Visits Authorized [id number] Authorized PCP Requested Referral 09/21/2022 09/21/2023 1 1 Referral ID Status Reason Start Date Expiration Date Visits Re quested Visits Authorized [id number] Closed 1 1 Referral ID Status Reason Start Date Expiration Date Visits Re quested Visits Authorized [id number] Closed 1 1 Specialty Diagnoses / Procedures Referred By Contac t Referred To Contact Diagnoses Obesity, Class III, BMI 40-49.9 (morbid obesity) (HCC) PCOS (polycystic ovarian syndrome) Procedures CONSULT TO [facility] PROGRAM OFFICE/OUTPATIENT NEW [facility] MDM 60 MINUTES Braden Barboza APRN.[facility] [address] [place] [address] Referral ID Status Reason Start Date Expiration Date Visits Requested Visits Authorized [id number] Authorized PCP Requested Referral Auto-Generate d Referral 09/06/2023 09/05/2024 1 1 Specialty Diagnoses / Procedures Referred By Contotilio t Referred To Contact Urology Diagnoses Urinary incontinence, unspecified type Procedures CONSULT TO UROLOGY Braden Barboza APRN.[facility] [address] [place] [address] Felicia Steinberg MD [address] [place] [address] Referral ID Status Reason Start Date Expiration Date Visits Requested Visits Authorized [id number] Authorized PCP Requested Referral 03/07/2025 1 1 Summary Purpose Family History No Family History Records FoundNo Family History Records Found Advance Directives No Advanced Directives Records FoundNo Advanced Directives Records Found Additional Source Comments Source Comments (unrecognize d section and content) In the event this informatio n is protected by the Federal Confidentiality of Alcohol and Drug Abuse Patient Records regulations: The Federal rules restrict any use of the information to criminally investigate or prosecute any alcohol or drug abuse patient.[facility]In the event this information is protected by the Federal Confidentiality of Alcohol and Drug Abuse Patient Records regulations: The Federal rules restrict any use of the information to criminally investigate or prosecute any alcohol or drug abuse patient.[facility] HospitalIn the event this information is protected by the Federal Confidentiality of Alcohol and Drug Abuse Patient Records regulations: The Federal rules restrict any use of the information to criminally investigate or prosecute any alcohol or drug abuse patient.[facility] HospitalIn the event this information is protected by the Federal Confidentiality of Alcohol and Drug Abuse Patient Records regulations: The Federal rules restrict any use of the information to criminally investigate or prosecute any alcohol or drug abuse patient.[facility] HospitalIn the event this information is protected by the Federal Confidentiality of Alcohol and Drug Abuse Patient Records regulations: The Federal rules restrict any use of the information to criminally investigate or prosecute any alcohol or drug abuse patient.[facility] HospitalIn the event this information is protected by the Federal Confidentiality of Alcohol and Drug Abuse Patient Records regulations: The Federal rules restrict any use of the information to criminally investigate or prosecute any alcohol or drug abuse patient.[facility] HospitalIn the event this information is protected by the Federal Confidentiality of Alcohol and Drug Abuse Patient Records regulations: The Federal rules restrict any use of the information to criminally investigate or prosecute any alcohol or drug abuse patient.[facility] HospitalIn the event this information is protected by the Federal Confidentiality of Alcohol and Drug Abuse Patient Records regulations: The Federal rules restrict any use of the information to criminally investigate or prosecute any alcohol or drug abuse patient.[facility] HospitalIn the event this information is protected by the Federal Confidentiality of Alcohol and Drug Abuse Patient Records regulations: The Federal rules restrict any use of the information to criminally investigate or prosecute any alcohol or drug abuse patient.[facility] HospitalIn the event this information is protected by the Federal Confidentiality of Alcohol and Drug Abuse Patient Records regulations: The Federal rules restrict any use of the information to criminally investigate or prosecute any alcohol or drug abuse patient.[facility] HospitalIn the event this information is protected by the Federal Confidentiality of Alcohol and Drug Abuse Patient Records regulations: The Federal rules restrict any use of the information to criminally investigate or prosecute any alcohol or drug abuse patient.[facility] HospitalIn the event this information is protected by the Federal Confidentiality of Alcohol and Drug Abuse Patient Records regulations: The Federal rules restrict any use of the information to criminally investigate or prosecute any alcohol or drug abuse patient.[facility] HospitalIn the event this information is protected by the Federal Confidentiality of Alcohol and Drug Abuse Patient Records regulations: The Federal rules restrict any use of the information to criminally investigate or prosecute any alcohol or drug abuse patient.[facility] HospitalIn the event this information is protected by the Federal Confidentiality of Alcohol and Drug Abuse Patient Records regulations: The Federal rules restrict any use of the information to criminally investigate or prosecute any alcohol or drug abuse patient.[facility] HospitalIn the event this information is protected by the Federal Confidentiality of Alcohol and Drug Abuse Patient Records regulations: The Federal rules restrict any use of the information to criminally investigate or prosecute any alcohol or drug abuse patient.[facility] HospitalIn the event this information is protected by the Federal Confidentiality of Alcohol and Drug Abuse Patient Records regulations: The Federal rules restrict any use of the information to criminally investigate or prosecute any alcohol or drug abuse patient.[facility] HospitalIn the event this information is protected by the Federal Confidentiality of Alcohol and Drug Abuse Patient Records regulations: The Federal rules restrict any use of the information to criminally investigate or prosecute any alcohol or drug abuse patient.[facility] HospitalIn the event this information is protected by the Federal Confidentiality of Alcohol and Drug Abuse Patient Records regulations: The Federal rules restrict any use of the information to criminally investigate or prosecute any alcohol or drug abuse patient.[facility] HospitalIn the event this information is protected by the Federal Confidentiality of Alcohol and Drug Abuse Patient Records regulations: The Federal rules restrict any use of the information to criminally investigate or prosecute any alcohol or drug abuse patient.[facility] HospitalIn the event this information is protected by the Federal Confidentiality of Alcohol and Drug Abuse Patient Records regulations: The Federal rules restrict any use of the information to criminally investigate or prosecute any alcohol or drug abuse patient.[facility] HospitalIn the event this information is protected by the Federal Confidentiality of Alcohol and Drug Abuse Patient Records regulations: The Federal rules restrict any use of the information to criminally investigate or prosecute any alcohol or drug abuse patient.[facility] HospitalIn the event this information is protected by the Federal Confidentiality of Alcohol and Drug Abuse Patient Records regulations: The Federal rules restrict any use of the information to criminally investigate or prosecute any alcohol or drug abuse patient.[facility] HospitalIn the event this information is protected by the Federal Confidentiality of Alcohol and Drug Abuse Patient Records regulations: The Federal rules restrict any use of the information to criminally investigate or prosecute any alcohol or drug abuse patient.[facility] HospitalIn the event this information is protected by the Federal Confidentiality of Alcohol and Drug Abuse Patient Records regulations: The Federal rules restrict any use of the information to criminally investigate or prosecute any alcohol or drug abuse patient.[facility] HospitalIn the event this information is protected by the Federal Confidentiality of Alcohol and Drug Abuse Patient Records regulations: The Federal rules restrict any use of the information to criminally investigate or prosecute any alcohol or drug abuse patient.[facility] HospitalIn the event this information is protected by the Federal Confidentiality of Alcohol and Drug Abuse Patient Records regulations: The Federal rules restrict any use of the information to criminally investigate or prosecute any alcohol or drug abuse patient.[facility] HospitalIn the event this information is protected by the Federal Confidentiality of Alcohol and Drug Abuse Patient Records regulations: The Federal rules restrict any use of the information to criminally investigate or prosecute any alcohol or drug abuse patient.[facility] HospitalIn the event this information is protected by the Federal Confidentiality of Alcohol and Drug Abuse Patient Records regulations: The Federal rules restrict any use of the information to criminally investigate or prosecute any alcohol or drug abuse patient.[facility] HospitalIn the event this information is protected by the Federal Confidentiality of Alcohol and Drug Abuse Patient Records regulations: The Federal rules restrict any use of the information to criminally investigate or prosecute any alcohol or drug abuse patient.[facility] HospitalIn the event this information is protected by the Federal Confidentiality of Alcohol and Drug Abuse Patient Records regulations: The Federal rules restrict any use of the information to criminally investigate or prosecute any alcohol or drug abuse patient.[facility] HospitalIn the event this information is protected by the Federal Confidentiality of Alcohol and Drug Abuse Patient Records regulations: The Federal rules restrict any use of the information to criminally investigate or prosecute any alcohol or drug abuse patient.[facility] HospitalIn the event this information is protected by the Federal Confidentiality of Alcohol and Drug Abuse Patient Records regulations: The Federal rules restrict any use of the information to criminally investigate or prosecute any alcohol or drug abuse patient.[facility] HospitalIn the event this information is protected by the Federal Confidentiality of Alcohol and Drug Abuse Patient Records regulations: The Federal rules restrict any use of the information to criminally investigate or prosecute any alcohol or drug abuse patient.[facility]In the event this information is protected by the Federal Confidentiality of Alcohol and Drug Abuse Patient Records regulations: The Federal rules restrict any use of the information to criminally investigate or prosecute any alcohol or drug abuse patient.[facility] HospitalIn the event this information is protected by the Federal Confidentiality of Alcohol and Drug Abuse Patient Records regulations: The Federal rules restrict any use of the information to criminally investigate or prosecute any alcohol or drug abuse patient.[facility] HospitalIn the event this information is protected by the Federal Confidentiality of Alcohol and Drug Abuse Patient Records regulations: The Federal rules restrict any use of the information to criminally investigate or prosecute any alcohol or drug abuse patient.[facility] HospitalIn the event this information is protected by the Federal Confidentiality of Alcohol and Drug Abuse Patient Records regulations: The Federal rules restrict any use of the information to criminally investigate or prosecute any alcohol or drug abuse patient.[facility] HospitalIn the event this information is protected by the Federal Confidentiality of Alcohol and Drug Abuse Patient Records regulations: The Federal rules restrict any use of the information to criminally investigate or prosecute any alcohol or drug abuse patient.[facility] HospitalIn the event this information is protected by the Federal Confidentiality of Alcohol and Drug Abuse Patient Records regulations: The Federal rules restrict any use of the information to criminally investigate or prosecute any alcohol or drug abuse patient.[facility] HospitalIn the event this information is protected by the Federal Confidentiality of Alcohol and Drug Abuse Patient Records regulations: The Federal rules restrict any use of the information to criminally investigate or prosecute any alcohol or drug abuse patient.[facility] HospitalIn the event this information is protected by the Federal Confidentiality of Alcohol and Drug Abuse Patient Records regulations: The Federal rules restrict any use of the information to criminally investigate or prosecute any alcohol or drug abuse patient.[facility] HospitalIn the event this information is protected by the Federal Confidentiality of Alcohol and Drug Abuse Patient Records regulations: The Federal rules restrict any use of the information to criminally investigate or prosecute any alcohol or drug abuse patient.[facility] HospitalIn the event this information is protected by the Federal Confidentiality of Alcohol and Drug Abuse Patient Records regulations: The Federal rules restrict any use of the information to criminally investigate or prosecute any alcohol or drug abuse patient.[facility] HospitalIn the event this information is protected by the Federal Confidentiality of Alcohol and Drug Abuse Patient Records regulations: The Federal rules restrict any use of the information to criminally investigate or prosecute any alcohol or drug abuse patient.[facility] HospitalIn the event this information is protected by the Federal Confidentiality of Alcohol and Drug Abuse Patient Records regulations: The Federal rules restrict any use of the information to criminally investigate or prosecute any alcohol or drug abuse patient.[facility] HospitalIn the event this information is protected by the Federal Confidentiality of Alcohol and Drug Abuse Patient Records regulations: The Federal rules restrict any use of the information to criminally investigate or prosecute any alcohol or drug abuse patient.[facility] HospitalIn the event this information is protected by the Federal Confidentiality of Alcohol and Drug Abuse Patient Records regulations: The Federal rules restrict any use of the information to criminally investigate or prosecute any alcohol or drug abuse patient.[facility] HospitalIn the event this information is protected by the Federal Confidentiality of Alcohol and Drug Abuse Patient Records regulations: The Federal rules restrict any use of the information to criminally investigate or prosecute any alcohol or drug abuse patient.[facility] HospitalIn the event this information is protected by the Federal Confidentiality of Alcohol and Drug Abuse Patient Records regulations: The Federal rules restrict any use of the information to criminally investigate or prosecute any alcohol or drug abuse patient.[facility] HospitalIn the event this information is protected by the Federal Confidentiality of Alcohol and Drug Abuse Patient Records regulations: The Federal rules restrict any use of the information to criminally investigate or prosecute any alcohol or drug abuse patient.[facility] HospitalIn the event this information is protected by the Federal Confidentiality of Alcohol and Drug Abuse Patient Records regulations: The Federal rules restrict any use of the information to criminally investigate or prosecute any alcohol or drug abuse patient.[facility] HospitalIn the event this information is protected by the Federal Confidentiality of Alcohol and Drug Abuse Patient Records regulations: The Federal rules restrict any use of the information to criminally investigate or prosecute any alcohol or drug abuse patient.[facility] HospitalIn the event this information is protected by the Federal Confidentiality of Alcohol and Drug Abuse Patient Records regulations: The Federal rules restrict any use of the information to criminally investigate or prosecute any alcohol or drug abuse patient.[facility] HospitalIn the event this information is protected by the Federal Confidentiality of Alcohol and Drug Abuse Patient Records regulations: The Federal rules restrict any use of the information to criminally investigate or prosecute any alcohol or drug abuse patient.[facility] HospitalIn the event this information is protected by the Federal Confidentiality of Alcohol and Drug Abuse Patient Records regulations: The Federal rules restrict any use of the information to criminally investigate or prosecute any alcohol or drug abuse patient.[facility] HospitalIn the event this information is protected by the Federal Confidentiality of Alcohol and Drug Abuse Patient Records regulations: The Federal rules restrict any use of the information to criminally investigate or prosecute any alcohol or drug abuse patient.[facility] HospitalIn the event this information is protected by the Federal Confidentiality of Alcohol and Drug Abuse Patient Records regulations: The Federal rules restrict any use of the information to criminally investigate or prosecute any alcohol or drug abuse patient.[facility] HospitalIn the event this information is protected by the Federal Confidentiality of Alcohol and Drug Abuse Patient Records regulations: The Federal rules restrict any use of the information to criminally investigate or prosecute any alcohol or drug abuse patient.[facility] HospitalIn the event this information is protected by the Federal Confidentiality of Alcohol and Drug Abuse Patient Records regulations: The Federal rules restrict any use of the information to criminally investigate or prosecute any alcohol or drug abuse patient.[facility] HospitalIn the event this information is protected by the Federal Confidentiality of Alcohol and Drug Abuse Patient Records regulations: The Federal rules restrict any use of the information to criminally investigate or prosecute any alcohol or drug abuse patient.[facility] HospitalIn the event this information is protected by the Federal Confidentiality of Alcohol and Drug Abuse Patient Records regulations: The Federal rules restrict any use of the information to criminally investigate or prosecute any alcohol or drug abuse patient.[facility] HospitalIn the event this information is protected by the Federal Confidentiality of Alcohol and Drug Abuse Patient Records regulations: The Federal rules restrict any use of the information to criminally investigate or prosecute any alcohol or drug abuse patient.[facility] HospitalIn the event this information is protected by the Federal Confidentiality of Alcohol and Drug Abuse Patient Records regulations: The Federal rules restrict any use of the information to criminally investigate or prosecute any alcohol or drug abuse patient.[facility] HospitalIn the event this information is protected by the Federal Confidentiality of Alcohol and Drug Abuse Patient Records regulations: The Federal rules restrict any use of the information to criminally investigate or prosecute any alcohol or drug abuse patient.[facility] HospitalIn the event this information is protected by the Federal Confidentiality of Alcohol and Drug Abuse Patient Records regulations: The Federal rules restrict any use of the information to criminally investigate or prosecute any alcohol or drug abuse patient.[facility] HospitalIn the event this information is protected by the Federal Confidentiality of Alcohol and Drug Abuse Patient Records regulations: The Federal rules restrict any use of the information to criminally investigate or prosecute any alcohol or drug abuse patient.[facility] HospitalIn the event this information is protected by the Federal Confidentiality of Alcohol and Drug Abuse Patient Records regulations: The Federal rules restrict any use of the information to criminally investigate or prosecute any alcohol or drug abuse patient.[facility] HospitalIn the event this information is protected by the Federal Confidentiality of Alcohol and Drug Abuse Patient Records regulations: The Federal rules restrict any use of the information to criminally investigate or prosecute any alcohol or drug abuse patient.[facility] HospitalIn the event this information is protected by the Federal Confidentiality of Alcohol and Drug Abuse Patient Records regulations: The Federal rules restrict any use of the information to criminally investigate or prosecute any alcohol or drug abuse patient.[facility] HospitalIn the event this information is protected by the Federal Confidentiality of Alcohol and Drug Abuse Patient Records regulations: The Federal rules restrict any use of the information to criminally investigate or prosecute any alcohol or drug abuse patient.[facility] HospitalIn the event this information is protected by the Federal Confidentiality of Alcohol and Drug Abuse Patient Records regulations: The Federal rules restrict any use of the information to criminally investigate or prosecute any alcohol or drug abuse patient.[facility] HospitalIn the event this information is protected by the Federal Confidentiality of Alcohol and Drug Abuse Patient Records regulations: The Federal rules restrict any use of the information to criminally investigate or prosecute any alcohol or drug abuse patient.[facility] HospitalIn the event this information is protected by the Federal Confidentiality of Alcohol and Drug Abuse Patient Records regulations: The Federal rules restrict any use of the information to criminally investigate or prosecute any alcohol or drug abuse patient.[facility] HospitalIn the event this information is protected by the Federal Confidentiality of Alcohol and Drug Abuse Patient Records regulations: The Federal rules restrict any use of the information to criminally investigate or prosecute any alcohol or drug abuse patient.[facility] Reason for Visit (unrecogniz ed section and content) Reason Onset Date Comments Asthma 07/08/2021 Peds Breathe Wel l Not Eligible Reason Comments Letter Reason Onset Date Comments Refill Request 07/28/2021 Reason Onset Date Comments Refill Request 08/16/2021 Reason Onset Date Comments Refill Request 08/29/2021 Reason Comments Medication Follow-up Reason Comments New Patient Urinary incontinence Specialty Diagnoses / Procedures Referred By Hermelinda taylor Referred To Contact Urology Diagnoses Other urinary incontinence Procedures CONSULT TO UROLOGY OFFICE/OUTPATIENT NEW HIGH MDM 60-74 MINUTES Gray García, DO [address] [facility] [address] [place] [address] Referral ID Status Reason Start Date Expiration Date V isits Requested Visits Authorized [id number] Closed PCP Requested Referral 09/01/2021 09/01/2022 1 1 Reason Comments Forms Reason Comments Well Child 16 year Reason Onset Date Comments Refill Request 10/13/2021 Reason Onset Date Comments Refill Request 11/07/2021 Reason Onset Date Comments Refill Request 11/27/2021 Reason Comments Follow Up Reason Comments PT Eval Specialty Diagnoses / Procedures Referred By Contac t Referred To Contact [facility] Diagnoses Patellofemoral disorder of right knee Procedures CONSULT TO PHYSICAL THERAPY PHYSICAL THERAPY EVALUATION HIGH COMPLEX 45 MINS Gray García, DO [address] [address] [place] [address] [facility] [place] [address] [place] [address] Referral ID Status Reason Start Date Expiration Date Visits Re quested Visits Authorized [id number] Closed 03/04/2022 03/21/2022 1 1 Reason Comments Physical Therapy Specialty Diagnoses / Procedures Referred By Contac t Referred To Contact PHYSICAL THERAPY Diagnoses M22.2X1 (ICD-10-CM) - Patellofemoral disorder of right knee Procedures M22.2X1 (ICD-10-CM) - Patellofemoral disorder of right knee Gray García, DO [address] [facility] [address] [place] [address] Pt [facility] [address] [place] [address] Referral ID Status Reason Start Date Expiration Date V isits Requested Visits Authorized [id number] Authorized 03/06/2022 05/01/2022 16 16 Reason Onset Date Comments Refill Request 03/28/2022 Reason Comments medication refill Reason Onset Date Comments Refill Request 07/08/2022 Reason Onset Date Comments Refill Request 09/08/2022 Reason Comments Well Child 17 year Reason Comments Patient Question Reason Onset Date Comments Refill Request 11/20/2022 Reason Comments New Patient Obesity Specialty Diagnoses / Procedures Referred By Contac t Referred To Contact Diagnoses Class 3 severe obesity due to excess calories without serious comorbidity with body mass index (BMI) of 40.0 to 44.9 in adult (HCC) Procedures CONSULT [facility] OFFICE/OUTPATIENT NEW HIGH MDM 60-74 MINUTES Gray García, DO [address] [facility] [address] [place] [address] Referral ID Status Reason Start Date Expiration Date V isits Requested Visits Authorized [id number] Closed PCP Requested Referral 09/21/2022 09/21/2023 1 1 Reason Onset Date Comments Refill Request 02/15/2023 Reason Onset Date Comments Refill Request 06/04/2023 Reason Comments Establish Care Reason Comments Spirometry Specialty Diagnoses / Procedures Referred By Contac t Referred To Contact [facility] Diagnoses Asthma, mild intermittent, well-controlled Procedures SPIROMETRY - BASELINE AND POST DILATOR BRNCDILAT RSPSE SPMTRY PRE&POST-BRNCDILAT Braden Decker APRN.[facility] [address] [place] [address] Respiratory [place] [address] [place] [address] Referral ID Status Reason Start Date Expiration Date V isits Requested Visits Authorized [id number] Closed Auto-Generate d Referral 06/04/2023 07/03/2024 1 1 Reason Comments Results Reason Comments Cough Cough, congestion an d wheezing x 11 week Reason Comments Orders Reason Comments Ear Pain Left ear pain x 4 da ys Reason Onset Date Comments Refill Request 07/03/2023 Reason Comments Imm/Inj Reason Comments Follow Up Reason Onset Date Comments Refill Request 08/07/2023 Reason Comments Obesity Reason Onset Date Comments Refill Request 10/11/2023 Reason Onset Date Comments Refill Request 11/20/2023 Reason Onset Date Comments Refill Request 11/27/2023 Reason Onset Date Comments Refill Request 12/05/2023 Reason Onset Date Comments Refill Request 12/14/2023 Reason Onset Date Comments Refill Request 01/11/2024 Reason Onset Date Comments Refill Request 01/21/2024 Reason Onset Date Comments Refill Request 02/26/2024 Reason Comments 6 Month Exam Reason Comments 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 Reason Comments Patient Request Reason Comments Insurance Authorization Fish oil Reason Onset Date Comments Refill Request 04/26/2024 Reason Onset Date Comments Results 06/06/2024 Reason Onset Date Comments Refill Request 07/17/2024 Reason Onset Date Comments Refill Request 08/05/2024 Care Teams (unrecognized sec tion and content) Tablet Machine Operator Relationship Specialty Start Date End Date Gray García, DO [address] [place] [address] PCP - General Pediatrics 07/21/18 Tablet Machine Operator Relationship Specialty Start Date End Date Gray García, DO [address] [place] [address] PCP - General Pediatrics 07/21/18 Tablet Machine Operator Relationship Specialty Start Date End Date Gray García DO [address] [place] [address] PCP - General Pediatrics 07/21/18 Tablet Machine Operator Relationship Specialty Start Date End Date Gray García, DO [address] [place] [address] PCP - General Pediatrics 07/21/18 Tablet Machine Operator Relationship Specialty Start Date End Date Gray García, DO [address] [place] [address] PCP - General Pediatrics 07/21/18 Tablet Machine Operator Relationship Specialty Start Date End Date Gray García DO [address] [place] [address] PCP - General Pediatrics 07/21/18 Tablet Machine Operator Relationship Specialty Start Date End Date Gray García DO [address] [place] [address] PCP - General Pediatrics 07/21/18 Tablet Machine Operator Relationship Specialty Start Date End Date Gray García DO [address] [place] [address] PCP - General Pediatrics 07/21/18 Tablet Machine Operator Relationship Specialty Start Date End Date Gray García, DO [address] [facility] [place] [address] PCP - General Pediatrics 07/21/18 Tablet Machine Operator Relationship Specialty Start Date End Date Gray García, DO [address] [place] [address] PCP - General Pediatrics 07/21/18 Tablet Machine Operator Relationship Specialty Start Date End Date Gray García, DO [address] [place] [address] PCP - General Pediatrics 07/21/18 Tablet Machine Operator Relationship Specialty Start Date End Date Gray García, DO [address] [place] [address] PCP - General Pediatrics 07/21/18 Tablet Machine Operator Relationship Specialty Start Date End Date Gray García, DO [address] [place] [address] PCP - General Pediatrics 07/21/18 Tablet Machine Operator Relationship Specialty Start Date End Date Gray García, DO [address] [place] [address] PCP - General Pediatrics 07/21/18 Tablet Machine Operator Relationship Specialty Start Date End Date Gray García DO [address] [facility] [place] [address] PCP - General Pediatrics 07/21/18 Tablet Machine Operator Relationship Specialty Start Date End Date Gray García, DO [address] [place] [address] PCP - General Pediatrics 07/21/18 Tablet Machine Operator Relationship Specialty Start Date End Date Gray García DO [address] [facility] [place] [address] PCP - General Pediatrics 07/21/18 Tablet Machine Operator Relationship Specialty Start Date End Date Gray García DO [address] [place] [address] PCP - General Pediatrics 07/21/18 Tablet Machine Operator Relationship Specialty Start Date End Date Gray García DO [address] [place] [address] PCP - General Pediatrics 07/21/18 Tablet Machine Operator Relationship Specialty Start Date End Date Gray García DO [address] [address] PCP - General Pediatrics 07/21/18 Tablet Machine Operator Relationship Specialty Start Date End Date Gray García DO [address] [place] [address] PCP - General Pediatrics 07/21/18 Tablet Machine Operator Relationship Specialty Start Date End Date Braden Barboza APRN.[employer] [address] [place] [id number] PCP - General Family Medicine 06/04/23 Tablet Machine Operator Relationship Specialty Start Date End Date Braden Barboza APRN.[employer] [address] [place] [address] PCP - General Family Medicine 06/04/23 Tablet Machine Operator Relationship Specialty Start Date End Date Braden Barboza APRN.[employer] [address] [place] [id number] PCP - General Family Medicine 06/04/23 Tablet Machine Operator Relationship Specialty Start Date End Date Braden Barboza APRN.[employer] [address] [place] [address] PCP - General Family Medicine 06/04/23 Tablet Machine Operator Relationship Specialty Start Date End Date Braden Barboza [employer]ER.[employer] [address] [place] [phone] PCP - General Family Medicine 06/04/23 Tablet Machine Operator Relationship Specialty Start Date End Date Braden Barboza APRN.[employer] [address] [place] [phone] PCP - General Family Medicine 06/04/23 Tablet Machine Operator Relationship Specialty Start Date End Date Braden Barboza [employer] [address] [place] [address] PCP - General Family Medicine 06/04/23 Tablet Machine Operator Relationship Specialty Start Date End Date Braden Barboza [employer] TE[employer]ER.[employer] [address] [place] [phone] PCP - General Family Medicine 06/04/23 Tablet Machine Operator Relationship Specialty Start Date End Date Braden Barboza [employer] TE[employer]ER.[employer] [address] [place] [phone] PCP - General Family Medicine 06/04/23 Tablet Machine Operator Relationship Specialty Start Date End Date Braden Barboza [employer] TE[employer]ER.[employer] [address] [place] [phone] PCP - General Family Medicine 06/04/23 Tablet Machine Operator Relationship Specialty Start Date End Date Braden Barboza APRN.[employer] REGENERATOR [facility] [place] [address] PCP - General Family Medicine 06/04/23 Tablet Machine Operator Relationship Specialty Start Date End Date Braden Barboza APRN.[employer] [address] [place] [address], [place] [address] PCP - General Family Medicine 06/04/23 Tablet Machine Operator Relationship Specialty Start Date End Date Braden Barboza APRN.[employer] [address] [place] [address] PCP - General Family Medicine 06/04/23 Tablet Machine Operator Relationship Specialty Start Date End Date Braden Barboza APRN.[employer] [address] [place] [phone] PCP - General Family Medicine 06/04/23 Tablet Machine Operator Relationship Specialty Start Date End Date Braden Barboza APRN.[employer] [address] [place] [address], [place] [address] PCP - General Family Medicine 06/04/23 Tablet Machine Operator Relationship Specialty Start Date End Date Braden Barboza APRN.[employer] [address] [place] [address], [place] [address] PCP - General Family Medicine 06/04/23 Tablet Machine Operator Relationship Specialty Start Date End Date Braden Barboza APRN.[employer] [address] [place] [address], [place] [address] PCP - General Family Medicine 06/04/23 Tablet Machine Operator Relationship Specialty Start Date End Date Braden Barboza [employer] TE[employer]ER.[employer] [address] [place] [phone] PCP - General Family Medicine 06/04/23 Tablet Machine Operator Relationship Specialty Start Date End Date Braden Barboza SED [employer] TE[employer]ER.[employer] [address] [place] [phone] PCP - General Family Medicine 06/04/23 Tablet Machine Operator Relationship Specialty Start Date End Date Braden Barboza SED [employer] TE[employer]ER.[employer] [address] [place] [phone] PCP - General Family Medicine 06/04/23 Tablet Machine Operator Relationship Specialty Start Date End Date Braden Barboza, SED [employer] TE[employer]ER.[employer] [address] [place] [phone] PCP - General Family Medicine 06/04/23 Tablet Machine Operator Relationship Specialty Start Date End Date Braden Barboza [employer] TE[employer]ER.[employer] [address] [place] [address] PCP - General Family Medicine 06/04/23 Tablet Machine Operator Relationship Specialty Start Date End Date Braden Barboza, SED [employer] TE[employer]ER.[employer] [address] [place] [phone] PCP - General Family Medicine 06/04/23 Tablet Machine Operator Relationship Specialty Start Date End Date Braden Babroza SED [employer] TE[employer]ER.[employer] [address] [place] [phone] PCP - General Family Medicine 06/04/23 Tablet Machine Operator Relationship Specialty Start Date End Date Braden Barboza, SED [employer] TE[employer]ER.[employer] [address] [place] [address] [phone] PCP - General Family Medicine 06/04/23 Tablet Machine Operator Relationship Specialty Start Date End Date Braden Barboza APRN.[place] [address] [place] [address] PCP - General Family Medicine 06/04/23 INFORMATION SOURCE (unrecogn ized section and content) DATE CREATED AUTHOR 05/20/[address] [facility] DATE CREATED AUTHOR AUTHOR'S ORGANIZ ATION 06/10/2024 [facility] FOR RECORDS PERTAINING TO PATIENTS WHO ARE OR HAVE BEEN ENROLLED IN A CHEMICAL DEPENDENCY/SUBSTANCEABUSE PROGRAM, SOME INFORMATION MAY BE OMITTED. This clinical summary was aggregated from multiple sources. Caution should be exercised in using it in the provision of clinical care. This summary normalizes information from multiple sources, and as a consequence, information in this document may materially change the coding, format and clinical context of patient data. In addition, data may be omitted in some cases. CLINICAL DECISIONS SHOULD BE BASED ON THE PRIMARY CLINICAL RECORDS. [employer] [facility]. provides no warranty or guarantee of the accuracy or completeness of information in this document.
[2024-08-25 19:29] LABS: Internal QC Validated? YES +Cl - CLEAR BKGD
[2024-08-25 19:30] LABS: Pregnancy, Urine Negative Negative; Record Kit Lot#,Urine Preg 947241
[2024-08-25 19:37] LABS: White Blood Cells >100 SEEN /hpf (0-5)
[2024-08-25 19:39] LABS: Bacteria 2+ /hpf (None Seen); Red Blood Cells-Urine 10-25 SEEN /hpf (0-5); Squamous Epithelial Cells - UA 10-25 SEEN /hpf (5-10)
[2024-08-25] MEDS: Cephalexin 250 MG Capsule 500 MG PO (19:53)
[2024-08-25] MEDS: Phenazopyridine 95 MG Tablet 190 MG PO (19:54)
[2024-08-25 20:00] VITALS: PULSE 99; RESP 16
[2024-08-25 20:09] VITALS: BP 132/84; PULSE 99; RESP 16; TEMP 36.1; O2SAT 99
== END 2024-08-25 20:10 | disposition home or self-care (01) ==
PROVIDERS: Emergency Provider Emergency Medicine; PCP Nurse Practitioner Family; Visit Provider Emergency Medicine
DX: N39.0 Urinary tract infection, site not specified (principal); Z87.440 Personal history of urinary (tract) infections
CPT/HCPCS: 81001; 81025; 87086; 87088; 87186; 99282